=== PATIENT | male | born 1965 | race African-American/Black ===

== ENCOUNTER 2017-02-28 15:29 | Emergency (ER) | payer SELFPAY ==
[~2017-02-28] VITALS: Ht 180.3 cm; Wt 88.0 kg
[~2017-02-28 15:29] MED LIST: ASPI-110 PO; CARV3.125 PO; CLOP75 PO; FURO20 PO; FURO20TA PO; LIPI40TA PO; LISI-519 PO; LISI5 PO; PLAV75TA29 PO
[2017-02-28 15:33] VITALS: BP 111/77; PULSE 103; RESP 13; TEMP 98.7; O2SAT 100
[2017-02-28] MEDS ORDERED: FUROSEMIDE 40 MG/4 ML VIAL IVP ONE (16:30)
[2017-02-28] MEDS ORDERED: SODIUM CHLORIDE 0.9% FLUSH 10 ML FLUSH IVF PRN (16:30)
--- NOTE | 2017-02-28 16:54 | RADRPT ---
EXAM DATE/TIME: 02/28/2017 16:36 [facility] COMPARISON: CHEST SINGLE AP, March 20, 2016, 16:08. INDICATIONS : Shortness of breath. MEDICAL HISTORY : None. SURGICAL HISTORY : None. ENCOUNTER: Initial ACUITY: 1 day PAIN SCORE: 0/10 LOCATION: Bilateral chest FINDINGS: Portable AP view of the chest demonstrates mild enlargement of the cardiac silhouette. Subtle perihil ar and lower lung zone interstitial opacity is present. No airspace consolidation, effusion, or pneum othorax is visualized. The bones and soft tissues demonstrate no acute finding. CONCLUSION: 1. Subtle perihilar and lower lung zone interstitial opacity could represent mild interstitial edema in the appropriate clinical setting. 2. Mildly enlarged cardiac silhouette. Wing Aguilar MD on February 28, 2017 at 16:51 Board Certified Radiologist. This report was verified electronically.
[2017-02-28 17:01] LABS: BASOPHIL # 0.1 TH/MM3 (0-0.2); BASOPHIL % 1.3 % (0.0-2.0); EOSINOPHIL # 0.2 TH/MM3 (0-0.4); EOSINOPHIL % 5.5 % (0.0-4.0); HEMATOCRIT 34.9 % (39.0-51.0); HEMO FLAGS DIFF FINAL; LYMPH % 28.9 % (9.0-44.0); LYMPHOCYTE # 1.2 TH/MM3 (1.0-4.8); MEAN CELL VOLUME 73.5 FL (80.0-100.0); MEAN CORPUSCULAR HEMOGLOBIN 23.4 PG (27.0-34.0); MEAN CORPUSCULAR HGB CONC 31.8 % (32.0-36.0); MONO % 14.3 % (0.0-8.0); PLATELET COUNT 198 TH/MM3 (150-450); RED BLOOD COUNT 4.75 MIL/MM3 (4.50-5.90); RED CELL DISTRIBUTION WIDTH 18.9 % (11.6-17.2); WHITE BLOOD COUNT 4.1 TH/MM3 (4.0-11.0)
[2017-02-28 17:16] LABS: ALT (GPT) 53 U/L (12-78); ANION GAP 7 MEQ/L (5-15); AST (GOT) 30 U/L (15-37); BICARBONATE 24.8 MEQ/L (21.0-32.0); BLOOD UREA NITROGEN 16 MG/DL (7-18); CHLORIDE 109 MEQ/L (98-107); GLOMERULAR FILTRATION RATE 88 ML/MIN (>89); MAGNESIUM 1.9 MG/DL (1.5-2.5); POTASSIUM 4.2 MEQ/L (3.5-5.1); SODIUM (NA) 141 MEQ/L (136-145)
[2017-02-28 17:20] LABS: ALKALINE PHOSPHATASE 83 U/L (45-117); TOTAL BILIRUBIN ADULT 1.5 MG/DL (0.2-1.0)
[2017-02-28 17:30] VITALS: RESP 18
--- NOTE | 2017-02-28 17:53 | RADRPT ---
EXAM DATE/TIME: 02/28/2017 17:25 [facility] COMPARISON: No previous studies available for comparison. INDICATIONS : Bilateral leg edema. MEDICAL HISTORY : Myocardial infarction. Coronary artery disease. Hyperlipidemia. Chest pain. HTN. GERD. Anticoagulan t therapy, Plavix. SURGICAL HISTORY : Coronary artery stent. Cardiac stents x4. ENCOUNTER: Initial ACUITY: 1 week PAIN SCORE: 5/10 LOCATION: Bilateral leg. TECHNIQUE: Venous ultrasound of the left and right leg was performed from the inguinal ligament to the proximal calf. Real-time, color Doppler and spectral tracing, compression and augmentation techniques were us ed. FINDINGS: RIGHT LEG: There is normal compressibility of the deep venous system from the inguinal region to the proximal ca lf. No echogenic clot is seen in the lumen of the common femoral, femoral, popliteal, and posterior tibial veins. There is a normal response of the venous system to proximal and distal augmentation an d respiration. LEFT LEG: There is normal compressibility of the deep venous system from the inguinal region to the proximal ca lf. No echogenic clot is seen in the lumen of the common femoral, femoral, popliteal, and posterior tibial veins. There is a normal response of the venous system to proximal and distal augmentation an d respiration. CONCLUSION: No DVT is identified within either lower extremity. Wing Aguilar MD on February 28, 2017 at 17:51 Board Certified Radiologist. This report was verified electronically.
[2017-02-28] MEDS ORDERED: FURO1TAB62 PO (18:11)
[2017-02-28] MEDS ORDERED: POTA-163 PO (18:11)
--- NOTE | 2017-02-28 18:12 | PD ---
HPI Chief Complaint: Edema Time Seen by Provider: 16:04 Travel History International Travel<30 days: No Contact w/Intl Traveler<30days: No Traveled to known affect area: No History of Present Illness HPI Is a 51-year-old man who presents to the emergency department complaining of increased bilateral lower extremity edema, orthopnea, shortness of breath, dyspnea on exertion, its been ongoing for the past month or so. He had some occasional chest tightness and pain in the left arm. He does have a history of CAD. He has a history of CHF and is on Lasix. He was seen by his primary physician and reportedly referred in to evaluate for blood clot given his lower extremity edema. He otherwise has been feeling well. History Past Medical History Narrative Medical CAD Tetanus Vaccination: Unknown Social History Alcohol Use: Yes (2 BEERS EVERY OTHER DAY) Tobacco Use: No Allergies-Medications (Allergen,Severity, Reaction): Coded Allergies: No Known Allergies (Unverified , 02/28/17) Reported Meds & Prescriptions Reported Meds & Active Scripts Active Lisinopril 5 Mg Tab 5 Mg PO DAILY Furosemide 20 Mg Tab 20 Mg PO DAILY Plavix (Clopidogrel Bisulfate) 75 Mg Tab 75 Mg PO DAILY Coreg (Carvedilol) 3.125 Mg Tab 6.25 Mg PO BID Lipitor (Atorvastatin Calcium) 40 Mg Tab 40 Mg PO HS Review of Systems Except as stated in HPI: all other systems reviewed are Neg Physical Exam Narrative GENERAL: Well-appearing 51-year-old man, no acute distress. SKIN: Focused skin assessment warm/dry. HEAD: Atraumatic. Normocephalic. EYES: Pupils equal and round. No scleral icterus. No injection or drainage. ENT: No nasal bleeding or discharge. Mucous membranes pink and moist. NECK: Trachea midline. No JVD. CARDIOVASCULAR: Regular rate and rhythm. No murmur appreciated. RESPIRATORY: No respiratory distress. Some Rales in the posterior lung woods. GASTROINTESTINAL: Abdomen soft, non-tender, nondistended. Hepatic and splenic margins not palpable. MUSCULOSKELETAL: No obvious deformities. Mild bilateral lower extremity edema. NEUROLOGICAL: Awake and alert. No obvious cranial nerve deficits. Motor grossly within normal limits. Normal speech. PSYCHIATRIC: Appropriate mood and affect; insight and judgment normal. Data Data Last Documented VS Vital Signs Date Time Temp Pulse Resp B/P Pulse Ox O2 Delivery O2 Flow Rate FiO2 02/28/17 17:30 99 02/28/17 17:30 18 02/28/17 16:16 Room Air 02/28/17 15:33 98.7 103 111/77 Orders Complete Blood Count With Diff (02/28/17 16:25) Comprehensive Metabolic Panel (02/28/17 16:25) B-Type Natriuretic Peptide (02/28/17 16:25) Magnesium (Mg) (02/28/17 16:25) Troponin I (02/28/17 16:25) Iv Access Insert/Monitor (02/28/17 16:25) Ecg Monitoring (02/28/17 16:25) Oximetry (02/28/17 16:25) Oxygen Administration (02/28/17 16:25) Chest, Single Ap (02/28/17 16:25) Sodium Chloride 0.9% Flush (Ns Flush) (02/28/17 16:30) Furosemide Inj (Lasix Inj) (02/28/17 16:30) Us Leg Venous Doppler Bilat (02/28/17 ) Labs Laboratory Tests Test 02/28/17 16:40 White Blood Count 4.1 TH/MM3 Red Blood Count 4.75 MIL/MM3 Hemoglobin 11.1 GM/DL Hematocrit 34.9 % Mean Corpuscular Volume 73.5 FL Mean Corpuscular Hemoglobin 23.4 PG Mean Corpuscular Hemoglobin 31.8 % Concent Red Cell Distribution Width 18.9 % Platelet Count 198 TH/MM3 Mean Platelet Volume 9.5 FL Neutrophils (%) (Auto) 50.0 % Lymphocytes (%) (Auto) 28.9 % Monocytes (%) (Auto) 14.3 % Eosinophils (%) (Auto) 5.5 % Basophils (%) (Auto) 1.3 % Neutrophils # (Auto) 2.0 TH/MM3 Lymphocytes # (Auto) 1.2 TH/MM3 Monocytes # (Auto) 0.6 TH/MM3 Eosinophils # (Auto) 0.2 TH/MM3 Basophils # (Auto) 0.1 TH/MM3 CBC Comment DIFF FINAL Differential Comment Sodium Level 141 MEQ/L Potassium Level 4.2 MEQ/L Chloride Level 109 MEQ/L Carbon Dioxide Level 24.8 MEQ/L Anion Gap 7 MEQ/L Blood Urea Nitrogen 16 MG/DL Creatinine 1.08 MG/DL Estimat Glomerular Filtration 88 ML/MIN Rate Random Glucose 108 MG/DL Calcium Level 8.4 MG/DL Magnesium Level 1.9 MG/DL Total Bilirubin 1.5 MG/DL Aspartate Amino Transf 30 U/L (AST/SGOT) Alanine Aminotransferase 53 U/L (ALT/SGPT) Alkaline Phosphatase 83 U/L Troponin I LESS THAN 0.02 NG/ML B-Type Natriuretic Peptide 801 PG/ML Total Protein 6.7 GM/DL Albumin 3.0 GM/DL MDM Medical Decision Making Medical Screen Exam Complete: Yes Emergency Medical Condition: Yes Interpretation(s) My review of EKG: Normal sinus rhythm at a rate of 97, leftward axis, small inferior Q waves, normal intervals, lateral T wave inversions, no definite evidence of acute ischemia. LABS: CBC is remarkable for mild anemia. CMP is unremarkable. Troponins undetectable. BNP 801 Bilateral lower extremity ultrasound negative Chest x-ray: Subtle perihilar lower zone interstitial opacity could represent mild interstitial edema. Differential Diagnosis CHF exacerbation, PE, ACS, DVT, other Narrative Course Medical decision-making this a 51-year-old male with a history of CAD, Lasix, presents with evidence of worsening volume overload. Some lower extremity edema, orthopnea, dyspnea on exertion. He looks overall well. Likely is worsening volume overload. This is been on warfarin for a month. She needs stronger diuretic. Responded well to Lasix here. He was offered admission for observation versus outpatient increasing of his diuretic. He is comfortable with outpatient treatment. I think this is reasonable and safe, and therefore preferred. We'll increase his Lasix to twice a day. We'll also add potassium. Him follow up with his primary doctor in the next one to 2 days. Diagnosis Primary Impression: CHF (congestive heart failure) Additional Instructions: Follow-up with your primary doctor in the next one to 2 days. Increase Lasix to 20 mg twice daily. Take the first dose in the morning, the second 6 hours later. Take potassium as prescribed. Return to the emergency department for any worsening chest pain, any trouble breathing, or any other new or worsening symptoms. Wait yourself daily and maintain a log. Med/Other Pt SpecificInfo: Prescription(s) given Scripts Potassium Chloride ER 20 Meq Tab20 Meq PO DAILY #7 TAB Ref 0 Prov:Nestor Menchaca MD 02/28/17 Furosemide (Lasix)20 Mg Tab20 Mg PO BID 7 Days Ref 0 Prov:Nestor Menchaca MD 02/28/17 Disposition: 01 DISCHARGE HOME Condition: Stable Nestor Menchaca MD February 28, 2017 18:12
[2017-02-28 18:16] VITALS: BP 115/71; PULSE 90; RESP 18; O2SAT 99
--- NOTE | 2017-02-28 19:48 | EKG ---
Date Performed: 02/28/2017 Time Performed: 15:57:08 PTAGE: 51 years EKG: Sinus rhythm POSSIBLE LEFT ATRIAL ENLARGEMENT LOW QRS VOLTAGE IN EXTREMITY LEADS INFERIOR MYOCARDIAL INFARCTION A BNORMAL ECG Compared to the PREVIOUS TRACING inferior Q waves now present DOCTOR: Ambika Mayorga Interpretating Date/Time 02/28/2017 19:46:52
[2017-03-09] MEDS ORDERED: FURO20TA PO (11:28)
[2017-03-09] MEDS ORDERED: POTA-163 PO (11:28)
== END 2017-02-28 18:24 | disposition home or self-care (01) ==
LOC: NEPE 15:29
DX: Z79.02 Long term (current) use of antithrombotics/antiplatelets (principal)
CPT/HCPCS: 71010; 80053; 83735; 83880; 84484; 85025; 93005; 93970; 96374; 99285; J1940

== ENCOUNTER 2017-03-13 09:19 | Observation (INO) | payer SELFPAY ==
[~2017-03-13] VITALS: Ht 180.3 cm; Wt 87.0 kg
[~2017-03-13 09:19] MED LIST changes: -CLOP75 PO; -FURO20 PO; -LISI5 PO; +POTA-163 PO
[2017-03-13 09:20] VITALS: BP 113/89; PULSE 95; RESP 16; TEMP 97.8; O2SAT 100
[2017-03-13] MEDS ORDERED: SODIUM CHLORIDE 0.9% FLUSH 10 ML FLUSH IVF PRN (10:30)
[2017-03-13] MEDS ORDERED: FUROSEMIDE 40 MG/4 ML VIAL IV PUSH ONE (10:30)
[2017-03-13 10:43] VITALS: BP_SYST 11; BP_SYST 134; BP_DIAS 78; BP_DIAS 80; PULSE 85; RESP 18; O2SAT 96
[2017-03-13 10:57] LABS: AUTOMATED NEUTROPHIL # 2.5 TH/MM3 (1.8-7.7); BASOPHIL # 0.1 TH/MM3 (0-0.2); BASOPHIL % 1.8 % (0.0-2.0); EOSINOPHIL # 0.2 TH/MM3 (0-0.4); EOSINOPHIL % 3.1 % (0.0-4.0); HEMATOCRIT 36.7 % (39.0-51.0); HEMO FLAGS DIFF FINAL; LYMPHOCYTE # 1.6 TH/MM3 (1.0-4.8); MEAN CELL VOLUME 73.6 FL (80.0-100.0); MEAN CORPUSCULAR HEMOGLOBIN 23.2 PG (27.0-34.0); MEAN CORPUSCULAR HGB CONC 31.5 % (32.0-36.0); MONO % 12.3 % (0.0-8.0); NEUT % 50.8 % (16.0-70.0); PLATELET COUNT 218 TH/MM3 (150-450); RED BLOOD COUNT 4.99 MIL/MM3 (4.50-5.90); RED CELL DISTRIBUTION WIDTH 19.4 % (11.6-17.2); WHITE BLOOD COUNT 4.9 TH/MM3 (4.0-11.0)
--- NOTE | 2017-03-13 10:57 | PD ---
HPI Chief Complaint: Edema Time Seen by Provider: 10:19 Travel History International Travel<30 days: No Contact w/Intl Traveler<30days: No Traveled to known affect area: No History of Present Illness HPI 51-year-old male came to the emergency room with history of progressively worsening shortness of breath. His is here with him as well. As per them this has been going on for past 6 weeks. Patient was seen for the exact same thing 2 weeks ago in this emergency room. At that time he had ultrasound of his lower extremities done for swelling to rule out DVT which was negative. Patient says the shortness of breath intermittently worsens.It is worse on exertion but at rest intermittently gets worse as well. He feels more comfortable sitting up than laying back. No history of fever or chills. He is coughing up bloody sputum. says that he was started on Lasix but now that' s not working either. Patient takes 20 mg once a day. He does have history of coronary artery disease and had stents put in twice. Patient is complaining of abdominal pain and points to his umbilical area. He has been nauseous. Denies any chest pain. Patient was tachypneic and tachycardic in ER. PFSH Past Medical History Narrative Medical List of his past medical, surgical, social and family history reviewed from the nursing note. Hx Anticoagulant Therapy: Yes (PLAVIX) Anxiety: No Cancer: No Cardiovascular Problems: Yes High Cholesterol: No Chest Pain: Yes Coronary Artery Disease: Yes Diabetes: No Diminished Hearing: No Endocrine: No Gastrointestinal Disorders: Yes GERD: Yes Genitourinary: No Hypertension: Yes Implanted Vascular Access Dvce: No Musculoskeletal: No Neurologic: No Psychiatric: No Reproductive: No Respiratory: No Myocardial Infarction: Yes (4 STENTS PLACED IN 2007 and 2015) Influenza Vaccination: No Past Surgical History Other Surgery: Yes (stents x2 2006) Social History Alcohol Use: No Tobacco Use: No Substance Use: Yes (THC daily) Allergies-Medications (Allergen,Severity, Reaction): Coded Allergies: No Known Allergies (Unverified , 02/28/17) Comments No known drug allergies. Reported Meds & Prescriptions Reported Meds & Active Scripts Active Narrative Medication List of his home medications reviewed from the nursing note. Review of Systems Except as stated in HPI: all other systems reviewed are Neg Physical Exam Narrative GENERAL: Awake, alert, moderate distress SKIN: Focused skin assessment warm/dry. HEAD: Atraumatic. Normocephalic. EYES: Pupils equal and round. No scleral icterus. No injection or drainage. ENT: No nasal bleeding or discharge. Mucous membranes pink and moist. NECK: Trachea midline. No JVD. CARDIOVASCULAR: Regular rate and rhythm. No murmur appreciated. RESPIRATORY: No accessory muscle use. Bilateral fine crackles up to mid chest GASTROINTESTINAL: Abdomen soft, non-tender, nondistended. Hepatic and splenic margins not palpable. MUSCULOSKELETAL: No obvious deformities. No clubbing. No cyanosis. 1+ bilateral pedal edema. NEUROLOGICAL: Awake and alert. No obvious cranial nerve deficits. Motor grossly within normal limits. Normal speech. PSYCHIATRIC: Appropriate mood and affect; insight and judgment normal. Data Data Last Documented VS Vital Signs Date Time Temp Pulse Resp B/P Pulse Ox O2 Delivery O2 Flow Rate FiO2 03/13/17 11:55 94 18 105/67 97 Room Air 03/13/17 09:20 97.8 Orders Electrocardiogram (03/13/17 10:28) Basic Metabolic Panel (Bmp) (03/13/17 10:28) B-Type Natriuretic Peptide (03/13/17 10:28) Ckmb (Isoenzyme) Profile (03/13/17 10:28) Complete Blood Count With Diff (03/13/17 10:28) D-Dimer (03/13/17 10:28) Magnesium (Mg) (03/13/17 10:28) Prothrombin Time / Inr (Pt) (03/13/17 10:28) Troponin I (03/13/17 10:28) Lipase (03/13/17 10:28) Chest, Single Ap (03/13/17 10:28) Ecg Monitoring (03/13/17 10:28) Bilateral Bp Monitoring (03/13/17 10:28) Iv Access Insert/Monitor (03/13/17 10:28) Oximetry (03/13/17 10:28) Oxygen Administration (03/13/17 10:28) Sodium Chloride 0.9% Flush (Ns Flush) (03/13/17 10:30) Furosemide Inj (Lasix Inj) (03/13/17 10:30) Ct Pulmonary Angiogram (03/13/17 ) CKMB (03/13/17 10:40) CKMB% (03/13/17 10:40) Iohexol 350 Inj (Omnipaque 350 Inj) (03/13/17 12:29) Admit Order (Ed Use Only) (03/13/17 15:08) Place In Observation (03/13/17 ) Vital Signs (Adult) Q4H (03/13/17 15:07) Activity Oob With Assistance (03/13/17 15:07) Environmental Resource Specialist / Telemetry .CONTINUOUS (03/13/17 15:07) Diet Heart Healthy (03/13/17 Dinner) Sodium Chloride 0.9% Flush (Ns Flush) (03/13/17 15:15) Sodium Chloride 0.9% Flush (Ns Flush) (03/13/17 21:00) Ondansetron Inj (Zofran Inj) (03/13/17 15:15) Comprehensive Metabolic Panel (03/14/17 06:00) Complete Blood Count With Diff (03/14/17 06:00) Enoxaparin Inj (Lovenox Inj) (03/13/17 16:00) Naloxone Inj (Narcan Inj) (03/13/17 15:15) Docusate Sodium-Senna (Porsche-Colace) (03/13/17 21:00) Magnesium Hydroxide Liq (Milk Of Magnesi (03/13/17 15:15) Sennosides (Senokot) (03/13/17 15:15) Bisacodyl Supp (Dulcolax Supp) (03/13/17 15:15) Lactulose Liq (Lactulose Liq) (03/13/17 15:15) Labs Laboratory Tests Test 03/13/17 10:40 White Blood Count 4.9 TH/MM3 Red Blood Count 4.99 MIL/MM3 Hemoglobin 11.6 GM/DL Hematocrit 36.7 % Mean Corpuscular Volume 73.6 FL Mean Corpuscular Hemoglobin 23.2 PG Mean Corpuscular Hemoglobin 31.5 % Concent Red Cell Distribution Width 19.4 % Platelet Count 218 TH/MM3 Mean Platelet Volume 9.4 FL Neutrophils (%) (Auto) 50.8 % Lymphocytes (%) (Auto) 32.0 % Monocytes (%) (Auto) 12.3 % Eosinophils (%) (Auto) 3.1 % Basophils (%) (Auto) 1.8 % Neutrophils # (Auto) 2.5 TH/MM3 Lymphocytes # (Auto) 1.6 TH/MM3 Monocytes # (Auto) 0.6 TH/MM3 Eosinophils # (Auto) 0.2 TH/MM3 Basophils # (Auto) 0.1 TH/MM3 CBC Comment DIFF FINAL Differential Comment Prothrombin Time 14.7 SEC Prothromb Time International 1.3 RATIO Ratio D-Dimer Quantitative (PE/DVT) 1.88 MG/L FEU Sodium Level 137 MEQ/L Potassium Level 4.4 MEQ/L Chloride Level 106 MEQ/L Carbon Dioxide Level 24.4 MEQ/L Anion Gap 7 MEQ/L Blood Urea Nitrogen 22 MG/DL Creatinine 0.95 MG/DL Estimat Glomerular Filtration 102 ML/MIN Rate Random Glucose 106 MG/DL Calcium Level 8.8 MG/DL Magnesium Level 1.9 MG/DL Total Creatine Kinase 145 U/L Creatine Kinase MB 2.8 NG/ML Troponin I 0.03 NG/ML B-Type Natriuretic Peptide 900 PG/ML Lipase 112 U/L [facility] Medical Decision Making Medical Screen Exam Complete: Yes Emergency Medical Condition: Yes Medical Record Reviewed: Yes Interpretation(s) Twelve-lead EKG was reviewed by me. Normal sinus rhythm, normal axis, nonspecific ST-T wave changes. Heart rate of 89 bpm. Differential Diagnosis Congestive heart failure, PE, pneumonia, pleural effusion Narrative Course 10:56 AM awaiting for the blood test results to come back. Patient falls on the low risk by Well's criteria for PE and hence I have ordered a d-dimer. Awaiting for the test results. I've ordered 40 mg of IV Lasix for him. Patient might need to be admitted since he is failing outpatient treatment at this point. 11:28 AM d-dimer is elevated. I have ordered a CT pulmonary angiogram at this point. Awaiting for the BNP. Rest of the blood test results are within acceptable limit. 3:[address] scan does not show any PE. However to show pulmonary hypertension and perihepatic ascites fluid suggestive of right-sided heart failure. I admitted the patient to the hospitalist for congestive heart failure and outpatient treatment failure. Patient says upon reassessment he is feeling better and he has put out quite a bit of urine after the IV Lasix. Procedures EKG Prior to Arrival: No Diagnosis Primary Impression: CHF (congestive heart failure) Qualified Code: I50.9 - Congestive heart failure, unspecified congestive heart failure chronicity, unspecified congestive heart failure type Additional Impression: Failure of outpatient treatment Admitting Information Admitting Physician Requests: Observation Scripts Furosemide 40 Mg Tab40 Mg PO BID@ #60 TAB Prov:TalonMarisol Fulton PA-C 03/14/17 Potassium Chloride ER 20 Meq Tab20 Meq PO BID #60 TAB Ref 0 Prov:Marisol Hanley PA-C 03/14/[address] (Aspirin 81)81 Mg Tabdr81 Mg PO DAILY #30 TAB Ref 0 Prov:TalonMarisolleo Fulton PA-C 03/14/17 Lisinopril 5 Mg Tab5 Mg PO DAILY #30 TAB Ref 1 Prov:Marisol Hanley PA-C 03/14/17 Clopidogrel (Plavix)75 Mg Tab75 Mg PO DAILY #30 TAB Ref 0 Stop taking on April 08. Prov:Marisol Hanley PA-C 03/14/17 Carvedilol (Coreg)3.125 Mg Tab3.125 Mg PO BID #60 TAB Ref 1 Prov:Marisol Hanley PA-C 03/14/17 Atorvastatin (Lipitor)40 Mg Tab40 Mg PO HS #30 TAB Ref 1 Prov:Marisol Hanley PA-C 03/14/17 Pooja Bello MD Mar 13, 2017 10:57
[2017-03-13 11:11] LABS: INTERNATIONAL NORMALIZED RATIO 1.3 RATIO; PROTHROMBIN TIME - PATIENT 14.7 SEC (9.8-11.6)
[2017-03-13 11:17] LABS: ANION GAP 7 MEQ/L (5-15); BICARBONATE 24.4 MEQ/L (21.0-32.0); BLOOD UREA NITROGEN 22 MG/DL (7-18); CHLORIDE 106 MEQ/L (98-107); GLOMERULAR FILTRATION RATE 102 ML/MIN (>89); MAGNESIUM 1.9 MG/DL (1.5-2.5); POTASSIUM 4.4 MEQ/L (3.5-5.1); SODIUM (NA) 137 MEQ/L (136-145)
[2017-03-13 11:20] LABS: CREATINE KINASE 145 U/L (39-308)
[2017-03-13 11:39] LABS: CKMB 2.8 NG/ML (0.5-3.6)
[2017-03-13 11:55] VITALS: BP 105/67; PULSE 94; RESP 18; O2SAT 97
--- NOTE | 2017-03-13 12:14 | RADRPT ---
EXAM DATE/TIME: 03/13/2017 10:35 [facility] COMPARISON: CHEST SINGLE AP, February 28, 2017, 16:36. INDICATIONS : Chest pain. MEDICAL HISTORY : Cardiovascular disease. SURGICAL HISTORY : Coronary artery stent. ENCOUNTER: Initial ACUITY: 1 week PAIN SCORE: 4/10 LOCATION: Bilateral chest FINDINGS: The heart is enlarged. The lungs are clear. There is no pleural effusion. The visualized bony structu res are intact. CONCLUSION: 1. Cardiomegaly. Stable compared to previous. Lico Wagner MD on March 13, 2017 at 10:44 Board Certified Radiologist. This report was verified electronically.
[2017-03-13] MEDS ORDERED: IOHEXOL 350 MG/ML 10 ML VIAL (for RAD DIAG) IV ONE (12:29)
--- NOTE | 2017-03-13 13:01 | RADRPT ---
EXAM DATE/TIME: 03/13/2017 12:19 [facility] COMPARISON: No previous studies available for comparison. INDICATIONS : General edema, shortness of breath, weakness. IV CONTRAST: 77 cc Omnipaque 350 (iohexol) IV RADIATION DOSE: 23.49 CTDIvol (mGy) MEDICAL HISTORY : Cardiovascular disease. Hypertension. SURGICAL HISTORY : None. ENCOUNTER: Initial ACUITY: 1 day PAIN SCALE: 0/10 LOCATION: Left chest TECHNIQUE: Volumetric scanning of the chest was performed using a pulmonary embolism protocol MIP images were re constructed. Using automated exposure control and adjustment of the mA and/or kV according to patien t size, radiation dose was kept as low as reasonably achievable to obtain optimal diagnostic quality images. FINDINGS: PULMONARY ARTERIES: The pulmonary arteries are visualized to the proximal subsegmental level only. There is moderate refl ux of contrast into the hepatic IVC are with significant retention in the right ventricle. There is a lso enlargement of the main pulmonary artery which measures up to 4 cm. Overall findings are most con sistent with pulmonary artery hypertension and right heart dysfunction. No focal filling defect is no mert in the visualized portions of the pulmonary arteries. Although suboptimally visualized, several s ubsegmental branches in the lower lobes appear abruptly terminated. LUNGS: Upper lobe predominant paraseptal and centrilobular emphysema. Minimal groundglass opacities at the l benjamin bases likely reflect atelectasis. PLEURAE: Small bilateral pleural effusions. MEDIASTINUM: Four-chamber cardiac enlargement. Dense coronary artery calcifications. No pericardial effusion. Subc entimeter bilateral hilar and mediastinal nodes which do not meet CT size criteria. MUSCULOSKELETAL: Within normal limits for patient age. No focal lesion. MISCELLANEOUS: Trace perihepatic ascites. Otherwise grossly unremarkable visualized upper abdomen. CONCLUSION: 1. Findings consistent with pulmonary artery hypertension and right heart dysfunction, as above. 2. Suboptimal visualization of the subsegmental pulmonary artery branches. No central pulmonary embol i. More distal subsegmental branches are suboptimally visualized for definitive diagnosis although se veral lower lobe branches appear to abruptly terminate which may be seen with chronic pulmonary embol ism in the appropriate clinical setting. 3. Mild paraseptal and upper lobe predominant centrilobular emphysema. 4. Bilateral small pleural effusions and trace perihepatic ascites. 5. Dense coronary artery calcifications Angel Whalen MD on March 13, 2017 at 12:47 Board Certified Radiologist. This report was verified electronically.
[2017-03-13] MEDS ORDERED: SODIUM CHLORIDE 0.9% FLUSH 10 ML FLUSH IV FLUSH PRN (15:15)
[2017-03-13] MEDS ORDERED: ONDANSETRON HCL 4 MG/2 ML VIAL IVP PRN (15:15)
[2017-03-13] MEDS ORDERED: NALOXONE HCL 0.4 MG/ML AMP IV PRN (15:15)
[2017-03-13] MEDS ORDERED: SENNOSIDES 8.6 MG TAB PO PRN (15:15)
[2017-03-13] MEDS ORDERED: BISACODYL 10 MG SUPP RECTAL PRN (15:15)
[2017-03-13] MEDS ORDERED: LACTULOSE SYRUP 20 GM/30 ML CUP PO PRN (15:15)
[2017-03-13] MEDS ORDERED: MAGNESIUM HYDROXIDE SUSP 30 ML CUP PO PRN (15:15)
--- NOTE | 2017-03-13 15:15 | HHI.HP ---
cc: Piper Kowalski MD [facility] Service [facility] Hospitalists Primary Care Physician Cheryl Galindo MD Admission Diagnosis congestive heart failure, outpatient treatment failure Diagnoses: Chief Complaint: shortness of breath Travel History International Travel<30 Days: No Contact w/Intl Traveler <30 Da: No Traveled to Known Affected Are: No History of Present Illness Written by Marisol Hanley, acting as scribe for Dr. Mosqueda on 03/13/17 at 15:33. 51-year-old male with history of CAD s/p stents x4, CHF, HTN, and GERD, presents with a 2 day history of worsening shortness of breath. The patient reports history of [place] x2 with total of 4 cardiac stents placed, last heart cath in March 2016. He was diagnosed with congestive heart failure at that time with EF 35% and placed on [id number] daily at discharge. He reports over the past multiple months he has been battling shortness of breath and leg swelling. He presented to [facility] on 02/28, diagnosed with CHF exacerbation, sent home on increased dose of Lasix to 20mg twice a day for 1 week. The patient took the 1 week of increased Lasix dose then went back to his regular once daily dosing a few days ago and noticed his symptoms have become significantly worse. He reports severe dyspnea on exertion; he can only walk a few steps before becoming dyspneic, improves with rest. He also has persistent leg swelling around the ankles. Denies ever having any chest pains. Denies any orthopnea. He reports a dry nonproductive cough. Denies fevers/chills. He does admit to poor diet, only eating one meal a day; he doesn't add salt to his meals but does eat canned foods frequently. He does not monitor his fluid intake. He does monitor his weight and believes he has been gaining weight recently, unable to quantify. Currently the patient is seen in the ER s/p IV Lasix 40mg. He feels much better however still dyspneic therefore will be admitted to observation for further diuresis and cardiology consultation. His financial project manager is Dr. Kowalski. Review of Systems Except as stated in HPI: all other systems reviewed are Neg Past Family Social History Past Medical History CAD with stents x4 CHF with EF 35% Hypertension GERD Past Surgical History Cardiac catheterization with 2 stents placed in 2007 and 2 placed in 2016 Reported Medications Potassium Chloride ER (Potassium Chloride) 20 Meq Tab 20 Meq PO DAILY Furosemide 20 Mg Tab 20 Mg PO DAILY Aspirin 81 (Aspirin) 81 Mg Tabdr 81 Mg PO DAILY Lisinopril 5 Mg Tab 5 Mg PO DAILY Plavix (Clopidogrel Bisulfate) 75 Mg Tab 75 Mg PO DAILY Coreg (Carvedilol) 3.125 Mg Tab 6.25 Mg PO BID Lipitor (Atorvastatin Calcium) 40 Mg Tab 40 Mg PO HS Allergies: Coded Allergies: No Known Allergies (Unverified , 02/28/17) Active Ordered Medications Current Medications Medications (Trade) Dose Ordered Sig/Gela Route Start Time Stop Time Status Last Admin (NS Flush) 2 ml UNSCH PRN IV FLUSH 03/13/17 15:15 UNV (NS Flush) 2 ml BID IV FLUSH 03/13/17 21:00 UNV (Zofran Inj) 4 mg Q6H PRN IVP 03/13/17 15:15 UNV (Lovenox Inj) 40 mg Q24H SQ 03/13/17 15:15 UNV (Narcan Inj) 0.4 mg UNSCH PRN IV 03/13/17 15:15 UNV (Porsche-Colace) 1 tab BID PO 03/13/17 21:00 UNV (Milk Of Magnesia Liq) 30 ml Q12H PRN PO 03/13/17 15:15 UNV (Senokot) 17.2 mg Q12H PRN PO 03/13/17 15:15 UNV (Dulcolax Supp) 10 mg DAILY PRN RECTAL 03/13/17 15:15 UNV (Lactulose Liq) 30 ml DAILY PRN PO 03/13/17 15:15 UNV Family History Denies any family history of heart disease or diabetes. Social History Denies any recent tobacco, alcohol, or illicit drug use. Remote history of tobacco use 1-2 cigarettes/day, quit many years ago Physical Exam Vital Signs Vital Signs Date Time Temp Pulse Resp B/P Pulse Ox O2 Delivery O2 Flow Rate FiO2 03/13/17 11:55 94 18 105/67 97 Room Air 03/13/17 10:43 85 111/78 134/80 03/13/17 10:43 18 96 Room Air 03/13/17 10:43 96 Room Air 03/13/17 09:48 92 24 95 03/13/17 09:20 97.8 95 16 113/89 100 Physical Exam GENERAL: Well-nourished, well-developed pleasant middle aged AA male patient in [facility]. SKIN: Warm and dry. No rash. HEAD: Normocephalic. Atraumatic. EYES: Pupils equal and round. No scleral icterus. No injection or drainage. ENT: No nasal bleeding or discharge. Mucous membranes pink and moist. NECK: Supple. Trachea midline. CARDIOVASCULAR: Regular rate and rhythm. S1, S2 noted. No murmur appreciated. RESPIRATORY: No accessory muscle use. Crackles auscultated up to mid lung bilaterally. Breath sounds equal bilaterally. GASTROINTESTINAL: Abdomen soft, non-tender, nondistended. Normoactive bowel sounds x4. MUSCULOSKELETAL: No obvious deformities. 1+ bilateral lower extremity edema around the ankles. NEUROLOGICAL: Awake and alert. No obvious cranial nerve deficits. Motor grossly within normal limits. Normal speech. PSYCHIATRIC: Appropriate mood and affect; insight and judgment normal. Laboratory Laboratory Tests Test 03/13/17 10:40 White Blood Count 4.9 Red Blood Count 4.99 Hemoglobin 11.6 Hematocrit 36.7 Mean Corpuscular Volume 73.6 Mean Corpuscular Hemoglobin 23.2 Mean Corpuscular Hemoglobin 31.5 Concent Red Cell Distribution Width 19.4 Platelet Count 218 Mean Platelet Volume 9.4 Neutrophils (%) (Auto) 50.8 Lymphocytes (%) (Auto) 32.0 Monocytes (%) (Auto) 12.3 Eosinophils (%) (Auto) 3.1 Basophils (%) (Auto) 1.8 Neutrophils # (Auto) 2.5 Lymphocytes # (Auto) 1.6 Monocytes # (Auto) 0.6 Eosinophils # (Auto) 0.2 Basophils # (Auto) 0.1 CBC Comment DIFF FINAL Differential Comment Prothrombin Time 14.7 Prothromb Time International 1.3 Ratio D-Dimer Quantitative (PE/DVT) 1.88 Sodium Level 137 Potassium Level 4.4 Chloride Level 106 Carbon Dioxide Level 24.4 Anion Gap 7 Blood Urea Nitrogen 22 Creatinine 0.95 Estimat Glomerular Filtration 102 Rate Random Glucose 106 Calcium Level 8.8 Magnesium Level 1.9 Total Creatine Kinase 145 Creatine Kinase MB 2.8 Troponin I 0.03 B-Type Natriuretic Peptide 900 Lipase 112 Result Diagram: 03/13/17 1040 03/13/17 1040 Imaging Last Impressions Chest X-Ray 03/13/17 1028 Signed Impressions: Service Date/Time: Monday, March 13, 2017 10:35 - CONCLUSION: 1. Cardiomegaly. Stable compared to previous. Lico Wagner MD CT Angiography 03/13/17 0000 Signed Impressions: Service Date/Time: Monday, March 13, 2017 12:19 - CONCLUSION: 1. Findings consistent with pulmonary artery hypertension and right heart dysfunction, as above. 2. Suboptimal visualization of the subsegmental pulmonary artery branches. No central pulmonary emboli. More distal subsegmental branches are suboptimally visualized for definitive diagnosis although several lower lobe branches appear to abruptly terminate which may be seen with chronic pulmonary embolism in the appropriate clinical setting. 3. Mild paraseptal and upper lobe predominant centrilobular emphysema. 4. Bilateral small pleural effusions and trace perihepatic ascites. 5. Dense coronary artery calcifications Angel Whalen MD Assessment and Plan Problem List: (1) Acute on chronic systolic CHF (congestive heart failure) ICD Code: I50.23 Status: Acute (2) Failure of outpatient treatment ICD Code: Z78.9 Status: Acute (3) HTN (hypertension) ICD Code: I10 Status: Acute (4) CAD (coronary artery disease) ICD Code: I25.10 Status: Chronic Assessment and Plan 51-year-old male with history of CAD s/p stents x4, CHF, HTN, and GERD, presents with a 2 day history of worsening shortness of breath. Acute Exacerbation of Chronic Systolic CHF, Failed Outpatient Treatment: secondary to ischemic cardiomyopathy. Last EF 35% on cardiac cath March2016. BNP 900. D-dimer elevated. CT-PA images reviewed, shows findings consistent with pulmonary arterial hypertension and right heart dysfunction; no Pulmonary Embolism; bilateral small pleural effusions, and trace perihepatic ascites; dense coronary artery calcifications. S/p IV Lasix 40mg x1 in the ED with mild improvement. -Continue IV Lasix 40mg bid with KCl replacement -Monitor strict Is&Os -Monitor on telemetry -Continue patient's aspirin, plavix, lisinopril, coreg, statin -Consult financial project manager Dr. Kowalski CAD s/p Stents: chronic, no complaints of chest pain -troponin wnl -EKG without acute ischemic changes -continue patient's aspirin, plavix, statin Hypertension: chronic, BP wnl -continue patient's lisinopril, coreg -monitor BP, adjust antihypertensives as needed DVT Prophylaxis: Lovenox This note was transcribed by scribe [Marisol Hanley PA-C]. I, Dr. Lico Mosqueda personally performed the history, physical exam, and medical decision making; and confirmed the accuracy of the information in the transcribed note. Authenticated by Dr. Lico Mosqueda on 03/13/17 at 17:28. Discussed Condition With ER MD, Patient Marisol Hanley PA-C Mar 13, 2017 15:14 Lico Mosqueda MD Mar 13, 2017 17:28
[2017-03-13 16:06] VITALS: BP 111/67; PULSE 89; RESP 18; O2SAT 97
[2017-03-13] MEDS: POTASSIUM CHLORIDE 20 MEQ CONTROLLED RELEASE TAB PO SCH (17:11)
[2017-03-13] MEDS: FUROSEMIDE 40 MG/4 ML VIAL IV PUSH SCH (17:11)
[2017-03-13] MEDS: ENOXAPARIN SODIUM 40 MG/0.4 ML SYRINGE SQ SCH (17:11)
[2017-03-13 17:14] VITALS: PULSE 79
[2017-03-13 19:15] VITALS: BP 107/78; PULSE 78; RESP 18; TEMP 97.8; O2SAT 97
[2017-03-13] MEDS: CARVEDILOL 6.25 MG TAB PO SCH (20:00)
[2017-03-13] MEDS: DOCUSATE SODIUM 50 MG/SENNA 8.6 MG TAB PO SCH (20:00)
[2017-03-13] MEDS: SODIUM CHLORIDE 0.9% FLUSH 10 ML FLUSH IV FLUSH SCH (20:00)
[2017-03-13] MEDS ORDERED: CARVEDILOL 3.125 MG TAB PO SCH (21:00)
[2017-03-13] MEDS ORDERED: ATORVASTATIN 40 MG TAB PO SCH (21:00)
[2017-03-14] VITALS (7 sets, daily range): BP systolic 85–111; BP diastolic 53–73; PULSE 77–96; RESP 17–22; TEMP 97.9–98.5; O2SAT 91–100
[2017-03-14 05:09] LABS: AUTOMATED NEUTROPHIL # 2.7 TH/MM3 (1.8-7.7); BASOPHIL # 0.1 TH/MM3 (0-0.2); BASOPHIL % 1.9 % (0.0-2.0); EOSINOPHIL # 0.1 TH/MM3 (0-0.4); EOSINOPHIL % 2.6 % (0.0-4.0); HEMATOCRIT 37.3 % (39.0-51.0); HEMO FLAGS DIFF FINAL; LYMPH % 32.1 % (9.0-44.0); LYMPHOCYTE # 1.7 TH/MM3 (1.0-4.8); MEAN CELL VOLUME 72.6 FL (80.0-100.0); MEAN CORPUSCULAR HEMOGLOBIN 22.6 PG (27.0-34.0); MEAN CORPUSCULAR HGB CONC 31.1 % (32.0-36.0); MONO % 11.4 % (0.0-8.0); PLATELET COUNT 221 TH/MM3 (150-450); RED BLOOD COUNT 5.13 MIL/MM3 (4.50-5.90); RED CELL DISTRIBUTION WIDTH 19.3 % (11.6-17.2); WHITE BLOOD COUNT 5.2 TH/MM3 (4.0-11.0)
[2017-03-14 05:39] LABS: ANION GAP 8 MEQ/L (5-15); AST (GOT) 32 U/L (15-37); BICARBONATE 29.2 MEQ/L (21.0-32.0); BLOOD UREA NITROGEN 19 MG/DL (7-18); CHLORIDE 103 MEQ/L (98-107); GLOMERULAR FILTRATION RATE 92 ML/MIN (>89); POTASSIUM 3.8 MEQ/L (3.5-5.1); SODIUM (NA) 140 MEQ/L (136-145)
[2017-03-14 05:42] LABS: ALKALINE PHOSPHATASE 80 U/L (45-117); ALT (GPT) 52 U/L (12-78); LDL CHOLESTEROL 82 MG/DL (0-99); TOTAL BILIRUBIN ADULT 2.3 MG/DL (0.2-1.0)
--- NOTE | 2017-03-14 07:19 | MB ---
cc: JODY VERNON MD DATE OF CONSULTATION 03/13/2017 REASON FOR CONSULTATION CHF HISTORY OF PRESENT ILLNESS Mr. Medina is a 51-year-old man who had an ST elevation RI approximately one year ago at which time he underwent thrombectomy and stenting of the obtuse marginal. His EF was 35%. The patient did follow with me initially, but then was lost to follow up. He reports that he had been doing well and has been able to stay on his medications including Lasix. He notes he has been working a lot of hours and essentially drinking more fluid recently. He subsequently has had some progressive shortness of breath over the last two months. PAST MEDICAL HISTORY Significant for: 1. ST elevation RI with an OM stent 2. CHF with an EF of 35% 3. Hypertension 4. Hyperlipidemia 5. GERD 6. CAD with stenting of the obtuse marginal with a 2.75 x 14 mm Resolute stent postdilated to 4.0. He had a subsequent stent of his RCA which was 3.0 x 18 mm Integrity stent postdilated to 3.3 mm. OUTPATIENT MEDICATIONS Include: 1. Lasix 20 mg a day 2. Potassium 20 mg a day 3. Aspirin 4. Lisinopril 5 mg a day 5. Plavix 75 mg a day 6. Coreg 6.25 mg b.i.d. 7. Atorvastatin 40 mg q. day. SOCIAL HISTORY The patient does not drink or smoke, although he is a former smoker. 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 PHYSICAL EXAM VITAL SIGNS: 94, 18, 111/78. GENERAL: He is a well-appearing man who is in no apparent distress. NECK: His neck is free from JVD. LUNGS: The lungs have some bibasilar rales. CARDIOVASCULAR: On examination, he has a normal S1 and S2. I did not appreciate any murmurs, rubs or gallops. ABDOMEN: The abdomen is soft. EXTREMITIES: The extremities are free from edema. LABORATORY VALUES Significant for a BNP of 900 and a troponin of 0.03. IMPRESSIONS Systolic heart failure - The patient does have a history of previous STEMI. He has had some dietary indiscretion with his fluid. At this point, he is responding well to diuresis. We will obviously continue this. An echocardiogram will be requested. The patient will continue on the beta keagan and BRANDON inhibitor. CAD - The patient can discontinue his Plavix essentially at the end of the month. Dyslipidemia - The patient continued on his statin. I will check fasting lipids in a.m.. Marika Lee/DJL /7:06 PM /7:09 AM
[2017-03-14] MEDS ORDERED: ASPIRIN EC 81 MG TABEC PO SCH (09:00)
[2017-03-14] MEDS ORDERED: CLOPIDOGREL 75 MG TAB PO SCH (09:00)
[2017-03-14] MEDS ORDERED: LISINOPRIL 5 MG TAB PO SCH (09:00)
[2017-03-14] MEDS: FUROSEMIDE 40 MG/4 ML VIAL IV PUSH SCH (09:35)
[2017-03-14] MEDS: CARVEDILOL 6.25 MG TAB PO SCH (09:35)
[2017-03-14] MEDS: SODIUM CHLORIDE 0.9% FLUSH 10 ML FLUSH IV FLUSH SCH (09:35)
[2017-03-14] MEDS: POTASSIUM CHLORIDE 20 MEQ CONTROLLED RELEASE TAB PO SCH ×2 (09:36→18:01)
[2017-03-14] MEDS: DOCUSATE SODIUM 50 MG/SENNA 8.6 MG TAB PO SCH (09:36)
--- NOTE | 2017-03-14 11:17 | HHI.PR ---
Subjective Remarks Follow up for CHF exacerbation. The patient reports feeling much better today. He denies any shortness of breath at rest, felt slightly dyspneic upon ambulation but was able to walk to the restroom and back without difficulty. Denies any chest pain or cough. He believes his leg swelling has improved. He states he was finally able to get some restful sleep last night which was the first time in over a week. He feels comfortable for discharge later today. Objective Vitals Vital Signs Date Time Temp Pulse Resp B/P Pulse Ox O2 Delivery O2 Flow Rate FiO2 03/14/17 09:30 98.0 83 18 99/59 100 03/14/17 04:11 98.5 80 22 111/63 99 03/14/17 03:02 85 03/14/17 00:53 98.5 77 18 105/69 99 03/13/17 19:15 97.8 78 18 107/78 97 03/13/17 17:14 79 03/13/17 16:06 89 18 111/67 97 Room Air 03/13/17 11:55 94 18 105/67 97 Room Air I/O 03/13/17 03/13/17 03/13/17 03/14/17 03/14/17 03/14/17 07:00 15:00 23:00 07:00 15:00 23:00 Intake Total 250 ml Output Total 200 ml 900 ml Balance 50 ml -900 ml Intake Oral 250 ml Output Urine Total 200 ml 900 ml Result Diagram: 03/14/17 0414 03/14/17 0414 Imaging Last Impressions Chest X-Ray 03/13/17 1028 Signed Impressions: Service Date/Time: Monday, March 13, 2017 10:35 - CONCLUSION: 1. Cardiomegaly. Stable compared to previous. Lico Wagner MD CT Angiography 03/13/17 0000 Signed Impressions: Service Date/Time: Monday, March 13, 2017 12:19 - CONCLUSION: 1. Findings consistent with pulmonary artery hypertension and right heart dysfunction, as above. 2. Suboptimal visualization of the subsegmental pulmonary artery branches. No central pulmonary emboli. More distal subsegmental branches are suboptimally visualized for definitive diagnosis although several lower lobe branches appear to abruptly terminate which may be seen with chronic pulmonary embolism in the appropriate clinical setting. 3. Mild paraseptal and upper lobe predominant centrilobular emphysema. 4. Bilateral small pleural effusions and trace perihepatic ascites. 5. Dense coronary artery calcifications Angel Whalen MD Objective Remarks GENERAL: Well-nourished, well-developed pleasant middle aged AA male patient in [facility]. SKIN: Warm and dry. No rash. HEAD: Normocephalic. Atraumatic. EYES: Pupils equal and round. No scleral icterus. No injection or drainage. ENT: No nasal bleeding or discharge. Mucous membranes pink and moist. NECK: Supple. Trachea midline. CARDIOVASCULAR: Regular rate and rhythm. S1, S2 noted. No murmur appreciated. RESPIRATORY: No accessory muscle use. Minimal crackles at right base, much improved, otherwise clear to auscultation. Breath sounds equal bilaterally. GASTROINTESTINAL: Abdomen soft, non-tender, nondistended. Normoactive bowel sounds x4. MUSCULOSKELETAL: No obvious deformities. Trace bilateral lower extremity edema around the ankles, much improved. NEUROLOGICAL: Awake and alert. No obvious cranial nerve deficits. Motor grossly within normal limits. Normal speech. PSYCHIATRIC: Appropriate mood and affect; insight and judgment normal. Medications and IVs Current Medications Medications (Trade) Dose Ordered Sig/Gela Route Start Time Stop Time Status Last Admin (NS Flush) 2 ml UNSCH PRN IV FLUSH 03/13/17 15:15 (NS Flush) 2 ml BID IV FLUSH 03/13/17 21:00 03/14/17 09:35 (Zofran Inj) 4 mg Q6H PRN IVP 03/13/17 15:15 (Lovenox Inj) 40 mg Q24H SQ 03/13/17 16:00 03/13/17 17:11 (Narcan Inj) 0.4 mg UNSCH PRN IV 03/13/17 15:15 (Porsche-Colace) 1 tab BID PO 03/13/17 21:00 03/14/17 09:36 (Milk Of Magnesia Liq) 30 ml Q12H PRN PO 03/13/17 15:15 (Senokot) 17.2 mg Q12H PRN PO 03/13/17 15:15 (Dulcolax Supp) 10 mg DAILY PRN RECTAL 03/13/17 15:15 (Lactulose Liq) 30 ml DAILY PRN PO 03/13/17 15:15 (Lasix Inj) 40 mg BID@,18 IV PUSH 03/13/17 18:00 03/14/17 09:35 (Ecotrin Ec) 81 mg DAILY PO 03/14/17 09:00 03/14/17 09:36 (Lipitor) 40 mg HS PO 03/13/17 21:00 03/13/17 20:00 (Prinivil) 5 mg DAILY PO 03/14/17 09:00 (KCl) 20 meq BID@,18 PO 03/13/17 18:00 03/14/17 09:36 (Plavix) 75 mg DAILY PO 03/14/17 09:00 03/14/17 09:36 (Coreg) 6.25 mg BID PO 03/13/17 21:00 03/14/17 09:35 A/P Problem List: (1) Acute on chronic systolic CHF (congestive heart failure) ICD Code: I50.23 Status: Acute (2) Failure of outpatient treatment ICD Code: Z78.9 Status: Acute (3) HTN (hypertension) ICD Code: I10 Status: Acute (4) CAD (coronary artery disease) ICD Code: I25.10 Status: Chronic Assessment and Plan 51-year-old male with history of CAD s/p stents x4, CHF, HTN, and GERD, presents with a 2 day history of worsening shortness of breath. Acute Exacerbation of Chronic Systolic CHF, Failed Outpatient Treatment: secondary to ischemic cardiomyopathy. Last EF 35% on cardiac cath March2016. BNP 900. D-dimer elevated. CT-PA images reviewed, shows findings consistent with pulmonary arterial hypertension and right heart dysfunction; no Pulmonary Embolism; bilateral small pleural effusions, and trace perihepatic ascites; dense coronary artery calcifications. S/p IV Lasix 40mg x1 in the ED with mild improvement. -Continue IV Lasix 40mg bid with KCl replacement -Monitor strict Is&Os, patient diuresing well -Monitor on telemetry -Continue patient's aspirin, plavix, lisinopril, coreg, statin -Consult surgical orderly Dr. Kowalski -checking echocardiogram CAD s/p Stents: chronic, no complaints of chest pain -troponin wnl -EKG without acute ischemic changes -continue patient's aspirin, plavix, statin -per cardiology, patient may discontinue Plavix at the end of this month Hypertension: chronic, BP wnl -continue patient's lisinopril, coreg -monitor BP, adjust antihypertensives as needed DVT Prophylaxis: Lovenox Discharge Planning Await echocardiogram results. Possible discharge later today. Marisol Hanley PA-C Mar 14, 2017 11:17 am
--- NOTE | 2017-03-14 16:20 | EKG ---
Date Performed: 03/13/2017 Time Performed: 09:48:29 PTAGE: 51 years EKG: Sinus rhythm POSSIBLE LEFT ATRIAL ENLARGEMENT LOW QRS VOLTAGE IN EXTREMITY LEADS NONSPECIFIC T-WAVE ABNORMALITY B ORDERLINE ECG Since PREVIOUS TRACING , no significant change noted PREVIOUS TRACIN02/28/2017 15.57 DOCTOR: Piper Kowalski Interpretating Date/Time 03/14/2017 16:18:29
--- NOTE | 2017-03-14 16:54 | PD.CARD.PN ---
Subjective Subjective Remarks Pt without complaints Objective Medications Current Medications Medications (Trade) Dose Ordered Sig/Gela Route Start Time Stop Time Status Last Admin (NS Flush) 2 ml UNSCH PRN IV FLUSH 03/13/17 15:15 (NS Flush) 2 ml BID IV FLUSH 03/13/17 21:00 03/14/17 09:35 (Zofran Inj) 4 mg Q6H PRN IVP 03/13/17 15:15 (Lovenox Inj) 40 mg Q24H SQ 03/13/17 16:00 03/13/17 17:11 (Narcan Inj) 0.4 mg UNSCH PRN IV 03/13/17 15:15 (Porsche-Colace) 1 tab BID PO 03/13/17 21:00 03/14/17 09:36 (Milk Of Magnesia Liq) 30 ml Q12H PRN PO 03/13/17 15:15 (Senokot) 17.2 mg Q12H PRN PO 03/13/17 15:15 (Dulcolax Supp) 10 mg DAILY PRN RECTAL 03/13/17 15:15 (Lactulose Liq) 30 ml DAILY PRN PO 03/13/17 15:15 (Lasix Inj) 40 mg BID@18 IV PUSH 03/13/17 18:00 03/14/17 09:35 (Ecotrin Ec) 81 mg DAILY PO 03/14/17 09:00 03/14/17 09:36 (Lipitor) 40 mg HS PO 03/13/17 21:00 03/13/17 20:00 (Prinivil) 5 mg DAILY PO 03/14/17 09:00 (KCl) 20 meq BID@,18 PO 03/13/17 18:00 03/14/17 09:36 (Plavix) 75 mg DAILY PO 03/14/17 09:00 03/14/17 09:36 (Coreg) 3.125 mg BID PO 03/14/17 21:00 Vital Signs / I&O Vital Signs Date Time Temp Pulse Resp B/P Pulse Ox O2 Delivery O2 Flow Rate FiO2 03/14/17 15:54 97.9 85 17 100/70 91 03/14/17 11:54 98.0 86 20 85/53 95 03/14/17 09:30 98.0 83 18 99/59 100 03/14/17 04:11 98.5 80 22 111/63 99 03/14/17 03:02 85 03/14/17 00:53 98.5 77 18 105/69 99 03/13/17 19:15 97.8 78 18 107/78 97 03/13/17 17:14 79 I/O 03/13/17 03/13/17 03/13/17 03/14/17 03/14/17 03/14/17 07:00 15:00 23:00 07:00 15:00 23:00 Intake Total 250 ml Output Total 200 ml 900 ml Balance 50 ml -900 ml Intake Oral 250 ml Output Urine Total 200 ml 900 ml Physical Exam GENERAL: Well developed, well nourished. No acute distress. HEENT: Jugular venous pressure is normal. CHEST: Lungs clear to auscultation bilaterally. Unlabored respiratory effort. CARDIAC: Regular rate and rhythm without S3, S4, or murmur. ABDOMEN: Soft, nontender, no hepatosplenomegaly. Bowel sounds present. EXTREMITIES: No clubbing, cyanosis, or edema. Laboratory Laboratory Tests Test 03/14/17 04:14 White Blood Count 5.2 TH/MM3 Red Blood Count 5.13 MIL/MM3 Hemoglobin 11.6 GM/DL Hematocrit 37.3 % Mean Corpuscular Volume 72.6 FL Mean Corpuscular Hemoglobin 22.6 PG Mean Corpuscular Hemoglobin 31.1 % Concent Red Cell Distribution Width 19.3 % Platelet Count 221 TH/MM3 Mean Platelet Volume 9.6 FL Neutrophils (%) (Auto) 52.0 % Lymphocytes (%) (Auto) 32.1 % Monocytes (%) (Auto) 11.4 % Eosinophils (%) (Auto) 2.6 % Basophils (%) (Auto) 1.9 % Neutrophils # (Auto) 2.7 TH/MM3 Lymphocytes # (Auto) 1.7 TH/MM3 Monocytes # (Auto) 0.6 TH/MM3 Eosinophils # (Auto) 0.1 TH/MM3 Basophils # (Auto) 0.1 TH/MM3 CBC Comment DIFF FINAL Differential Comment Sodium Level 140 MEQ/L Potassium Level 3.8 MEQ/L Chloride Level 103 MEQ/L Carbon Dioxide Level 29.2 MEQ/L Anion Gap 8 MEQ/L Blood Urea Nitrogen 19 MG/DL Creatinine 1.04 MG/DL Estimat Glomerular Filtration 92 ML/MIN Rate Random Glucose 107 MG/DL Calcium Level 8.5 MG/DL Total Bilirubin 2.3 MG/DL Aspartate Amino Transf 32 U/L (AST/SGOT) Alanine Aminotransferase 52 U/L (ALT/SGPT) Alkaline Phosphatase 80 U/L Total Protein 6.6 GM/DL Albumin 2.9 GM/DL Triglycerides Level 83 MG/DL Cholesterol Level 121 MG/DL LDL Cholesterol 82 MG/DL HDL Cholesterol 22.0 MG/DL Cholesterol/HDL Ratio 5.50 RATIO Assessment and Plan Assessment and Plan Acute on chronic systolic CHF- improved -ECHO pending -change to PO lasix 40 BID CAD- seemingly stable Lipids - good, continue present meds Dispo- ok for d/c Piper Kowalski MD Mar 14, 2017 16:54
[2017-03-14] MEDS ORDERED: PLAV75TA29 PO (17:30)
[2017-03-14] MEDS ORDERED: FURO40TA PO (17:30)
[2017-03-14] MEDS ORDERED: LISI-519 PO (17:30)
[2017-03-14] MEDS ORDERED: LIPI40TA PO (17:30)
[2017-03-14] MEDS ORDERED: POTA-163 PO (17:30)
[2017-03-14] MEDS ORDERED: ASPI-110 PO (17:30)
[2017-03-14] MEDS ORDERED: CARV3.125 PO (17:30)
--- NOTE | 2017-03-14 17:31 | HHI.DCPOC ---
Discharge Care Plan Diagnosis: (1) Acute on chronic systolic CHF (congestive heart failure) (2) HTN (hypertension) (3) CAD (coronary artery disease) Goals to Promote Your Health * To prevent worsening of your condition and complications * To maintain your health at the optimal level Directions to Meet Your Goals Take your medications as prescribed Follow your dietary instruction Follow activity as directed Keep your appointments as scheduled Take your immunizations and boosters as scheduled If your symptoms worsen call your PCP, if no PCP go to Urgent Care Center or Emergency Room Smoking is Dangerous to Your Health. Avoid second hand smoke Call the 24-hour hour crisis hotline for domestic abuse at Marisol Hanley PA-C Mar 14, 2017 17:31
--- NOTE | 2017-03-14 17:57 | ECHRPT ---
Indication: Heart failure, unspecified CONCLUSIONS Mildly dilated left ventricle. Wall thickness is normal. The left ventricular systolic function is s everely reduced with an estimated ejection fraction in the range of 20-25%. Doppler parameters are consistent with a restrictive left ventricular filling pattern indicative of decreased left ventricular diastolic compliance and increase left atrial pressure (gra de 3 diastolic dysfunction).The left atrial size is moderately dilated. There is evidence of increased left atrial pressure.The righ t atrial size is mildly dilated.Severe mitral valve regurgitation.Trace aortic valve regurgitation.There is moderate tricuspid regurgitatio n.Moderate pulmonary valve regurgitation. BP: 105 / 67 HR: 97 Rhythm: Sinus MEASUREMENTS (Male / Female) Normal Values Technical Quality:Good 2D ECHO LV Diastolic Diameter PLAX 6.3 cm 4.2 - 5.9 / 3.9 - 5.3 cm LV Systolic Diameter PLAX 6.1 cm IVS Diastolic Thickness 0.8 cm 0.6 - 1.0 / 0.6 - 0.9 cm LVPW Diastolic Thickness 0.7 cm 0.6 - 1.0 / 0.6 - 0.9 cm LV Relative Wall Thickness 0.2 RV Internal Dim ED PLAX 2.4 cm LA Systolic Diameter LX 4.8 cm 3.0 - 4.0 / 2.7 - 3.8 cm LV Ejection Fraction MOD BP 23.9 % >= 55 % [place] [address].5 cm/minm LV Ejection Fraction MOD 4C 23.6 % LV Cardiac Index MOD 4C 28190.5 cm/minm LV Ejection Fraction 4C [place] 24.2 % [place] [address].4 cm/minm LV Ejection Fraction MOD 2C 26.8 % LV Cardiac Index MOD 2C 83079.5 cm/minm LV Ejection Fraction 2C AL 24.2 % [place] 2[place] [address].0 cm/minm M-MODE Aortic Root Diameter MM 3.3 cm AV Cusp Separation MM 2.2 cm DOPPLER MV Peak Velocity 109.0 cm/s MV Peak Gradient 4.8 mmHg MV Mean Velocity 64.3 cm/s MV Mean Gradient 2.0 mmHg MR Peak Velocity 458.5 cm/s MR Peak Gradient 84.1 mmHg Mitral E Point Velocity 94.3 cm/s Mitral A Point Velocity 30.6 cm/s Mitral E to A Ratio 3.1 TR Peak Velocity 336.0 cm/s TR Peak Gradient 45.2 mmHg FINDINGS Left Ventricle Mildly dilated left ventricle. Wall thickness is normal. The left ventricular systolic function is s everely reduced with an estimated ejection fraction in the range of 20-25%. Doppler parameters are consisten t with a restrictive left ventricular filling pattern indicative of decreased left ventricular diastolic co mpliance and increase left atrial pressure (grade 3 diastolic dysfunction). Right Ventricle Normal right ventricular size and systolic function. Left Atrium The left atrial size is moderately dilated. There is evidence of increased left atrial pressure. Right Atrium The right atrial size is mildly dilated. Atrial Septum Normal atrial septal thickness without atrial level shunting by limited color doppler interrogation. Aorta The aortic root and proximal ascending aorta are normal in size on limited imaging. Mitral Valve Severe mitral valve regurgitation. Aortic Valve Trace aortic valve regurgitation. Tricuspid Valve There is moderate tricuspid regurgitation. Pulmonary Valve Moderate pulmonary valve regurgitation. Vessels The inferior vena cava is normal in size. Pericardium No pericardial effusion. Eleuterio Lopez MD, FACC, FSCAI Edited by: [employer] Equipment Operator (Electronically Signed) Final Date:14 March 2017 15:17 Amended: 14 March 2017 17:48
[2017-03-14] MEDS ORDERED: FUROSEMIDE 40 MG TAB PO SCH (18:00)
[2017-03-14] MEDS: ENOXAPARIN SODIUM 40 MG/0.4 ML SYRINGE SQ SCH (18:02)
[2017-03-14] MEDS ORDERED: CARVEDILOL 3.125 MG TAB PO SCH (21:00)
== END 2017-03-14 19:30 | disposition home or self-care (01) ==
LOC: NEPC 09:19 → NEDA 15:10 → NEPGCP 16:13
PROVIDERS: ADMIT Hospitalist; ATTEND Hospitalist
DX: I11.0 Hypertensive heart disease with heart failure (principal); I50.23 Acute on chronic systolic (congestive) heart failure; I25.5 Ischemic cardiomyopathy; K21.9 Gastro-esophageal reflux disease without esophagitis; I25.10 Atherosclerotic heart disease of native coronary artery without angina pectoris; E78.5 Hyperlipidemia, unspecified; Z95.5 Presence of coronary angioplasty implant and graft; I25.2 Old myocardial infarction; Z79.82 Long term (current) use of aspirin; Z79.02 Long term (current) use of antithrombotics/antiplatelets; Z87.891 Personal history of nicotine dependence
CPT/HCPCS: 71010; 71275; 80048; 80053; 80061; 82550; 82552; 83690; 83735; 83880; 84484; 85025; 85379; 85610; 93005; 93306; 96374; 96375; 99285; G0378; J1650; J1940; Q9967

== ENCOUNTER 2017-06-14 12:25 | Emergency (ER) | payer SELFPAY ==
[~2017-06-14] VITALS: Ht 180.3 cm; Wt 87.0 kg
[~2017-06-14 12:25] MED LIST changes: -FURO20TA PO; +FURO40TA PO
[2017-06-14 12:28] VITALS: BP 125/80; PULSE 112; RESP 28; O2SAT 94
[2017-06-14] MEDS ORDERED: SODIUM CHLORIDE 0.9% FLUSH 10 ML FLUSH IVF PRN (13:15)
[2017-06-14 13:42] LABS: AUTOMATED NEUTROPHIL # 3.4 TH/MM3 (1.8-7.7); BASOPHIL # 0.1 TH/MM3 (0-0.2); BASOPHIL % 1.2 % (0.0-2.0); EOSINOPHIL # 0.4 TH/MM3 (0-0.4); EOSINOPHIL % 7.2 % (0.0-4.0); HEMATOCRIT 34.1 % (39.0-51.0); HEMO FLAGS DIFF FINAL; LYMPH % 23.2 % (9.0-44.0); LYMPHOCYTE # 1.3 TH/MM3 (1.0-4.8); MEAN CELL VOLUME 72.2 FL (80.0-100.0); MEAN CORPUSCULAR HEMOGLOBIN 22.5 PG (27.0-34.0); MEAN CORPUSCULAR HGB CONC 31.1 % (32.0-36.0); NEUT % 61.4 % (16.0-70.0); PLATELET COUNT 229 TH/MM3 (150-450); RED BLOOD COUNT 4.72 MIL/MM3 (4.50-5.90); RED CELL DISTRIBUTION WIDTH 21.1 % (11.6-17.2); WHITE BLOOD COUNT 5.5 TH/MM3 (4.0-11.0)
[2017-06-14 13:42] LABS: BLOOD GAS BASE EXCESS 0.6 mmol/L (-2-2); BLOOD GAS CARBOXYHEMOGLOBIN 4.2 % (0-4); BLOOD GAS HCO3 24 mmol/L (22-26); BLOOD GAS METHEMOGLOBIN 0.3 % (0-2); BLOOD GAS O2 HGB SATURATION 90 % (90-100); BLOOD GAS OXYGEN CONTENT 13.8 Vol % (12.0-20.0); BLOOD GAS PCO2 36 mmHg (38-42); BLOOD GAS PO2 72 mmHG (61-120); BLOOD GAS TOTAL HGB 10.8 G/DL (12.0-16.0); CRITICAL VALUE NO; FIO2 21 %; OXYGEN DEVICE ROOM AIR; TEMP CORR TO 98.6
[2017-06-14 13:43] LABS: DRAW SITE RT RADIAL; NUMBER OF ARTERIAL PUNCTURES 1; STAT YES; ULNAR PULSE PRESENT
--- NOTE | 2017-06-14 13:49 | PD ---
HPI Chief Complaint: Cardiac Complaint Time Seen by Provider: 13:00 Travel History International Travel<30 days: No Contact w/Intl Traveler<30days: No Traveled to known affect area: No History of Present Illness HPI 51yo M with PMH of CHF EF 35%, CAD s/p cardiac stent, HTN, HLD presents to the ED with c/o sob for 2 days. Associated with some right sided chest pain that is intermittent and lasts seconds at a time. Associated with cough. Denies any fever, n/v, abdominal pain, focal weakness or numbness. He is suppose to be on lasix 40mg BID. Pt did not take his medication today. PFSH Past Medical History Hx Anticoagulant Therapy: Yes (PLAVIX) Asthma: No Blood Disorders: No Anxiety: No Depression: No Heart Rhythm Problems: No Cancer: No Cardiovascular Problems: Yes ([place], CHF) High Cholesterol: No Chemotherapy: No Chest Pain: Yes Congestive Heart Failure: Yes COPD: No Coronary Artery Disease: Yes Diabetes: No Diminished Hearing: No Endocrine: No Gastrointestinal Disorders: Yes GERD: Yes Genitourinary: No Hypertension: Yes Implanted Vascular Access Dvce: No Musculoskeletal: No Neurologic: No Psychiatric: No Reproductive: No Respiratory: No Myocardial Infarction: Yes (4 STENTS PLACED IN 2007 and 2015) Radiation Therapy: No Sleep Apnea: No Thyroid Disease: No Tetanus Vaccination: < 5 Years Past Surgical History Other Surgery: Yes (stents x2 2006) Social History Alcohol Use: No Tobacco Use: No Substance Use: Yes (THC daily) Allergies-Medications (Allergen,Severity, Reaction): Coded Allergies: No Known Allergies (Unverified , 06/14/17) Reported Meds & Prescriptions Reported Meds & Active Scripts Active Potassium Chloride ER (Potassium Chloride) 20 Meq Tab 20 Meq PO BID Carvedilol 3.125 Mg Tab 3.125 Mg PO BID Furosemide 40 Mg Tab 40 Mg PO BID@18 Potassium Chloride ER (Potassium Chloride) 20 Meq Tab 20 Meq PO BID Aspirin 81 (Aspirin) 81 Mg Tabdr 81 Mg PO DAILY Lisinopril 5 Mg Tab 5 Mg PO DAILY Coreg (Carvedilol) 3.125 Mg Tab 3.125 Mg PO BID Lipitor (Atorvastatin Calcium) 40 Mg Tab 40 Mg PO HS Review of Systems Except as stated in HPI: all other systems reviewed are Neg Physical Exam Narrative GENERAL: 51yo M in mild distress. SKIN: Focused skin assessment warm/dry. HEAD: Atraumatic. Normocephalic. EYES: Pupils equal and round. No scleral icterus. No injection or drainage. ENT: No nasal bleeding or discharge. Mucous membranes pink and moist. NECK: Trachea midline. + JVD. CARDIOVASCULAR: Regular rate and rhythm. No murmur appreciated. RESPIRATORY: +accessory muscle use. Very mild end expiratory wheezing. GASTROINTESTINAL: Abdomen soft, non-tender, nondistended. Hepatic and splenic margins not palpable. MUSCULOSKELETAL: No obvious deformities. No clubbing. No cyanosis. +Bilateral lower extremity edema. NEUROLOGICAL: Awake and alert. No obvious cranial nerve deficits. Motor grossly within normal limits. Normal speech. PSYCHIATRIC: Appropriate mood and affect; insight and judgment normal. Data Data Last Documented VS Vital Signs Date Time Temp Pulse Resp B/P (MAP) Pulse Ox O2 Delivery O2 Flow Rate FiO2 06/14/17 16:06 76 20 123/74 (90) 96 06/14/17 14:35 98.0 06/14/17 13:54 Nasal Cannula 2.00 Orders Orders Complete Blood Count With Diff (06/14/17 13:12) Basic Metabolic Panel (Bmp) (06/14/17 13:12) B-Type Natriuretic Peptide (06/14/17 13:12) Act Partial Throm Time (Ptt) (06/14/17 13:12) Prothrombin Time / Inr (Pt) (06/14/17 13:12) Troponin I (06/14/17 13:12) Arterial Blood Gas (Abg) (06/14/17 13:12) Blood Culture (06/14/17 13:12) Iv Access Insert/Monitor (06/14/17 13:12) Ecg Monitoring (06/14/17 13:12) Oximetry (06/14/17 13:12) Oxygen Administration (06/14/17 13:12) Chest, Single Ap (06/14/17 13:12) Sodium Chloride 0.9% Flush (Ns Flush) (06/14/17 13:15) Lactic Acid Sepsis Protocol (06/14/17 13:12) Furosemide Inj (Lasix Inj) (06/14/17 14:30) Furosemide Inj (Lasix Inj) (06/14/17 14:45) Potassium Chloride (Kcl) (06/14/17 14:45) Electrocardiogram (06/14/17 12:53) Labs Laboratory Tests Test 06/14/17 13:15 06/14/17 13:35 White Blood Count 5.5 TH/MM3 Red Blood Count 4.72 MIL/MM3 Hemoglobin 10.6 GM/DL Hematocrit 34.1 % Mean Corpuscular Volume 72.2 FL Mean Corpuscular Hemoglobin 22.5 PG Mean Corpuscular Hemoglobin Concent 31.1 % Red Cell Distribution Width 21.1 % Platelet Count 229 TH/MM3 Mean Platelet Volume 9.0 FL Neutrophils (%) (Auto) 61.4 % Lymphocytes (%) (Auto) 23.2 % Monocytes (%) (Auto) 7.0 % Eosinophils (%) (Auto) 7.2 % Basophils (%) (Auto) 1.2 % Neutrophils # (Auto) 3.4 TH/MM3 Lymphocytes # (Auto) 1.3 TH/MM3 Monocytes # (Auto) 0.4 TH/MM3 Eosinophils # (Auto) 0.4 TH/MM3 Basophils # (Auto) 0.1 TH/MM3 CBC Comment DIFF FINAL Differential Comment Prothrombin Time 13.5 SEC Prothromb Time International Ratio 1.2 RATIO Activated Partial Thromboplast Time 29.2 SEC Blood Urea Nitrogen 14 MG/DL Creatinine 0.91 MG/DL Random Glucose 146 MG/DL Calcium Level 8.5 MG/DL Sodium Level 138 MEQ/L Potassium Level 3.9 MEQ/L Chloride Level 106 MEQ/L Carbon Dioxide Level 24.4 MEQ/L Anion Gap 8 MEQ/L Estimat Glomerular Filtration Rate 107 ML/MIN Lactic Acid Level 2.1 mmol/L Troponin I LESS THAN 0.02 NG/ML B-Type Natriuretic Peptide 921 PG/ML Blood Gas Puncture Site RT RADIAL Blood Gas Patient Temperature 98.6 Blood Gas HCO3 24 mmol/L Blood Gas Base Excess 0.6 mmol/L Blood Gas Oxygen Saturation 90 % Arterial Blood pH 7.45 Arterial Blood Partial Pressure CO2 36 mmHg Arterial Blood Partial Pressure O2 72 mmHG Arterial Blood Oxygen Content 13.8 Vol % Arterial Blood Carboxyhemoglobin 4.2 % Arterial Blood Methemoglobin 0.3 % Blood Gas Hemoglobin 10.8 G/DL Oxygen Delivery Device ROOM AIR Blood Gas Inspired Oxygen 21 % MDM Medical Decision Making Medical Screen Exam Complete: Yes Emergency Medical Condition: Yes Interpretation(s) EKG: NSR 91bpm. Low voltage. TWI V6. Mild ST depression in II, III, aVF. Differential Diagnosis CHF exacerbation vs. ACS vs. Pneumonia Narrative Course 51yo M with CHF here with sob for 2 days and worsening bilateral lower extremity edema for 2 weeks. Also with chest pain that is atypical but pt has multiple cardiac risk factors. States he did not take his lasix today. Pt is tachypneic with very mild end expiratory wheezing that could be from CHF. Labs reviewed, no leukocytosis. H/H low at 10.6/34.1. This is around baseline. Lactic acid mildly elevated at 2.1. BNP is elevated at 921. Pt given lasix 60mg IV and 20mEq KCl. K: 3.9. Troponin negative. Pt reevaluated at bedside and states he feels better. Pt has been diuresing. Saturating at 94% on RA. However, pt is still tachypneic and tachycardic. Even though his chest pain is atypical, I would still do serial EKG and cardiac enzyme and admit him. Pt is refusing admission. He states he still have his lasix but ran out of potassium and carvedilol. Will write him these prescriptions and have him follow up with Dr. Back. Return precautions given. AMA: The risks of leaving against medical advice without further evaluation treatment were discussed with the patient. These risks include cardiac dysfunction, cardiac dysrhythmia, possible heart attack, possible stroke or . The patient indicated understanding of these risks and appeared to have the capacity to make this decision. Diagnosis Primary Impression: Acute on chronic systolic CHF (congestive heart failure) Patient Instructions: General Instructions Departure Forms: Tests/Procedures Additional Instructions: Please follow up with your pci security consultant as soon as you can. Return to the ED if symptoms worsen. Med/Other Pt SpecificInfo: Prescription(s) given Scripts Potassium Chloride ER (Potassium Chloride ER) 20 Meq Tab 20 MEQ PO BID for Electrolyte Replacement, #60 TAB 0 Refills Prov: Teresita Monae DO 06/14/17 Carvedilol (Carvedilol) 3.125 Mg Tab 3.125 MG PO BID, #60 TAB 0 Refills Prov: Teresita Monae DO 06/14/17 Disposition: 07 AGAINST MEDICAL ADVICE Condition: Stable Teresita Monae DO Jun 14, 2017 13:49
[2017-06-14 13:50] LABS: APTT (PATIENT) 29.2 SEC (24.3-30.1); INTERNATIONAL NORMALIZED RATIO 1.2 RATIO; PROTHROMBIN TIME - PATIENT 13.5 SEC (9.8-11.6)
[2017-06-14 13:56] LABS: ANION GAP 8 MEQ/L (5-15); BICARBONATE 24.4 MEQ/L (21.0-32.0); BLOOD UREA NITROGEN 14 MG/DL (7-18); CHLORIDE 106 MEQ/L (98-107); GLOMERULAR FILTRATION RATE 107 ML/MIN (>89); POTASSIUM 3.9 MEQ/L (3.5-5.1); SODIUM (NA) 138 MEQ/L (136-145)
[2017-06-14] MEDS ORDERED: FUROSEMIDE 40 MG/4 ML VIAL IV PUSH ONE ×2 (14:30→14:45)
[2017-06-14 14:35] VITALS: TEMP 98
[2017-06-14] MEDS ORDERED: POTASSIUM CHLORIDE 20 MEQ CONTROLLED RELEASE TAB PO ONE (14:45)
[2017-06-14 15:33] LABS: LACTIC ACID GHOST NOT REPORTABLE
[2017-06-14 15:46] VITALS: BP 103/68; PULSE 99; RESP 20; O2SAT 97
[2017-06-14] MEDS ORDERED: CARV3.12 PO (15:54)
[2017-06-14] MEDS ORDERED: POTA-163 PO (15:54)
[2017-06-14 16:06] VITALS: BP 123/74
--- NOTE | 2017-06-14 16:11 | RADRPT ---
EXAM DATE/TIME: 06/14/2017 13:52 [facility] COMPARISON: CHEST SINGLE AP, March 13, 2017, 10:35. INDICATIONS : Short of breath. MEDICAL HISTORY : Cardiovascular disease. Hypertension. SURGICAL HISTORY : Heart stents. ENCOUNTER: Initial ACUITY: 1 day PAIN SCORE: 0/10 LOCATION: Bilateral chest FINDINGS: The heart is enlarged. Mild pulmonary vascular congestion is noted. No focal alveolar consolidation is noted. CONCLUSION: 1. Mild pulmonary vascular congestion bilaterally. 2. Cardiomegaly. Rhys Burgos MD on June 14, 2017 at 16:03 Board Certified Radiologist. This report was verified electronically.
--- NOTE | 2017-06-15 12:59 | EKG ---
Date Performed: 06/14/2017 Time Performed: 12:53:05 PTAGE: 51 years EKG: Sinus rhythm LEFT ATRIAL ENLARGEMENT MARKED RIGHT AXIS DEVIATION LOW QRS VOLTAGE IN EXTREMITY LEADS PATTERN CONSI STENT WITH PULMONARY DISEASE ABNORMAL QRS-T ANGLE ABNORMAL ECG NO PREVIOUS TRACING DOCTOR: Juan Carlos Almeida Interpretating Date/Time 06/15/2017 12:51:20
== END 2017-06-14 16:24 | disposition left against medical advice (07) ==
LOC: NEPE 12:25
DX: I50.23 Acute on chronic systolic (congestive) heart failure (principal); I11.0 Hypertensive heart disease with heart failure; R05 Cough; I51.7 Cardiomegaly; R94.31 Abnormal electrocardiogram [ECG] [EKG]; I25.2 Old myocardial infarction; I25.10 Atherosclerotic heart disease of native coronary artery without angina pectoris; K21.9 Gastro-esophageal reflux disease without esophagitis; Z79.02 Long term (current) use of antithrombotics/antiplatelets
CPT/HCPCS: 36600; 71010; 80048; 82805; 83605; 83880; 84484; 85025; 85610; 85730; 87040; 93005; 96374; 99285; J1940

== ENCOUNTER 2017-06-27 19:30 | Inpatient (IN) | payer SELFPAY ==
[~2017-06-27] VITALS: Ht 180.3 cm; Wt 80.5 kg
[~2017-06-27 19:30] MED LIST changes: +CARV3.12 PO; -PLAV75TA29 PO
[2017-06-27 19:31] VITALS: BP 117/66; PULSE 98; RESP 16; TEMP 98.8; O2SAT 99
[2017-06-27] MEDS ORDERED: ASPIRIN 81 MG CHEW TAB PO ONE (20:15)
[2017-06-27] MEDS ORDERED: NITROGLYCERIN 2% OINT 1 GM PACKET TOP ONE (20:15)
[2017-06-27] MEDS ORDERED: SODIUM CHLORIDE 0.9% FLUSH 10 ML FLUSH IVF PRN (20:15)
--- NOTE | 2017-06-27 20:16 | PD ---
HPI Chief Complaint: Respiratory Symptoms Time Seen by Provider: 20:06 Travel History International Travel<30 days: No Contact w/Intl Traveler<30days: No Traveled to known affect area: No History of Present Illness HPI The patient is a 51 year old male who presents to the [facility] emergency department with a history of shortness of breath became worse yesterday. He reports that over the last 2 weeks he has had a cough as been productive of white sputum, intermittently tinged with blood. The patient denies having any fevers. He reports that the shortness of breath is worse with lying down at night. He denies having any increased lower extremity edema currently, however he reports that whenever he stands for any period time he does develop lower extremity edema. The patient reports that 1-2 weeks ago he was seen in the emergency department related to shortness of breath and was diagnosed with a congestive heart failure exacerbation. He reports that he was offered admission , however he preferred to continue with treatment as an outpatient on his Lasix 40 mg twice a day. The patient reports that in the last 24 hours he has had nausea and vomiting 1. He denies having any diarrhea. His last bowel movement was earlier this morning. He reports that he is on low-dose aspirin daily, however he did not take it today. The patient reports that he's had intermittent chest pain, however he denies having any chest pain currently. The patient is unsure when his last stress test was done. The patient had his last cardiac catheterization done with 2 stents reported placed last year. On review of systems, the patient denies any recent fevers, neck pain, abdominal pain, urinary symptoms, or neurologic symptoms. The patient reports that he has also been experiencing some nasal congestion, head pressure, and postnasal drip. [facility] Past Medical History Narrative Medical The patient's past medical history is significant for coronary artery disease status post 4 prior stents, history of myocardial infarction, history of congestive heart failure, hyperlipidemia Hx Anticoagulant Therapy: Yes (PLAVIX) Asthma: No Blood Disorders: No Anxiety: No Depression: No Heart Rhythm Problems: No Cancer: No Cardiovascular Problems: Yes ([place], CHF) High Cholesterol: No Chemotherapy: No Chest Pain: Yes Congestive Heart Failure: Yes COPD: No Coronary Artery Disease: Yes Diabetes: No Diminished Hearing: No Endocrine: No Gastrointestinal Disorders: Yes GERD: Yes Genitourinary: No Hypertension: Yes Implanted Vascular Access Dvce: No Musculoskeletal: No Neurologic: No Psychiatric: No Reproductive: No Respiratory: No Myocardial Infarction: Yes (4 STENTS PLACED IN 2007 and 2015) Radiation Therapy: No Sleep Apnea: No Thyroid Disease: No Past Surgical History Narrative Surgical The patient's past surgical history is significant for cardiac catheterization with 4 prior stents being placed. Other Surgery: Yes (stents x 4 ) Social History Alcohol Use: No Tobacco Use: No Substance Use: Yes (reportedly marijuana occasionally) Allergies-Medications (Allergen,Severity, Reaction): Coded Allergies: No Known Allergies (Unverified , 06/27/17) Reported Meds & Prescriptions Reported Meds & Active Scripts Active Potassium Chloride ER (Potassium Chloride) 20 Meq Tab 20 Meq PO BID Carvedilol 3.125 Mg Tab 3.125 Mg PO BID Furosemide 40 Mg Tab 40 Mg PO BID@,18 Potassium Chloride ER (Potassium Chloride) 20 Meq Tab 20 Meq PO BID Aspirin 81 (Aspirin) 81 Mg Tabdr 81 Mg PO DAILY Lisinopril 5 Mg Tab 5 Mg PO DAILY Coreg (Carvedilol) 3.125 Mg Tab 3.125 Mg PO BID Lipitor (Atorvastatin Calcium) 40 Mg Tab 40 Mg PO HS Review of Systems Except as stated in HPI: all other systems reviewed are Neg General / Constitutional: No: Fever Eyes: No: Visual changes HENT: Positive: Congestion, No: Headaches Cardiovascular: Positive: Chest Pain or Discomfort, Dyspnea on exertion, Edema Respiratory: Positive: Cough, Shortness of Breath, Orthopnea Gastrointestinal: Positive: Nausea, Vomiting, No: Diarrhea, Abdominal Pain, Hematemesis, Hematochezia, Changes in Bowel Habits, Indigestion, Loss of Appetite Genitourinary: No: Dysuria Musculoskeletal: No: Pain Skin: No Rash Neurologic: No: Weakness, Focal Abnormalities, Change in Mentation, Slurred Speech, Sensory Disturbance Psychiatric: No: Depression Endocrine: No: Polydipsia Hematologic/Lymphatic: No: Easy Bruising Physical Exam Narrative General: The patient is a well-developed well-nourished male in no acute distress. Head and Neck exam: Head is normocephalic atraumatic. Eyes: EOMI, pupils are equal round and reactive to light. Nose: Midline septum with pink mucous membranes Mouth: Dentition unremarkable. Moist mucus membranes. Posterior oropharynx is not erythematous. No tonsillar hypertrophy. Uvula midline. Airway patent. Neck: No palpable lymphadenopathy. No nuchal rigidity. No thyromegaly. Cardiovascular: Regular rate and rhythm without murmurs, gallops, or rubs. No pulse deficit to the extremities on simultaneous auscultation and palpation of his radial artery. Lungs: Soft expiratory wheezes are audible anteriorly and posteriorly. No rhonchi, no crackles. No accessory muscle use. No paroxysmal abdominal breathing. No tripoding. Abdomen: Soft, without tenderness to palpation in all 4 quadrants of the abdomen. No guarding, rebound, or rigidity. Normal bowel sounds are audible. No tenderness on palpation of McBurney's point. Negative Mccord's sign. Extremities: No clubbing, cyanosis, or edema. 2+ pulses in all 4 extremities. No calf tenderness on palpation. Back: No costovertebral angle tenderness to palpation. Neurologic Exam: Grossly nonfocal Skin Exam: No rash noted. Intact skin that is warm and dry. Data Data Last Documented VS Vital Signs Date Time Temp Pulse Resp B/P (MAP) Pulse Ox O2 Delivery O2 Flow Rate FiO2 06/27/17 21:00 80 16 103/71 (82) 100 Nasal Cannula 2.00 06/27/17 19:31 98.8 Orders Orders Electrocardiogram (06/27/17 20:06) B-Type Natriuretic Peptide (06/27/17 20:06) Ckmb (Isoenzyme) Profile (06/27/17 20:06) Complete Blood Count With Diff (06/27/17 20:06) Comprehensive Metabolic Panel (06/27/17 20:06) Magnesium (Mg) (06/27/17 20:06) Prothrombin Time / Inr (Pt) (06/27/17 20:06) Act Partial Throm Time (Ptt) (06/27/17 20:06) Troponin I (06/27/17 20:06) Lipase (06/27/17 20:06) Chest, Single Ap (06/27/17 20:06) Ecg Monitoring (06/27/17 20:06) Bilateral Bp Monitoring (06/27/17 20:06) Iv Access Insert/Monitor (06/27/17 20:06) Oximetry (06/27/17 20:06) Oxygen Administration (06/27/17 20:06) Aspirin Chew (Aspirin Chew) (06/27/17 20:15) Nitroglycerin 2% Oint (Nitroglycerin 2% (06/27/17 20:15) Sodium Chloride 0.9% Flush (Ns Flush) (06/27/17 20:15) CKMB (06/27/17 20:15) CKMB% (06/27/17 20:15) Furosemide Inj (Lasix Inj) (06/27/17 22:00) Admit Order (Ed Use Only) (06/27/17 21:59) Place In Observation (06/27/17 ) Vital Signs (Adult) Q4H (06/27/17 21:59) Activity Oob With Assistance (06/27/17 21:59) Small Engine Mechanic / Telemetry .CONTINUOUS (06/27/17 21:59) Intake + Output DEEP.QSHIFT (06/27/17 21:59) Diet Heart Healthy (06/28/17 Breakfast) Sodium Chloride 0.9% Flush (Ns Flush) (06/27/17 22:00) Sodium Chloride 0.9% Flush (Ns Flush) (06/28/17 09:00) Basic Metabolic Panel (Bmp) (06/28/17 06:00) Complete Blood Count With Diff (06/28/17 06:00) Creatine Kinase (Cpk) (06/28/17 08:15) Troponin I (06/28/17 08:15) Electrocardiogram (06/28/17 02:15) Electrocardiogram (06/28/17 08:15) Case Management Consult (06/27/17 21:59) Naloxone Inj (Narcan Inj) (06/27/17 22:00) Furosemide Inj (Lasix Inj) (06/28/17 09:00) Labs Laboratory Tests Test 06/27/17 20:15 White Blood Count 5.0 TH/MM3 Red Blood Count 5.02 MIL/MM3 Hemoglobin 11.0 GM/DL Hematocrit 35.8 % Mean Corpuscular Volume 71.4 FL Mean Corpuscular Hemoglobin 21.9 PG Mean Corpuscular Hemoglobin Concent 30.7 % Red Cell Distribution Width 20.6 % Platelet Count 243 TH/MM3 Mean Platelet Volume 8.8 FL Neutrophils (%) (Auto) 50.6 % Lymphocytes (%) (Auto) 30.1 % Monocytes (%) (Auto) 12.0 % Eosinophils (%) (Auto) 5.2 % Basophils (%) (Auto) 2.1 % Neutrophils # (Auto) 2.5 TH/MM3 Lymphocytes # (Auto) 1.5 TH/MM3 Monocytes # (Auto) 0.6 TH/MM3 Eosinophils # (Auto) 0.3 TH/MM3 Basophils # (Auto) 0.1 TH/MM3 CBC Comment DIFF FINAL Differential Comment Prothrombin Time 14.3 SEC Prothromb Time International Ratio 1.3 RATIO Activated Partial Thromboplast Time 29.1 SEC Blood Urea Nitrogen 23 MG/DL Creatinine 1.24 MG/DL Random Glucose 109 MG/DL Total Protein 7.3 GM/DL Albumin 3.1 GM/DL Calcium Level 8.5 MG/DL Magnesium Level 1.6 MG/DL Alkaline Phosphatase 88 U/L Aspartate Amino Transf (AST/SGOT) 27 U/L Alanine Aminotransferase (ALT/SGPT) 31 U/L Total Bilirubin 2.9 MG/DL Sodium Level 135 MEQ/L Potassium Level 4.0 MEQ/L Chloride Level 103 MEQ/L Carbon Dioxide Level 24.6 MEQ/L Anion Gap 7 MEQ/L Estimat Glomerular Filtration Rate 75 ML/MIN Total Creatine Kinase 121 U/L Creatine Kinase MB 2.2 NG/ML Troponin I LESS THAN 0.02 NG/ML B-Type Natriuretic Peptide 1090 PG/ML Lipase 108 U/L MDM Medical Decision Making Medical Screen Exam Complete: Yes Emergency Medical Condition: Yes Medical Record Reviewed: Yes Interpretation(s) Last Impressions Chest X-Ray 06/27/172005 Signed Impressions: Service Date/Time: Tuesday, June 27, 2017 20:13 - CONCLUSION: 1. Slight interval worsening pulmonary vascular congestion compared to previous examination dated 06/14/2017. 2. Cardiomegaly. Rhys Burgos MD Differential Diagnosis Congestive heart failure exacerbation, versus upper respiratory infection with reactive airway, versus acute coronary syndrome, versus pneumonia Narrative Course During the course of the patients emergency department visit, the patients history, examination, and differential diagnosis were reviewed with the patient. The patient had IV access obtained and blood work sent for analysis. The patient was placed on a surveillance system monitor with oximetry and blood pressure monitoring. An ECG was done on arrival. The patient's ECG reveals a sinus rhythm heart rate of 93, QRS duration is 102 ms, QTC 437 ms, marked right axis deviation, no acute ST segment elevation. The patient was initially provided aspirin 324 mg by mouth 1. Nitroglycerin 1 inch the chest wall. The patients laboratory studies were reviewed and remarkable for a white count of 5, hemoglobin 11, platelets 243 with 12 monocytes, CMP is remarkable for BUN of 23, glucose 109, total bilirubin 2.9, CPK 121, troponin I less than 0.02, lipase 108, BNP is 1009, PT 14.3, INR 1.3, PTT 29.1. Radiology studies were reviewed and remarkable for a chest x-ray that shows a slight interval worsening of pulmonary vascular congestion compared to previous examination. The patient was given Lasix 40 mg IV. The patients results were discussed with the patient, including the plan of care. I explained that further testing and/ or monitoring is indicated based on the patients history, examination, and/ or laboratory findings. Therefore, I recommended admission for additional evaluation. The patient expressed understanding and was agreeable with this plan. The patient was admitted to the hospital in stable dition and sent to a bed under the care of the [facility]. Physician Communication Physician Communication The Patient's case was discussed with Dr. Zendejas who did agree to admit the patient for further evaluation and treatment at this time. Diagnosis Primary Impression: Acute on chronic systolic CHF (congestive heart failure) Additional Impression: Chest pain, rule out acute myocardial infarction Admitting Information Admitting Physician Requests: Observation Mar Suarez MD Jun 27, 2017 20:16
--- NOTE | 2017-06-27 20:37 | RADRPT ---
EXAM DATE/TIME: 06/27/2017 20:13 [place] COMPARISON: CHEST SINGLE AP, June 14, 2017, 13:52. INDICATIONS : Short of breath. MEDICAL HISTORY : None. SURGICAL HISTORY : None. ENCOUNTER: Initial ACUITY: 1 day PAIN SCORE: 0/10 LOCATION: Bilateral chest FINDINGS: The heart remains enlarged. There is slight interval worsening pulmonary vascular congestion compare d to 06/14/2017. No focal alveolar consolidation to suggest pneumonia is noted CONCLUSION: 1. Slight interval worsening pulmonary vascular congestion compared to previous examination dated 03/2017. 2. Cardiomegaly. Rhys Burgos MD on June 27, 2017 at 20:30 Board Certified Radiologist. This report was verified electronically.
[2017-06-27 20:50] LABS: AUTOMATED NEUTROPHIL # 2.5 TH/MM3 (1.8-7.7); BASOPHIL # 0.1 TH/MM3 (0-0.2); BASOPHIL % 2.1 % (0.0-2.0); EOSINOPHIL # 0.3 TH/MM3 (0-0.4); EOSINOPHIL % 5.2 % (0.0-4.0); HEMATOCRIT 35.8 % (39.0-51.0); HEMO FLAGS DIFF FINAL; LYMPH % 30.1 % (9.0-44.0); LYMPHOCYTE # 1.5 TH/MM3 (1.0-4.8); MEAN CELL VOLUME 71.4 FL (80.0-100.0); MEAN CORPUSCULAR HEMOGLOBIN 21.9 PG (27.0-34.0); MEAN CORPUSCULAR HGB CONC 30.7 % (32.0-36.0); NEUT % 50.6 % (16.0-70.0); PLATELET COUNT 243 TH/MM3 (150-450); RED BLOOD COUNT 5.02 MIL/MM3 (4.50-5.90); RED CELL DISTRIBUTION WIDTH 20.6 % (11.6-17.2)
[2017-06-27 21:00] VITALS: BP_SYST 103; BP_DIAS 103; BP_DIAS 71; PULSE 80; RESP 16; O2SAT 100
[2017-06-27 21:00] LABS: APTT (PATIENT) 29.1 SEC (24.3-30.1); INTERNATIONAL NORMALIZED RATIO 1.3 RATIO; PROTHROMBIN TIME - PATIENT 14.3 SEC (9.8-11.6)
[2017-06-27 21:06] LABS: ALT (GPT) 31 U/L (12-78); ANION GAP 7 MEQ/L (5-15); AST (GOT) 27 U/L (15-37); BICARBONATE 24.6 MEQ/L (21.0-32.0); CHLORIDE 103 MEQ/L (98-107); GLOMERULAR FILTRATION RATE 75 ML/MIN (>89); MAGNESIUM 1.6 MG/DL (1.5-2.5); SODIUM (NA) 135 MEQ/L (136-145)
[2017-06-27 21:12] LABS: ALKALINE PHOSPHATASE 88 U/L (45-117); BLOOD UREA NITROGEN 23 MG/DL (7-18); CREATINE KINASE 121 U/L (39-308); TOTAL BILIRUBIN ADULT 2.9 MG/DL (0.2-1.0)
[2017-06-27 21:25] LABS: CKMB 2.2 NG/ML (0.5-3.6)
[2017-06-27] MEDS ORDERED: NALOXONE HCL 0.4 MG/ML AMP IV PUSH PRN (22:00)
[2017-06-27] MEDS ORDERED: SODIUM CHLORIDE 0.9% FLUSH 10 ML FLUSH IV FLUSH PRN (22:00)
[2017-06-27] MEDS ORDERED: FUROSEMIDE 40 MG/4 ML VIAL IV PUSH ONE (22:00)
--- NOTE | 2017-06-27 23:42 | HHI.HP ---
[facility] Dr. Frazier Admission Diagnosis cp r/o mi, chf exacerbation Diagnoses: (1) Acute on chronic systolic CHF (congestive heart failure) Chief Complaint: shortness of breath Travel History International Travel<30 Days: No Contact w/Intl Traveler <30 Da: No Traveled to Known Affected Are: No History of Present Illness Written by Alexandra Dumont, acting as scribe for Dr. Zendejas on 06/27/17 at 23:42. Shortness of breath started last night, lower extremity swelling; cough mostly whitish with occasional greenish sputum and blood tinged at time. He states he had "a little" fever - he felt warm while coughing; denies chills. Reports orthopnea and paroxysmal nocturnal dyspnea. States symptoms present for about a week. Nausea with vomiting; vomits yellow sputum. Denies hematemesis Denies diarrhea, black or red stool. Takes Lasix 40 mg BID Consignee is Dr. Kowalski Uses Sea Salt Reports compliance with medications Review of Systems Except as stated in HPI: all other systems reviewed are Neg Past Family Social History Past Medical History CHF CAD - has a total of 4 cardiac stents - most recent stent placed in March 2016 Hypertension Denies irregular heart rhythm, diabetes, liver problems, kidney problems, DVT, PE, CVA, seizures, thyroid problems, or cancers Past Surgical History Cardiac cath with stent placement . Reported Medications Reported Meds & Active Scripts Active Potassium Chloride ER (Potassium Chloride) 20 Meq Tab 20 Meq PO BID Carvedilol 3.125 Mg Tab 3.125 Mg PO BID Furosemide 40 Mg Tab 40 Mg PO BID@,18 Potassium Chloride ER (Potassium Chloride) 20 Meq Tab 20 Meq PO BID Aspirin 81 (Aspirin) 81 Mg Tabdr 81 Mg PO DAILY Lisinopril 5 Mg Tab 5 Mg PO DAILY Coreg (Carvedilol) 3.125 Mg Tab 3.125 Mg PO BID Lipitor (Atorvastatin Calcium) 40 Mg Tab 40 Mg PO HS Allergies: Coded Allergies: No Known Allergies (Unverified , 06/27/17) Active Ordered Medications Reported Meds & Active Scripts Active Potassium Chloride ER (Potassium Chloride) 20 Meq Tab 20 Meq PO BID Carvedilol 3.125 Mg Tab 3.125 Mg PO BID Furosemide 40 Mg Tab 40 Mg PO BID@09,18 Potassium Chloride ER (Potassium Chloride) 20 Meq Tab 20 Meq PO BID Aspirin 81 (Aspirin) 81 Mg Tabdr 81 Mg PO DAILY Lisinopril 5 Mg Tab 5 Mg PO DAILY Coreg (Carvedilol) 3.125 Mg Tab 3.125 Mg PO BID Lipitor (Atorvastatin Calcium) 40 Mg Tab 40 Mg PO HS . Family History Denies family history of heart disease . Social History Tobacco: quit 10 years ago Alcohol: rare wine Illicit Drugs: denies Physical Exam Vital Signs Vital Signs Date Time Temp Pulse Resp B/P (MAP) Pulse Ox O2 Delivery O2 Flow Rate FiO2 06/27/17 21:00 80 16 103/71 (82) 100 Nasal Cannula 2.00 06/27/17 20:00 Nasal Cannula 2.00 06/27/17 19:59 96 24 100 06/27/17 19:31 98.8 98 16 117/66 (83) 99 Room Air Physical Exam GENERAL: This is a well-nourished, well-developed patient, in no apparent distress. SKIN: No rashes, ecchymoses or lesions. Cool and dry. HEAD: Atraumatic. Normocephalic. No temporal or scalp tenderness. EYES: No scleral icterus. No injection or drainage. ENT: Nose without bleeding, purulent drainage. Airway patent. NECK: Trachea midline. No JVD. CARDIOVASCULAR: Regular rate and rhythm without murmurs, gallops, or rubs. RESPIRATORY: Inspiratory and expiratory wheezing. Breath sounds equal bilaterally. No rales or rhonchi. GASTROINTESTINAL: Abdomen soft, non-tender, nondistended. No guarding. MUSCULOSKELETAL: Extremities without clubbing, cyanosis. NEUROLOGICAL: Awake and alert. Motor and sensory grossly within normal limits. Normal speech. . Laboratory Laboratory Tests Test 06/27/17 20:15 White Blood Count 5.0 Red Blood Count 5.02 Hemoglobin 11.0 Hematocrit 35.8 Mean Corpuscular Volume 71.4 Mean Corpuscular Hemoglobin 21.9 Mean Corpuscular Hemoglobin Concent 30.7 Red Cell Distribution Width 20.6 Platelet Count 243 Mean Platelet Volume 8.8 Neutrophils (%) (Auto) 50.6 Lymphocytes (%) (Auto) 30.1 Monocytes (%) (Auto) 12.0 Eosinophils (%) (Auto) 5.2 Basophils (%) (Auto) 2.1 Neutrophils # (Auto) 2.5 Lymphocytes # (Auto) 1.5 Monocytes # (Auto) 0.6 Eosinophils # (Auto) 0.3 Basophils # (Auto) 0.1 CBC Comment DIFF FINAL Differential Comment Prothrombin Time 14.3 Prothromb Time International Ratio 1.3 Activated Partial Thromboplast Time 29.1 Blood Urea Nitrogen 23 Creatinine 1.24 Random Glucose 109 Total Protein 7.3 Albumin 3.1 Calcium Level 8.5 Magnesium Level 1.6 Alkaline Phosphatase 88 Aspartate Amino Transf (AST/SGOT) 27 Alanine Aminotransferase (ALT/SGPT) 31 Total Bilirubin 2.9 Sodium Level 135 Potassium Level 4.0 Chloride Level 103 Carbon Dioxide Level 24.6 Anion Gap 7 Estimat Glomerular Filtration Rate 75 Total Creatine Kinase 121 Creatine Kinase MB 2.2 Troponin I LESS THAN 0.02 B-Type Natriuretic Peptide 1090 Lipase 108 Result Diagram: 06/27/17201406/27/17 2015 Imaging Current Medications Aspirin (Aspirin Chew) 324 mg ONCE ONCE PO Last administered on 06/27/17 20: 31; Start 06/27/17 at 20:15; Stop 06/27/17 at 20:16; Status DC Nitroglycerin (Nitroglycerin 2% Oint) 0.5 inch ONCE ONCE TOP Last administered on 06/27/17 20:31; Start 06/27/17 at 20:15; Stop 06/27/17 at 20:16 ; Status DC Sodium Chloride (NS Flush) 2 ml UNSCH PRN IVF FLUSH AFTER USING IV ACCESS; Start 06/27/17 at 20:15; Stop 06/27/17 at 22:02; Status DC Furosemide (Lasix Inj) 40 mg ONCE ONCE IV PUSH Last administered on 06/27/17 23:29; Start 06/27/17 at 22:00; Stop 06/27/17 at 22:01; Status DC Sodium Chloride (NS Flush) 2 ml UNSCH PRN IV FLUSH FLUSH AFTER USING IV ACCESS ; Start 06/27/17 at 22:00 Sodium Chloride (NS Flush) 2 ml BID IV FLUSH ; Start 06/28/17 at 09:00 Naloxone HCl (Narcan Inj) 0.4 mg UNSCH PRN IV PUSH SEE LABEL COMMENTS; Start at 22:00 Furosemide (Lasix Inj) 40 mg BID@09,18 IV PUSH ; Start 06/28/17 at 09:00 . Caprini VTE Risk Assessment Caprini VTE Risk Assessment: Mod/High Risk (score >= 2) Caprini Risk Assessment Model Point Value = 1 Point Value = 2 Point Value = 3 Point Value = 5 Age 41-60 Minor surgery BMI > 25 kg/m2 Swollen legs Varicose veins or History of unexplained or recurrent spontaneous Oral contraceptives or hormone replacement Sepsis (< 1 month) Serious lung disease, including pneumonia (< 1 month) Abnormal pulmonary function Acute myocardial infarction Congestive heart failure (< 1 month) History of inflammatory bowel disease Medical patient at bed rest Age 61-74 Arthroscopic surgery Major open surgery (> 45 min) Laparoscopic surgery (> 45 min) Malignancy Confined to bed (> 72 hours) Immobilizing plaster cast Central venous access Age >= 75 History of VTE Family history of VTE Factor V Leiden Prothrombin [id number] Lupus anticoagulant Anticardiolipin antibodies Elevated serum homocysteine Heparin-induced thrombocytopenia Other congenital or acquired thrombophilia Stroke (< 1 month) Elective arthroplasty Hip, pelvis, or leg fracture Acute spinal cord injury (< 1 month) Prophylaxis Regimen Total Risk Factor Score Risk Level Prophylaxis Regimen 0-1 Low Early ambulation 2 Moderate Order ONE of the following: *Sequential Compression Device (SCD) *Heparin 5000 units SQ BID 3-4 Higher Order ONE of the following medications: *Heparin 5000 units SQ TID *Enoxaparin/Lovenox 40 mg SQ daily (WT < 150 kg, CrCl > 30 mL/min) *Enoxaparin/Lovenox 30 mg SQ daily (WT < 150 kg, CrCl > 10-29 mL/min) *Enoxaparin/Lovenox 30 mg SQ BID (WT < 150 kg, CrCl > 30 mL/min) AND/OR *Sequential Compression Device (SCD) 5 or more Highest Order ONE of the following medications: *Heparin 5000 units SQ TID (Preferred with Epidurals) *Enoxaparin/Lovenox 40 mg SQ daily (WT < 150 kg, CrCl > 30 mL/min) *Enoxaparin/Lovenox 30 mg SQ daily (WT < 150 kg, CrCl > 10-29 mL/min) *Enoxaparin/Lovenox 30 mg SQ BID (WT < 150 kg, CrCl > 30 mL/min) AND *Sequential Compression Device (SCD) Assessment and Plan Problem List: (1) Acute on chronic systolic CHF (congestive heart failure) ICD Code: I50.23 - Acute on chronic systolic (congestive) heart failure Status: Acute Assessment and Plan 51 y/o male with CAD and a total of 4 stents who presented to ED with shortness of breath: Acute on Chronic CHF - CXR with interval worsening of pulmonary vascular congestion - BNP 1090 - Lasix 40 mg IV BID - serial cardiac enzymes and EKGs to r/o ACS - monitor I and O strictly - continuous cardiac telemetry to monitor for arrhythmias - EF 20 - 25%, severe mitral regurg, moderate pulmonary and tricuspid regurg on echocardiogram 03/14/17 - Heart healthy diet Severe mitral regurgitation, symptomatic - consult cardiothoracic surgery DVT prophylaxis - Lovenox 40 mg subq qday This note was transcribed by scribe [Alexandra Dumont]. I, Dr. Rody Zendejas personally performed the history, physical exam, and medical decision making; and confirmed the accuracy of the information in the transcribed note. Authenticated by Dr. Rody Zendejas on 06/27/17 at 23:42. Discussed Condition With ER physician and patient Alexandra Dumont Jun 27, 2017 23:42 Rody Zendejas MD Jun 28, 2017 06:08
[2017-06-27 23:58] VITALS: BP 106/80
[2017-06-28] VITALS (13 sets, daily range): BP systolic 82–110; BP diastolic 53–80; PULSE 76–115; RESP 16–22; TEMP 97.4–98.7; O2SAT 94–100
[2017-06-28] MEDS ORDERED: RESP: ALBUTEROL 2.5 MG/IPRATROPIUM 0.5 MG NEB (PRN) NEB
[2017-06-28 02:29] LABS: AUTOMATED NEUTROPHIL # 2.7 TH/MM3 (1.8-7.7); BASOPHIL # 0.1 TH/MM3 (0-0.2); BASOPHIL % 1.7 % (0.0-2.0); EOSINOPHIL # 0.3 TH/MM3 (0-0.4); EOSINOPHIL % 5.2 % (0.0-4.0); HEMATOCRIT 36.1 % (39.0-51.0); HEMO FLAGS DIFF FINAL; LYMPH % 35.1 % (9.0-44.0); LYMPHOCYTE # 1.9 TH/MM3 (1.0-4.8); MEAN CELL VOLUME 71.5 FL (80.0-100.0); MEAN CORPUSCULAR HEMOGLOBIN 22.2 PG (27.0-34.0); MONO % 9.6 % (0.0-8.0); NEUT % 48.4 % (16.0-70.0); PLATELET COUNT 231 TH/MM3 (150-450); RED BLOOD COUNT 5.05 MIL/MM3 (4.50-5.90); RED CELL DISTRIBUTION WIDTH 20.9 % (11.6-17.2); WHITE BLOOD COUNT 5.5 TH/MM3 (4.0-11.0)
[2017-06-28 02:41] LABS: ANION GAP 9 MEQ/L (5-15); BLOOD UREA NITROGEN 26 MG/DL (7-18); CHLORIDE 103 MEQ/L (98-107); GLOMERULAR FILTRATION RATE 75 ML/MIN (>89); POTASSIUM 3.9 MEQ/L (3.5-5.1); SODIUM (NA) 137 MEQ/L (136-145)
[2017-06-28 02:45] LABS: CREATINE KINASE 108 U/L (39-308)
[2017-06-28] MEDS: RESP: ALBUTEROL 2.5 MG/IPRATROPIUM 0.5 MG NEB (SCH) NEB ×4 (03:07→20:13)
[2017-06-28] MEDS: SODIUM CHLORIDE 0.9% FLUSH 10 ML FLUSH IV FLUSH SCH ×2 (08:17→20:40)
[2017-06-28] MEDS: ENOXAPARIN SODIUM 40 MG/0.4 ML SYRINGE SQ SCH (08:17)
[2017-06-28] MEDS: LISINOPRIL 5 MG TAB PO SCH (08:18)
[2017-06-28] MEDS: POTASSIUM CHLORIDE 20 MEQ CONTROLLED RELEASE TAB PO SCH ×2 (08:18→20:41)
[2017-06-28] MEDS: CARVEDILOL 3.125 MG TAB PO SCH ×2 (08:18→20:41)
[2017-06-28] MEDS: ASPIRIN EC 81 MG TABEC PO SCH (08:18)
--- NOTE | 2017-06-28 08:56 | HHI.PR ---
Subjective Remarks Follow up for CHF exacerbation, severe MR. The patient reports feeling slightly better today. He still has some shortness of breath, worse with any exertion. His orthopnea and lower extremity edema have improved. Denies cough, fevers/ chills, or chest pains. He has not seen Dr. Kowalski since his last hospitalization in March. He reports compliance with his Lasix 40mg twice a day. He admits to adding salt to his meals. Objective Vitals Vital Signs Date Time Temp Pulse Resp B/P (MAP) Pulse Ox O2 Delivery O2 Flow Rate FiO2 06/28/17 08:08 98.0 90 21 104/56 (72) 96 06/28/17 07:39 96 21 06/28/17 07:30 82 06/28/17 04:35 97.4 88 22 110/80 (90) 100 06/28/17 04:00 90 06/28/17 03:10 21 06/28/17 00:11 90 06/28/17 00:02 97.5 85 22 99/62 (74) 96 06/27/17 23:58 80 16 106/80 (89) 100 Nasal Cannula 2.00 06/27/17 21:00 80 16 103/71 (82) 100 Nasal Cannula 2.00 06/27/17 20:00 Nasal Cannula 2.00 06/27/17 19:59 96 24 100 06/27/17 19:31 98.8 98 16 117/66 (83) 99 Room Air I/O 06/27/17 06/27/17 06/27/17 06/28/17 06/28/17 06/28/17 07:00 15:00 23:00 07:00 15:00 23:00 Intake Total 240 ml Output Total 1200 ml Balance 240 ml -1200 ml Intake Oral 240 ml Output Urine Total 1200 ml Result Diagram: 06/28/1720706/28/17207 Imaging Last Impressions Chest X-Ray 06/27/172005 Signed Impressions: Service Date/Time: Tuesday, June 27, 2017 20:13 - CONCLUSION: 1. Slight interval worsening pulmonary vascular congestion compared to previous examination dated 06/14/2017. 2. Cardiomegaly. Rhys Burgos MD Objective Remarks GENERAL: Well-nourished, well-developed pleasant middle aged AA male patient in NAD. SKIN: Warm and dry. No rash. HEENT: Normocephalic. Atraumatic. Pupils equal and round. Mucous membranes pink and moist. CARDIOVASCULAR: Regular rate and rhythm. S1, S2 noted. No murmur appreciated. RESPIRATORY: No accessory muscle use. Breath sounds diminished at bilateral bases, otherwise clear to auscultation. Breath sounds equal bilaterally. GASTROINTESTINAL: Abdomen soft, non-tender, nondistended. Normoactive bowel sounds x4. MUSCULOSKELETAL: No obvious deformities. Trace bilateral lower extremity edema. NEUROLOGICAL: Awake and alert. No obvious cranial nerve deficits. Motor grossly within normal limits. Normal speech. PSYCHIATRIC: Appropriate mood and affect; insight and judgment normal. Medications and IVs Current Medications Medications (Trade) Dose Ordered Sig/Gela Route Start Time Stop Time Status Last Admin (NS Flush) 2 ml UNSCH PRN IV FLUSH 06/27/17 22:00 (NS Flush) 2 ml BID IV FLUSH 06/28/17 09:00 06/28/17 08:17 (Narcan Inj) 0.4 mg UNSCH PRN IV PUSH 06/27/17 22:00 (Lasix Inj) 40 mg BID@,18 IV PUSH 06/28/17 09:00 06/28/17 08:20 (Lovenox Inj) 40 mg Q24H SQ 06/28/17 09:00 06/28/17 08:17 (Duoneb Neb) 1 ampule Q6HR NEB NEB 06/28/17 04:00 06/28/17 07:38 (Duoneb Neb) 1 ampule Q2HR NEB PRN NEB 06/28/17 00:00 (Ecotrin Ec) 81 mg DAILY PO 06/28/17 09:00 06/28/17 08:18 (Lipitor) 40 mg HS PO 06/28/17 21:00 (Coreg) 3.125 mg BID PO 06/28/17 09:00 06/28/17 08:18 (Prinivil) 5 mg DAILY PO 06/28/17 09:00 06/28/17 08:18 (KCl) 20 meq BID PO 06/28/17 09:00 06/28/17 08:18 A/P Problem List: (1) Acute on chronic systolic CHF (congestive heart failure) ICD Code: I50.23 - Acute on chronic systolic (congestive) heart failure Status: Acute Assessment and Plan 51 y/o male with CAD and a total of 4 stents who presented to ED with shortness of breath: Acute Exacerbation of Chronic Systolic CHF and Valvular Cardiomyopathy: BNP elevated at 1090. CXR images reviewed, shows interval worsening of pulmonary vascular congestion. Echo done 03/14/17 showed EF 20-25%, severe MR, mod IA/TR. 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 Severe mitral regurgitation, symptomatic: seen on echo as above. - consult cardiothoracic surgery DVT prophylaxis- Lovenox Discharge Planning Discharge pending cardiology/cardiothoracic evaluations and further clinical improvement. Marisol Hanley PA-C Jun 28, 2017 8:56 am
[2017-06-28] MEDS ORDERED: FUROSEMIDE 40 MG/4 ML VIAL IV PUSH SCH (09:00)
[2017-06-28 11:45] LABS: CREATINE KINASE 78 U/L (39-308)
--- NOTE | 2017-06-28 16:07 | MB ---
cc: ANGELIKA ANDERSON MD DATE OF CONSULTATION: 06/28/2017 1966 HISTORY OF PRESENT ILLNESS A 51-year-old male who has had multiple admissions for acute on chronic systolic heart failure exacerbation and also history of coronary artery disease, was recently admitted into the emergency room the first part of June for shortness of breath, running out of his medications. Apparently he still had some Lasix at home but he needed a refill on his Coreg. He left against medical advice, said he had an appointment the following day. On this admission he came in on the complaining of shortness of breath, lower extremity edema, also cough with mostly whitish sputum, occasional greenish, low grade temperature. Apparently, has been compliant taking his medications, however, does use sea salt. The reason for our consultation is on his prior admission he had an echocardiogram which at that time showed an EF of 20-25%, however, did show severe mitral valve regurgitation. The patient has history of coronary artery disease and has undergone stenting in the past. He started having problems before moving from [facility] in 2006. He had his first AR in 2006, had a stent apparently to the LAD at that time and then had another, was called a STEMI alert in March of 2016 and had a stent to the OM and a stent to the RCA by Dr. Kowalski. Other complaints also include some paroxysmal nocturnal dyspnea, some orthopnea. Did have some small amount of nausea with vomiting. PAST MEDICAL HISTORY The patient's past medical history includes: 1. Grade 3 diastolic dysfunction with EF of 20-25%. 2. Severe mitral valve regurgitation per echo. 3. Coronary artery disease with status post stent x3. 4. Ischemic cardiomyopathy. 5. Hypertension. 6. Prior AR. SURGERIES None other than the cardiac cath with stent placements. ALLERGIES No known allergies. MEDICATIONS Home meds include: 1. Atorvastatin 40 mg. 2. Coreg 3.125 b.i.d. 3. Lisinopril 5 p.o. daily. 4. Aspirin 81 daily. 5. Lasix 40 b.i.d. 6. Potassium 20 b.i.d. FAMILY HISTORY Mother is . Father relatively healthy. SOCIAL HISTORY The patient is single, lives with his fiance, has 12 children. Originally from the [place]. 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 He smoked in the past but has quit 10 years ago. Rare wine. Positive for marijuana. No IV drug use. No cocaine. REVIEW OF SYSTEMS Review of systems as above in the HPI. Other 12 systems unremarkable. PHYSICAL EXAMINATION VITAL SIGNS: Blood pressure 104/60, heart rate 90, temperature max 98.0, O2 sat 99 on room air. GENERAL: Patient is awake, alert, in no acute distress. HEENT: Head is normocephalic, atraumatic. Pupils equal and reactive. Oral mucosa pink, moist. He does have some significant decay to his right lower molar area. There is no tenderness over the jaw area. He does have positive JVD. HEART: Heart sounds S1-S2, grade 2/6 systolic murmur. LUNGS: Diminished in the bases, otherwise clear to auscultation. ABDOMEN: Abdomen is soft, nontender. No masses or organomegaly. EXTREMITIES: Reveal trace edema with good distal pulses. LABORATORY DATA Lab work shows hemoglobin of 11, hematocrit 36, white cell count 5.5, platelet count 231, sodium 137, potassium 3.9, BUN 26 with a creatinine 1.24, glucose 120, troponin was negative. BNP on arrival was 1090, INR 1.3. IMAGING STUDIES Chest x-ray showed worsening pulmonary vascular congestion compared to his prior x-ray on 06/14, cardiomegaly, no focal alveolar consolidation to suggest pneumonia. IMPRESSION This is a 51-year-old male with ischemic cardiomyopathy, EF of 20-25%. Has had recent echocardiogram showing grade 3 diastolic dysfunction and moderately dilated left atrial size, severe mitral regurgitation, trace aortic insufficiency, moderate tricuspid regurgitation, mitral valve peak velocity of 109 cm2. The gradient of 4.8 mmHg, the mitral valve mean velocity of 64 cm2. At this time recommend that the patient undergo repeat cardiac cath and also transesophageal echocardiogram to evaluate the mitral valve more closely. In the meantime the patient also needs evaluation and clearance by dentistry for possible extraction of those lower molars of his teeth prior to any surgery at this time. Further planning as per Dr. Angelika Anderson. Dictated by: ALEJANDRO Jean Angelika MONAHAN/TLL /2:00 PM /3:59 PM
[2017-06-28] MEDS: FUROSEMIDE 20 MG/2 ML VIAL IV PUSH SCH (18:38)
[2017-06-28] MEDS: ATORVASTATIN 40 MG TAB PO SCH (20:40)
--- NOTE | 2017-06-28 20:52 | EKG ---
Date Performed: 06/27/2017 Time Performed: 20:09:25 PTAGE: 51 years EKG: Sinus rhythm POSSIBLE LEFT ATRIAL ENLARGEMENT MARKED RIGHT AXIS DEVIATION NONSPECIFIC T-WAVE ABNORMALITY ABNORMAL ECG PREVIOUS TRACING : 06/14/2017 12.53 Compared to prior tracing no significant change DOCTOR: Roge Lamb Interpretating Date/Time 06/28/2017 20:46:43
--- NOTE | 2017-06-28 21:27 | MB ---
cc: JUSTIN REES DO DATE OF CONSULTATION: 06/28/2017 REASON FOR CONSULTATION: Mitral regurgitation, acute on chronic systolic heart failure. HISTORY OF PRESENT ILLNESS Clayton Medina is a pleasant 51-year-old male who presented to [facility] emergency room on June 27, 2017 due to shortness of breath. He states that the shortness of breath started the night before and he has also noticed some lower extremity swelling. He has had a cough but mostly whitish sputum. He has been taking his Lasix 40 mg b.i.d. as directed. When discussing his fluid and salt intake, he states that he has continued to drink water to stay hydrated, possibly more than he should, and he also has been salt even though he has been directed not to. He has been compliant with all his medications. When seeing him in the emergency room, he is currently without chest pain and shortness of breath but somewhat fatigued. PAST MEDICAL HISTORY: 1. Coronary artery disease. 2. Systolic congestive heart failure. 3. Hypertension. PAST SURGICAL HISTORY Cardiac catheterization (March 20, 2016) acute STEMI. Left main 10% stenosis. LAD proximal 20-30%. Circumflex, occluded obtuse margina. RCA mid stent appears patent with 5 mm distal to this having an 80 to 90% stenosis. PCI of OM with a Resolute bare metal stent (2.75 x 14). Cardiac catheterization (March 21, 2016) staged PCI of RCA with an Integrity bare metal stent (3 x 18). ALLERGIES NO KNOWN DRUG ALLERGIES. MEDICATIONS 1. Lipitor 40 mg every night 2. Coreg 3.125 mg b.i.d. 3. Lisinopril 5 mg daily 4. Aspirin 81 mg daily 5. Potassium 20 mEq b.i.d. 6. Lasix 40 mg b.i.d. FAMILY HISTORY Denies premature coronary artery disease or sudden cardiac within the family. SOCIAL HISTORY The patient previously smoked but quit 10 years ago. Denies alcohol or drug abuse. REVIEW OF SYSTEMS 14-systems were reviewed including osteopathic, pertinent positives and negatives above, otherwise negative. PHYSICAL EXAMINATION Vital signs: Temperature 98.0, heart rate 90, blood pressure 104/50, respirations 20, pulse ox 96% on room air. GENERAL: In general the patient appears well. No acute distress, alert, awake and oriented x3. Extraocular muscles intact. Mucous membranes moist. Neck: Supple. No JVD at 45 degrees. No carotid bruits heard bilaterally. Carotid upstroke is brisk in nature. Heart: Regular rate and rhythm. Positive first and second heart sounds with a 2/6 holosystolic murmur noted at the apex. Lungs: Decreased breath sounds at bilateral bases but no overt wheezes, rales or rhonchi. Abdomen: Soft, nontender, nondistended, no organomegaly noted. Extremities: Show trace edema bilaterally but no clubbing or cyanosis. Femoral and distal pulses intact bilaterally. Neurologically: No focal deficits. Skin: Warm, dry and intact. Osteopathic: No kyphoscoliosis, lordosis or paraspinal tender points. LABORATORY WORK: Hemoglobin 11.2, hematocrit 36.1, platelets 231. Potassium 3.9, BUN 26, creatinine 1.24, troponin negative x3. BNP 1090. Electrocardiogram (June 27, 2017 at 20:09) sinus rhythm, left atrial enlargement, right axis deviation, nonspecific ST-T wave changes. Echocardiogram (March 14, 2017), mildly dilated left ventricle, ejection fraction 20-25%, grade 3 diastolic dysfunction. Severe mitral regurgitation, trace aortic valve regurgitation, moderate tricuspid regurgitation, moderate pulmonary valve regurgitation. IMPRESSION 1. Acute on chronic systolic heart failure. 2. Ejection fraction of 20 to 25% with severe mitral regurgitation, moderate pulmonary and tricuspid regurgitation by echocardiogram (March 14, 2017). 3. Coronary artery disease with above coronary anatomy. 4. History of hypertension. RECOMMENDATIONS 1. Mr. Medina appears to have presented with acute systolic heart failure on chronic congestive heart failure. This may be due to fluid intake as well as salt use. 2. He was instructed to decrease both of these. 3. We will attempt to diurese him as possible. 4. CT surgery has seen him for consideration of mitral valve repair versus replacement as he does have severe mitral regurgitation on echocardiogram. Because of this we will plan on cardiac catheterization with a left and right heart catheterization in the morning. 5. Most likely on Monday, we will plan to do a SEDRICK to look further at his mitral valve in determining possibilities for CT surgery. 6. He should continue on aspirin 81 mg for his coronary artery disease. Further recommendations will be made based on the hospital course. Thank you for allowing me to see Clayton Medina. If there are any questions please do not hesitate to call. Justin PINK /8:47 PM /9:12 PM
[2017-06-29] VITALS (12 sets, daily range): BP systolic 98–117; BP diastolic 56–80; PULSE 80–93; RESP 16–18; TEMP 97.8–98.1; O2SAT 95–100
[2017-06-29] MEDS: RESP: ALBUTEROL 2.5 MG/IPRATROPIUM 0.5 MG NEB (SCH) NEB ×3 (02:43→20:30)
[2017-06-29 08:00] LABS: BICARBONATE 24.9 MEQ/L (21.0-32.0); POTASSIUM 3.6 MEQ/L (3.5-5.1)
[2017-06-29] MEDS ORDERED: SODIUM CHLORID 0.9% 500 ML INJ 500 ML ONE (08:19)
[2017-06-29] MEDS ORDERED: HEPARIN-NS/PF INJ 1,000 ML ONE (08:19)
--- NOTE | 2017-06-29 08:22 | HHI.PR ---
Subjective Remarks Follow up for CHF exacerbation, severe MR. The patient reports feeling much better again today. RN reports 6beat run of NSVT on telemetry at 7am this morning. The patient denies any shortness of breath, chest pains, or palpitations. He was able to ambulate to the bathroom without difficulty. His lower extremity edema and orthopnea resolved. Again counseled on limiting sodium and fluid intake, patient verbalized understanding. Objective Vitals Vital Signs Date Time Temp Pulse Resp B/P (MAP) Pulse Ox O2 Delivery O2 Flow Rate FiO2 06/29/17 07:15 98.1 86 16 102/60 (74) 96 06/29/17 07:15 92 06/29/17 05:33 84 06/29/17 03:30 97.9 86 18 99/56 (70) 100 06/28/17 23:33 98.7 85 20 96/59 (71) 100 06/28/17 20:14 99 21 06/28/17 19:26 98.4 115 16 82/53 (63) 95 06/28/17 17:34 98.6 91 20 110/73 (85) 98 06/28/17 14:56 97.8 90 20 94/59 (71) 94 06/28/17 12:05 97.8 76 20 90/53 (65) 99 I/O 06/28/17 06/28/17 06/28/17 06/29/17 06/29/17 06/29/17 07:00 15:00 23:00 07:00 15:00 23:00 Output Total 1200 ml 1100 ml 225 ml Balance -1200 ml -1100 ml -225 ml Output Urine Total 1200 ml 1100 ml 225 ml # Voids 3 Result Diagram: 06/28/17 0208 06/29/17 0650 Imaging Last Impressions Chest X-Ray 06/27/172005 Signed Impressions: Service Date/Time: Tuesday, June 27, 2017 20:13 - CONCLUSION: 1. Slight interval worsening pulmonary vascular congestion compared to previous examination dated 06/14/2017. 2. Cardiomegaly. Rhys Burgos MD Objective Remarks GENERAL: Well-nourished, well-developed pleasant middle aged AA male patient in NAD. SKIN: Warm and dry. No rash. HEENT: Normocephalic. Atraumatic. Pupils equal and round. Mucous membranes pink and moist. CARDIOVASCULAR: Regular rate and rhythm. S1, S2 noted. No murmur appreciated. RESPIRATORY: No accessory muscle use. Clear to auscultation. Breath sounds equal bilaterally. GASTROINTESTINAL: Abdomen soft, non-tender, nondistended. Normoactive bowel sounds x4. MUSCULOSKELETAL: No obvious deformities. No lower extremity edema. NEUROLOGICAL: Awake and alert. No obvious cranial nerve deficits. Motor grossly within normal limits. Normal speech. PSYCHIATRIC: Appropriate mood and affect; insight and judgment normal. Medications and IVs Current Medications Medications (Trade) Dose Ordered Sig/Gela Route Start Time Stop Time Status Last Admin (NS Flush) 2 ml UNSCH PRN IV FLUSH 06/27/17 22:00 (NS Flush) 2 ml BID IV FLUSH 06/28/17 09:00 06/28/17 20:40 (Narcan Inj) 0.4 mg UNSCH PRN IV PUSH 06/27/17 22:00 (Lovenox Inj) 40 mg Q24H SQ 06/28/17 09:00 06/28/17 08:17 (Duoneb Neb) 1 ampule Q6HR NEB NEB 06/28/17 04:00 06/29/17 02:43 (Duoneb Neb) 1 ampule Q2HR NEB PRN NEB 06/28/17 00:00 (Ecotrin Ec) 81 mg DAILY PO 06/28/17 09:00 06/28/17 08:18 (Lipitor) 40 mg HS PO 06/28/17 21:00 06/28/17 20:40 (Coreg) 3.125 mg BID PO 06/28/17 09:00 06/28/17 20:41 (Prinivil) 5 mg DAILY PO 06/28/17 09:00 06/28/17 08:18 (KCl) 20 meq BID PO 06/28/17 09:00 06/28/17 20:41 (Lasix Inj) 20 mg BID@0900,1800 IV PUSH 06/28/17 18:19 06/28/17 18:38 A/P Problem List: (1) Acute on chronic systolic CHF (congestive heart failure) ICD Code: I50.23 - Acute on chronic systolic (congestive) heart failure Status: Acute Assessment and Plan 51 y/o male with CAD and a total of 4 stents who presented to ED with shortness of breath: Acute Exacerbation of Chronic Systolic CHF and Ischemic/Valvular Cardiomyopathy : BNP elevated at 1090. CXR images reviewed, shows interval worsening of pulmonary vascular congestion. Echo done 03/14/17 showed EF 20-25%, severe MR, mod TN/TR. - Continue diuresis, decreased to IV Lasix 20mg bid - ACS ruled out with negative serial cardiac enzymes x3 and EKG without acute ischemic changes - monitor strict Is and Os, patient diuresed -2285ml - monitor on telemetry, reviewed, showed 6beat run of NSVT this morning - Heart healthy diet with fluid restrictions - consulted patient's water sponger Dr. Kowalski, seen by Dr. Sinclair, planning for heart cath today Severe mitral regurgitation, symptomatic: seen on echo as above. - consult cardiothoracic surgery, seen by Dr. Davis, recommends repeat cath, SEDRICK, and needs eval and clearance by dentist prior to surgery - heart cath planned for today 06/29 - SEDRICK planned for tomorrow 06/30 DVT prophylaxis- Lovenox Discharge Planning Discharge pending further work up. Likely discharge in 2-3 days. Marisol Hanley PA-C Jun 29, 2017 8:22 am
[2017-06-29] MEDS ORDERED: MIDAZOLAM HCL 2 MG/2 ML VIAL ONE (08:37)
[2017-06-29] MEDS: ASPIRIN EC 81 MG TABEC PO SCH (09:00)
[2017-06-29] MEDS: CARVEDILOL 3.125 MG TAB PO SCH ×2 (09:00→20:54)
[2017-06-29] MEDS: LISINOPRIL 5 MG TAB PO SCH (09:00)
[2017-06-29] MEDS: POTASSIUM CHLORIDE 20 MEQ CONTROLLED RELEASE TAB PO SCH ×2 (09:00→20:55)
[2017-06-29] MEDS: FUROSEMIDE 20 MG/2 ML VIAL IV PUSH SCH ×2 (09:00→17:36)
[2017-06-29] MEDS: ENOXAPARIN SODIUM 40 MG/0.4 ML SYRINGE SQ SCH (09:00)
[2017-06-29] MEDS ORDERED: HEPARIN-NS/PF INJ 500 ML ONE (09:12)
--- NOTE | 2017-06-29 09:44 | CATHPROC ---
[facility] ([facility]) HIS Report Study Information Study Number Admission Scheduled Start Study Start [id number] Jun 27 2017 10:01PM 06/28/2017 Jun 29 2017 8:14AM [place] Service Cardiac Catheterization Admit Source Facility Department Other [facility] - Cad Librarian Physician and Clinical Staff Initial Conor Munoz Wallpaper Inspector Angie Potter RN Wallpaper Inspector Kristi Mi RN Other cathlab, cathlab Recorder Greg Best RCIS(BS) Scrub Hayden Ramsey RCIS(BS) Procedures Performed Procedure Location (Site) Vessel Name Coronary Angiograms LCA Left Coronary Coronary Angiograms RCA Right Coronary Equipment Time Supervisor Slitting And Shipping Description Size Mfg Part Number Used/Scraped ARROW INTERNATIONAL CATHETER, FR.7 BALLOON [id number] 08:42 FR 7 Used INC. WEDGE PRESSURE *[id number] TRANSDUCER, TRUWAVE [id number] 08:20 ROMEO DU * Used W/STOCKCOCK *[id number] TRANSDUCER, TRUWAVE [id number] 08:20 ROMEO DU * Used W/STOCKCOCK *[id number]-502-10.0- INTRODUCER SET, 08:51 COOK INC. FR 5 SC-NT-U-SST Used MICROPUNCTURE, STIFFENED *[id number] 534-520T *[id number] 534-521T *[id number] 08:20 [employer] INDUSTRIES PACK, CCL CUSTOM * Used *[id number] 08:20 tamyca MEDICAL SHEATH, FR5.5 PRELUDE 11CM FR 5 [id number] Used [id number] 08:20 tamyca MEDICAL WIRE, 3MMJ .035 180CM 180CM Used *[id number] 08:20 NAMIC MANIFOLD, 4 PORT * Used *[id number] 08:20 NYCOMED OMNIPAQUE, 350 MG, 150ML 150ML [id number] Used [id number] 08:20 [employer] MEDICAL BLANKET,WARM AIR CCL * Used *[id number] 08:20 TERUMO MEDICAL SHEATH, FR5 TERUMO (10CM) FR 5 Used *[id number] 08:39 TERUMO MEDICAL SHEATH, FR7 TERUMO (10CM) FR 7 Used *[id number] History: Current Medications Medication Dosage/Unit Route Frequency Last Date/Time Taken LISINOPRIL Statins (any) Beta Janak LOVENOX ASA History: Allergies Allergy Reaction No Known Allergies History: Risk Factors Family History of Hypertension Dyslipidemia Previous PR Previous Heart Failure Premature CAD Yes No No Yes Yes Prior Valve Prior PCI Prior PCIDate Prior CABG Surgery No Yes 03/09/2016 No Cerebrovascular Peripheral Artery Chronic Lung On Dialysis Diabetes Disease Disease Disease No No No No No History: CV Disease Selection Items Known CAD History: Stress Tests Stress or Imaging Studies Performed No History: Other Disease Selection Items CAD HTN History: PR/CV Data Previous Cath Date 03/09/2016 History: Other Current Smoker No Labs Hgb (g/dl) Hct (%) WBC (l/cumm) Platelets (thousands) 11.60-17.00 35.00-51.00 4.00-11.00 150.00-450.00 11.2 36.1 5.5 231 Glucose (mg/dl) BUN (mg/dl) Creatinine (mg/dl) BUN:Creatinine (1:x) 74.00-106.00 7.00-18.00 0.50-1.30 10.00-20.00 120 26 1.2 21.7 Na (meq/l) K (meq/l) 136.00-145.00 3.50-5.10 137 3.9 INR (PTT:PT) 0.90-1.10 1.3 Troponin I (ng/ml) CPK (u/l) CPK-MB (ng/ML) 0.02-0.05 26.00-308.00 0.50-3.60 0.02 78 2.2 Medication Medication Total Dose (Bolus/Oral) Medication Total Dosage/Unit 1% XYLOCAINE 20 mL FENTANYL 50 mcg VERSED 0.5 mg Medications (Bolus/Oral) Medication Time Given Dosage/Unit Administered By Reason FENTANYL 06/29/2017 8:46:45 AM 50 mcg Angie Potter 50 mcg FENTANYL given in lab by Angie Potter, RN in Right Antecubital via Peripheral IV. Ordered b y Conor Sinclair. 1% XYLOCAINE 06/29/2017 8:48:51 AM 20 mL Conor Sinclair 20 mL 1% XYLOCAINE given in lab by Conor Sinclair in Right Groin via Subcutaneous. VERSED 06/29/2017 9:06:31 AM 0.5 mg Angie Potter 0.5 mg VERSED given in lab by Angie Potter, RN in Right Antecubital via Peripheral IV. Ordered by Conor Sinclair. Medication (Drip) Medication Time Given Dosage/Unit Concentration/Unit Diluent (ml) Solution IV Solutions 06/29/2017 8:15:24 AM 0 mL (IV) 500 NaCl .9 Patient arrived on IV Solutions given by seth ann in Right Antecubital via Peripheral IV. Pum p/Drip Flow = 20 ml/hr using NaCl .9. Ordered by Conor Sinclair. Initial Case Assessment Cardiovascular HR Rhythm NIBP Chest Pain 76 sinus 105/75 0 Edema Present Skin color Skin None Normal Warm Dry Circulatory - Right Pulses Dorsalis Pedis Femoral 2 2 Scale (0,1,2,3,4,d) Circulatory - Left Pulses Dorsalis Pedis Femoral 2 2 Scale (0,1,2,3,4,d) Neurological State Oriented to time-place- Alert Moves all extremities person Respiration - General Respiration Rate SpO2 (%) (B/min) 17 100 Final Case Assessment Cardiovascular HR Rhythm NIBP Chest Pain 90 sinus 109/73 0 Edema Present Skin color Skin None Normal Warm Dry Circulatory - Right Pulses Dorsalis Pedis Femoral 2 2 Scale (0,1,2,3,4,d) Circulatory - Left Pulses Dorsalis Pedis Femoral 2 2 Scale (0,1,2,3,4,d) Neurological State Oriented to time-place- Alert Moves all extremities person Respiration - General Respiration Rate SpO2 (%) (B/min) 17 100 Chronological Log Time Study Chronological Log 8:15:15 Patient arrived via Bed. 8:15:16 Patient Name, D.O.B, / Armband Verified By R.N. 8:15:16 Consent signed by the physician and the patient and verified by the Cad Librarian staff. 8:15:16 Pre-op and post- op instructions given; patient acknowledges understanding of instructions. 8:15:18 Verbal Stimulation=2 Physical Stimulation=2 Airway=2 Respiration=2 TOTAL=8. (0=absent, 1=li mited, 2=present) 8:15:19 Presedation assessment performed by Cad Librarian RN. 8:15:20 Immediate Presedation assesment performed by physician. 8:15:20 Patient has been NPO for More than 6Hrs. 8:15:21 Skin Breakdown- none per patient 8:15:21 Patient Warmer Placed on the Table. 8:15:22 Fouzia Prominences Protected 8:15:24 A # 18 IV was noted in the Antecubital (right). Grade = 0 Patient arrived on IV Solutions given by cathlab, cathlab in Right Antecubital via Peripheral I V. Pump/Drip Flow = 20 8:15:24 ml/hr using NaCl .9. Ordered by Conor Sinclair. 8:15:25 History and physical on the chart or being dictated. Vitals capture started with the following parameters, Patient=Adult, Interval=5 min, Initial Pr fhjpva=295 mmHg, 8:21:07 Deflation Rate=5 mmHg, Cuff placed on Left Ankle 8:21:45 HR=71 bpm, TTQG=804/75 mmhg, SpO2=97.0 %, Resp=18 B/min, Pain=0, Patricia=10, Lockett=2 Assessment: Initial Case, HR=76 BPM, Rhythm=sinus, KMYQ=776/75 mmhg, Chest Pain=0, Edema=None, Color=Normal, Skin = Warm, Dry Right Pulses: Hakan Ped=2, Femoral=2 8:24:36 Left Pulses: Hakan Ped=2, Femoral=2 Neurological: State=Alert, Ox3, CHEUNG Respiration: Resp=17 B/min, QaB6=892 % 8:26:38 HR=77 bpm, ALPZ=907/74 mmhg, SpO2=98.0 %, Resp=16 B/min, Pain=0, Patricia=10, Lockett=2 8:29:07 Reference ECG taken 8:31:39 HR=79 bpm, ELPN=975/74 mmhg, SpO2=99.0 %, Resp=11 B/min, Pain=0, Patricia=10, Lockett=2 8:33:45 Right groin prepped with 2% chlorhexidine, and with a 3 min. waiting time. 8:36:44 HR=77 bpm, ZDJN=156/52 mmhg, SpO2=95.0 %, Resp=22 B/min 8:36:50 Pressure channel 1 zeroed. 8:37:56 MD arrived. 8:38:00 Contrast Scanned 8:38:01 Immediate Presedation assesment performed by physician. 8:41:41 HR=72 bpm, KORU=535/72 mmhg, SpO2=96.0 %, Resp=20 B/min, Pain=0, Patricia=10, Lockett=2 Time Out. Correct patient, correct procedure,correct physician, ,power injector not loaded with contrast with surgical 8:45:54 team present. Time Out Concurred by , individual staff in procedure 8:46:03 Case Start 8:46:04 Verbal Stimulation=2 Physical Stimulation=2 Airway=2 Respiration=2 TOTAL=8. (0=absent, 1=villela ited, 2=present) 8:46:42 HR=65 bpm, DYFJ=267/66 mmhg, SpO2=96.0 %, Resp=21 B/min, Pain=0, Patricia=10, Lockett=2 50 mcg FENTANYL given in lab by Angie Potter RN in Right Antecubital via Peripheral IV. Orde red by Yahir 8:46:45 Conor. 8:48:51 20 mL 1% XYLOCAINE given in lab by Conor Sinclair in Right Groin via Subcutaneous. 8:51:16 Access site was Right Femoral Artery. 8:51:24 A SHEATH, FR5 TERUMO (10CM) FR 5 was advanced into the Fem Art (right) using the Percutaneou s technique. 8:51:41 HR=72 bpm, OZKU=827/71 mmhg, SpO2=95 %, Resp=16 B/min, Pain=0, Patricia=10, Lockett=2 8:53:19 Access site was Right Femoral Vein. 8:53:22 A SHEATH, FR7 TERUMO (10CM) FR 7 was advanced into the Fem Vein (right) using the Percutaneo us technique. Recorded Pressure: Ao, HR=73, Condition=Condition 1 8:55:35 (Aorta) Ao 101/59/74 8:55:48 An injection in the Fem Art (right) was made through the SHEATH, FR5 TERUMO (10CM) FR 5. 8:56:42 HR=71 bpm, XOLR=784/64 mmhg, SpO2=93.0 %, Resp=18 B/min, Pain=0, Patricia=10, Lockett=2 8:57:22 A CATHETER, FR.7 BALLOON WEDGE PRESSURE FR 7 was inserted via Fem Vein (right) 9:01:41 HR=61 bpm, FFCY=285/68 mmhg, SpO2=95.0 %, Resp=16 B/min, Pain=0, Patricia=10, Lockett=2 Recorded Pressure: PCW, HR=79, Condition=Condition 1 9:02:17 (Pulmonary Capillary Wedge) PCW 28/37/27 9:03:10 Saturation: Site=PA (Pulmonary Artery) , O2=60.7 %, Hgb=11.2 gm/dl, Condition=Condition 1. U sed in calculation. Recorded Pressure: MPA, HR=79, Condition=Condition 1 9:03:37 (Main Pulmonary Artery) MPA 60/31/43 9:04:02 Saturation: Site=Ao (Aorta) , O2=95.5 %, Hgb=11.2 gm/dl, Condition=Condition 1. Used in calc ulation. Recorded Pressure: RV, HR=74, Condition=Condition 1 9:05:26 (Right Ventricle) RV 59/8/17 Recorded Pressure: RA, HR=77, Condition=Condition 1 9:05:58 (Right Atrium) RA 16/15/13 9:06:14 Mears Esther Catheter Removed 0.5 mg VERSED given in lab by Angie Potter, RN in Right Antecubital via Peripheral IV. Ordere d by Yahir, 9:06:31 Conor. 9:06:40 HR=71 bpm, FGWR=165/70 mmhg, SpO2=97.0 %, Resp=10 B/min, Pain=0, Patricia=10, Lockett=2 A JR 4.0 INFINITI CATHETER FR 5 was advanced over a wire. OMNIPAQUE, 350 MG, 150ML 150ML was use d for 9:06:50 injections. Recorded Pressure: LV, HR=80, Condition=Condition 1 9:08:44 (Left Ventricle) LV 92/11/25 Recorded Pressure: Ao, HR=77, Condition=Condition 1 9:09:00 (Aorta) Ao 93/65/78 9:10:03 The RCA was injected and visualized at various angles. OMNIPAQUE, 350 MG, 150ML 150ML used. After removing the current catheter a JL 4.0 INFINITI CATHETER FR 5 was advanced over a WIRE, 3M MJ .035 180CM 9:11:04 180CM. 9:11:43 HR=74 bpm, LQQA=544/68 mmhg, SpO2=95 %, Resp=19 B/min, Pain=0, Patricia=10, Lockett=2 9:14:22 The LCA was injected and visualized at various angles. OMNIPAQUE, 350 MG, 150ML 150ML used. 9:16:25 Catheter was removed 9:16:44 HR=87 bpm, SMGY=661/73 mmhg, SpO2=95.0 %, Resp=16 B/min, Pain=0, Patricia=10, Lockett=2 9:16:52 Case End Assessment: Final Case, HR=90 BPM, Rhythm=sinus, YZJI=066/73 mmhg, Chest Pain=0, Edema=None, Color=Normal, Skin = Warm, Dry Right Pulses: Hakan Ped=2, Femoral=2 9:16:58 Left Pulses: Hakan Ped=2, Femoral=2 Neurological: State=Alert, Ox3, CHEUNG Respiration: Resp=17 B/min, HzJ2=254 % 9:17:38 Catheter(s) removed without difficulty 9:18:06 No case complications noted. 9:18:07 Cine recording checked. 9:18:10 Bedside Report will be given. 9:18:12 Contrast Scanned 9:20:10 Verbal Stimulation=2 Physical Stimulation=2 Airway=2 Respiration=2 TOTAL=8. (0=absent, 1=villela ited, 2=present) 9:20:18 A Left and Right Heart Cath was performed. 9:21:45 HR=81 bpm, QKRS=729/70 mmhg, Resp=20 B/min, Pain=0, Patricia=10, Lockett=2 9:24:04 Arterial Sheath removed; pressure applied to access site. 9:26:48 HR=83 bpm, INLE=788/70 mmhg, SpO2=96.0 %, Resp=17 B/min, Pain=0, Patricia=10, Lockett=2 9:31:47 HR=84 bpm, JBIB=153/77 mmhg, SpO2=90.0 %, Resp=12 B/min, Pain=0, Patricia=10, Lockett=2 9:36:41 Venous Sheath removed; pressure applied to access site. 9:37:40 HR=84 bpm, HQVK=691/81 mmhg, SpO2=94.0 %, Resp=8 B/min, Pain=0, Patricia=10, Lockett=2 9:41:50 HR=79 bpm, WCIH=926/75 mmhg, SpO2=94.0 %, Resp=20 B/min, Pain=0, Patricia=10, Lockett=2 9:43:49 Sterile dressing applied to site 9:43:53 Patient moved to stretcher 9:43:55 Vitals capture stopped. End Study - Contrast Media Used In Study Contrast Total Opened (mL) Total Used (mL) Total Wasted (mL) Omnipaque 40 40 0 End Study - Maximum Contrast Load Max Contrast Load (mL) 354.2 End Study - Radiation Exposure Fluoro Time (minutes) 6.6 End Study - Patient Disposition Complications Transferred To Interventional Outcome No Cad Librarian Holding No attempt made
--- NOTE | 2017-06-29 10:15 | MA ---
cc: CONOR REES DO DATE: June 29, 2017 PROCEDURE Left heart catheterization, right heart catheterization, coronary angiogram, moderate sedation 10 minutes. PREPROCEDURE DIAGNOSIS Acute systolic heart failure, severe mitral regurgitation by echocardiogram, history of coronary artery disease, for possible open heart surgery for mitral regurgitation. POSTPROCEDURE DIAGNOSIS Mild coronary artery disease by cardiac catheterization, acute systolic heart failure, severe mitral regurgitation, moderate to severe pulmonary hypertension (type 2 secondary to left heart disease), elevated left-sided filling pressures. MEDICATIONS Fentanyl 50 mcg, Versed 0.5 mg. CONTRAST USED 40 ccs. FLUOROSCOPY 6.6 minutes. SEDATION Moderate sedation 10 minutes. ESTIMATED BLOOD LOSS 10 ccs. PROCEDURAL SUMMARY Clayton Medina is a pleasant 51-year-old male who presented to [facility] Emergency Room due to acute shortness of breath. He was found to be in acute systolic heart failure and has known severe mitral regurgitation. He was seen by Dr. Davis for consideration of mitral valve repair and because of this I was asked to evaluate his coronary arteries. Risks, benefits and alternatives were explained to him and he consented as such. He was brought to the lab and prepped in the usual sterile fashion. Right femoral artery was accessed using a micropuncture and modified Seldinger technique and placement of a 5-Spanish sheath. Right femoral vein was accessed using a micropuncture in a modified Seldinger technique and placement of a 7-Spanish sheath. Both of these were easily aspirated and flushed. [place]-Esther catheter was taken to a wedge position and pressures as well as oxygen saturations were measured on pullback throughout the heart. [place]-Esther catheter was removed. A JR-4 was advanced over a J-wire to the ascending aorta and across the aortic valve for measurement of left ventricular pressures. This was then pulled back across the aortic valve showing no significant gradient of aortic stenosis. JR-4 was used for selective angiography of the right coronary artery. This was exchanged out for a JL-4 which was used for selective angiography of the left coronary artery. JL-4 was removed over a J-wire. Both sheaths were removed and pressure was held for hemostasis. 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 FINDINGS Left main is normal size vessel with adequate reflux. It bifurcates into an LAD and circumflex. Mild luminal irregularities at the distal portion. LAD is normal-size vessel with mild luminal irregularities throughout the proximal portion and no significant disease distally. Overall, there are four diagonals which are extremely small. Left circumflex is a normal size vessel with a stent noted in the first obtuse marginal which then bifurcates into a upper and lower branch. There is 20% in-stent restenosis. Overall, no other disease noted throughout the left circumflex system. Right coronary artery is normal-size vessel. Two stents noted in the mid to distal portion which are patent. It appears that there is 10% in-stent restenosis throughout. Overall, it is a dominant vessel with no disease distally. HEMODYNAMICS RA 15. RV 59/8, RVEDP 17. PA 60/31, mean PA 43. Wedge 30. LV 92/12, LVEDP 25. AO 93/65. Cardiac output 4.8. Cardiac index 2.4. IMPRESSION 1. Mild coronary artery disease by cardiac catheterization. 2. Acute systolic heart failure. 3. Elevated left-sided filling pressures. 4. Severe MR by echocardiogram with significant V-waves on wedge. 5. Moderate to severe pulmonary hypertension (type 2 secondary to left-sided heart disease). RECOMMENDATIONS 1. Overall, Mr. Medina does not appear to have coronary artery disease that needs to be considered for bypass if he does undergo open heart surgery. 2. We will plan on a SEDRICK tomorrow morning to further evaluate his mitral regurgitation. 3. Continue workup per cardiothoracic surgery. Thank you for allowing me to see Clayton Medina. If there are any questions, please do not hesitate to call. Conor Rees DO VGP/TLL /9:38 AM /9:55 AM
[2017-06-29] MEDS: SODIUM CHLORIDE 0.9% FLUSH 10 ML FLUSH IV FLUSH SCH ×2 (10:30→20:55)
[2017-06-29 14:06] LABS: TRANSFERRIN IRON PROFILE 316 MG/DL (200-360)
[2017-06-29 14:09] LABS: FERRITIN 72 NG/ML (26-388)
--- NOTE | 2017-06-29 17:58 | PD.CARD.PN ---
Subjective Subjective Remarks Seen post-cath Doing well No complaints Objective Medications Current Medications Medications (Trade) Dose Ordered Sig/Gela Route Start Time Stop Time Status Last Admin (NS Flush) 2 ml UNSCH PRN IV FLUSH 06/27/17 22:00 (NS Flush) 2 ml BID IV FLUSH 06/28/17 09:00 06/29/17 10:30 (Narcan Inj) 0.4 mg UNSCH PRN IV PUSH 06/27/17 22:00 (Lovenox Inj) 40 mg Q24H SQ 06/28/17 09:00 06/28/17 08:17 (Duoneb Neb) 1 ampule Q6HR NEB NEB 06/28/17 04:00 06/29/17 02:43 (Duoneb Neb) 1 ampule Q2HR NEB PRN NEB 06/28/17 00:00 (Ecotrin Ec) 81 mg DAILY PO 06/28/17 09:00 06/28/17 08:18 (Lipitor) 40 mg HS PO 06/28/17 21:00 06/28/17 20:40 (Coreg) 3.125 mg BID PO 06/28/17 09:00 06/28/17 20:41 (Prinivil) 5 mg DAILY PO 06/28/17 09:00 06/28/17 08:18 (KCl) 20 meq BID PO 06/28/17 09:00 06/28/17 20:41 (Lasix Inj) 20 mg BID@0900,1800 IV PUSH 06/28/17 18:19 06/29/17 17:36 Vital Signs / I&O Vital Signs Date Time Temp Pulse Resp B/P (MAP) Pulse Ox O2 Delivery O2 Flow Rate FiO2 06/29/17 16:00 83 06/29/17 15:00 90 06/29/17 14:00 97.9 87 16 104/65 (78) 97 06/29/17 10:00 99 Room Air 06/29/17 07:15 98.1 86 16 102/60 (74) 96 06/29/17 07:15 92 06/29/17 05:33 84 06/29/17 03:30 97.9 86 18 99/56 (70) 100 06/28/17 23:33 98.7 85 20 96/59 (71) 100 06/28/17 20:14 99 21 06/28/17 19:26 98.4 115 16 82/53 (32) 95 I/O 06/28/17 06/28/17 06/28/17 06/29/17 06/29/17 06/29/17 07:00 15:00 23:00 07:00 15:00 23:00 Output Total 1200 ml 1100 ml 225 ml Balance -1200 ml -1100 ml -225 ml Output Urine Total 1200 ml 1100 ml 225 ml # Voids 3 Physical Exam GENERAL: NAD, AAOx3 SKIN: Warm and dry. HEAD: Atraumatic. Normocephalic. EYES: Pupils equal and round. No scleral icterus. No injection or drainage. ENT: No nasal bleeding or discharge. Mucous membranes pink and moist. NECK: Trachea midline. No JVD. CARDIOVASCULAR: Regular rate and rhythm. RESPIRATORY: No accessory muscle use. Decreased breath sounds bilaterally GASTROINTESTINAL: Abdomen soft, non-tender, nondistended. Hepatic and splenic margins not palpable. MUSCULOSKELETAL: Extremities without clubbing, cyanosis, or edema. No obvious deformities. NEUROLOGICAL: Awake and alert. No obvious cranial nerve deficits. Motor grossly within normal limits. Five out of 5 muscle strength in the arms and legs. Normal speech. PSYCHIATRIC: Appropriate mood and affect; insight and judgment normal. Laboratory Laboratory Tests Test 06/29/17 06:50 Blood Urea Nitrogen 22 MG/DL Creatinine 1.12 MG/DL Random Glucose 86 MG/DL Calcium Level 8.7 MG/DL Sodium Level 138 MEQ/L Potassium Level 3.6 MEQ/L Chloride Level 104 MEQ/L Carbon Dioxide Level 24.9 MEQ/L Anion Gap 9 MEQ/L Estimat Glomerular Filtration Rate 84 ML/MIN Iron Level 31 MCG/DL Total Iron Binding Capacity 442 MCG/DL Percent Iron Saturation 7.0 % Ferritin 72 NG/ML B-Type Natriuretic Peptide 1023 PG/ML Assessment and Plan Problem List: (1) Mitral regurgitation ICD Codes: I34.0 - Nonrheumatic mitral (valve) insufficiency (2) Acute on chronic systolic CHF (congestive heart failure) ICD Codes: I50.23 - Acute on chronic systolic (congestive) heart failure Status: Acute (3) HTN (hypertension) ICD Codes: I10 - Essential (primary) hypertension Status: Acute (4) CAD (coronary artery disease) ICD Codes: I25.10 - Atherosclerotic heart disease of [place] coronary artery without angina pectoris Status: Chronic Assessment and Plan 1) Catheterization showing no significant CAD 2) Plan for SEDRICK in the morning to evaluate mitral regurgitation NPO after midnight 3) Further work up per CT surgery 4) Con't diuresis at lower dose 5) Outpatient may need to be switched to [facility] Needs to watch his overall fluid and salt intake Conor Sinclair DO Jun 29, 2017 17:58
[2017-06-29] MEDS: ATORVASTATIN 40 MG TAB PO SCH (20:54)
[2017-06-30] VITALS (12 sets, daily range): BP systolic 89–106; BP diastolic 65–79; PULSE 76–100; RESP 16–18; TEMP 98–98.2; O2SAT 97–100
[2017-06-30] MEDS: RESP: ALBUTEROL 2.5 MG/IPRATROPIUM 0.5 MG NEB (SCH) NEB ×2 (03:31→09:06)
[2017-06-30 06:26] LABS: AUTOMATED NEUTROPHIL # 2.5 TH/MM3 (1.8-7.7); BASOPHIL # 0.1 TH/MM3 (0-0.2); BASOPHIL % 1.8 % (0.0-2.0); EOSINOPHIL # 0.2 TH/MM3 (0-0.4); EOSINOPHIL % 5.1 % (0.0-4.0); HEMO FLAGS DIFF FINAL; LYMPH % 28.1 % (9.0-44.0); LYMPHOCYTE # 1.3 TH/MM3 (1.0-4.8); MEAN CELL VOLUME 71.3 FL (80.0-100.0); MEAN CORPUSCULAR HEMOGLOBIN 22.2 PG (27.0-34.0); MEAN CORPUSCULAR HGB CONC 31.1 % (32.0-36.0); MONO % 11.2 % (0.0-8.0); NEUT % 53.8 % (16.0-70.0); PLATELET COUNT 209 TH/MM3 (150-450); RED BLOOD COUNT 5.06 MIL/MM3 (4.50-5.90); RED CELL DISTRIBUTION WIDTH 20.8 % (11.6-17.2); WHITE BLOOD COUNT 4.7 TH/MM3 (4.0-11.0)
[2017-06-30 06:49] LABS: BICARBONATE 25.2 MEQ/L (21.0-32.0); POTASSIUM 3.8 MEQ/L (3.5-5.1)
[2017-06-30] MEDS: ENOXAPARIN SODIUM 40 MG/0.4 ML SYRINGE SQ SCH (09:00)
[2017-06-30] MEDS ORDERED: KETAMINE HCL 500 MG/5 ML VIAL ONE (09:53)
[2017-06-30] MEDS ORDERED: METOPROLOL TARTRATE 25 MG TAB PO PRN (10:00)
[2017-06-30] MEDS ORDERED: LACTATED RINGER'S 1000 ML IV PRN (10:00)
[2017-06-30] MEDS ORDERED: INSULIN HUMAN REGULAR 1,000 UNITS/10 ML VIAL SQ PRN (10:00)
[2017-06-30] MEDS ORDERED: CHLORHEXIDINE GLUCONATE 2 % 1 PACK (2 CLOTHS) TOPICAL PRN (10:00)
[2017-06-30] MEDS ORDERED: POVIDONE IODINE 5% (ANTISEPSIS KIT) 4 APPLICATIONS EACH NARE PRN (10:00)
[2017-06-30] MEDS ORDERED: SODIUM CHLORID 0.9% 500 ML IV PRN (10:00)
[2017-06-30] MEDS ORDERED: RESP: ALBUTEROL 2.5 MG/3 ML NEB (SCH) ONE (12:09)
[2017-06-30] MEDS: CARVEDILOL 3.125 MG TAB PO SCH (13:54)
[2017-06-30] MEDS: ASPIRIN EC 81 MG TABEC PO SCH (13:54)
[2017-06-30] MEDS: SODIUM CHLORIDE 0.9% FLUSH 10 ML FLUSH IV FLUSH SCH (13:55)
[2017-06-30] MEDS: LISINOPRIL 5 MG TAB PO SCH (13:55)
[2017-06-30] MEDS: FUROSEMIDE 20 MG/2 ML VIAL IV PUSH SCH (13:55)
[2017-06-30] MEDS: POTASSIUM CHLORIDE 20 MEQ CONTROLLED RELEASE TAB PO SCH (13:55)
--- NOTE | 2017-06-30 14:28 | PD.CARD.PN ---
Subjective Subjective Remarks No events overnight Post-SEDRICK, doing well SOB decreased Objective Medications Current Medications Medications (Trade) Dose Ordered Sig/Gela Route Start Time Stop Time Status Last Admin (NS Flush) 2 ml UNSCH PRN IV FLUSH 06/27/17 22:00 (NS Flush) 2 ml BID IV FLUSH 06/28/17 09:00 06/30/17 13:55 (Narcan Inj) 0.4 mg UNSCH PRN IV PUSH 06/27/17 22:00 (Lovenox Inj) 40 mg Q24H SQ 06/28/17 09:00 06/28/17 08:17 (Duoneb Neb) 1 ampule Q6HR NEB NEB 06/28/17 04:00 06/30/17 09:06 (Duoneb Neb) 1 ampule Q2HR NEB PRN NEB 06/28/17 00:00 (Ecotrin Ec) 81 mg DAILY PO 06/28/17 09:00 06/30/17 13:54 (Lipitor) 40 mg HS PO 06/28/17 21:00 06/29/17 20:54 (Coreg) 3.125 mg BID PO 06/28/17 09:00 06/30/17 13:54 (Prinivil) 5 mg DAILY PO 06/28/17 09:00 06/30/17 13:55 (KCl) 20 meq BID PO 06/28/17 09:00 06/30/17 13:55 (Lasix Inj) 20 mg BID@0900,1800 IV PUSH 06/28/17 18:19 06/30/17 13:55 Lactated Ringer's 1,000 ml @ 30 mls/hr Q24H PRN IV 06/30/17 10:00 07/03/17 09:59 Sodium Chloride 500 ml @ 30 mls/hr [id number] PRN IV 06/30/17 10:00 07/03/17 09:59 (Lopressor) 25 mg QUANTITATIVE ASSOCIATE PRN PO 06/30/17 10:00 07/03/17 09:59 (Betadine 5% Antisepsis Kit) 1 applic QUANTITATIVE ASSOCIATE PRN EACH NARE 06/30/17 10:00 07/03/17 09:59 (Chlorhexidine 2% Cloth) 3 pack QUANTITATIVE ASSOCIATE PRN TOPICAL 06/30/17 10:00 07/03/17 09:59 (NovoLIN R INJ) See Protocol Table ... QUANTITATIVE ASSOCIATE PRN SQ 06/30/17 10:00 07/03/17 09:59 Vital Signs / I&O Vital Signs Date Time Temp Pulse Resp B/P (MAP) Pulse Ox O2 Delivery O2 Flow Rate FiO2 06/30/17 08:07 82 06/30/17 07:30 97 Room Air 06/30/17 07:25 98.1 85 16 106/79 (88) 97 06/30/17 07:06 76 06/30/17 06:02 90 06/30/17 05:03 88 06/30/17 04:11 100 06/30/17 03:10 98.0 83 18 89/65 (73) 100 06/30/17 03:10 100 Room Air 06/30/17 03:10 91 06/30/17 02:00 76 06/30/17 01:00 78 06/30/17 00:00 80 06/29/17 23:11 97.8 86 17 98/60 (73) 100 06/29/17 23:11 93 06/29/17 23:11 100 Room Air 06/29/17 22:00 90 06/29/17 21:00 88 06/29/17 20:30 95 21 06/29/17 20:00 80 06/29/17 19:10 90 06/29/17 19:10 98.0 91 18 117/80 (92) 99 06/29/17 19:10 98 Room Air 06/29/17 16:00 83 06/29/17 15:00 90 I/O 06/29/17 06/29/17 06/29/17 06/30/17 06/30/17 06/30/17 07:00 15:00 23:00 07:00 15:00 23:00 Intake Total 240 ml 480 ml Output Total 300 ml 1000 ml Balance -60 ml -520 ml Intake Oral 240 ml 480 ml Output Urine Total 300 ml 1000 ml # Bowel Movements 0 Physical Exam GENERAL: NAD, AAOx3 SKIN: Warm and dry. HEAD: Atraumatic. Normocephalic. EYES: Pupils equal and round. No scleral icterus. No injection or drainage. ENT: No nasal bleeding or discharge. Mucous membranes pink and moist. NECK: Trachea midline. No JVD. CARDIOVASCULAR: Regular rate and rhythm. RESPIRATORY: No accessory muscle use. Decreased breath sounds bilaterally GASTROINTESTINAL: Abdomen soft, non-tender, nondistended. Hepatic and splenic margins not palpable. MUSCULOSKELETAL: Extremities without clubbing, cyanosis, or edema. No obvious deformities. NEUROLOGICAL: Awake and alert. No obvious cranial nerve deficits. Motor grossly within normal limits. Five out of 5 muscle strength in the arms and legs. Normal speech. PSYCHIATRIC: Appropriate mood and affect; insight and judgment normal. Laboratory Laboratory Tests Test 06/30/17 06:15 White Blood Count 4.7 TH/MM3 Red Blood Count 5.06 MIL/MM3 Hemoglobin 11.2 GM/DL Hematocrit 36.0 % Mean Corpuscular Volume 71.3 FL Mean Corpuscular Hemoglobin 22.2 PG Mean Corpuscular Hemoglobin Concent 31.1 % Red Cell Distribution Width 20.8 % Platelet Count 209 TH/MM3 Mean Platelet Volume 8.5 FL Neutrophils (%) (Auto) 53.8 % Lymphocytes (%) (Auto) 28.1 % Monocytes (%) (Auto) 11.2 % Eosinophils (%) (Auto) 5.1 % Basophils (%) (Auto) 1.8 % Neutrophils # (Auto) 2.5 TH/MM3 Lymphocytes # (Auto) 1.3 TH/MM3 Monocytes # (Auto) 0.5 TH/MM3 Eosinophils # (Auto) 0.2 TH/MM3 Basophils # (Auto) 0.1 TH/MM3 CBC Comment DIFF FINAL Differential Comment Blood Urea Nitrogen 21 MG/DL Creatinine 0.97 MG/DL Random Glucose 111 MG/DL Calcium Level 8.5 MG/DL Sodium Level 138 MEQ/L Potassium Level 3.8 MEQ/L Chloride Level 106 MEQ/L Carbon Dioxide Level 25.2 MEQ/L Anion Gap 7 MEQ/L Estimat Glomerular Filtration Rate 99 ML/MIN Assessment and Plan Problem List: (1) Mitral regurgitation ICD Codes: I34.0 - Nonrheumatic mitral (valve) insufficiency (2) Acute on chronic systolic CHF (congestive heart failure) ICD Codes: I50.23 - Acute on chronic systolic (congestive) heart failure Status: Acute (3) HTN (hypertension) ICD Codes: I10 - Essential (primary) hypertension Status: Acute (4) CAD (coronary artery disease) ICD Codes: I25.10 - Atherosclerotic heart disease of [place] coronary artery without angina pectoris Status: Chronic Assessment and Plan 1) Catheterization showing no significant CAD 2) SEDRICK showing EF 25%, severe MR which appears central most likely due to mal- coaptation Moderate to severe TR 3) Further work up per CT surgery Discussed with Dr. Davis, needs dental work before able to consider valve surgery 4) Con't diuresis at lower dose 5) Needs to watch his overall fluid and salt intake outpatient 6) Seems compensated Possible discharge today Follow up outpatient with dentistry for tooth work Follow up outpatient with Dr. Davis for consideration of mitral valve repair Conor Sinclair DO Jun 30, 2017 14:28
--- NOTE | 2017-06-30 14:35 | PD.CAR.PN ---
CVT Progress Note Subjective/Hospital Course: s/p Heart cath nonobstructing CAD, RCA 10% restenosis 20% restenosis Left Circ S/P SEDRICK severe MR , moderate pulm HTN CO 4.8 PA 60/30 pt stable for dc home with heart failure medication will need outpt f/u for dentistry for right lower back molar extraction has f/u appointment with Dr Davis in 2 weeks to eval for pending surgery Objective: Vital Signs Date Time Temp Pulse Resp B/P (MAP) Pulse Ox O2 Delivery O2 Flow Rate FiO2 06/30/17 08:07 82 06/30/17 07:30 97 Room Air 06/30/17 07:25 98.1 85 16 106/79 (88) 97 06/30/17 07:06 76 06/30/17 06:02 90 06/30/17 05:03 88 06/30/17 04:11 100 06/30/17 03:10 98.0 83 18 89/65 (73) 100 06/30/17 03:10 100 Room Air 06/30/17 03:10 91 06/30/17 02:00 76 06/30/17 01:00 78 06/30/17 00:00 80 06/29/17 23:11 97.8 86 17 98/60 (73) 100 06/29/17 23:11 93 06/29/17 23:11 100 Room Air 06/29/17 22:00 90 06/29/17 21:00 88 06/29/17 20:30 95 21 06/29/17 20:00 80 06/29/17 19:10 90 06/29/17 19:10 98.0 91 18 117/80 (92) 99 06/29/17 19:10 98 Room Air 06/29/17 16:00 83 06/29/17 15:00 90 Labs: Laboratory Tests Test 06/30/17 06:15 White Blood Count 4.7 TH/MM3 (4.0-11.0) Red Blood Count 5.06 MIL/MM3 (4.50-5.90) Hemoglobin 11.2 GM/DL (13.0-17.0) Hematocrit 36.0 % (39.0-51.0) Mean Corpuscular Volume 71.3 FL (80.0-100.0) Mean Corpuscular Hemoglobin 22.2 PG (27.0-34.0) Mean Corpuscular Hemoglobin Concent 31.1 % (32.0-36.0) Red Cell Distribution Width 20.8 % (11.6-17.2) Platelet Count 209 TH/MM3 (150-450) Mean Platelet Volume 8.5 FL (7.0-11.0) Neutrophils (%) (Auto) 53.8 % (16.0-70.0) Lymphocytes (%) (Auto) 28.1 % (9.0-44.0) Monocytes (%) (Auto) 11.2 % (0.0-8.0) Eosinophils (%) (Auto) 5.1 % (0.0-4.0) Basophils (%) (Auto) 1.8 % (0.0-2.0) Neutrophils # (Auto) 2.5 TH/MM3 (1.8-7.7) Lymphocytes # (Auto) 1.3 TH/MM3 (1.0-4.8) Monocytes # (Auto) 0.5 TH/MM3 (0-0.9) Eosinophils # (Auto) 0.2 TH/MM3 (0-0.4) Basophils # (Auto) 0.1 TH/MM3 (0-0.2) CBC Comment DIFF FINAL Differential Comment Blood Urea Nitrogen 21 MG/DL (7-18) Creatinine 0.97 MG/DL (0.60-1.30) Random Glucose 111 MG/DL (74-106) Calcium Level 8.5 MG/DL (8.5-10.1) Sodium Level 138 MEQ/L (136-145) Potassium Level 3.8 MEQ/L (3.5-5.1) Chloride Level 106 MEQ/L (98-107) Carbon Dioxide Level 25.2 MEQ/L (21.0-32.0) Anion Gap 7 MEQ/L (5-15) Estimat Glomerular Filtration Rate 99 ML/MIN (>89) Result Diagram: 06/30/1761406/30/17614 (1) Mitral regurgitation (2) Acute on chronic systolic CHF (congestive heart failure) (3) HTN (hypertension) (4) CAD (coronary artery disease) Problem Qualifiers (1) Mitral regurgitation: Qualified Codes: I34.0 - Nonrheumatic mitral (valve) insufficiency Nelly Toledo Jun 30, 2017 14:35
[2017-06-30] MEDS ORDERED: LIPI40TA PO (15:36)
[2017-06-30] MEDS ORDERED: LISI-519 PO (15:36)
[2017-06-30] MEDS ORDERED: FURO1TAB62 PO (15:36)
[2017-06-30] MEDS ORDERED: CARV3.125 PO (15:36)
--- NOTE | 2017-06-30 15:37 | HHI.DCPOC ---
Discharge Care Plan Diagnosis: (1) Mitral regurgitation (2) Acute on chronic systolic CHF (congestive heart failure) (3) CAD (coronary artery disease) (4) HTN (hypertension) Goals to Promote Your Health * To prevent worsening of your condition and complications * To maintain your health at the optimal level Directions to Meet Your Goals Take your medications as prescribed Follow your dietary instruction Follow activity as directed Keep your appointments as scheduled Take your immunizations and boosters as scheduled If your symptoms worsen call your PCP, if no PCP go to Urgent Care Center or Emergency Room Smoking is Dangerous to Your Health. Avoid second hand smoke Call the 24-hour hour crisis hotline for domestic abuse at Marisol Hanley PA-C Jun 30, 2017 3:37 pm
--- NOTE | 2017-06-30 15:48 | HHI.DS ---
cc: Piper Kowalski MD; Mikayla Davis MD Discharge Summary Admission Date Jun 29, 2017 at 8:12 am Discharge Date: Jun 30, 2017 Admitting Diagnosis cp r/o mi, chf exacerbation (1) Acute on chronic systolic CHF (congestive heart failure) ICD Code: I50.23 - Acute on chronic systolic (congestive) heart failure Diagnosis: Principal Status: Acute (2) Mitral regurgitation ICD Code: I34.0 - Nonrheumatic mitral (valve) insufficiency Diagnosis: Principal Procedures 06/29 - Cardiac catheterization by Dr. Sinclair, no significant CAD 06/30 - SEDRICK showing EF 25%, severe MR, mod-severe TR Brief History - From Admission Shortness of breath started last night, lower extremity swelling; cough mostly whitish with occasional greenish sputum and blood tinged at time. He states he had "a little" fever - he felt warm while coughing; denies chills. Reports orthopnea and paroxysmal nocturnal dyspnea. States symptoms present for about a week. Nausea with vomiting; vomits yellow sputum. Denies hematemesis Denies diarrhea, black or red stool. Takes Lasix 40 mg BID Labor Relations Specialist is Dr. Kowalski Uses Sea Salt Reports compliance with medications CBC/BMP: 06/30/17 0615 06/30/17 0615 Significant Findings Laboratory Tests Test 06/27/17 20:15 06/28/17 02:08 06/28/17 11:03 06/29/17 06:50 Hemoglobin 11.0 GM/DL (13.0-17.0) 11.2 GM/DL (13.0-17.0) Hematocrit 35.8 % (39.0-51.0) 36.1 % (39.0-51.0) Mean Corpuscular Volume 71.4 FL (80.0-100.0) 71.5 FL (80.0-100.0) Mean Corpuscular Hemoglobin 21.9 PG (27.0-34.0) 22.2 PG (27.0-34.0) Mean Corpuscular Hemoglobin Concent 30.7 % (32.0-36.0) 31.0 % (32.0-36.0) Red Cell Distribution Width 20.6 % (11.6-17.2) 20.9 % (11.6-17.2) Monocytes (%) (Auto) 12.0 % (0.0-8.0) 9.6 % (0.0-8.0) Eosinophils (%) (Auto) 5.2 % (0.0-4.0) 5.2 % (0.0-4.0) Basophils (%) (Auto) 2.1 % (0.0-2.0) Prothrombin Time 14.3 SEC (9.8-11.6) Blood Urea Nitrogen 23 MG/DL (7-18) 26 MG/DL (7-18) 22 MG/DL (7-18) Random Glucose 109 MG/DL (74-106) 120 MG/DL (74-106) Albumin 3.1 GM/DL (3.4-5.0) Total Bilirubin 2.9 MG/DL (0.2-1.0) Sodium Level 135 MEQ/L (136-145) Estimat Glomerular Filtration Rate 75 ML/MIN (>89) 75 ML/MIN (>89) 84 ML/MIN (>89) Troponin I LESS THAN 0.02 NG/ML LESS THAN 0.02 NG/ML LESS THAN 0.02 NG/ML B-Type Natriuretic Peptide 1090 PG/ML (0-100) 1023 PG/ML (0-100) Iron Level 31 MCG/DL (65-175) Percent Iron Saturation 7.0 % (20-50) Test 06/30/17 06:15 Hemoglobin 11.2 GM/DL (13.0-17.0) Hematocrit 36.0 % (39.0-51.0) Mean Corpuscular Volume 71.3 FL (80.0-100.0) Mean Corpuscular Hemoglobin 22.2 PG (27.0-34.0) Mean Corpuscular Hemoglobin Concent 31.1 % (32.0-36.0) Red Cell Distribution Width 20.8 % (11.6-17.2) Monocytes (%) (Auto) 11.2 % (0.0-8.0) Eosinophils (%) (Auto) 5.1 % (0.0-4.0) Blood Urea Nitrogen 21 MG/DL (7-18) Random Glucose 111 MG/DL (74-106) Imaging Last Impressions Chest X-Ray 06/27/172005 Signed Impressions: Service Date/Time: Tuesday, June 27, 2017 20:13 - CONCLUSION: 1. Slight interval worsening pulmonary vascular congestion compared to previous examination dated 06/14/2017. 2. Cardiomegaly. Rhys Burgos MD PE at Discharge GENERAL: Well-nourished, well-developed pleasant middle aged AA male patient in NAD. SKIN: Warm and dry. No rash. HEENT: Normocephalic. Atraumatic. Pupils equal and round. Mucous membranes pink and moist. CARDIOVASCULAR: Regular rate and rhythm. S1, S2 noted. No murmur appreciated. RESPIRATORY: No accessory muscle use. Clear to auscultation. Breath sounds equal bilaterally. GASTROINTESTINAL: Abdomen soft, non-tender, nondistended. Normoactive bowel sounds x4. MUSCULOSKELETAL: No obvious deformities. No lower extremity edema. NEUROLOGICAL: Awake and alert. No obvious cranial nerve deficits. Motor grossly within normal limits. Normal speech. PSYCHIATRIC: Appropriate mood and affect; insight and judgment normal. Hospital Course 51 y/o male with CAD and a total of 4 stents who presented to ED with shortness of breath: The patient was admitted for Acute Exacerbation of Chronic Systolic CHF and Ischemic/Valvular Cardiomyopathy with Severe Mitral Regurgitation. Likely secondary to his diet, patient admits to adding sea salt to foods. BNP was elevated at 1090. CXR images reviewed, shows interval worsening of pulmonary vascular congestion. Echo done 03/14/17 showed EF 20-25%, severe MR, mod DC/TR. ACS ruled out with negative serial cardiac enzymes x3 and EKG without acute ischemic changes Given diuresis with IV lasix 40mg bid, then decreased to 20mg bid. Patient diuresed well. Symptoms resolved. Consulted cardiology and cardiothoracic surgery. Cardiothoracic surgery recommended repeat cath and SEDRICK prior to any valve replacement surgery. Patient underwent cardiac catheterization which overall did not show any significant CAD that would require bypass if he underwent open heart surgery. He also underwent SEDRICK, showing EF 25%, severe MR, and moderate to severe TR. The patient was instructed to follow up with a dentist prior to surgery, he has an upcoming appt on Tuesday 07/03. He has been scheduled for an appointment with Dr. Davis in 2 weeks. The patient was cleared for discharge by both Dr. Sinclair and Dr. Davis. The patient's symptoms were much improved throughout admission. Extensively counseled on CHF diet with fluid restrictions and low sodium. He requested prescription refills. He verbalized understanding of the plan and agrees to discharge. All questions were answered. Pt Condition on Discharge: Stable Discharge Disposition: Discharge Home Discharge Time: > 30 minutes Discharge Instructions DIET: Follow Instructions for: Heart Healthy Diet, Low Sodium Diet Additional Diet Instructions: Fluid restrictions to less than 1200ml per day. Activities you can perform: Regular-No Restrictions Follow up Referrals: Cardiology - 1 Week with Pipre Kowalski MD Dental - 07/03/17 PCP Follow-up - 1 Week Surgical - 2 Weeks with Mikayla Davis MD New Medications: Furosemide (Lasix) 20 Mg Tab 20 MG PO BID@0900,1800 for CHF, #60 TAB 0 Refills Continued Medications: Aspirin DR (Aspirin 81) 81 Mg Tabdr 81 MG PO DAILY for Prevent Blood Clot, #30 TAB 0 Refills Atorvastatin (Lipitor) 40 Mg Tab 40 MG PO HS for Cholesterol Management, #30 TAB 1 Refill (This prescription has been renewed) Carvedilol (Coreg) 3.125 Mg Tab 3.125 MG PO BID for CHF, #60 TAB 1 Refill (This prescription has been renewed) Lisinopril (Lisinopril) 5 Mg Tab 5 MG PO DAILY for Blood Pressure Management, #30 TAB 1 Refill (This prescription has been renewed) Potassium Chloride ER (Potassium Chloride ER) 20 Meq Tab 20 MEQ PO BID for Electrolyte Replacement, #60 TAB 0 Refills Discontinued Medications: Carvedilol (Carvedilol) 3.125 Mg Tab 3.125 MG PO BID, #60 TAB 0 Refills Furosemide (Furosemide) 40 Mg Tab 40 MG PO BID@09,18 for CHF, #60 TAB Potassium Chloride ER (Potassium Chloride ER) 20 Meq Tab 20 MEQ PO BID for Electrolyte Replacement, #60 TAB 0 Refills Marisol Hanley PA-C Jun 30, 2017 3:48 pm
--- NOTE | 2017-06-30 15:54 | RADRPT ---
EXAM DATE/TIME: 06/30/2017 15:16 [facility] COMPARISON: US LEG BILATERAL VENOUS DOPPLER, February 28, 2017, 17:25. INDICATIONS : Preop mitral valve replacement. MEDICAL HISTORY : Myocardial infarction. Congestive heart failure. Hypertension. Coronary artery disease. Anticoagulant therapy. Hyperlipidemia. Chest pain. Gastroesophageal reflux disease. SURGICAL HISTORY : Stents. ENCOUNTER: Initial ACUITY: 1 week PAIN SCORE: 0/10 LOCATION: Bilateral neck PEAK SYSTOLIC VELOCITIES (cm/sec): ICA/CCA RATIO: Right: 1.0 Left: 1.1 ICA: Right: 75.1 Left: 95.3 CCA: Right: 75.5 Left: 86.6 ECA: Right: 87.3 Left: 74.0 VERTEBRAL: Right: 48.6 antegrade Left: 23.2 antegrade Elevated flow velocities and ICA/CCA ratios have been found to correlate with increased degrees of vessel stenosis, calculated as percentage of diameter relative to a normal segment of distal ICA/CCA FINDINGS: RIGHT CAROTID: No significant stenosis is visualized. There is minimal plaque at the bifurcation. The waveforms are within normal limits. LEFT CAROTID: No significant stenosis is visualized. There is minimal plaque at the bifurcation. The waveforms are within normal limits. VERTEBRAL ARTERIES: Antegrade flow is seen in both vertebral arteries. MISCELLANEOUS: None. CONCLUSION: 1. No hemodynamically significant carotid artery stenosis is identified. Lico Wagner MD on June 30, 2017 at 15:52 Board Certified Radiologist. This report was verified electronically.
--- NOTE | 2017-06-30 18:23 | ECHRPT ---
Indication: CONCLUSIONS The left ventricular systolic function is severely reduced with an estimated ejection fraction in th e range of 20-25%. There is diffuse global hypokinesis with distinct regional wall motion abnormalities. Structurally normal mitral valve. Severe mitral valve regurgitation. The mitral valve regurgitation jet is directed centrally due to poor leaflet coaptation. There is moderate to severe tricuspid valve regurgitation. BP: / HR: Rhythm: Sinus MEASUREMENTS (Male / Female) Normal Values Technical Quality:Good DOPPLER TR Peak Velocity 349.0 cm/s TR Peak Gradient 48.7 mmHg Medications Complications None Proc. Components Anesthesia at bedside for sedation FINDINGS LEFT VENTRICLE Wall thickness is normal. The left ventricular systolic function is severely reduced with an estimated ejection fraction in th e range of 20-25%. There is diffuse global hypokinesis with distinct regional wall motion abnormalities. RIGHT VENTRICLE Grossly normal LEFT ATRIUM The left atrial size is moderately dilated. RIGHT ATRIUM The right atrial size is mildly dilated. ATRIAL APPENDAGES Normal left atrial appendage size with no evidence of thrombus formation. There is no spontaneous echo contrast seen in the left atrial appendage. ATRIAL SEPTUM Normal atrial septal thickness without atrial level shunting by limited color doppler interrogation. AORTA Descending aorta grossly normal, no dissection noted. MITRAL VALVE Structurally normal mitral valve. Severe mitral valve regurgitation. The mitral valve regurgitation jet is directed centrally due to poor leaflet coaptation. AORTIC VALVE Trileaflet aortic valve. No aortic valve regurgitation. No aortic valve stenosis. TRICUSPID VALVE Structurally normal tricuspid valve. There is moderate to severe tricuspid valve regurgitation. No t ricuspid valve stenosis. VESSELS Grossly normal Trivial pulmonary valve regurgitation. Conor Sinclair DO (Electronically Signed) Final Date:30 June 2017 18:22
--- NOTE | 2017-07-03 12:03 | RSPPFT ---
DATE OF PROCEDURE: 06/30/17 COMMENTS: Spirometry demonstrates an FEV1 of 1.3 at 33% of predicted, FVC of 2.0 at 41%, FEF 25-75 is 20%. Post-bronchodilator study was not conducted. Flow volume loops are atypical and may suggest an obstructive pattern. IMPRESSION: 1. Moderate obstructive airways disease. 2. Additional restrictive disease cannot be ruled out by this study alone. Please repeat with full pulmonary function with full lung volumes.
== END 2017-06-30 17:00 | disposition home or self-care (01) | DRG 287 ==
LOC: NEPE 19:30 → NEDA 22:01 → NEPFCDU 23:54 → HCIS 06-29 08:09 → OBSVTOIN 06-29 08:12 → HCIN 06-29 13:44
PROVIDERS: ADMIT Hospitalist; ATTEND Hospitalist
PROC: B2111ZZ Fluoroscopy of Multiple Coronary Arteries using Low Osmolar Contrast (ICD-10-PCS; 2017-06-29)
PROC: 4A023N8 Measurement of Cardiac Sampling and Pressure, Bilateral, Percutaneous Approach (ICD-10-PCS; principal; 2017-06-29 08:30)
PROC: B24BZZ4 Ultrasonography of Heart with Aorta, Transesophageal (ICD-10-PCS; 2017-06-30)
DX: I50.23 Acute on chronic systolic (congestive) heart failure (principal); I08.1 Rheumatic disorders of both mitral and tricuspid valves; I10 Essential (primary) hypertension; I25.10 Atherosclerotic heart disease of native coronary artery without angina pectoris; Z95.5 Presence of coronary angioplasty implant and graft; I25.5 Ischemic cardiomyopathy; E78.5 Hyperlipidemia, unspecified; I25.2 Old myocardial infarction; K02.9 Dental caries, unspecified; Z87.891 Personal history of nicotine dependence
CPT/HCPCS: 71010; 80048; 80053; 82550; 82552; 82728; 82810; 83540; 83550; 83690; 83735; 83880; 84484; 85025; 85610; 85730; 93005; 93312; 93320; 93325; 93456; 93880; 94010; 94640; 94664; 96372; 96374; 96376; C1769; C1893; G0378; J1644; J1650; J1940; J2250; J3010; J7040; J7613

== ENCOUNTER → 2017-07-28 | Outpatient (CLI) | payer SELFPAY ==
[~2017-07-28] MED LIST changes: -CARV3.12 PO; +FURO1TAB62 PO; -FURO40TA PO; +FUROSEMIDE 40 MG/4 ML VIAL ONE
[2017-07-28 14:11] LABS: AUTOMATED NEUTROPHIL # 2.4 TH/MM3 (1.8-7.7); BASOPHIL # 0.1 TH/MM3 (0-0.2); EOSINOPHIL # 0.2 TH/MM3 (0-0.4); EOSINOPHIL % 4.8 % (0.0-4.0); HEMATOCRIT 34.8 % (39.0-51.0); HEMO FLAGS DIFF FINAL; LYMPH % 28.9 % (9.0-44.0); LYMPHOCYTE # 1.3 TH/MM3 (1.0-4.8); MEAN CELL VOLUME 69.9 FL (80.0-100.0); MEAN CORPUSCULAR HEMOGLOBIN 21.6 PG (27.0-34.0); MONO % 12.2 % (0.0-8.0); NEUT % 52.1 % (16.0-70.0); PLATELET COUNT 194 TH/MM3 (150-450); RED BLOOD COUNT 4.98 MIL/MM3 (4.50-5.90); RED CELL DISTRIBUTION WIDTH 20.7 % (11.6-17.2); WHITE BLOOD COUNT 4.6 TH/MM3 (4.0-11.0)
[2017-07-28 14:15] LABS: BLOOD, URINE NEG (NEG); GLUCOSE,URINE NEG (NEG); KETONE, URINE NEG (NEG); NITRITE,URINE NEG (NEG); PH, URINE 5.5 (5.0-8.5); URINE COLOR YELLOW (YELLW/STRAW)
[2017-07-28 14:19] LABS: APTT (PATIENT) 29.4 SEC (24.3-30.1); INTERNATIONAL NORMALIZED RATIO 1.3 RATIO; PROTHROMBIN TIME - PATIENT 14.7 SEC (9.8-11.6)
[2017-07-28 14:20] LABS: COMMENT (UR) CULT NOT INDICATED; CULTURE IF INDICATED CULT NOT INDICATED
--- NOTE | 2017-07-28 14:41 | RADRPT ---
EXAM DATE/TIME: 07/28/2017 14:14 [facility] COMPARISON: CHEST SINGLE AP, June 27, 2017, 20:13. CHEST PA & LAT, July 28, 2017, 14:14. INDICATIONS : Evaluate for communicable disease,pneumonia or pneumothorax. MEDICAL HISTORY : Myocardial infarction. Congestive heart failure. Hypertension. Coronary artery SURGICAL HISTORY : stents ENCOUNTER: Initial ACUITY: 1 day PAIN SCORE: 0/10 LOCATION: Bilateral upper chest FINDINGS: PA and lateral views of the chest show mild cardiomegaly. Pulmonary vascular engorgement is noted. In terstitial prominence seen within the perihilar distribution. No intra-alveolar infiltrates or effusi ons. Bony structures are unremarkable. CONCLUSION: Cardiomegaly with pulmonary vascular engorgement. Interstitial prominence likely related to early int erstitial edema. Judson Santoro Jr., MD on July 28, 2017 at 14:29 Board Certified Radiologist. This report was verified electronically.
[2017-07-28 14:42] LABS: BICARBONATE 23.8 MEQ/L (21.0-32.0); POTASSIUM 3.6 MEQ/L (3.5-5.1)
[2017-07-28 15:53] LABS: MRSA PCR NEGATIVE (NEGATIVE); STAPH AUREUS PCR NEGATIVE (NEGATIVE)
--- NOTE | 2017-07-31 18:10 | EKG ---
Date Performed: 07/28/2017 Time Performed: 13:03:43 PTAGE: 51 years EKG: Sinus rhythm LEFT ATRIAL ENLARGEMENT MARKED RIGHT AXIS DEVIATION ABNORMAL ECG Compared to prior tracing no signif icant change NO PREVIOUS TRACING DOCTOR: Rob Pierre Interpretating Date/Time 07/31/2017 18:09:25
== END ==
LOC: CPRE 12:36
PROVIDERS: ATTEND Thoracic Surgery (Cardiothoracic Vascular Surgery)
DX: Z01.810 Encounter for preprocedural cardiovascular examination (principal); Z01.811 Encounter for preprocedural respiratory examination; Z01.812 Encounter for preprocedural laboratory examination; R94.31 Abnormal electrocardiogram [ECG] [EKG]
CPT/HCPCS: 36415; 71020; 80048; 81001; 85025; 85610; 85730; 86850; 86900; 86901; 87640; 87641; 93005; 94010

== ENCOUNTER 2017-07-31 05:36 | Inpatient (IN) | payer OTHER ==
[2017-07-31] VITALS (23 sets, daily range): BP systolic 80–143; BP diastolic 51–89; PULSE 84–92; RESP 16–32; TEMP 95.8–98.6; O2SAT 88–99
[~2017-07-31] VITALS: Ht 180.3 cm; Wt 77.5 kg
[~2017-07-31 05:36] MED LIST changes: -FUROSEMIDE 40 MG/4 ML VIAL ONE
[2017-07-31] MEDS: LACTATED RINGER'S 1000 ML IV PRN ×4 (06:00→15:16)
[2017-07-31] MEDS ORDERED: methylPREDNISolone SOD SUCC 125 MG/2 ML VIAL ONE ×2 (06:07)
[2017-07-31] MEDS ORDERED: HEPARIN SODIUM - SQ 10,000 UNITS/ML VIAL ONE ×2 (06:07)
[2017-07-31] MEDS ORDERED: VANCOMYCIN HCL 1000 MG VIAL ONE ×2 (06:08)
[2017-07-31] MEDS ORDERED: ceFAZolin 2 GM PREMIX 50 ML ONE ×2 (06:08)
[2017-07-31] MEDS ORDERED: CHLORHEXIDINE GLUCONATE 2 % 1 PACK (2 CLOTHS) TOPICAL PRN ×2 (06:15)
[2017-07-31] MEDS ORDERED: INSULIN REGULAR 100 UNITS in NS 100 ML IV PRN ×4 (06:15)
[2017-07-31] MEDS ORDERED: CEFAZOLIN 500 MG in NS IRR BTL 500 ML IRRIGATION SCH ×4 (06:15)
[2017-07-31] MEDS ORDERED: ceFAZolin 2 GM PREMIX 50 ML IV SCH ×2 (06:15)
[2017-07-31] MEDS ORDERED: CHLORHEXIDINE GLUCONATE 4% SOLN 120 ML BTL TOPICAL SCH ×2 (06:15)
[2017-07-31] MEDS ORDERED: POVIDONE IODINE 5% (ANTISEPSIS KIT) 4 APPLICATIONS EACH NARE PRN ×2 (06:15)
[2017-07-31] MEDS ORDERED: METOPROLOL TARTRATE 25 MG TAB PO PRN ×2 (06:15)
[2017-07-31] MEDS ORDERED: INSULIN HUMAN REGULAR 1,000 UNITS/10 ML VIAL SQ PRN ×2 (06:15)
[2017-07-31] MEDS ORDERED: SODIUM CHLORID 0.9% 500 ML IV PRN ×2 (06:15)
[2017-07-31] MEDS ORDERED: METOPROLOL TARTRATE 25 MG TAB PO SCH ×2 (06:15)
[2017-07-31 06:29] LABS: AUTOMATED NEUTROPHIL # 2.9 TH/MM3 (1.8-7.7); BASOPHIL # 0.1 TH/MM3 (0-0.2); BASOPHIL % 1.9 % (0.0-2.0); EOSINOPHIL # 0.2 TH/MM3 (0-0.4); EOSINOPHIL % 4.6 % (0.0-4.0); HEMATOCRIT 36.7 % (39.0-51.0); HEMOGLOBIN 11.2 GM/DL (13.0-17.0); LYMPH % 25.8 % (9.0-44.0); LYMPHOCYTE # 1.3 TH/MM3 (1.0-4.8); MEAN CORPUSCULAR HEMOGLOBIN 21.4 PG (27.0-34.0); MEAN CORPUSCULAR HGB CONC 30.5 % (32.0-36.0); MEAN PLATELET VOLUME 9.3 FL (7.0-11.0); MONOCYTE # 0.6 TH/MM3 (0-0.9); NEUT % 55.7 % (16.0-70.0); PLATELET COUNT 219 TH/MM3 (150-450); RED BLOOD COUNT 5.24 MIL/MM3 (4.50-5.90); RED CELL DISTRIBUTION WIDTH 21.2 % (11.6-17.2); WHITE BLOOD COUNT 5.1 TH/MM3 (4.0-11.0)
[2017-07-31 06:45] LABS: BILIRUBIN, URINE NEG (NEG); BLOOD, URINE NEG (NEG); GLUCOSE,URINE NEG (NEG); HYALINE CAST, URINE 1 /lpf (RARE); KETONE, URINE NEG (NEG); MUCUS URINE FEW /lpf (OCC); NITRITE,URINE NEG (NEG); PH, URINE 5.5 (5.0-8.5); SQUAMOUS EPITHELIAL CELL URINE <1 /hpf (0-5); URINE COLOR YELLOW (YELLW/STRAW); URINE LEUKOCYTE ESTERASE NEG (NEG)
[2017-07-31 06:48] LABS: INTERNATIONAL NORMALIZED RATIO 1.4 RATIO; PROTHROMBIN TIME - PATIENT 15.2 SEC (9.8-11.6)
[2017-07-31 06:52] LABS: BICARBONATE 21.1 MEQ/L (21.0-32.0); CREATININE 1.02 MG/DL (0.60-1.30)
[2017-07-31] MEDS ORDERED: DEXMEDETOMIDINE HCL 200 MCG/2 ML VIAL ONE ×2 (06:55)
[2017-07-31] MEDS ORDERED: CUSTODIOL HTK IRR SOLN 2,000 ML ONE ×2 (07:17)
[2017-07-31] MEDS ORDERED: MANNITOL INJ 100 ML ONE ×2 (07:18)
[2017-07-31] MEDS ORDERED: SODIUM BICARBONATE 8.4% INJ 150 ML ONE ×2 (07:18)
[2017-07-31] MEDS ORDERED: ALBUMIN 25% INJ 50 ML IV ONE ×2 (07:18)
[2017-07-31] MEDS ORDERED: POTASSIUM CHLORIDE 40 MEQ/20 ML VIAL ONE ×2 (07:19)
[2017-07-31] MEDS ORDERED: CUSTODIOL HTK IRR SOLN 1,000 ML ONE ×2 (08:31)
[2017-07-31] MEDS ORDERED: ceFAZolin INJ 1,000 MG VIAL ONE ×2 (11:30)
[2017-07-31] MEDS ORDERED: PROTAMINE SULFATE 250 MG/25 ML VIAL IV ONE ×2 (12:00)
[2017-07-31] MEDS ORDERED: SODIUM BICARBONATE 8.4% INJ 50 MEQ/50 ML SYR IV ONE ×2 (12:00)
[2017-07-31] MEDS ORDERED: fentaNYL CITRATE 2500 MCG/50 ML VIAL IV ONE ×2 (12:00)
[2017-07-31] MEDS ORDERED: VECURONIUM BROMIDE 10 MG VIAL IV ONE ×2 (12:00)
[2017-07-31] MEDS ORDERED: EPINEPHrine HCL (1:1000) 1 MG/ML VIAL IV ONE ×2 (12:00)
[2017-07-31] MEDS ORDERED: ESMOLOL HCL 100 MG/10 ML VIAL IV ONE ×2 (12:00)
[2017-07-31] MEDS ORDERED: HEPARIN SODIUM - SQ 10,000 UNITS/ML VIAL SQ ONE ×2 (12:00)
[2017-07-31] MEDS ORDERED: DOPamine INJ PREMIX 500 ML IV ONE ×2 (12:00)
[2017-07-31] MEDS ORDERED: PROPOFOL 500 MG/50 ML BTL IV ONE ×2 (12:00)
[2017-07-31] MEDS ORDERED: NORMOSOL R INJ 1,000 ML IV ONE ×2 (12:00)
[2017-07-31] MEDS ORDERED: PHENYLEPH/NS 1000 MCG/10 ML SYR IV ONE ×2 (12:00)
[2017-07-31] MEDS ORDERED: ePHEDrine/NS 25 MG/5 ML SYR IV ONE ×2 (12:00)
[2017-07-31] MEDS ORDERED: LIDOCAINE HCL 2% 100 MG/5 ML SYRINGE IV PUSH ONE ×2 (12:00)
[2017-07-31] MEDS ORDERED: PHENYLEPHRINE HCL 10 MG/ML VIAL IV ONE ×2 (12:00)
[2017-07-31] MEDS ORDERED: AMINOCAPROIC ACID INJ 250 MG/ML 20 ML VIAL IV ONE ×2 (12:00)
[2017-07-31] MEDS ORDERED: NOREPINEPHRINE 4 MG/4 ML AMP IV ONE ×2 (12:00)
[2017-07-31] MEDS ORDERED: MIDAZOLAM HCL 2 MG/2 ML VIAL IV ONE ×2 (12:00)
[2017-07-31] MEDS ORDERED: CALCIUM CHLORIDE 10% SOLN 1 GRAM/10 ML SYR IV ONE ×2 (12:00)
[2017-07-31] MEDS ORDERED: LACTATED RINGER'S 1000 ML INJ 1,000 ML IV ONE ×2 (12:00)
[2017-07-31] MEDS ORDERED: ARTIFICIAL TEARS OPTH OINT 3.5 APPLIC/3.5 GM TUBO EACH EYE ONE ×2 (12:00)
[2017-07-31] MEDS ORDERED: SODIUM CHLORID 0.9% 500 ML INJ 1,000 ML IV ONE ×2 (12:00)
[2017-07-31] MEDS ORDERED: FUROSEMIDE 100 MG/10 ML VIAL IV PUSH ONE ×2 (12:00)
[2017-07-31] MEDS ORDERED: NITROGLYCERIN 50 MG/DEXTROSE 5% SOLN 250 ML BTL IV ONE ×2 (12:00)
[2017-07-31] MEDS ORDERED: CARDIOPLEGIC IRR 2,000 ML IRRIGATION ONE ×2 (12:00)
[2017-07-31] MEDS ORDERED: MAGNESIUM SULFATE 1 GM/2 ML VIAL IV ONE ×2 (12:00)
[2017-07-31] MEDS ORDERED: SODIUM CHLOR 0.9% 250 ML INJ 750 ML IV ONE ×2 (12:00)
[2017-07-31] MEDS ORDERED: LACTATED RINGER'S 1000 ML INJ 500 ML IV PRN ×2 (12:02)
[2017-07-31] MEDS ORDERED: ONDANSETRON HCL 4 MG/2 ML VIAL IV PUSH PRN ×2 (12:15)
[2017-07-31] MEDS ORDERED: Post-op Orders (for Pharmacy) MISC OTHER ONE ×2 (12:15)
[2017-07-31] MEDS ORDERED: DOPamine INJ PREMIX 500 ML IV SCH ×2 (12:15)
[2017-07-31] MEDS ORDERED: ACETAMINOPHEN 325 MG TAB PO PRN ×2 (12:15)
[2017-07-31] MEDS ORDERED: RESP: RACEPINEPHRINE 2.25% 0.5 ML NEB NEB PRN ×2 (12:15)
[2017-07-31] MEDS ORDERED: ACETAMINOPHEN 650 MG SUPP RECTAL PRN ×2 (12:15)
[2017-07-31] MEDS ORDERED: SODIUM BICARBONATE 8.4% SOLN 50 MEQ/50 ML VIAL IV PUSH PRN ×4 (12:15)
[2017-07-31] MEDS ORDERED: MAGNESIUM SULFATE INJ 2 GM in SODIUM CHLORIDE 0.9% INJ 100 ML IV PRN ×8 (12:15)
[2017-07-31] MEDS ORDERED: METOPROLOL TARTRATE 5 MG/5 ML VIAL IV PUSH PRN ×2 (12:15)
[2017-07-31] MEDS ORDERED: POTASSIUM CHLOR 20 MEQ PREMIX 100 ML IV PRN ×6 (12:15)
[2017-07-31] MEDS ORDERED: POTASSIUM CHLORIDE 20 MEQ CONTROLLED RELEASE TAB PO PRN ×4 (12:15)
[2017-07-31] MEDS ORDERED: RESP: ALBUTEROL 2.5 MG/IPRATROPIUM 0.5 MG NEB (PRN) NEB ×2 (12:15)
[2017-07-31] MEDS ORDERED: SODIUM CHLORIDE 0.9% FLUSH 10 ML FLUSH IV FLUSH PRN ×2 (12:15)
[2017-07-31] MEDS ORDERED: hydrALAZINE HCL 20 MG/ML VIAL IV PUSH PRN ×2 (12:15)
[2017-07-31] MEDS ORDERED: CALCIUM CHLORIDE 10% 1 GRAM/10 ML VIAL IV PUSH PRN ×2 (12:15)
[2017-07-31] MEDS ORDERED: CALCIUM CHLORIDE INJ 1 GM in SODIUM CHLORIDE 0.9% INJ 100 ML IV PRN ×4 (12:15)
[2017-07-31] MEDS ORDERED: DEXTROSE 50% IN WATER 50 ML VIAL(D50) IV PUSH PRN (12:15)
[2017-07-31] MEDS ORDERED: ALBUMIN 5% INJ 250 ML IV PRN ×2 (12:15)
--- NOTE | 2017-07-31 12:23 | PD.OP ---
cc: Mora Negro MD; Conor Sinclair DO Operative Report Date of Surgery: Jul 31, 2017 Preoperative Diagnosis: (1) Tricuspid regurgitation (2) Combined systolic and diastolic congestive heart failure, NYHA class 4 (3) Mitral regurgitation Postoperative Diagnosis: same, EF=15-20% Procedure: Mitral valve repair with a 30 [place] annuloplasty ring Tricuspid valve repair with a 32 [place] classic ring Right femoral arterial line placement SEDRICK Resection left atrial appendage Anesthesia: Dr. Diaz Surgeon: Mora Negro Outside Dealer Sales Representative(s): OSMAR Leahy Operation and Findings: The risks, benefits, complications, treatment options, and expected outcomes were discussed with the patient. The possibilities of reaction to medication, pulmonary aspiration, perforation of viscus, bleeding, recurrent infection, the need for additional procedures, failure to diagnose a condition, and creating a complication requiring transfusion or operation were discussed with the patient. The patient concurred with the proposed plan, giving informed consent. The site of surgery properly noted/marked. The patient was taken to Operating Room, identified as Clayton Medina and the procedure verified as Mitral Valve Repair or Replacement, Tricuspid Valve Repair, SEDRICK. A Time Out was held and the above information confirmed. Standard monitoring lines and Brewster catheter were placed. General anesthesia was induced. The patient was prepped and draped in a sterile fashion. A right femoral arterial line was placed using Seldinger technique for potential arterial monitoring or IABP placement. A median sternotomy was performed and electrocautery was used to obtain hemostasis. The pericardium was opened and a pericardial sling was created using interrupted 0 silk sutures. The patient was heparinized for cardiopulmonary bypass. The heart was instrumented for cardiopulmonary bypass in the usual manner with bicaval venous drainage. Both the IVC and SVC were encircled with umbilical tapes to isolate the heart during the procedure. Antegrade Custodiol cardioplegia was employed. The patient was placed on cardiopulmonary bypass. The left atrial appendage was resected using a surgical stapler and submitted to pathology. Waterston's groove was developed using electrocautery. An aortic cross-clamp was applied and the heart was arrested using cold Custodiol cardioplegia. The left atrium was opened widely and the mitral valve was exposed using an automatic retractor. The valve was analyzed and sized to a 30 [place] annuloplasty ring which was seated using several interrupted 2-0 Tycron horizontal mattress sutures. After securing the sutures, the valve repair was tested and felt to be excellent. The left atrium was repaired uaing a running 4 -0 Prolene suture. The umbilical tapes were ensnared and the right atrium was opened widely. The tricuspid valve was sized to a 32mm Kerry [place] annuloplasty ring which was seated using several 2-0 Tycron horizontal mattress sutures. The valve repair was tested and found to be excellent. The right atrium was closed using a running 4-0 Prolene suture. The patient was systemically rewarmed. The heart was vigorously deaired with a clamp on. The patient was placed in Trendelenburg's position. The clamp was removed, deairing continued. Intraoperative SEDRICK was used to assess intracardiac air and the valve repairs. The heart was loaded and allowed to eject and the mitral and tricuspid valve was analyzed by SEDRICK. The repairs were excellent with trace regurgitation. Temporary atrial and ventricular wires were placed and brought out through the skin in the usual manner. The patient was weaned from cardiopulmonary bypass. Protamine was given. There was no adverse reaction. Decannulation was carried out without incident. Wound was checked for hemostasis which was obtained using electrocautery. A 36 Tristanian mediastinal chest tube was placed and secured to the skin with 0 silk suture. The sternum was closed with stainless steel wire. The fascia was closed with 1. PDS. The subcutaneous tissue was closed using a running 2-0 Vicryl suture. The skin was closed with 4-0 Monocryl. Sterile dressings were placed. At the end of the operation, all sponge, instruments, and needle counts were correct. The patient was transferred to the CVICU in stable condition. Findings: Dilated cardiomyopathy with EF~15% at the start of the procedure with a CVP=40. EF ~20-25% after valve repairs with CVP ~22mmHg. XC: 94 min CPB: 129 min Drains: mediastinal x 1 Specimens: left atrial appendage Implants: 30 [place] mitral annuloplasty ring, 32 Kerry-Montgomery Tricuspid annuloplasty ring. Complications: none Disposition: to CVICU in stable condition Pacing Wires: 2 atrial and 2 ventricular Mora Negro MD Jul 31, 2017 12:23
--- NOTE | 2017-07-31 14:06 | RADRPT ---
EXAM DATE/TIME: 07/31/2017 13:43 [facility] COMPARISON: CHEST SINGLE AP, June 27, 2017, 20:13. INDICATIONS : Post CABG. MEDICAL HISTORY : Myocardial infarction. Congestive heart failure. Hypertension. SURGICAL HISTORY : Caridac stents. ENCOUNTER: Initial ACUITY: 1 day PAIN SCORE: Non-responsive. LOCATION: Bilateral chest FINDINGS: A single portable frontal view the chest is blurred by motion artifact. Median sternotomy wires are n ew. Tip of endotracheal tube is 3 cm from the dariel. Tip of the nasogastric tube is just past the GE junction. The right-sided central line. No pneumothorax. Cardiomegaly. Bibasilar parenchymal consoli dations. No discrete effusions. CONCLUSION: Cardiomegaly with bibasilar infiltrates. This may relate to pulmonary edema. Judson Santoro Jr., MD on July 31, 2017 at 14:03 Board Certified Radiologist. This report was verified electronically.
[2017-07-31 14:15] LABS: INTERNATIONAL NORMALIZED RATIO 1.6 RATIO
[2017-07-31] MEDS ORDERED: INSULIN REGULAR (IV INFUSION) 100 UNITS in SODIUM CHLORIDE 0.9% INJ 99 ML IV PRN ×4 (15:00)
[2017-07-31] MEDS ORDERED: FUROSEMIDE 20 MG/2 ML VIAL IV PUSH ONE ×2 (15:00)
[2017-07-31] MEDS ORDERED: DEXMEDETOMIDINE INJ 200 MCG in SODIUM CHLORIDE 0.9% INJ 50 ML IV PRN ×4 (15:00)
[2017-07-31] MEDS: RESP: ALBUTEROL 2.5 MG/IPRATROPIUM 0.5 MG NEB (SCH) NEB ×4 (16:24→21:12)
[2017-07-31] MEDS: ACETAMINOPHEN 1000 MG/100 ML 100 ML IV SCH ×4 (16:33→20:23)
[2017-07-31] MEDS: DOPamine 800 MG/D5W PREMIX 500 ML IV PRN ×2 (19:00)
[2017-07-31] MEDS: SODIUM CHLORIDE 0.9% FLUSH 10 ML FLUSH IV FLUSH SCH ×2 (20:23)
[2017-07-31] MEDS: MUPIROCIN 2% OINT 22 GM TUBE EACH NARE SCH ×2 (21:00)
[2017-07-31] MEDS ORDERED: FACTOR VIIA (RECOMB) 5 MG VIAL IV PUSH ONE ×2 (21:45)
[2017-07-31] MEDS: ATORVASTATIN 40 MG TAB PO SCH ×2 (22:39)
[2017-07-31] MEDS: oxyCODONE/ACETAMINOPHEN 5 MG/325 MG TAB PO PRN ×2 (22:40)
[2017-08-01] VITALS (12 sets, daily range): BP systolic 87–120; BP diastolic 47–62; PULSE 69–81; RESP 16–22; TEMP 96.2–98.3; O2SAT 91–99
[2017-08-01] MEDS: ACETAMINOPHEN 1000 MG/100 ML 100 ML IV SCH ×4 (03:16→08:49)
[2017-08-01 04:28] LABS: HEMATOCRIT 28.2 % (39.0-51.0); MEAN CELL VOLUME 70.8 FL (80.0-100.0); MEAN CORPUSCULAR HEMOGLOBIN 22.5 PG (27.0-34.0); MEAN CORPUSCULAR HGB CONC 31.7 % (32.0-36.0); MEAN PLATELET VOLUME 8.5 FL (7.0-11.0); PLATELET COUNT 86 TH/MM3 (150-450); RED BLOOD COUNT 3.99 MIL/MM3 (4.50-5.90); RED CELL DISTRIBUTION WIDTH 21.3 % (11.6-17.2); WHITE BLOOD COUNT 14.7 TH/MM3 (4.0-11.0)
[2017-08-01 04:44] LABS: BICARBONATE 26.2 MEQ/L (21.0-32.0); CALCIUM 8.3 MG/DL (8.5-10.1); CREATININE 1.03 MG/DL (0.60-1.30); MAGNESIUM 1.9 MG/DL (1.5-2.5)
[2017-08-01] MEDS: oxyCODONE/ACETAMINOPHEN 5 MG/325 MG TAB PO PRN ×8 (04:50→22:09)
[2017-08-01] MEDS: RESP: ALBUTEROL 2.5 MG/IPRATROPIUM 0.5 MG NEB (SCH) NEB ×10 (05:09→21:08)
[2017-08-01] MEDS: PANTOPRAZOLE SOD 40 MG DELAYED RELEASE TAB PO SCH ×2 (06:27)
--- NOTE | 2017-08-01 06:29 | RADRPT ---
EXAM DATE/TIME: 08/01/2017 04:34 [facility] COMPARISON: CHEST SINGLE AP, July 31, 2017, 13:43. INDICATIONS : Short of breath. MEDICAL HISTORY : Myocardial infarction. Congestive heart failure. Hypertension. SURGICAL HISTORY : Caridac stents. ENCOUNTER: Subsequent ACUITY: 4 - 6 days PAIN SCORE: 0/10 LOCATION: Bilateral chest FINDINGS: A single view of the chest demonstrates cardiomegaly with increase in pulmonary vascularity and bilat eral perihilar opacities. Previous median sternotomy and heart valve replacement. Mediastinal chest t ube and right jugular central line in stable position. No pneumothorax.. The cardiomediastinal conto urs are unremarkable. Osseous structures are intact. CONCLUSION: 1. Cardiomegaly with increased pulmonary vascularity and bilateral perihilar opacities. 2. Previous median sternotomy and heart valve replacement. Bill Richey MD on August 01, 2017 at 6:27 Board Certified Radiologist. This report was verified electronically.
[2017-08-01] MEDS: ASPIRIN 81 MG CHEW TAB PO SCH ×2 (08:49)
[2017-08-01] MEDS: SODIUM CHLORIDE 0.9% FLUSH 10 ML FLUSH IV FLUSH SCH ×4 (09:00→20:14)
[2017-08-01] MEDS ORDERED: MULTIVITAMIN INJ 10 ML, THIAMINE INJ 500 MG, FOLIC ACID INJ 1 MG in SODIUM CHLORID 0.9%... IV SCH ×8 (09:00)
--- NOTE | 2017-08-01 09:56 | PD.CAR.PN ---
CVT Progress Note Subjective/Hospital Course: 51/ male recent admission for SOB, lower ext swelling 06/27/17, admitted with acute on chronic systolic CHF, treated with IV diuresis, Echo showed EF 20-25%, severe MR , moderate TR/ stabilized then sent home and eval for elective PMH: CAD , / stent, NSVT, FEV1 1.32 surgery: 07/31 Mitral valve repair with a 30 [place] annuloplasty ring Tricuspid valve repair with a 32 [place] classic ring Right femoral arterial line placement SEDRICK Resection left atrial appendage crystalloid 2000cc, 1250cc cell saver, 2500cc EBL one unit PRBC, one unit PLT, one unit cryo 08/01 HGB 9.0 this am, remains on dopamine 5mcq BP labile, hold on diuresing keep in CVICU for now, wean off insulin gtt Objective: GENERAL: SKIN: Warm and dry, prevena dressing to chest , +A&V wires HEAD: Normocephalic. EYES: No scleral icterus. No injection or drainage. NECK: Supple, trachea midline. No JVD or lymphadenopathy. CARDIOVASCULAR: Regular rate and rhythm without murmurs, gallops, or rubs. RESPIRATORY: Breath sounds equal bilaterally. No accessory muscle use. + pleural rub, chest tubes to wall suction, no air leak, drained 2080c c/ 24hrs , 700cc/ 12 hrs GASTROINTESTINAL: Abdomen soft, non-tender, nondistended. MUSCULOSKELETAL: No cyanosis, or edema. BACK: Nontender without obvious deformity. No CVA tenderness. Vital Signs Date Time Temp Pulse Resp B/P (MAP) Pulse Ox O2 Delivery O2 Flow Rate FiO2 08/01/17 09:42 91 Simple Mask 10.00 08/01/17 07:31 94 Simple Mask 8.00 08/01/17 07:31 71 08/01/17 07:00 71 08/01/17 07:00 97.8 71 18 87/49 (62) 92 89/47 (61) 08/01/17 04:23 76 08/01/17 03:09 96.8 78 18 102/62 (75) 94 103/55 (71) 08/01/17 03:09 94 Nasal Cannula 3.00 08/01/17 01:18 96.2 81 20 120/62 95 07/31/17 23:23 84 07/31/17 23:17 97.8 85 20 105/70 (82) 99 118/64 (82) 07/31/17 23:17 99 Nasal Cannula 3.00 07/31/17 22:58 97.8 84 20 119/64 97 07/31/17 22:30 96.0 86 20 107/58 97 07/31/17 22:06 96.8 86 18 122/62 97 07/31/17 22:00 96.8 87 20 109/58 94 07/31/17 21:53 96.8 86 20 122/62 97 07/31/17 21:13 98 Nasal Cannula 4.00 07/31/17 19:43 97.9 85 20 122/65 99 07/31/17 19:15 97.9 86 20 80/51 (61) 97 108/59 (75) 07/31/17 19:15 97 Nasal Cannula 4.00 07/31/17 19:04 97.9 85 16 113/60 97 07/31/17 19:00 84 07/31/17 19:00 86 108/59 07/31/17 18:54 98.4 84 16 106/62 97 07/31/17 18:45 98.4 85 16 100/61 97 07/31/17 18:31 98.4 86 16 93/55 96 07/31/17 16:45 95 Nasal Cannula 4 07/31/17 16:45 95 Nasal Cannula 4.00 07/31/17 16:05 50 07/31/17 16:00 87 07/31/17 15:20 97 80 07/31/17 15:00 98.4 89 17 103/61 (75) 98 07/31/17 14:00 60 07/31/17 13:20 98.4 92 32 143/89 (107) 95 07/31/17 13:05 98.6 90 18 119/74 (89) 91 07/31/17 12:50 98.4 86 21 107/69 (82) 88 117/68 (84) 07/31/17 12:50 93 100 07/31/17 12:05 100 07/31/17 12:00 85 Labs: Laboratory Tests Test 08/01/17 03:58 White Blood Count 14.7 TH/MM3 (4.0-11.0) Red Blood Count 3.99 MIL/MM3 (4.50-5.90) Hemoglobin 9.0 GM/DL (13.0-17.0) Hematocrit 28.2 % (39.0-51.0) Mean Corpuscular Volume 70.8 FL (80.0-100.0) Mean Corpuscular Hemoglobin 22.5 PG (27.0-34.0) Mean Corpuscular Hemoglobin Concent 31.7 % (32.0-36.0) Red Cell Distribution Width 21.3 % (11.6-17.2) Platelet Count 86 TH/MM3 (150-450) Mean Platelet Volume 8.5 FL (7.0-11.0) Blood Urea Nitrogen 34 MG/DL (7-18) Creatinine 1.03 MG/DL (0.60-1.30) Random Glucose 104 MG/DL (74-106) Calcium Level 8.3 MG/DL (8.5-10.1) Magnesium Level 1.9 MG/DL (1.5-2.5) Sodium Level 137 MEQ/L (136-145) Potassium Level 4.0 MEQ/L (3.5-5.1) Chloride Level 103 MEQ/L (98-107) Carbon Dioxide Level 26.2 MEQ/L (21.0-32.0) Anion Gap 8 MEQ/L (5-15) Estimat Glomerular Filtration Rate 93 ML/MIN (>89) Result Diagram: 08/01/1735708/01/17357 (1) Mitral regurgitation (2) Tricuspid regurgitation (3) Combined systolic and diastolic congestive heart failure, NYHA class 4 (4) s/p mitral valve , tricuspid valve repair Plan: pulm toileting , nebs, ezpap wean dopamine as tolerated recheck H&H at 12 noon Nelly Toledo Aug 01, 2017 09:56
--- NOTE | 2017-08-01 10:05 | HHI.FF ---
Face to Face Verification Diagnosis: (1) Mitral regurgitation (2) Tricuspid regurgitation (3) HTN (hypertension) (4) Combined systolic and diastolic congestive heart failure, NYHA class 4 (5) s/p mitral valve , tricuspid valve repair Home Health Nursing Order: Signs/symptoms of disease process Medication education-adverse effect Wound care and dressing changes Nursing assessment with vital signs Instructions: Heart and Vascular Surgery patients *Special attention to sternal dressing Mandatory frequency Assess and evaluation, 4 days in a row The next week 3X week 2 times a week for 4 weeks 1 time a week for 5 weeks Schedule Heart and Vascular patients for full 60 day certification period Initial visit Review Open Heart Surgery Discharge Instructions (Sternal precautions, Activity, Elastic hose, Incision care, Driving, Incentive spirometry, Smoking, [place], Work and other) Need Betadine to paint incision Medication reconciliation Importance of follow up care/ check on appointments Make calendar record temperature daily When to call [facility] nurse, review instructions, phone list Incentive Spirometry, demonstration Visit 1- Begin discharge instruction for patient family and/ or caregiver using teach back method- Signs and symptoms of infection Disease characteristics Medicines and side effects Foods and nutrition/ appetite Infection control/ hand washing/ hygiene Visit 2- Continue teaching Discharge instructions- include additional information on smoking cessation , sternal dressing (sternal vac) Visit 3- Continue teaching- Cough and deep breathing, incision monitoring. Choose my plate Visit 4- Continue teaching- Discuss limitations Discuss how they are feeling Discuss progress toward goals Remaining visits- continue teaching and monitoring PREVENA Single Use Negative Wound Therapy System Caregiver Instruction Sheet 1. A Prevena dressing system was applied to the chest incision during surgery , to promote wound healing. It works via a suction device (negative pressure wound therapy) to remove low to moderate levels of exudate (drainage) and infectious materials. We recommend that the device stay in place for up to seven days, from day of surgery. 2. Day of Surgery__07/31/17 Day of Removal __08/07/17 3. The dressing should only be removed by a health geriatric personal care aide. Please arrange removal of device to coincide with Home Health visit and or with Nursing staff at Rehab 4. If skin reddening or irritation of skin occurs, or excessive drainage, please notify the Cardiovascular Surgeons office at [phone]. 5. Light showering is permissible; however the pump should be disconnected and placed in safe location, where it will not get wet. The dressing should not be exposed to direct spray or submerged in water. No bath tub / shower only. Ensure the end of the tubing attached to the dressing is facing down so that water does not enter the top of the tube. 6. To remove Prevena dressing: press purple button to turn off device / remove the suction. Then disconnect the tubing from the pump. The fixation strips should be stretched away from the skin and the dressing lifted at one corner and peeled back until it has been fully removed. 7. After removal, it is ok to shower daily using liquid dial soap and clean wash cloth, rinse and pat dry, and leave incision open to air dry. For any concerns regarding Prevena dressing, and or wounds, please contact Laisha Jones, patient navigator at [phone] or notify the Cardiovascular Surgeons office at [phone]. Incentive spirometry Q1 hr x 10, while awake, also use acapella device hourly whole awake Sternal Breast Bone Precautions: NO pushing or pulling, ( pt must use sternal pillow to support chest with all activities and with coughing ( takes up to 3 months breast bone to heal ) Daily incision care: ok to shower daily, no tub bath. Wash all incisions with liquid dial soap, clean wash cloth to each site, rinse and pat dry. Observe for any signs of infection, such as drainage which is dark yellow, campos, green or foul smelling. Immediately report to the surgeon any drainage from the chest incision, or legs, and for any abnormal drainage from the chest tube sites. Notify surgeon if any temp >101.5 degrees F. When specialty dressing removed/ or if you do not have one, continue to shower daily as above, then rinse and pat incision dry and paint with betadine daily x 5 days. Allow steri strips to fall off if you have any. Avoid lotions, creams, salves, oils, etc. for the first month Please see attached forms for additional instructions regarding post Open Heart specialty wound vacuum dressings. KENN or Prevena , Dressing to be removed by Nursing staff on For Dr. Negro patients , please obtain CBC, BMP, PA & Lat CXR in 2 weeks, results to Dr. Negro ( prescription will be given) ( ) (Tele: [phone]) , Valve replacement pts will need 2decho in 2 weeks with results to Dr. Negro . 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 Davis & Dr. Negro), After Hours / Nights (5pm -8am) Weekends and Holidays Please call [facility] Cardiac Intermediate Care Unit (CIC) Charge Nurse I have seen patient Clayton Medina on 08/01/17. My clinical findings support the need for the requested home health care services because: Deconditioned w/ increased weakness I certify that my clinical findings support that this patient is homebound because: Post-op weakness Nelly Toledo Aug 01, 2017 10:05
--- NOTE | 2017-08-01 10:05 | HHI.FF ---
Face to Face Verification Diagnosis: (1) Mitral regurgitation (2) Tricuspid regurgitation (3) HTN (hypertension) (4) Combined systolic and diastolic congestive heart failure, NYHA class 4 (5) s/p mitral valve , tricuspid valve repair Home Health Nursing Order: Signs/symptoms of disease process Medication education-adverse effect Wound care and dressing changes Nursing assessment with vital signs Instructions: Heart and Vascular Surgery patients *Special attention to sternal dressing Mandatory frequency Assess and evaluation, 4 days in a row The next week 3X week 2 times a week for 4 weeks 1 time a week for 5 weeks Schedule Heart and Vascular patients for full 60 day certification period Initial visit Review Open Heart Surgery Discharge Instructions (Sternal precautions, Activity, Elastic hose, Incision care, Driving, Incentive spirometry, Smoking, [place], Work and other) Need Betadine to paint incision Medication reconciliation Importance of follow up care/ check on appointments Make calendar record temperature daily When to call [facility] nurse, review instructions, phone list Incentive Spirometry, demonstration Visit 1- Begin discharge instruction for patient family and/ or caregiver using teach back method- Signs and symptoms of infection Disease characteristics Medicines and side effects Foods and nutrition/ appetite Infection control/ hand washing/ hygiene Visit 2- Continue teaching Discharge instructions- include additional information on smoking cessation , sternal dressing (sternal vac) Visit 3- Continue teaching- Cough and deep breathing, incision monitoring. Choose my plate Visit 4- Continue teaching- Discuss limitations Discuss how they are feeling Discuss progress toward goals Remaining visits- continue teaching and monitoring PREVENA Single Use Negative Wound Therapy System Caregiver Instruction Sheet 1. A Prevena dressing system was applied to the chest incision during surgery , to promote wound healing. It works via a suction device (negative pressure wound therapy) to remove low to moderate levels of exudate (drainage) and infectious materials. We recommend that the device stay in place for up to seven days, from day of surgery. 2. Day of Surgery__07/31/17 Day of Removal __08/07/17 3. The dressing should only be removed by a health childcare worker. Please arrange removal of device to coincide with Home Health visit and or with Nursing staff at Rehab 4. If skin reddening or irritation of skin occurs, or excessive drainage, please notify the Cardiovascular Surgeons office at [phone]. 5. Light showering is permissible; however the pump should be disconnected and placed in safe location, where it will not get wet. The dressing should not be exposed to direct spray or submerged in water. No bath tub / shower only. Ensure the end of the tubing attached to the dressing is facing down so that water does not enter the top of the tube. 6. To remove Prevena dressing: press purple button to turn off device / remove the suction. Then disconnect the tubing from the pump. The fixation strips should be stretched away from the skin and the dressing lifted at one corner and peeled back until it has been fully removed. 7. After removal, it is ok to shower daily using liquid dial soap and clean wash cloth, rinse and pat dry, and leave incision open to air dry. For any concerns regarding Prevena dressing, and or wounds, please contact Laisha Jones, patient navigator at [phone] or notify the Cardiovascular Surgeons office at [phone]. Incentive spirometry Q1 hr x 10, while awake, also use acapella device hourly whole awake Sternal Breast Bone Precautions: NO pushing or pulling, ( pt must use sternal pillow to support chest with all activities and with coughing ( takes up to 3 months breast bone to heal ) Daily incision care: ok to shower daily, no tub bath. Wash all incisions with liquid dial soap, clean wash cloth to each site, rinse and pat dry. Observe for any signs of infection, such as drainage which is dark yellow, campos, green or foul smelling. Immediately report to the surgeon any drainage from the chest incision, or legs, and for any abnormal drainage from the chest tube sites. Notify surgeon if any temp >101.5 degrees F. When specialty dressing removed/ or if you do not have one, continue to shower daily as above, then rinse and pat incision dry and paint with betadine daily x 5 days. Allow steri strips to fall off if you have any. Avoid lotions, creams, salves, oils, etc. for the first month Please see attached forms for additional instructions regarding post Open Heart specialty wound vacuum dressings. KENN or Prevena , Dressing to be removed by Nursing staff on For Dr. Negro patients , please obtain CBC, BMP, PA & Lat CXR in 2 weeks, results to Dr. Negro ( prescription will be given) ( ) (Tele: [phone]) , Valve replacement pts will need 2decho in 2 weeks with results to Dr. Negro . 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 Davis & Dr. Negro), After Hours / Nights (5pm -8am) Weekends and Holidays Please call [facility] Cardiac Intermediate Care Unit (CIC) Charge Nurse I have seen patient Clayton Medina on 08/01/17. My clinical findings support the need for the requested home health care services because: Deconditioned w/ increased weakness I certify that my clinical findings support that this patient is homebound because: Post-op weakness Nelly Toledo Aug 01, 2017 10:05
--- NOTE | 2017-08-01 10:05 | HHI.FF ---
Face to Face Verification Diagnosis: (1) Mitral regurgitation (2) Tricuspid regurgitation (3) HTN (hypertension) (4) Combined systolic and diastolic congestive heart failure, NYHA class 4 (5) s/p mitral valve , tricuspid valve repair Home Health Nursing Order: Signs/symptoms of disease process Medication education-adverse effect Wound care and dressing changes Nursing assessment with vital signs Instructions: Heart and Vascular Surgery patients *Special attention to sternal dressing Mandatory frequency Assess and evaluation, 4 days in a row The next week 3X week 2 times a week for 4 weeks 1 time a week for 5 weeks Schedule Heart and Vascular patients for full 60 day certification period Initial visit Review Open Heart Surgery Discharge Instructions (Sternal precautions, Activity, Elastic hose, Incision care, Driving, Incentive spirometry, Smoking, [place], Work and other) Need Betadine to paint incision Medication reconciliation Importance of follow up care/ check on appointments Make calendar record temperature daily When to call [facility] nurse, review instructions, phone list Incentive Spirometry, demonstration Visit 1- Begin discharge instruction for patient family and/ or caregiver using teach back method- Signs and symptoms of infection Disease characteristics Medicines and side effects Foods and nutrition/ appetite Infection control/ hand washing/ hygiene Visit 2- Continue teaching Discharge instructions- include additional information on smoking cessation , sternal dressing (sternal vac) Visit 3- Continue teaching- Cough and deep breathing, incision monitoring. Choose my plate Visit 4- Continue teaching- Discuss limitations Discuss how they are feeling Discuss progress toward goals Remaining visits- continue teaching and monitoring PREVENA Single Use Negative Wound Therapy System Caregiver Instruction Sheet 1. A Prevena dressing system was applied to the chest incision during surgery , to promote wound healing. It works via a suction device (negative pressure wound therapy) to remove low to moderate levels of exudate (drainage) and infectious materials. We recommend that the device stay in place for up to seven days, from day of surgery. 2. Day of Surgery__07/31/17 Day of Removal __08/07/17 3. The dressing should only be removed by a health senior care manager. Please arrange removal of device to coincide with Home Health visit and or with Nursing staff at Rehab 4. If skin reddening or irritation of skin occurs, or excessive drainage, please notify the Cardiovascular Surgeons office at [phone]. 5. Light showering is permissible; however the pump should be disconnected and placed in safe location, where it will not get wet. The dressing should not be exposed to direct spray or submerged in water. No bath tub / shower only. Ensure the end of the tubing attached to the dressing is facing down so that water does not enter the top of the tube. 6. To remove Prevena dressing: press purple button to turn off device / remove the suction. Then disconnect the tubing from the pump. The fixation strips should be stretched away from the skin and the dressing lifted at one corner and peeled back until it has been fully removed. 7. After removal, it is ok to shower daily using liquid dial soap and clean wash cloth, rinse and pat dry, and leave incision open to air dry. For any concerns regarding Prevena dressing, and or wounds, please contact Laisha Jones, patient navigator at [phone] or notify the Cardiovascular Surgeons office at [phone]. Incentive spirometry Q1 hr x 10, while awake, also use acapella device hourly whole awake Sternal Breast Bone Precautions: NO pushing or pulling, ( pt must use sternal pillow to support chest with all activities and with coughing ( takes up to 3 months breast bone to heal ) Daily incision care: ok to shower daily, no tub bath. Wash all incisions with liquid dial soap, clean wash cloth to each site, rinse and pat dry. Observe for any signs of infection, such as drainage which is dark yellow, campos, green or foul smelling. Immediately report to the surgeon any drainage from the chest incision, or legs, and for any abnormal drainage from the chest tube sites. Notify surgeon if any temp >101.5 degrees F. When specialty dressing removed/ or if you do not have one, continue to shower daily as above, then rinse and pat incision dry and paint with betadine daily x 5 days. Allow steri strips to fall off if you have any. Avoid lotions, creams, salves, oils, etc. for the first month Please see attached forms for additional instructions regarding post Open Heart specialty wound vacuum dressings. KENN or Prevena , Dressing to be removed by Nursing staff on For Dr. Negro patients , please obtain CBC, BMP, PA & Lat CXR in 2 weeks, results to Dr. Negro ( prescription will be given) ( ) (Tele: [phone]) , Valve replacement pts will need 2decho in 2 weeks with results to Dr. Negro . Please obtain 2 d echo at your automatic operator office if possible F/U appointment: as per DC instructions: PCP in 2 weeks, CV surgeon 2 weeks, Lead Python Developer 3-4 weeks For any questions regarding incisions/ dressing / meds / post op care or above Symptoms, Monday 8am-5pm Heart & Vascular Surgery Office ( Dr. Davis & Dr. Negro), After Hours / Nights (5pm -8am) Weekends and Holidays Please call [facility] ([facility]) Charge Nurse I have seen patient Clayton Medina on 08/01/17. My clinical findings support the need for the requested home health care services because: Deconditioned w/ increased weakness I certify that my clinical findings support that this patient is homebound because: Post-op weakness Nelly Toledo Aug 01, 2017 10:05
[2017-08-01] MEDS ORDERED: BISACODYL 10 MG SUPP RECTAL PRN ×2 (10:15)
[2017-08-01] MEDS ORDERED: GLUCAGON 1 MG/ML VIAL OTHER PRN ×2 (10:15)
[2017-08-01] MEDS ORDERED: DEXTROSE 50% IN WATER 50 ML VIAL(D50) IV PUSH PRN (10:15)
[2017-08-01] MEDS ORDERED: SOD PHOSPHATE/SOD BIPHOSPHATE (ADULT) ENEMA 133ML RECTAL PRN ×2 (10:15)
[2017-08-01] MEDS: DOCUSATE SODIUM 100 MG CAP PO SCH ×4 (11:51→20:14)
[2017-08-01] MEDS ORDERED: INSULIN ASPART SUPPLEMENTAL SCALE SQ SCH ×2 (14:00)
[2017-08-01] MEDS: INSULIN ASPART SUPPLEMENTAL SCALE SQ SCH ×6 (14:00→22:17)
[2017-08-01 14:17] LABS: HEMATOCRIT 25.1 % (39.0-51.0)
--- NOTE | 2017-08-01 15:47 | EKG ---
Date Performed: 08/01/2017 Time Performed: 04:21:30 PTAGE: 51 years EKG: Possible ectopic atrial rhythm Prolonged QT interval Rightward axis Possible WPW pattern Ab normal ECG Compared to prior tracing no significant change PREVIOUS TRACING : 07/28/2017 13.03.43 DOCTOR: Eleuterio Lopez Interpretating Date/Time 08/01/2017 15:46:24
[2017-08-01] MEDS: DOPamine 800 MG/D5W PREMIX 500 ML IV PRN ×2 (16:24)
[2017-08-01] MEDS ORDERED: FUROSEMIDE 20 MG/2 ML VIAL IV PUSH ONE ×2 (17:00)
[2017-08-01] MEDS: SENNOSIDES 8.6 MG TAB PO SCH ×2 (20:14)
[2017-08-01] MEDS: ATORVASTATIN 40 MG TAB PO SCH ×2 (20:14)
[2017-08-01] MEDS: MUPIROCIN 2% OINT 22 GM TUBE EACH NARE SCH ×2 (21:00)
[2017-08-02] VITALS (20 sets, daily range): BP systolic 92–118; BP diastolic 56–75; PULSE 79–99; RESP 16–18; TEMP 97.8–98.6; O2SAT 93–99
[2017-08-02] MEDS: oxyCODONE/ACETAMINOPHEN 5 MG/325 MG TAB PO PRN ×8 (02:14→23:44)
[2017-08-02] MEDS: INSULIN ASPART SUPPLEMENTAL SCALE SQ SCH ×10 (02:27→21:00)
[2017-08-02 04:39] LABS: AUTOMATED NEUTROPHIL # 13.5 TH/MM3 (1.8-7.7); BASOPHIL % 0.1 % (0.0-2.0); EOSINOPHIL # 0.1 TH/MM3 (0-0.4); EOSINOPHIL % 0.5 % (0.0-4.0); HEMATOCRIT 23.8 % (39.0-51.0); HEMOGLOBIN 7.7 GM/DL (13.0-17.0); LYMPH % 7.5 % (9.0-44.0); LYMPHOCYTE # 1.2 TH/MM3 (1.0-4.8); MEAN CELL VOLUME 70.4 FL (80.0-100.0); MEAN CORPUSCULAR HEMOGLOBIN 22.6 PG (27.0-34.0); MEAN CORPUSCULAR HGB CONC 32.2 % (32.0-36.0); MEAN PLATELET VOLUME 8.9 FL (7.0-11.0); MONO % 9.4 % (0.0-8.0); MONOCYTE # 1.5 TH/MM3 (0-0.9); NEUT % 82.5 % (16.0-70.0); PLATELET COUNT 97 TH/MM3 (150-450); RED BLOOD COUNT 3.39 MIL/MM3 (4.50-5.90); RED CELL DISTRIBUTION WIDTH 21.9 % (11.6-17.2); WHITE BLOOD COUNT 16.4 TH/MM3 (4.0-11.0)
[2017-08-02 05:16] LABS: CALCIUM 7.9 MG/DL (8.5-10.1); CREATININE 0.88 MG/DL (0.60-1.30); MAGNESIUM 2.1 MG/DL (1.5-2.5)
[2017-08-02] MEDS: PANTOPRAZOLE SOD 40 MG DELAYED RELEASE TAB PO SCH ×2 (05:34)
[2017-08-02] MEDS ORDERED: FUROSEMIDE 20 MG/2 ML VIAL IV PUSH ONE ×4 (07:15→09:30)
[2017-08-02] MEDS ORDERED: SODIUM CHLOR 0.9% 250 ML INJ 250 ML IV ONE ×2 (07:15)
[2017-08-02] MEDS: RESP: ALBUTEROL 2.5 MG/IPRATROPIUM 0.5 MG NEB (SCH) NEB ×4 (07:39→21:42)
[2017-08-02 07:41] LABS: ACANTHOCYTES OCC (NORMAL)
[2017-08-02] MEDS: MUPIROCIN 2% OINT 22 GM TUBE EACH NARE SCH ×4 (09:00→21:00)
[2017-08-02] MEDS: ASPIRIN 81 MG CHEW TAB PO SCH ×2 (09:00)
[2017-08-02] MEDS ORDERED: POTASSIUM CHLORIDE 10 MEQ CONTROLLED RELEASE TAB PO ONE ×2 (09:30)
[2017-08-02] MEDS: SODIUM CHLORIDE 0.9% FLUSH 10 ML FLUSH IV FLUSH SCH ×4 (09:46→21:00)
[2017-08-02] MEDS: MULTIVITAMINS/MINERALS THERAPEUTIC TAB PO SCH ×2 (09:47)
[2017-08-02] MEDS: DOCUSATE SODIUM 100 MG CAP PO SCH ×4 (09:48→21:00)
[2017-08-02] MEDS: MAGNESIUM HYDROXIDE SUSP 30 ML CUP PO SCH ×2 (09:48)
[2017-08-02] MEDS: POLYETHYLENE GLYCOL 17 GM PKG PO SCH ×2 (09:48)
--- NOTE | 2017-08-02 13:16 | PD.CAR.PN ---
CVT Progress Note Subjective/Hospital Course: 51/ male recent admission for SOB, lower ext swelling 06/27/17, admitted with acute on chronic systolic CHF, treated with IV diuresis, Echo showed EF 20-25%, severe MR , moderate TR/ stabilized then sent home and eval for elective PMH: CAD , / stent, NSVT, FEV1 1.32 surgery: 07/31 Mitral valve repair with a 30 [place] annuloplasty ring Tricuspid valve repair with a 32 [place] classic ring Right femoral arterial line placement SEDRICK Resection left atrial appendage crystalloid 2000cc, 1250cc cell saver, 2500cc EBL one unit PRBC, one unit PLT, one unit cryo 08/01 HGB 9.0 this am, remains on dopamine 5mcq BP labile, hold on diuresing keep in CVICU for now, wean off insulin gtt 08/02 HGB down to 7.7/ for 2 units PRBC today with lasix weaned off dopamine gtt BP still labile, unable to start BRANDON at this time, will discuss with Dr Kowalski/ if pt will require Life vest leave chest tubes in today / drained 160cc/ 12 hrs transfer to stepdown later today Objective: GENERAL: SKIN: Warm and dry. prevena dressing to chest, A/V wires in place HEAD: Normocephalic. EYES: No scleral icterus. No injection or drainage. NECK: Supple, trachea midline. No JVD or lymphadenopathy. CARDIOVASCULAR: Regular rate and rhythm without murmurs, gallops, or rubs. RESPIRATORY: Breath sounds equal bilaterally. No accessory muscle use. diminsihed in bases, chest tube in place to wall suction/ no air leak GASTROINTESTINAL: Abdomen soft, non-tender, nondistended. MUSCULOSKELETAL: No cyanosis, or edema. BACK: Nontender without obvious deformity. No CVA tenderness. Vital Signs Date Time Temp Pulse Resp B/P (MAP) Pulse Ox O2 Delivery O2 Flow Rate FiO2 08/02/17 11:19 98.4 87 17 118/72 97 08/02/17 11:09 18 08/02/17 11:05 98.3 86 17 111/74 97 08/02/17 11:00 98.3 92 18 110/75 (87) 94 08/02/17 11:00 94 6.00 08/02/17 11:00 92 08/02/17 10:53 98.3 89 18 106/69 97 08/02/17 10:50 98.3 89 18 106/69 97 08/02/17 10:33 98.2 88 18 110/75 96 08/02/17 08:45 98.1 86 18 99/67 99 08/02/17 08:30 98.4 87 18 110/74 93 08/02/17 08:15 97.8 99 18 116/58 96 08/02/17 08:00 98.6 81 16 114/65 99 08/02/17 07:39 99 Simple Mask 7.00 08/02/17 07:00 98.6 86 16 92/56 (68) 93 08/02/17 07:00 89 08/02/17 07:00 89 08/02/17 07:00 95 Nasal Cannula 5.00 08/02/17 04:00 82 08/02/17 03:00 99 Simple Mask 7.00 08/02/17 03:00 98.1 81 18 97/62 (74) 99 08/02/17 00:03 79 08/02/17 00:00 97.9 79 18 96/57 (70) 98 08/01/17 23:57 97 Simple Mask 7.00 08/01/17 21:08 99 Simple Mask 7.00 08/01/17 20:00 98 Simple Mask 7.00 08/01/17 20:00 78 08/01/17 19:00 97.7 76 22 93/54 (67) 98 08/01/17 16:24 72 91/65 08/01/17 15:38 75 08/01/17 15:03 Nasal Cannula Simple Mask 08/01/17 15:02 99 Partial Non-Rebreather 10.00 08/01/17 15:00 98.3 75 16 99/57 (71) 97 Arterial Line Labs: Laboratory Tests Test 08/02/17 04:11 White Blood Count 16.4 TH/MM3 (4.0-11.0) Red Blood Count 3.39 MIL/MM3 (4.50-5.90) Hemoglobin 7.7 GM/DL (13.0-17.0) Hematocrit 23.8 % (39.0-51.0) Mean Corpuscular Volume 70.4 FL (80.0-100.0) Mean Corpuscular Hemoglobin 22.6 PG (27.0-34.0) Mean Corpuscular Hemoglobin Concent 32.2 % (32.0-36.0) Red Cell Distribution Width 21.9 % (11.6-17.2) Platelet Count 97 TH/MM3 (150-450) Mean Platelet Volume 8.9 FL (7.0-11.0) Neutrophils (%) (Auto) 82.5 % (16.0-70.0) Lymphocytes (%) (Auto) 7.5 % (9.0-44.0) Monocytes (%) (Auto) 9.4 % (0.0-8.0) Eosinophils (%) (Auto) 0.5 % (0.0-4.0) Basophils (%) (Auto) 0.1 % (0.0-2.0) Neutrophils # (Auto) 13.5 TH/MM3 (1.8-7.7) Lymphocytes # (Auto) 1.2 TH/MM3 (1.0-4.8) Monocytes # (Auto) 1.5 TH/MM3 (0-0.9) Eosinophils # (Auto) 0.1 TH/MM3 (0-0.4) Basophils # (Auto) 0.0 TH/MM3 (0-0.2) CBC Comment AUTO DIFF Differential Comment AUTO DIFF CONFIRMED Platelet Estimate LOW (NORMAL) Platelet Morphology Comment ENLARGED (NORMAL) Acanthocytes OCC (NORMAL) Blood Urea Nitrogen 36 MG/DL (7-18) Creatinine 0.88 MG/DL (0.60-1.30) Random Glucose 97 MG/DL (74-106) Calcium Level 7.9 MG/DL (8.5-10.1) Magnesium Level 2.1 MG/DL (1.5-2.5) Sodium Level 137 MEQ/L (136-145) Potassium Level 3.8 MEQ/L (3.5-5.1) Chloride Level 101 MEQ/L (98-107) Carbon Dioxide Level 30.0 MEQ/L (21.0-32.0) Anion Gap 6 MEQ/L (5-15) Estimat Glomerular Filtration Rate 111 ML/MIN (>89) Result Diagram: 08/02/1741008/02/17410 (1) Mitral regurgitation (2) Tricuspid regurgitation (3) Combined systolic and diastolic congestive heart failure, NYHA class 4 Plan: BRANDON on hold 2/2 labile BP, recheck limited echo in am for EF eval with corsets salesperson regarding need for life vest (4) S/P mitral valve repair Plan: pulm toileting , nebs, ezpap OOB/ ambulate (5) Blood loss anemia Plan: s/p blood transfusion/ plt , factor V11, cryo f/u labs in am Nelly Toledo Aug 02, 2017 13:16
[2017-08-02] MEDS: SENNOSIDES 8.6 MG TAB PO SCH ×2 (21:00)
[2017-08-02] MEDS: ATORVASTATIN 40 MG TAB PO SCH ×2 (21:00)
[2017-08-03] VITALS (9 sets, daily range): BP systolic 89–110; BP diastolic 52–75; PULSE 80–100; RESP 16–25; TEMP 97.8–99.2; O2SAT 92–99
[2017-08-03] MEDS: PANTOPRAZOLE SOD 40 MG DELAYED RELEASE TAB PO SCH ×2 (06:00)
[2017-08-03] MEDS: RESP: ALBUTEROL 2.5 MG/IPRATROPIUM 0.5 MG NEB (SCH) NEB ×4 (07:53→13:58)
[2017-08-03] MEDS: INSULIN ASPART SUPPLEMENTAL SCALE SQ SCH ×8 (08:00→21:00)
[2017-08-03] MEDS: MUPIROCIN 2% OINT 22 GM TUBE EACH NARE SCH ×4 (09:00→21:00)
[2017-08-03] MEDS: BUDESONIDE-FORMOTEROL 160/4.5 MCG INHALER INH SCH ×4 (09:00→21:00)
[2017-08-03] MEDS: SODIUM CHLORIDE 0.9% FLUSH 10 ML FLUSH IV FLUSH SCH ×4 (09:00→21:00)
[2017-08-03] MEDS: ASPIRIN 81 MG CHEW TAB PO SCH ×2 (09:41)
[2017-08-03] MEDS: MAGNESIUM HYDROXIDE SUSP 30 ML CUP PO SCH ×2 (09:41)
[2017-08-03] MEDS: DOCUSATE SODIUM 100 MG CAP PO SCH ×4 (09:41→21:00)
[2017-08-03] MEDS: MULTIVITAMINS/MINERALS THERAPEUTIC TAB PO SCH ×2 (09:41)
[2017-08-03] MEDS: POLYETHYLENE GLYCOL 17 GM PKG PO SCH ×2 (09:41)
[2017-08-03 10:19] LABS: AUTOMATED NEUTROPHIL # 9.9 TH/MM3 (1.8-7.7); BASOPHIL # 0.1 TH/MM3 (0-0.2); BASOPHIL % 0.5 % (0.0-2.0); EOSINOPHIL # 0.1 TH/MM3 (0-0.4); EOSINOPHIL % 1.1 % (0.0-4.0); HEMATOCRIT 26.9 % (39.0-51.0); HEMOGLOBIN 8.6 GM/DL (13.0-17.0); LYMPH % 8.5 % (9.0-44.0); MEAN CELL VOLUME 72.8 FL (80.0-100.0); MEAN CORPUSCULAR HEMOGLOBIN 23.2 PG (27.0-34.0); MEAN CORPUSCULAR HGB CONC 31.9 % (32.0-36.0); MEAN PLATELET VOLUME 8.5 FL (7.0-11.0); MONO % 9.4 % (0.0-8.0); MONOCYTE # 1.2 TH/MM3 (0-0.9); NEUT % 80.5 % (16.0-70.0); PLATELET COUNT 102 TH/MM3 (150-450); RED BLOOD COUNT 3.69 MIL/MM3 (4.50-5.90); RED CELL DISTRIBUTION WIDTH 22.7 % (11.6-17.2); WHITE BLOOD COUNT 12.3 TH/MM3 (4.0-11.0)
[2017-08-03 10:34] LABS: BICARBONATE 27.7 MEQ/L (21.0-32.0); CALCIUM 8.4 MG/DL (8.5-10.1); CREATININE 0.71 MG/DL (0.60-1.30); PHOSPHORUS 1.8 MG/DL (2.5-4.9)
[2017-08-03 11:03] LABS: CORRECTED NUCLEATED RBC 1 /100 WBC (0-0); LYMPHOCYTES 10 % (9-44); MONOCYTES 9 % (0-8); NUCLEATED RED BLOOD CELL 1 (0-0); POLYS (SEG NEUTROPHILS) 81 % (16-70)
[2017-08-03 11:04] LABS: KERATOCYTES OCC (NORMAL)
[2017-08-03 11:05] LABS: POLYCHROMASIA 2.9 % (0.0-1.9)
--- NOTE | 2017-08-03 12:06 | ECHRPT ---
Indication: assess chf CONCLUSIONS The left ventricular systolic function is severely reduced with an estimated ejection fraction of 2 0%. Global hypokinesis. Moderately dilated left ventricle. Possible diastolic doming of the anterior mitral leaflet with no evidence for mitral stenosis. Trace mitral valve regurgitation. Structurally normal tricuspid valve. There is mild tricuspid valve regurgitation. The estimated pulmonary arterial pressure is 47 mmHg. BP: / HR: Rhythm: MEASUREMENTS (Male / Female) Normal Values Technical Quality:Technically difficult study 2D ECHO LVOT Diameter 2.0 cm LV Ejection Fraction MOD 4C 20.2 % LV Ejection Fraction 4C AL 23.2 % DOPPLER AV Peak Velocity 128.0 cm/s AV Peak Gradient 6.6 mmHg AV Mean Gradient 3.0 mmHg AV Velocity Time Integral 20.3 cm LVOT Peak Velocity 79.0 cm/s LVOT Peak Gradient 2.5 mmHg LVOT Velocity Time Integral 11.0 cm AV Area Cont Eq vti 1.7 cm AV Area Cont Eq pk 1.9 cm MV Area PHT 2.9 cm Mitral E Point Velocity 135.0 cm/s Mitral A Point Velocity 51.8 cm/s Mitral E to A Ratio 2.6 LV E' Lateral Velocity 7.2 cm/s Mitral E to LV E' Lateral Ratio 18.7 LV E' Septal Velocity 4.3 cm/s Mitral E to LV E' Septal Ratio 31.5 TR Peak Velocity 305.0 cm/s TR Peak Gradient 37.2 mmHg Right Atrial Pressure 10.0 mmHg Pulmonary Artery Systolic Pressu 47.2 mmHg Right Ventricular Systolic Press 47.2 mmHg FINDINGS LEFT VENTRICLE The left ventricular systolic function is severely reduced with an estimated ejection fraction of 2 0%. Global hypokinesis. Moderately dilated left ventricle. RIGHT VENTRICLE Normal right ventricular size and systolic function. LEFT ATRIUM The left atrial size is normal. RIGHT ATRIUM The right atrial size is normal. ATRIAL SEPTUM Normal atrial septal thickness without atrial level shunting by limited color doppler interrogation. AORTA The aortic root and proximal ascending aorta are normal in size on limited imaging. MITRAL VALVE Possible diastolic doming of the anterior mitral leaflet with no evidence for mitral stenosis. Trace mitral valve regurgitation. AORTIC VALVE No aortic valve regurgitation. TRICUSPID VALVE Structurally normal tricuspid valve. There is mild tricuspid valve regurgitation. The estimated pulmonary arterial pressure is 47 mmHg. PULMONARY VALVE No pulmonary valve regurgitation or stenosis. VESSELS The inferior vena cava is normal in size. PERICARDIUM No pericardial effusion. Ish Bragg MD (Electronically Signed) Final Date:03 August 2017 12:05
[2017-08-03] MEDS: oxyCODONE/ACETAMINOPHEN 5 MG/325 MG TAB PO PRN ×6 (14:01→23:43)
--- NOTE | 2017-08-03 17:54 | PD.CAR.PN ---
CVT Progress Note Subjective/Hospital Course: 51/ male recent admission for SOB, lower ext swelling 06/27/17, admitted with acute on chronic systolic CHF, treated with IV diuresis, Echo showed EF 20-25%, severe MR , moderate TR/ stabilized then sent home and eval for elective PMH: CAD , / stent, NSVT, FEV1 1.32 surgery: 07/31 Mitral valve repair with a 30 [place] annuloplasty ring Tricuspid valve repair with a 32 [place] classic ring Right femoral arterial line placement SEDRICK Resection left atrial appendage crystalloid 2000cc, 1250cc cell saver, 2500cc EBL one unit PRBC, one unit PLT, one unit cryo 08/01 HGB 9.0 this am, remains on dopamine 5mcq BP labile, hold on diuresing keep in CVICU for now, wean off insulin gtt 08/02 HGB down to 7.7/ for 2 units PRBC today with lasix weaned off dopamine gtt BP still labile, unable to start BRANDON at this time, will discuss with Dr Kowalski/ if pt will require Life vest leave chest tubes in today / drained 160cc/ 12 hrs transfer to stepdown later today 08/03 chest tube dc without difficulty BP slight improvement , eval for BRANDON in am , may need life vest prior to dc will rediscuss with Dr humphries HGB improved 8.6 transfer to stepdown Objective: GENERAL: SKIN: Warm and dry. prevena dressing to chest HEAD: Normocephalic. EYES: No scleral icterus. No injection or drainage. NECK: Supple, trachea midline. No JVD or lymphadenopathy. CARDIOVASCULAR: Regular rate and rhythm without murmurs, gallops, or rubs. RESPIRATORY: Breath sounds equal bilaterally. No accessory muscle use. few coarse breath sounds, coughing up thick pack secretions , faint wheeze GASTROINTESTINAL: Abdomen soft, non-tender, nondistended. MUSCULOSKELETAL: No cyanosis, or edema. BACK: Nontender without obvious deformity. No CVA tenderness. Vital Signs Date Time Temp Pulse Resp B/P (MAP) Pulse Ox O2 Delivery O2 Flow Rate FiO2 08/03/17 15:01 18 08/03/17 15:00 99.1 96 16 108/75 (86) 95 08/03/17 15:00 95 Nasal Cannula 2.00 08/03/17 15:00 95 08/03/17 11:00 89 08/03/17 11:00 92 Nasal Cannula 4.00 08/03/17 11:00 99.2 89 16 103/71 (82) 92 08/03/17 07:53 93 Nasal Cannula 4.00 08/03/17 07:00 98.8 87 16 96/58 (71) 97 08/03/17 07:00 81 08/03/17 07:00 97 Nasal Cannula 4.00 08/03/17 04:00 80 08/03/17 04:00 99 Nasal Cannula 4.00 08/03/17 04:00 80 18 100/59 (73) 99 08/03/17 00:00 84 08/03/17 00:00 98.8 84 20 89/52 (64) 98 08/03/17 00:00 98 Nasal Cannula 4.00 08/02/17 21:30 97 Nasal Cannula 4.00 08/02/17 20:00 99 Nasal Cannula 4.00 08/02/17 20:00 98.4 83 18 100/70 (80) 99 08/02/17 20:00 83 08/02/17 19:00 95 Nasal Cannula 5.00 Labs: Laboratory Tests Test 08/03/17 09:55 White Blood Count 12.3 TH/MM3 (4.0-11.0) Red Blood Count 3.69 MIL/MM3 (4.50-5.90) Hemoglobin 8.6 GM/DL (13.0-17.0) Hematocrit 26.9 % (39.0-51.0) Mean Corpuscular Volume 72.8 FL (80.0-100.0) Mean Corpuscular Hemoglobin 23.2 PG (27.0-34.0) Mean Corpuscular Hemoglobin Concent 31.9 % (32.0-36.0) Red Cell Distribution Width 22.7 % (11.6-17.2) Platelet Count 102 TH/MM3 (150-450) Mean Platelet Volume 8.5 FL (7.0-11.0) Neutrophils (%) (Auto) 80.5 % (16.0-70.0) Lymphocytes (%) (Auto) 8.5 % (9.0-44.0) Monocytes (%) (Auto) 9.4 % (0.0-8.0) Eosinophils (%) (Auto) 1.1 % (0.0-4.0) Basophils (%) (Auto) 0.5 % (0.0-2.0) Neutrophils # (Auto) 9.9 TH/MM3 (1.8-7.7) Lymphocytes # (Auto) 1.0 TH/MM3 (1.0-4.8) Monocytes # (Auto) 1.2 TH/MM3 (0-0.9) Eosinophils # (Auto) 0.1 TH/MM3 (0-0.4) Basophils # (Auto) 0.1 TH/MM3 (0-0.2) CBC Comment AUTO DIFF Differential Total Cells Counted 100 Neutrophils % (Manual) 81 % (16-70) Lymphocytes % 10 % (9-44) Monocytes % 9 % (0-8) Neutrophils # (Manual) 10.0 TH/MM3 (1.8-7.7) Nucleated Red Blood Cells 1 /100 WBC (0-0) Differential Comment FINAL DIFF MANUAL Platelet Estimate LOW (NORMAL) Platelet Morphology Comment NORMAL (NORMAL) Polychromasia 2.9 % (0.0-1.9) Keratocytes OCC (NORMAL) Blood Urea Nitrogen 20 MG/DL (7-18) Creatinine 0.71 MG/DL (0.60-1.30) Random Glucose 136 MG/DL (74-106) Calcium Level 8.4 MG/DL (8.5-10.1) Phosphorus Level 1.8 MG/DL (2.5-4.9) Magnesium Level 2.0 MG/DL (1.5-2.5) Sodium Level 134 MEQ/L (136-145) Potassium Level 3.7 MEQ/L (3.5-5.1) Chloride Level 99 MEQ/L (98-107) Carbon Dioxide Level 27.7 MEQ/L (21.0-32.0) Anion Gap 7 MEQ/L (5-15) Estimat Glomerular Filtration Rate 142 ML/MIN (>89) Result Diagram: 08/03/1795408/03/17954 (1) Mitral regurgitation (2) Tricuspid regurgitation (3) Combined systolic and diastolic congestive heart failure, NYHA class 4 Plan: BRANDON on hold 2/2 labile BP, limited echo EF 20% eval with bus or truck garage mechanic regarding need for life vest (4) S/P mitral valve repair Plan: pulm toileting , nebs, ezpap OOB/ ambulate (5) Blood loss anemia Plan: s/p blood transfusion/ plt , factor V11, cryo f/u labs in am / HGB 8.6 Nelly Toledo Aug 03, 2017 17:54
[2017-08-03] MEDS ORDERED: MAGNESIUM SULFATE 1 GM PREMIX 100 ML IV ONE ×2 (18:13)
[2017-08-03] MEDS ORDERED: POTASSIUM PHOSPHATE INJ 15 MMOL in SODIUM CHLORIDE 0.9% INJ 150 ML IV ONE ×4 (20:00)
[2017-08-03] MEDS: ATORVASTATIN 40 MG TAB PO SCH ×2 (21:00)
[2017-08-03] MEDS: SENNOSIDES 8.6 MG TAB PO SCH ×2 (21:00)
[2017-08-04] VITALS (20 sets, daily range): BP systolic 94–102; BP diastolic 50–66; PULSE 81–97; RESP 16–20; TEMP 98.2–99.1; O2SAT 92–100
--- NOTE | 2017-08-04 05:21 | RADRPT ---
EXAM DATE/TIME: 08/04/2017 04:47 [place] COMPARISON: No previous studies available for comparison. INDICATIONS : Evaluate for pnuemothorax post chest tube removal. MEDICAL HISTORY : Myocardial infarction. Congestive heart failure. Hypertension. SURGICAL HISTORY : Cardiac Stents ENCOUNTER: Subsequent ACUITY: 1 week PAIN SCORE: Non-responsive. LOCATION: Bilateral chest FINDINGS: Moderate cardiomegaly again noted. Patient has had previous median sternotomy. Mild, patchy mostly ba silar consolidation again noted of both lungs, not significantly changed. No large effusion demonstrated. No pneumothorax. Previously seen right IJ line has been removed. CONCLUSION: No significant change. Mild bibasilar consolidation and moderate cardiomegaly again noted. Wing Lambert MD on August 04, 2017 at 5:18 Board Certified Radiologist. This report was verified electronically.
[2017-08-04 05:22] LABS: HEMATOCRIT 26.6 % (39.0-51.0); HEMOGLOBIN 8.4 GM/DL (13.0-17.0); MEAN CELL VOLUME 73.3 FL (80.0-100.0); MEAN CORPUSCULAR HEMOGLOBIN 23.3 PG (27.0-34.0); MEAN CORPUSCULAR HGB CONC 31.7 % (32.0-36.0); MEAN PLATELET VOLUME 8.7 FL (7.0-11.0); PLATELET COUNT 117 TH/MM3 (150-450); RED BLOOD COUNT 3.63 MIL/MM3 (4.50-5.90); RED CELL DISTRIBUTION WIDTH 22.8 % (11.6-17.2); WHITE BLOOD COUNT 10.1 TH/MM3 (4.0-11.0)
[2017-08-04 05:55] LABS: BICARBONATE 25.4 MEQ/L (21.0-32.0); CALCIUM 8.4 MG/DL (8.5-10.1); CREATININE 0.58 MG/DL (0.60-1.30); MAGNESIUM 2.1 MG/DL (1.5-2.5)
[2017-08-04] MEDS: PANTOPRAZOLE SOD 40 MG DELAYED RELEASE TAB PO SCH ×2 (06:00)
[2017-08-04] MEDS: BUDESONIDE-FORMOTEROL 160/4.5 MCG INHALER INH SCH ×4 (08:28→20:35)
[2017-08-04] MEDS: INSULIN ASPART SUPPLEMENTAL SCALE SQ SCH ×8 (08:28→21:00)
[2017-08-04] MEDS: MULTIVITAMINS/MINERALS THERAPEUTIC TAB PO SCH ×2 (08:28)
[2017-08-04] MEDS: ASPIRIN 81 MG CHEW TAB PO SCH ×2 (08:28)
[2017-08-04] MEDS: DOCUSATE SODIUM 100 MG CAP PO SCH ×4 (08:28→20:36)
[2017-08-04] MEDS: SODIUM CHLORIDE 0.9% FLUSH 10 ML FLUSH IV FLUSH SCH ×4 (08:29→20:38)
[2017-08-04] MEDS: MAGNESIUM HYDROXIDE SUSP 30 ML CUP PO SCH ×2 (08:29)
[2017-08-04] MEDS: POLYETHYLENE GLYCOL 17 GM PKG PO SCH ×2 (08:29)
[2017-08-04] MEDS ORDERED: POTASSIUM CHLORIDE 10 MEQ CONTROLLED RELEASE TAB PO ONE ×2 (09:00)
[2017-08-04] MEDS ORDERED: DEFIB EXTERNAL ×2 (10:15)
[2017-08-04] MEDS: FUROSEMIDE 20 MG/2 ML VIAL IV PUSH SCH ×2 (11:46)
[2017-08-04] MEDS: POTASSIUM CHLORIDE 10 MEQ CONTROLLED RELEASE TAB PO SCH ×2 (11:46)
[2017-08-04] MEDS: CARVEDILOL 3.125 MG TAB PO SCH ×4 (12:18→20:36)
[2017-08-04] MEDS: RESP: ALBUTEROL 2.5 MG/IPRATROPIUM 0.5 MG NEB (SCH) NEB ×4 (13:11→20:54)
[2017-08-04] MEDS: oxyCODONE/ACETAMINOPHEN 5 MG/325 MG TAB PO PRN ×4 (15:48→23:41)
--- NOTE | 2017-08-04 16:04 | PD.CAR.PN ---
CVT Progress Note Subjective/Hospital Course: 51/ male recent admission for SOB, lower ext swelling 06/27/17, admitted with acute on chronic systolic CHF, treated with IV diuresis, Echo showed EF 20-25%, severe MR , moderate TR/ stabilized then sent home and eval for elective PMH: CAD , / stent, NSVT, FEV1 1.32 surgery: 07/31 Mitral valve repair with a 30 [place] annuloplasty ring Tricuspid valve repair with a 32 [place] classic ring Right femoral arterial line placement SEDRICK Resection left atrial appendage crystalloid 2000cc, 1250cc cell saver, 2500cc EBL one unit PRBC, one unit PLT, one unit cryo 08/01 HGB 9.0 this am, remains on dopamine 5mcq BP labile, hold on diuresing keep in CVICU for now, wean off insulin gtt 08/02 HGB down to 7.7/ for 2 units PRBC today with lasix weaned off dopamine gtt BP still labile, unable to start BRANDON at this time, will discuss with Dr Kowalski/ if pt will require Life vest leave chest tubes in today / drained 160cc/ 12 hrs transfer to stepdown later today 08/03 chest tube dc without difficulty BP slight improvement , eval for BRANDON in am , may need life vest prior to dc will rediscuss with Dr humphries HGB improved 8.6 transfer to stepdown 08/[address] Humphries , pt will need life vest EF remain 20% start BB as tolerated with holding parameters no brandon on discharge 2/2 labile BP gentle diuresis, fluid restriction eval for dc in am , after Life vest applied Objective: GENERAL: SKIN: Warm and dry. prevena dressing to chest HEAD: Normocephalic. EYES: No scleral icterus. No injection or drainage. NECK: Supple, trachea midline. No JVD or lymphadenopathy. CARDIOVASCULAR: Regular rate and rhythm without murmurs, gallops, or rubs. RESPIRATORY: Breath sounds equal bilaterally. No accessory muscle use. faint crackles in the bases, on room air GASTROINTESTINAL: Abdomen soft, non-tender, nondistended. MUSCULOSKELETAL: No cyanosis, or edema. BACK: Nontender without obvious deformity. No CVA tenderness. Vital Signs Date Time Temp Pulse Resp B/P (MAP) Pulse Ox O2 Delivery O2 Flow Rate FiO2 08/04/17 15:30 98.7 89 18 102/62 (75) 95 08/04/17 15:00 86 08/04/17 15:00 95 Room Air 08/04/17 14:04 94 08/04/17 13:00 96 08/04/17 12:00 91 08/04/17 11:30 99 Room Air 08/04/17 11:30 98.2 84 20 96/53 (67) 99 08/04/17 11:00 85 08/04/17 08:01 94 Nasal Cannula 3.00 08/04/17 07:00 92 Nasal Cannula 3.00 08/04/17 07:00 87 08/04/17 07:00 98.3 81 18 102/66 (78) 92 08/04/17 03:00 98.6 88 20 95/50 (65) 92 08/04/17 03:00 92 Nasal Cannula 3.00 08/04/17 03:00 90 08/04/17 01:40 18 08/03/17 23:00 97.8 92 25 107/68 (81) 92 08/03/17 23:00 90 08/03/17 23:00 92 Nasal Cannula 3.00 08/03/17 22:00 Nasal Cannula 3.00 08/03/17 20:00 95 Nasal Cannula 2.00 08/03/17 20:00 98.4 92 20 110/73 (85) 95 08/03/17 19:00 100 Labs: Laboratory Tests Test 08/04/17 04:15 White Blood Count 10.1 TH/MM3 (4.0-11.0) Red Blood Count 3.63 MIL/MM3 (4.50-5.90) Hemoglobin 8.4 GM/DL (13.0-17.0) Hematocrit 26.6 % (39.0-51.0) Mean Corpuscular Volume 73.3 FL (80.0-100.0) Mean Corpuscular Hemoglobin 23.3 PG (27.0-34.0) Mean Corpuscular Hemoglobin Concent 31.7 % (32.0-36.0) Red Cell Distribution Width 22.8 % (11.6-17.2) Platelet Count 117 TH/MM3 (150-450) Mean Platelet Volume 8.7 FL (7.0-11.0) Blood Urea Nitrogen 12 MG/DL (7-18) Creatinine 0.58 MG/DL (0.60-1.30) Random Glucose 93 MG/DL (74-106) Calcium Level 8.4 MG/DL (8.5-10.1) Magnesium Level 2.1 MG/DL (1.5-2.5) Sodium Level 136 MEQ/L (136-145) Potassium Level 3.6 MEQ/L (3.5-5.1) Chloride Level 102 MEQ/L (98-107) Carbon Dioxide Level 25.4 MEQ/L (21.0-32.0) Anion Gap 9 MEQ/L (5-15) Estimat Glomerular Filtration Rate 180 ML/MIN (>89) Phosphorus Level 2.3 MG/DL (2.5-4.9) Result Diagram: 08/04/17 0415 08/04/17 041 (1) Mitral regurgitation (2) Tricuspid regurgitation (3) Combined systolic and diastolic congestive heart failure, NYHA class 4 Plan: BRANDON on hold 2/2 labile BP, limited echo EF 20% for Life vest at discharge start low dose BB (4) S/P mitral valve repair Plan: pulm toileting , nebs, ezpap OOB/ ambulate (5) Blood loss anemia Plan: s/p blood transfusion/ plt , factor V11, cryo f/u labs in am / HGB 8.6/ 8.4 start ferrous sulfate Nelly Toledo Aug 04, 2017 16:03
[2017-08-04] MEDS ORDERED: POTA-243 PO ×2 (16:10)
[2017-08-04] MEDS ORDERED: OXYC1TAB63 PO ×2 (16:10)
[2017-08-04] MEDS ORDERED: THERM PO ×2 (16:10)
[2017-08-04] MEDS ORDERED: CARV3.125 PO ×2 (16:10)
[2017-08-04] MEDS ORDERED: FURO1TAB62 PO ×2 (16:10)
[2017-08-04] MEDS ORDERED: DOCU1CAP39 PO ×2 (16:10)
[2017-08-04] MEDS ORDERED: FERR325T8 PO ×2 (16:15)
--- NOTE | 2017-08-04 16:15 | HHI.DS ---
Discharge Summary Admission Date Jul 31, 2017 at 05:36 Discharge Date: Aug 05, 2017 Admitting Diagnosis dyspnea CHF (1) Combined systolic and diastolic congestive heart failure, NYHA class 4 Diagnosis: Principal ICD Codes: I50.40 - Unspecified combined systolic (congestive) and diastolic ( congestive) heart failure Status: Chronic (2) HTN (hypertension) Diagnosis: Principal ICD Codes: I10 - Essential (primary) hypertension Status: Chronic (3) Blood loss anemia Diagnosis: Secondary ICD Codes: D50.0 - Iron deficiency anemia secondary to blood loss (chronic) Status: Acute (4) S/P mitral valve repair Diagnosis: Secondary ICD Codes: Z98.890 - S/P mitral valve repair (5) CHF (congestive heart failure) Diagnosis: Principal ICD Codes: I50.9 - Heart failure, unspecified Status: Chronic (6) S/P TVR (tricuspid valve repair) Diagnosis: Secondary ICD Codes: Z98.890 - Other specified postprocedural states Procedures Mitral valve repair with a 30 [place] annuloplasty ring 07/31 Tricuspid valve repair with a 32 Montgomery classic ring Right femoral arterial line placement SEDRIKC Resection left atrial appendage Brief History Subjective/Hospital Course: 51/ male recent admission for SOB, lower ext swelling 06/27/17, admitted with acute on chronic systolic CHF, treated with IV diuresis, Echo showed EF 20-25%, severe MR , moderate TR/ stabilized then sent home and eval for elective PMH: CAD , / stent, NSVT, FEV1 1.32 surgery: 07/31 Mitral valve repair with a 30 Husam annuloplasty ring Tricuspid valve repair with a 32 Montgomery classic ring Right femoral arterial line placement SEDRICK Resection left atrial appendage CBC/BMP: 08/04/17 0415 08/04/17 0415 Significant Findings Laboratory Tests Test 08/02/17 04:11 08/03/17 09:55 08/04/17 04:15 White Blood Count 16.4 TH/MM3 (4.0-11.0) 12.3 TH/MM3 (4.0-11.0) Red Blood Count 3.39 MIL/MM3 (4.50-5.90) 3.69 MIL/MM3 (4.50-5.90) 3.63 MIL/MM3 (4.50-5.90) Hemoglobin 7.7 GM/DL (13.0-17.0) 8.6 GM/DL (13.0-17.0) 8.4 GM/DL (13.0-17.0) Hematocrit 23.8 % (39.0-51.0) 26.9 % (39.0-51.0) 26.6 % (39.0-51.0) Mean Corpuscular Volume 70.4 FL (80.0-100.0) 72.8 FL (80.0-100.0) 73.3 FL (80.0-100.0) Mean Corpuscular Hemoglobin 22.6 PG (27.0-34.0) 23.2 PG (27.0-34.0) 23.3 PG (27.0-34.0) Red Cell Distribution Width 21.9 % (11.6-17.2) 22.7 % (11.6-17.2) 22.8 % (11.6-17.2) Platelet Count 97 TH/MM3 (150-450) 102 TH/MM3 (150-450) 117 TH/MM3 (150-450) Neutrophils (%) (Auto) 82.5 % (16.0-70.0) 80.5 % (16.0-70.0) Lymphocytes (%) (Auto) 7.5 % (9.0-44.0) 8.5 % (9.0-44.0) Monocytes (%) (Auto) 9.4 % (0.0-8.0) 9.4 % (0.0-8.0) Neutrophils # (Auto) 13.5 TH/MM3 (1.8-7.7) 9.9 TH/MM3 (1.8-7.7) Monocytes # (Auto) 1.5 TH/MM3 (0-0.9) 1.2 TH/MM3 (0-0.9) Platelet Estimate LOW (NORMAL) LOW (NORMAL) Platelet Morphology Comment ENLARGED (NORMAL) Blood Urea Nitrogen 36 MG/DL (7-18) 20 MG/DL (7-18) Calcium Level 7.9 MG/DL (8.5-10.1) 8.4 MG/DL (8.5-10.1) 8.4 MG/DL (8.5-10.1) Mean Corpuscular Hemoglobin Concent 31.9 % (32.0-36.0) 31.7 % (32.0-36.0) Neutrophils % (Manual) 81 % (16-70) Monocytes % 9 % (0-8) Neutrophils # (Manual) 10.0 TH/MM3 (1.8-7.7) Nucleated Red Blood Cells 1 /100 WBC (0-0) Polychromasia 2.9 % (0.0-1.9) Random Glucose 136 MG/DL (74-106) Phosphorus Level 1.8 MG/DL (2.5-4.9) 2.3 MG/DL (2.5-4.9) Sodium Level 134 MEQ/L (136-145) Creatinine 0.58 MG/DL (0.60-1.30) Imaging Last Impressions Chest X-Ray 08/04/17 0600 Signed Impressions: Service Date/Time: Monday, August 04, 2017 04:47 - CONCLUSION: No significant change. Mild bibasilar consolidation and moderate cardiomegaly again noted. Wing Lambert MD PE at Discharge GENERAL: SKIN: Warm and dry.prevena dressing to chest HEAD: Normocephalic. EYES: No scleral icterus. No injection or drainage. NECK: Supple, trachea midline. No JVD or lymphadenopathy. CARDIOVASCULAR: Regular rate and rhythm without murmurs, gallops, or rubs. RESPIRATORY: Breath sounds equal bilaterally. No accessory muscle use. faint basilar crackles GASTROINTESTINAL: Abdomen soft, non-tender, nondistended. MUSCULOSKELETAL: No cyanosis, or edema. BACK: Nontender without obvious deformity. No CVA tenderness. Pt Condition on Discharge: Good Discharge Disposition: Disch w/ Home Health Serv Discharge Instructions DIET: Follow Instructions for: Heart Healthy Diet Fluid Restrictions: 2 liters/ 24 hr Activities you can perform: Full Weight Bearing, Shower Only-No Bath Activities to avoid: Strenuous Activity, Driving Additional Activity Instructio: no lifting > 8 lbs or gallon of milk Follow up Referrals: Cardiology with Piper Kowalski MD PCP Follow-up with Cheryl Galindo MD Surgical with Mora Negro MD New Orders: 2D ECHO - 2 Weeks BASIC METABOLIC PROF - 2 Weeks CBC NO DIFF - 2 Months X-RAY CHEST PA & LAT - 2 Weeks New Medications: Defibrillator Jacket (Defibrillator Jacket) 1 Ea Device EA EXTERNAL ONCE, #1 Energy = 150 Joules; VT Threshold = 150 BPM; VF Threshold = 200 BPM Use up to 90 days only Carvedilol (Coreg) 3.125 Mg Tab 3.125 MG PO Q12HR for Blood Pressure Management, #60 TAB 2 Refills Docusate Sodium (Dok) 100 Mg Cap 100 MG PO BID for Constipation, #60 CAP 0 Refills Multiple Vitamins W/ Minerals (Thera M Plus) 1 Tab 1 TAB PO DAILY for multi vitamin, #30 TAB 2 Refills Oxycodone-Acetaminophen (Oxycodone-Acetaminophen) 5-325 mg Tab 1 TAB PO Q4HR PRN for PAIN SCALE 1 TO 5, #40 TAB 0 Refills Potassium Chloride ER (Klor-Con 10) 10 Meq Tab 10 MEQ PO DAILY for Blood Pressure Management, #30 TAB 2 Refills Changed Medications: Furosemide (Lasix) 20 Mg Tab 20 MG PO DAILY for CHF, #30 TAB 2 Refills (Changed from: BID@0900,1800; 60; Refills: 0) Continued Medications: Aspirin DR (Aspirin 81) 81 Mg Tabdr 81 MG PO DAILY for Prevent Blood Clot, #30 TAB 0 Refills Atorvastatin (Lipitor) 40 Mg Tab 40 MG PO HS for Cholesterol Management, #30 TAB 1 Refill Discontinued Medications: Carvedilol (Coreg) 3.125 Mg Tab 3.125 MG PO BID for CHF, #60 TAB 1 Refill Lisinopril (Lisinopril) 5 Mg Tab 5 MG PO DAILY for Blood Pressure Management, #30 TAB 1 Refill Nelly Toledo Aug 04, 2017 16:15
[2017-08-04] MEDS: FERROUS SULFATE 325 MG (65 MG ELEMENTAL IRON) TAB PO SCH ×2 (17:12)
[2017-08-04] MEDS: ATORVASTATIN 40 MG TAB PO SCH ×2 (20:36)
[2017-08-04] MEDS: SENNOSIDES 8.6 MG TAB PO SCH ×2 (20:36)
[2017-08-05] VITALS (16 sets, daily range): BP systolic 94–109; BP diastolic 59–68; PULSE 80–97; RESP 16–19; TEMP 97.9–98.3; O2SAT 95–99
[2017-08-05] MEDS: PANTOPRAZOLE SOD 40 MG DELAYED RELEASE TAB PO SCH ×2 (05:42)
[2017-08-05] MEDS: INSULIN ASPART SUPPLEMENTAL SCALE SQ SCH ×4 (08:00→12:00)
[2017-08-05] MEDS: oxyCODONE/ACETAMINOPHEN 5 MG/325 MG TAB PO PRN ×2 (08:05)
[2017-08-05] MEDS: DOCUSATE SODIUM 100 MG CAP PO SCH ×2 (08:06)
[2017-08-05] MEDS: POTASSIUM CHLORIDE 10 MEQ CONTROLLED RELEASE TAB PO SCH ×2 (08:06)
[2017-08-05] MEDS: BUDESONIDE-FORMOTEROL 160/4.5 MCG INHALER INH SCH ×2 (08:07)
[2017-08-05] MEDS: MULTIVITAMINS/MINERALS THERAPEUTIC TAB PO SCH ×2 (08:08)
[2017-08-05] MEDS: CARVEDILOL 3.125 MG TAB PO SCH ×2 (08:08)
[2017-08-05] MEDS: POLYETHYLENE GLYCOL 17 GM PKG PO SCH ×2 (08:08)
[2017-08-05] MEDS: FUROSEMIDE 20 MG/2 ML VIAL IV PUSH SCH ×2 (08:08)
[2017-08-05] MEDS: MAGNESIUM HYDROXIDE SUSP 30 ML CUP PO SCH ×2 (08:08)
[2017-08-05] MEDS: ASPIRIN 81 MG CHEW TAB PO SCH ×2 (08:08)
[2017-08-05] MEDS: SODIUM CHLORIDE 0.9% FLUSH 10 ML FLUSH IV FLUSH SCH ×2 (08:12)
[2017-08-05] MEDS: RESP: ALBUTEROL 2.5 MG/IPRATROPIUM 0.5 MG NEB (SCH) NEB ×4 (08:15→13:30)
[2017-08-05] MEDS ORDERED: RAMI2.5C PO ×2 (08:39)
[2017-08-05] MEDS ORDERED: RAMIPRIL 2.5 MG CAP PO SCH ×2 (09:00)
[2017-08-05] MEDS: FERROUS SULFATE 325 MG (65 MG ELEMENTAL IRON) TAB PO SCH ×2 (12:50)
[2017-08-08] MEDS ORDERED: FURO20TA PO ×4 (10:42→10:51)
[2017-08-08] MEDS ORDERED: POTA10TA2 PO ×4 (10:42→10:51)
[2017-08-08] MEDS ORDERED: RAMI2.5C PO ×2 (10:51)
[2017-08-08] MEDS ORDERED: CARV3.125 PO ×2 (10:51)
[2017-08-08] MEDS ORDERED: LIPI40TA PO ×2 (10:51)
== END 2017-08-05 14:07 | disposition home health service (06) | DRG 220 ==
LOC: HSDI 05:36 → HCVI 12:45 → HCPC 08-04 09:42
PROVIDERS: ADMIT Thoracic Surgery (Cardiothoracic Vascular Surgery); ATTEND Thoracic Surgery (Cardiothoracic Vascular Surgery)
PROC: 30233M1 Transfusion of Nonautologous Plasma Cryoprecipitate into Peripheral Vein, Percutaneous Approach (ICD-10-PCS; 2017-07-31)
PROC: 02B70ZK Excision of Left Atrial Appendage, Open Approach (ICD-10-PCS; 2017-07-31)
PROC: 30233N1 Transfusion of Nonautologous Red Blood Cells into Peripheral Vein, Percutaneous Approach (ICD-10-PCS; 2017-07-31)
PROC: 30233R1 Transfusion of Nonautologous Platelets into Peripheral Vein, Percutaneous Approach (ICD-10-PCS; 2017-07-31)
PROC: 5A1221Z Performance of Cardiac Output, Continuous (ICD-10-PCS; 2017-07-31)
PROC: B246ZZ4 Ultrasonography of Right and Left Heart, Transesophageal (ICD-10-PCS; 2017-07-31)
PROC: 02H63JZ Insertion of Pacemaker Lead into Right Atrium, Percutaneous Approach (ICD-10-PCS; 2017-07-31)
PROC: 02HK3JZ Insertion of Pacemaker Lead into Right Ventricle, Percutaneous Approach (ICD-10-PCS; 2017-07-31)
PROC: 04HY32Z Insertion of Monitoring Device into Lower Artery, Percutaneous Approach (ICD-10-PCS; 2017-07-31)
PROC: 02UG0JZ Supplement Mitral Valve with Synthetic Substitute, Open Approach (ICD-10-PCS; principal; 2017-07-31 07:15)
PROC: 02UJ0JZ Supplement Tricuspid Valve with Synthetic Substitute, Open Approach (ICD-10-PCS; 2017-07-31 07:15)
DX: I08.1 Rheumatic disorders of both mitral and tricuspid valves (principal); I42.0 Dilated cardiomyopathy; I11.0 Hypertensive heart disease with heart failure; I50.42 Chronic combined systolic (congestive) and diastolic (congestive) heart failure; D50.0 Iron deficiency anemia secondary to blood loss (chronic); I25.10 Atherosclerotic heart disease of native coronary artery without angina pectoris; Z95.5 Presence of coronary angioplasty implant and graft; Z79.82 Long term (current) use of aspirin
CPT/HCPCS: 36415; 36430; 71010; 80048; 81001; 82948; 83735; 84100; 85007; 85014; 85018; 85025; 85027; 85384; 85610; 85730; 86850; 86900; 86901; 86920; 86965; 88305; 93005; 93308; 93318; 94002; 94150; 94640; 94664; 94667; 94668; J0131; J0171; J0690; J1250; J1265; J1644; J1815; J1817; J1940; J2150; J2250; J2370; J2720; J2930; J3010; J3370; J3475; J3480; J7040; J7050; J7120; P9016; P9035; P9045; P9047

== ENCOUNTER → 2017-08-22 | Outpatient (CLI) | payer SELFPAY ==
[~2017-08-22] MED LIST changes: -ASPI-110 PO; +ASPI1TAB57 PO; +DEFIB EXTERNAL; +DOCU1CAP39 PO; +FERR325T18 PO; -FURO1TAB62 PO; -LISI-519 PO; +OXYC1TAB63 PO; -POTA-163 PO; +RAMI2.5C PO; +THERM PO
--- NOTE | 2017-08-22 13:00 | ECHRPT ---
Indication: NONRHEUMATIC MV REPAIR/TCV REPAIR CONCLUSIONS Moderately dilated left ventricle. Wall thickness is normal. The left ventricular systolic function is severely reduced with an estimated ejection fraction less than 20%. There is global left ventricular dysfunction. Mild mitral valve regurgitation. There is mild to moderate tricuspid valve regurgitation. The estimated pulmonary arterial pressure is 49 mmHg. Mild pulmonary valve regurgitation. There is a small pericardial effusion present. BP: / HR: Rhythm: Sinus MEASUREMENTS (Male / Female) Normal Values Technical Quality:Fair 2D ECHO LV Diastolic Diameter PLAX 7.3 cm 4.2 - 5.9 / 3.9 - 5.3 cm LV Systolic Diameter PLAX 6.9 cm IVS Diastolic Thickness 0.8 cm 0.6 - 1.0 / 0.6 - 0.9 cm LVPW Diastolic Thickness 0.8 cm 0.6 - 1.0 / 0.6 - 0.9 cm LV Relative Wall Thickness 0.2 LVOT Diameter 2.2 cm Aortic Root Diameter 3.3 cm LA Systolic Diameter LX 4.6 cm 3.0 - 4.0 / 2.7 - 3.8 cm M-MODE AV Cusp Separation MM 2.0 cm DOPPLER AV Peak Velocity 81.3 cm/s AV Peak Gradient 2.6 mmHg AV Mean Gradient 2.0 mmHg AV Velocity Time Integral 13.1 cm LVOT Peak Velocity 61.6 cm/s LVOT Peak Gradient 1.5 mmHg LVOT Velocity Time Integral 9.4 cm AV Area Cont Eq vti 2.7 cm AV Area Cont Eq pk 2.9 cm MV Peak Velocity 121.0 cm/s MV Peak Gradient 5.9 mmHg MV Mean Velocity 59.8 cm/s MV Mean Gradient 2.0 mmHg Mitral E Point Velocity 126.0 cm/s LV E' Lateral Velocity 4.8 cm/s Mitral E to LV E' Lateral Ratio 26.4 LV E' Septal Velocity 4.7 cm/s Mitral E to LV E' Septal Ratio 26.9 TR Peak Velocity 312.0 cm/s TR Peak Gradient 38.9 mmHg Right Atrial Pressure 10.0 mmHg Pulmonary Artery Systolic Pressu 48.9 mmHg Right Ventricular Systolic Press 48.9 mmHg PV Peak Velocity 62.3 cm/s PV Peak Gradient 1.6 mmHg FINDINGS LEFT VENTRICLE Moderately dilated left ventricle. Wall thickness is normal. The left ventricular systolic function is severely reduced with an estimated ejection fraction less than 20%. There is global left ventricular dysfunction. RIGHT VENTRICLE Normal right ventricular size and systolic function. LEFT ATRIUM The left atrial size is normal. RIGHT ATRIUM The right atrial size is normal. ATRIAL SEPTUM Normal atrial septal thickness without atrial level shunting by limited color doppler interrogation. AORTA The aortic root and proximal ascending aorta are normal in size on limited imaging. MITRAL VALVE Mild mitral valve regurgitation. AORTIC VALVE Trileaflet aortic valve. No aortic valve stenosis or regurgitation. TRICUSPID VALVE There is mild to moderate tricuspid valve regurgitation. The estimated pulmonary arterial pressure is 49 mmHg. PULMONARY VALVE Mild pulmonary valve regurgitation. VESSELS The inferior vena cava is normal in size. PERICARDIUM There is a small pericardial effusion present. Ambika Mayorga MD, FACC (Electronically Signed) Final Date:22 August 2017 12:59
== END ==
LOC: HECH 08:40
PROVIDERS: ATTEND Nuclear Medicine Nuclear Cardiology
DX: I34.0 Nonrheumatic mitral (valve) insufficiency (principal)
CPT/HCPCS: 93306

== ENCOUNTER 2017-09-29 15:52 | Observation (INO) | payer OTHER ==
[~2017-09-29] VITALS: Ht 180.3 cm; Wt 79.0 kg
[2017-09-29 15:54] VITALS: BP 118/83; PULSE 125; RESP 16; TEMP 98.7; O2SAT 98
[2017-09-29] MEDS ORDERED: ONDANSETRON HCL 4 MG/2 ML VIAL IV PUSH ONE (17:00)
[2017-09-29] MEDS ORDERED: SODIUM CHLORIDE 0.9% FLUSH 10 ML FLUSH IVF PRN (17:00)
[2017-09-29] MEDS ORDERED: MORPHINE SULFATE 2 MG/ML INJ IV PUSH ONE (17:00)
[2017-09-29 17:30] LABS: AUTOMATED NEUTROPHIL # 3.5 TH/MM3 (1.8-7.7); BASOPHIL # 0.1 TH/MM3 (0-0.2); BASOPHIL % 1.3 % (0.0-2.0); EOSINOPHIL # 0.2 TH/MM3 (0-0.4); EOSINOPHIL % 2.8 % (0.0-4.0); HEMATOCRIT 39.3 % (39.0-51.0); HEMOGLOBIN 12.8 GM/DL (13.0-17.0); LYMPH % 23.2 % (9.0-44.0); LYMPHOCYTE # 1.3 TH/MM3 (1.0-4.8); MEAN CELL VOLUME 79.4 FL (80.0-100.0); MEAN CORPUSCULAR HEMOGLOBIN 25.9 PG (27.0-34.0); MEAN CORPUSCULAR HGB CONC 32.6 % (32.0-36.0); MEAN PLATELET VOLUME 9.3 FL (7.0-11.0); MONOCYTE # 0.6 TH/MM3 (0-0.9); NEUT % 62.7 % (16.0-70.0); PLATELET COUNT 202 TH/MM3 (150-450); RED BLOOD COUNT 4.95 MIL/MM3 (4.50-5.90); RED CELL DISTRIBUTION WIDTH 22.8 % (11.6-17.2); WHITE BLOOD COUNT 5.6 TH/MM3 (4.0-11.0)
--- NOTE | 2017-09-29 17:49 | RADRPT ---
EXAM DATE/TIME: 09/29/2017 17:26 [facility] COMPARISON: CHEST SINGLE AP, August 04, 2017, 4:47. INDICATIONS : Shortness of breath MEDICAL HISTORY : Myocardial infarction. Congestive heart failure. Hypertension SURGICAL HISTORY : Cardiac Stents ENCOUNTER: Initial ACUITY: 1 day PAIN SCORE: 5/10 LOCATION: Bilateral chest FINDINGS: Sternal wire from previous bypass moderate cardiomegaly with mild congestive failure. Negative for p neumothorax no consolidation The portion of the bony skeleton visualized is unremarkable. CONCLUSION: Cardiomegaly mild to moderate congestive failure. Navneet Wagner MD FACR on September 29, 2017 at 17:46 Board Certified Radiologist. This report was verified electronically.
[2017-09-29 17:50] LABS: INTERNATIONAL NORMALIZED RATIO 1.5 RATIO
[2017-09-29 17:52] LABS: ALBUMIN 3.7 GM/DL (3.4-5.0); AST (GOT) 18 U/L (15-37); BICARBONATE 19.5 MEQ/L (21.0-32.0); BLOOD UREA NITROGEN 19 MG/DL (7-18); CHLORIDE 106 MEQ/L (98-107); CREATININE 0.89 MG/DL (0.60-1.30); GLOMERULAR FILTRATION RATE 109 ML/MIN (>89); GLUCOSE,RANDOM 96 MG/DL (74-106); LIPASE 74 U/L (73-393); SODIUM (NA) 137 MEQ/L (136-145)
[2017-09-29 17:54] LABS: ALT (GPT) 26 U/L (12-78)
[2017-09-29 17:58] LABS: ALKALINE PHOSPHATASE 109 U/L (45-117); TOTAL BILIRUBIN ADULT 3.6 MG/DL (0.2-1.0); TROPONIN I 0.02 NG/ML (0.02-0.05)
[2017-09-29 18:53] VITALS: BP 117/75; PULSE 108; RESP 16; O2SAT 97; O2SAT 98
[2017-09-29] MEDS ORDERED: FUROSEMIDE 20 MG/2 ML VIAL IV PUSH ONE (19:15)
--- NOTE | 2017-09-29 19:25 | PD ---
HPI Chief Complaint: Abdominal Pain Time Seen by Provider: 16:42 Travel History International Travel<30 days: No Contact w/Intl Traveler<30days: No Traveled to known affect area: No History of Present Illness HPI Patient is a 52 year old male with history of valve replacement and CHF, who comes in complaining of chest pain with shortness of breath as well as nausea or vomiting. He says the symptoms have been going on for the past day. He says he feels like his "filling up with fluid." He has followed up with his CT surgeon, Dr. Villavicencio, who says his bowels are still leaking. He says he has pain across his lower chest. He has not been on Lasix since his surgery. He says he is vomiting yesterday, but today has been able to keep down food and water. He denies fever or chills, cough or cold. PFSH Past Medical History Hx Anticoagulant Therapy: Yes (PLAVIX) Asthma: No Blood Disorders: No Anxiety: No Depression: No Heart Rhythm Problems: No Cancer: No Cardiovascular Problems: Yes (MITRAL VALVE REGURGITATION) High Cholesterol: Yes Chemotherapy: No Chest Pain: Yes Congestive Heart Failure: Yes COPD: No Coronary Artery Disease: Yes Diabetes: No Diminished Hearing: No Endocrine: No Gastrointestinal Disorders: Yes (GERD) GERD: Yes Genitourinary: No Hiatal Hernia: No Hypertension: Yes Immune Disorder: No Implanted Vascular Access Dvce: No Musculoskeletal: No Neurologic: No Psychiatric: No Reproductive: No Respiratory: No Myocardial Infarction: Yes (4 STENTS PLACED IN 2007 and 2015) Radiation Therapy: No Sleep Apnea: No Thyroid Disease: No Tetanus Vaccination: < 5 Years Influenza Vaccination: No Past Surgical History Abdominal Surgery: No AICD: No Body Medical Devices: CARDIAC STENTS Cardiac Surgery: Yes (CARDIAC STENTS X4) Coronary Artery Bypass Graft: Yes (valve repair) Coronary Stent: Yes (4) Ear Surgery: No Endocrine Surgery: No Eye Surgery: No Genitourinary Surgery: No Gynecologic Surgery: No Joint Replacement: No Oral Surgery: No Pacemaker: No Thoracic Surgery: No Other Surgery: Yes (stents x 4 ) Social History Alcohol Use: No Tobacco Use: No Substance Use: Yes (reportedly marijuana occasionally) Allergies-Medications (Allergen,Severity, Reaction): Coded Allergies: No Known Allergies (Verified Allergy, Unknown, 09/29/17) Reported Meds & Prescriptions Reported Meds & Active Scripts Active Ramipril 2.5 Mg Cap 2.5 Mg PO DAILY Coreg (Carvedilol) 3.125 Mg Tab 3.125 Mg PO Q12HR Lipitor (Atorvastatin Calcium) 40 Mg Tab 40 Mg PO HS Ferrous Sulfate 325 Mg (65 Mg Iron) Tablet 325 Mg PO BIDPC Thera M Plus (Multivitamins/Minerals Therapeutic) 1 Tab 1 Tab PO DAILY Dok (Docusate Sodium) 100 Mg Cap 100 Mg PO BID Oxycodone-Acetaminophen 5-325 mg Tab 1 Tab PO Q4HR PRN Defibrillator Jacket (Device) 1 Ea Device Ea EXTERNAL ONCE Energy = 150 Joules; VT Threshold = 150 BPM; VF Threshold = 200 BPM Use up to 90 days only Aspirin 81 (Aspirin) 81 Mg Tabdr 81 Mg PO DAILY Review of Systems Except as stated in HPI: all other systems reviewed are Neg General / Constitutional: No: Fever, Chills HENT: No: Headaches, Lightheadedness Cardiovascular: Positive: Chest Pain or Discomfort Respiratory: Positive: Shortness of Breath Gastrointestinal: Positive: Nausea, Abdominal Pain Musculoskeletal: No: Myalgias, Edema Skin: No Rash, No Change in Pigmentation Neurologic: No: Weakness, Dizziness Physical Exam Narrative GENERAL: Awake and alert, in no acute distress. SKIN: Focused skin assessment warm/dry. HEAD: Atraumatic. Normocephalic. EYES: Pupils equal and round. No scleral icterus. Extraocular movements intact. ENT: Mucous membranes pink and moist. NECK: Trachea midline. No JVD. CARDIOVASCULAR: Tachycardia. No murmur appreciated. RESPIRATORY: No accessory muscle use. Clear to auscultation. Breath sounds equal bilaterally. GASTROINTESTINAL: Abdomen soft, non-tender, nondistended. MUSCULOSKELETAL: No obvious deformities. No clubbing. No cyanosis. No edema. NEUROLOGICAL: Awake and alert. No obvious cranial nerve deficits. Motor grossly within normal limits. Normal speech. PSYCHIATRIC: Appropriate mood and affect; insight and judgment normal. Data Data Last Documented VS Vital Signs Date Time Temp Pulse Resp B/P (MAP) Pulse Ox O2 Delivery O2 Flow Rate FiO2 09/29/17 18:53 108 16 117/75 (89) 98 Nasal Cannula 2.00 09/29/17 15:54 98.7 Orders Orders Complete Blood Count With Diff (09/29/17 16:59) Comprehensive Metabolic Panel (09/29/17 16:59) B-Type Natriuretic Peptide (09/29/17 16:59) Act Partial Throm Time (Ptt) (09/29/17 16:59) Prothrombin Time / Inr (Pt) (09/29/17 16:59) Troponin I (09/29/17 16:59) Urinalysis - C+S If Indicated (09/29/17 16:59) Iv Access Insert/Monitor (09/29/17 16:59) Ecg Monitoring (09/29/17 16:59) Oximetry (09/29/17 16:59) Oxygen Administration (09/29/17 16:59) Chest, Single Ap (09/29/17 16:59) Sodium Chloride 0.9% Flush (Ns Flush) (09/29/17 17:00) Lipase (09/29/17 16:59) Morphine Inj (Morphine Inj) (09/29/17 17:00) Ondansetron Inj (Zofran Inj) (09/29/17 17:00) Electrocardiogram (09/29/17 16:51) Furosemide Inj (Lasix Inj) (09/29/17 19:15) Labs Laboratory Tests Test 09/29/17 17:00 White Blood Count 5.6 TH/MM3 Red Blood Count 4.95 MIL/MM3 Hemoglobin 12.8 GM/DL Hematocrit 39.3 % Mean Corpuscular Volume 79.4 FL Mean Corpuscular Hemoglobin 25.9 PG Mean Corpuscular Hemoglobin Concent 32.6 % Red Cell Distribution Width 22.8 % Platelet Count 202 TH/MM3 Mean Platelet Volume 9.3 FL Neutrophils (%) (Auto) 62.7 % Lymphocytes (%) (Auto) 23.2 % Monocytes (%) (Auto) 10.0 % Eosinophils (%) (Auto) 2.8 % Basophils (%) (Auto) 1.3 % Neutrophils # (Auto) 3.5 TH/MM3 Lymphocytes # (Auto) 1.3 TH/MM3 Monocytes # (Auto) 0.6 TH/MM3 Eosinophils # (Auto) 0.2 TH/MM3 Basophils # (Auto) 0.1 TH/MM3 CBC Comment DIFF FINAL Differential Comment Prothrombin Time 15.0 SEC Prothromb Time International Ratio 1.5 RATIO Activated Partial Thromboplast Time 27.7 SEC Blood Urea Nitrogen 19 MG/DL Creatinine 0.89 MG/DL Random Glucose 96 MG/DL Total Protein 8.0 GM/DL Albumin 3.7 GM/DL Calcium Level 9.0 MG/DL Alkaline Phosphatase 109 U/L Aspartate Amino Transf (AST/SGOT) 18 U/L Alanine Aminotransferase (ALT/SGPT) 26 U/L Total Bilirubin 3.6 MG/DL Sodium Level 137 MEQ/L Potassium Level 3.9 MEQ/L Chloride Level 106 MEQ/L Carbon Dioxide Level 19.5 MEQ/L Anion Gap 12 MEQ/L Estimat Glomerular Filtration Rate 109 ML/MIN Troponin I 0.02 NG/ML B-Type Natriuretic Peptide 1515 PG/ML Lipase 74 U/L [facility] Medical Decision Making Medical Screen Exam Complete: Yes Emergency Medical Condition: Yes Medical Record Reviewed: Yes Interpretation(s) ECG shows sinus tachycardia at 121, no ST elevation or depression. Differential Diagnosis CHF exacerbation vs ACS vs gastritis vs gastroenteritis Narrative Course Patient is a 52-year-old male who comes in complaining of chest pain as well as nausea and shortness of breath. IV established, labs sent. Chest x-ray is concerning for pulmonary edema. BNP is 1515. Patient given a dose of Lasix. He'll be admitted for further management. Lacey Cortez MD Sep 29, 2017 19:25
--- NOTE | 2017-09-29 19:37 | HHI.HP ---
[facility] Cheryl Galindo MD Admission Diagnosis CHF, chest pain Diagnoses: (1) Chest pain Diagnosis: Principal (2) CHF (congestive heart failure) Diagnosis: Principal (3) HTN (hypertension) Diagnosis: Principal Travel History International Travel<30 Days: No Contact w/Intl Traveler <30 Da: No Traveled to Known Affected Are: No History of Present Illness This is a 52-year-old male with a PMH of HTN, h/o MVR/TVR 07/31/[address] Negro , CHF (Echo 08/22/17 w/ EF <20%) +LifeVest, CAD and GERD who presented to the ER w/ complaints of chest pain and SOB starting earlier today. Denies fever, chills, cough or sick contacts. Following w/ Dr. Negro and Dr. Sinclair as outpatient. States he has follow up appt and Cath scheduled for Nov prior to AICD placement. Off Lasix since MVR/TVR in July, but feels he's "filling up with fluid". On arrival, BP 118/83, HR 125, O2 sat 98% on RA, Afebrile. CBC essentially unremarkable. Chemistry unremarkable. Troponin 0.02. BNP 1515. INR 1.5. CXR with cardiomegaly, mild to moderate congestive failure. S/p Lasix 40mg IV in ER. Currently chest pain free. Review of Systems Except as stated in HPI: all other systems reviewed are Neg ROS: 14 point review of systems otherwise negative. Past Family Social History Past Medical History PMH: HTN, h/o MVR/TVR 07/31/[address] Negro, CHF (Echo 08/22/17 w/ EF <20%) + LifeVest, CAD and GERD Past Surgical History PAST SURGICAL HISTORY: Cardiac Stent, MVR, TVR Allergies: Coded Allergies: No Known Allergies (Verified Allergy, Unknown, 09/29/17) Family History PAST FAMILY HISTORY: Reviewed. No h/o DM or CAD Social History PAST SOCIAL HISTORY: Negative for alcohol. History of tobacco. +Marijuana. Physical Exam Vital Signs Vital Signs Date Time Temp Pulse Resp B/P (MAP) Pulse Ox O2 Delivery O2 Flow Rate FiO2 09/29/17 18:53 108 16 117/75 (89) 98 Nasal Cannula 2.00 09/29/17 18:53 97 Nasal Cannula 2.00 09/29/17 18:53 108 16 117/75 (89) 97 Nasal Cannula 2.00 09/29/17 15:54 98.7 125 16 118/83 (95) 98 Physical Exam PE: GENERAL: Pleasant middle-aged black male in no acute distress. LifeVest+ HEENT: PERRLA, EOMI. No scleral icterus or conjunctival pallor. No lid lag or facial droop. CARDIOVASCULAR: Regular rate and rhythm. No obvious murmurs to auscultation. No chest tenderness to palpation. RESPIRATORY: No obvious rhonchi or wheezing. Clear to auscultation. Breath sounds equal bilaterally. GASTROINTESTINAL: Abdomen soft, non-tender, nondistended. BS normal. MUSCULOSKELETAL: Extremities without clubbing, cyanosis, or edema. No obvious deformities. NEUROLOGICAL: Awake, alert and oriented x4. No focal neurologic deficits. Moving both upper and lower extremities spontaneously. Laboratory Laboratory Tests Test 09/29/17 17:00 White Blood Count 5.6 Red Blood Count 4.95 Hemoglobin 12.8 Hematocrit 39.3 Mean Corpuscular Volume 79.4 Mean Corpuscular Hemoglobin 25.9 Mean Corpuscular Hemoglobin Concent 32.6 Red Cell Distribution Width 22.8 Platelet Count 202 Mean Platelet Volume 9.3 Neutrophils (%) (Auto) 62.7 Lymphocytes (%) (Auto) 23.2 Monocytes (%) (Auto) 10.0 Eosinophils (%) (Auto) 2.8 Basophils (%) (Auto) 1.3 Neutrophils # (Auto) 3.5 Lymphocytes # (Auto) 1.3 Monocytes # (Auto) 0.6 Eosinophils # (Auto) 0.2 Basophils # (Auto) 0.1 CBC Comment DIFF FINAL Differential Comment Prothrombin Time 15.0 Prothromb Time International Ratio 1.5 Activated Partial Thromboplast Time 27.7 Blood Urea Nitrogen 19 Creatinine 0.89 Random Glucose 96 Total Protein 8.0 Albumin 3.7 Calcium Level 9.0 Alkaline Phosphatase 109 Aspartate Amino Transf (AST/SGOT) 18 Alanine Aminotransferase (ALT/SGPT) 26 Total Bilirubin 3.6 Sodium Level 137 Potassium Level 3.9 Chloride Level 106 Carbon Dioxide Level 19.5 Anion Gap 12 Estimat Glomerular Filtration Rate 109 Troponin I 0.02 B-Type Natriuretic Peptide 1515 Lipase 74 Result Diagram: 09/29/17169909/29/171699 Ismael VTE Risk Assessment Ismael VTE Risk Assessment: No/Low Risk (score <= 1) Caprini Risk Assessment Model Point Value = 1 Point Value = 2 Point Value = 3 Point Value = 5 Age 41-60 Minor surgery BMI > 25 kg/m2 Swollen legs Varicose veins or History of unexplained or recurrent spontaneous Oral contraceptives or hormone replacement Sepsis (< 1 month) Serious lung disease, including pneumonia (< 1 month) Abnormal pulmonary function Acute myocardial infarction Congestive heart failure (< 1 month) History of inflammatory bowel disease Medical patient at bed rest Age 61-74 Arthroscopic surgery Major open surgery (> 45 min) Laparoscopic surgery (> 45 min) Malignancy Confined to bed (> 72 hours) Immobilizing plaster cast Central venous access Age >= 75 History of VTE Family history of VTE Factor V Leiden Prothrombin [id number] Lupus anticoagulant Anticardiolipin antibodies Elevated serum homocysteine Heparin-induced thrombocytopenia Other congenital or acquired thrombophilia Stroke (< 1 month) Elective arthroplasty Hip, pelvis, or leg fracture Acute spinal cord injury (< 1 month) Prophylaxis Regimen Total Risk Factor Score Risk Level Prophylaxis Regimen 0-1 Low Early ambulation 2 Moderate Order ONE of the following: *Sequential Compression Device (SCD) *Heparin 5000 units SQ BID 3-4 Higher Order ONE of the following medications: *Heparin 5000 units SQ TID *Enoxaparin/Lovenox 40 mg SQ daily (WT < 150 kg, CrCl > 30 mL/min) *Enoxaparin/Lovenox 30 mg SQ daily (WT < 150 kg, CrCl > 10-29 mL/min) *Enoxaparin/Lovenox 30 mg SQ BID (WT < 150 kg, CrCl > 30 mL/min) AND/OR *Sequential Compression Device (SCD) 5 or more Highest Order ONE of the following medications: *Heparin 5000 units SQ TID (Preferred with Epidurals) *Enoxaparin/Lovenox 40 mg SQ daily (WT < 150 kg, CrCl > 30 mL/min) *Enoxaparin/Lovenox 30 mg SQ daily (WT < 150 kg, CrCl > 10-29 mL/min) *Enoxaparin/Lovenox 30 mg SQ BID (WT < 150 kg, CrCl > 30 mL/min) AND *Sequential Compression Device (SCD) Assessment and Plan Problem List: (1) CHF (congestive heart failure) ICD Code: I50.9 - Heart failure, unspecified Status: Chronic (2) Chest pain ICD Code: R07.9 - Chest pain, unspecified (3) HTN (hypertension) ICD Code: I10 - Essential (primary) hypertension Status: Chronic Assessment and Plan A/P: 1. CHF: Acute on Chronic. Systolic and Diastolic. Echo 08/22/17 w/ EF <20%. BNP 1515. CXR w/ mild to moderate congestive heart failure, images reviewed by me. States taken off Lasix since MVR/TVR in July. S/p Lasix in ER, will continue w/ diuresis, monitor I/O. +LifeVest w/ plans for Cath/AICD placement, follows w/ Dr. Sinclair as outpatient, will consult for further recommendations. 2. Chest Pain: acute onset of chest pain, associated w/ SOB. Initial trop 0.02, EKG w/ no acute ischemia. Admit for Observation, telemetry, check serial enzymes, resume home medications. NTG/Morphine prn. 3. HTN: BP well controlled. Resume home medications, monitor BP. 4. DVT Prophylaxis: SCD/Teds. 5. Social work for d/c planning as needed. 6. Case discussed w/ ER physician at length. Laurel Rubi MD Sep 29, 2017 19:37
[2017-09-29] MEDS ORDERED: BISACODYL 10 MG SUPP RECTAL PRN (19:45)
[2017-09-29] MEDS ORDERED: ACETAMINOPHEN 325 MG TAB PO PRN (19:45)
[2017-09-29] MEDS ORDERED: MAGNESIUM HYDROXIDE SUSP 30 ML CUP PO PRN (19:45)
[2017-09-29] MEDS ORDERED: SENNOSIDES 8.6 MG TAB PO PRN (19:45)
[2017-09-29] MEDS ORDERED: SODIUM CHLORIDE 0.9% FLUSH 10 ML FLUSH IV FLUSH PRN (19:45)
[2017-09-29] MEDS ORDERED: ACETAMINOPHEN/HYDROcodone 325 MG/5 MG TAB PO PRN (19:45)
[2017-09-29] MEDS ORDERED: MORPHINE SULFATE 4 MG/ML INJ IV PUSH PRN (19:45)
[2017-09-29] MEDS ORDERED: ONDANSETRON HCL 4 MG/2 ML VIAL IVP PRN (19:45)
[2017-09-29] MEDS ORDERED: LACTULOSE SYRUP 20 GM/30 ML CUP PO PRN (19:45)
[2017-09-29 19:52] VITALS: BP 114/80; PULSE 107; RESP 20; O2SAT 99
[2017-09-29] MEDS ORDERED: NITROGLYCERIN 2% OINT 1 GM PACKET TOPICAL PRN (20:00)
[2017-09-29] MEDS: SODIUM CHLORIDE 0.9% FLUSH 10 ML FLUSH IV FLUSH SCH (20:13)
[2017-09-29 21:01] VITALS: BP 106/60; PULSE 87; RESP 18; TEMP 98.5; O2SAT 100
[2017-09-29] MEDS: DOCUSATE SODIUM 50 MG/SENNA 8.6 MG TAB PO SCH (21:49)
[2017-09-29] MEDS: ATORVASTATIN 40 MG TAB PO SCH (21:49)
[2017-09-29] MEDS: CARVEDILOL 3.125 MG TAB PO SCH (21:49)
[2017-09-29 22:48] LABS: BILIRUBIN, URINE NEG (NEG); BLOOD, URINE NEG (NEG); GLUCOSE,URINE NEG (NEG); KETONE, URINE NEG (NEG); MUCUS URINE FEW /lpf (OCC); NITRITE,URINE NEG (NEG); URINE COLOR YELLOW (YELLW/STRAW); URINE LEUKOCYTE ESTERASE NEG (NEG)
[2017-09-29 23:37] VITALS: BP 104/61; PULSE 105; RESP 18; TEMP 98.7; O2SAT 98
[2017-09-30] VITALS (7 sets, daily range): BP systolic 89–110; BP diastolic 58–71; PULSE 78–112; RESP 18; TEMP 98.1–98.7; O2SAT 95–98
[2017-09-30 08:45] LABS: AUTOMATED NEUTROPHIL # 2.9 TH/MM3 (1.8-7.7); BASOPHIL # 0.1 TH/MM3 (0-0.2); BASOPHIL % 1.1 % (0.0-2.0); EOSINOPHIL # 0.2 TH/MM3 (0-0.4); EOSINOPHIL % 4.6 % (0.0-4.0); HEMATOCRIT 37.4 % (39.0-51.0); LYMPH % 23.7 % (9.0-44.0); LYMPHOCYTE # 1.1 TH/MM3 (1.0-4.8); MEAN CELL VOLUME 79.5 FL (80.0-100.0); MEAN CORPUSCULAR HEMOGLOBIN 25.5 PG (27.0-34.0); MEAN CORPUSCULAR HGB CONC 32.1 % (32.0-36.0); MEAN PLATELET VOLUME 9.7 FL (7.0-11.0); MONO % 8.4 % (0.0-8.0); MONOCYTE # 0.4 TH/MM3 (0-0.9); NEUT % 62.2 % (16.0-70.0); PLATELET COUNT 164 TH/MM3 (150-450); RED CELL DISTRIBUTION WIDTH 22.4 % (11.6-17.2); WHITE BLOOD COUNT 4.7 TH/MM3 (4.0-11.0)
[2017-09-30 08:53] LABS: INTERNATIONAL NORMALIZED RATIO 1.4 RATIO; PROTHROMBIN TIME - PATIENT 13.8 SEC (9.8-11.6)
[2017-09-30] MEDS ORDERED: PNEUMOCOCCAL POLYVALENT INJ 25 MCG/0.5 ML SYR IM ONE (09:00)
[2017-09-30 09:03] LABS: ALBUMIN 3.3 GM/DL (3.4-5.0); AST (GOT) 16 U/L (15-37); BICARBONATE 24.1 MEQ/L (21.0-32.0); BLOOD UREA NITROGEN 20 MG/DL (7-18); CALCIUM 8.8 MG/DL (8.5-10.1); CHLORIDE 105 MEQ/L (98-107); CREATININE 0.83 MG/DL (0.60-1.30); GLOMERULAR FILTRATION RATE 118 ML/MIN (>89); GLUCOSE,RANDOM 89 MG/DL (74-106); SODIUM (NA) 137 MEQ/L (136-145)
[2017-09-30 09:04] LABS: ALT (GPT) 23 U/L (12-78)
[2017-09-30 09:06] LABS: ALKALINE PHOSPHATASE 97 U/L (45-117); TOTAL BILIRUBIN ADULT 2.8 MG/DL (0.2-1.0); TOTAL PROTEIN 7.2 GM/DL (6.4-8.2)
[2017-09-30] MEDS: SODIUM CHLORIDE 0.9% FLUSH 10 ML FLUSH IV FLUSH SCH ×2 (10:00→21:00)
[2017-09-30] MEDS ORDERED: POTASSIUM CHLORIDE 10 MEQ CONTROLLED RELEASE TAB PO ONE (10:00)
[2017-09-30] MEDS: DOCUSATE SODIUM 50 MG/SENNA 8.6 MG TAB PO SCH ×2 (10:00→21:25)
[2017-09-30] MEDS: CARVEDILOL 3.125 MG TAB PO SCH (10:00)
[2017-09-30] MEDS: MULTIVITAMINS/MINERALS THERAPEUTIC TAB PO SCH (10:01)
[2017-09-30] MEDS: FERROUS SULFATE 325 MG (65 MG ELEMENTAL IRON) TAB PO SCH ×2 (10:01→19:12)
[2017-09-30] MEDS: ASPIRIN EC 81 MG TABEC PO SCH (10:01)
[2017-09-30] MEDS: FUROSEMIDE 40 MG/4 ML VIAL IV PUSH SCH ×2 (10:03→19:11)
[2017-09-30] MEDS: HEPARIN SODIUM - SQ 10,000 UNITS/ML VIAL SQ SCH ×2 (10:04→21:26)
[2017-09-30] MEDS: RAMIPRIL 2.5 MG CAP PO SCH (10:08)
--- NOTE | 2017-09-30 10:20 | HHI.PR ---
Subjective Remarks Follow up on patient with CHF exacerbation. Patient seen and examined. Patient reports he is breathing better today. He denies any complaints of chest pain. Denies any nausea, vomiting or abdominal pain. He reports decreased urinary output for the past 2 days leading up to admission. He denies any alcohol use. Objective Vitals Vital Signs Date Time Temp Pulse Resp B/P (MAP) Pulse Ox O2 Delivery O2 Flow Rate FiO2 09/30/17 08:35 98.2 102 18 106/68 (81) 97 09/30/17 04:34 106 09/30/17 04:26 98.7 105 18 110/71 (84) 95 09/30/17 01:17 104 09/29/17 23:37 98.7 105 18 104/61 (75) 98 09/29/17 21:01 98.5 87 18 106/60 (75) 100 09/29/17 19:55 Nasal Cannula 2.00 09/29/17 19:52 107 20 114/80 (91) 99 Nasal Cannula 2.00 09/29/17 18:53 108 16 117/75 (89) 98 Nasal Cannula 2.00 09/29/17 18:53 97 Nasal Cannula 2.00 09/29/17 18:53 108 16 117/75 (89) 97 Nasal Cannula 2.00 09/29/17 15:54 98.7 125 16 118/83 (95) 98 I/O 09/29/17 09/29/17 09/29/17 09/30/17 09/30/17 09/30/17 07:00 15:00 23:00 07:00 15:00 23:00 Intake Total 400 ml Balance 400 ml Intake Oral 400 ml # Voids 3 Result Diagram: 09/30/17 0650 09/30/17 0650 Imaging Last Impressions Chest X-Ray 09/29/17 2375 Signed Impressions: Service Date/Time: Friday, September 29, 2017 17:26 - CONCLUSION: Cardiomegaly mild to moderate congestive failure. Navneet Wagner MD FACR Objective Remarks GENERAL: Well-nourished, well-developed male patient in NAD. Awake and alert. Wearing LifeVest. SKIN: Warm and dry. No rash. Well healed midsternal surgical scar. HEAD: Normocephalic. Atraumatic. EYES: EOMI. No scleral icterus. No injection or drainage. ENT: No nasal bleeding or discharge. Mucous membranes pink and moist. NECK: Trachea midline. CARDIOVASCULAR: Tachycardic. S1, S2 noted. No murmur appreciated. RESPIRATORY: Nonlabored. Clear to auscultation. Breath sounds equal bilaterally. GASTROINTESTINAL: Abdomen soft, non-tender, nondistended. Normoactive bowel sounds x4. MUSCULOSKELETAL: No obvious deformities. Extremities without clubbing, cyanosis , or edema. NEUROLOGICAL: Awake and alert. Able to move all extremities spontaneously. Motor and sensory grossly intact. Nonfocal. Normal speech. PSYCHIATRIC: Appropriate mood and affect; insight and judgment normal. Medications and IVs Current Medications Medications (Trade) Dose Ordered Sig/Gela Route Start Time Stop Time Status Last Admin (Lasix Inj) 40 mg BID@18 IV PUSH 09/30/17 09:00 (NS Flush) 2 ml UNSCH PRN IV FLUSH 09/29/17 19:45 (NS Flush) 2 ml BID IV FLUSH 09/29/17 21:00 09/29/17 20:13 (Zofran Inj) 4 mg Q6H PRN IVP 09/29/17 19:45 (Heparin Inj) 5,000 units Q12H SQ 09/30/17 09:00 (Tylenol) 650 mg Q6H PRN PO 09/29/17 19:45 ([place] 5-325 Mg) 1 tab Q4H PRN PO 09/29/17 19:45 (Morphine Inj) 2 mg Q3H PRN IV PUSH 09/29/17 19:45 (Porsche-Colace) 1 tab BID PO 09/29/17 21:00 09/29/17 21:49 (Milk Of Magnesia Liq) 30 ml Q12H PRN PO 09/29/17 19:45 (Senokot) 17.2 mg Q12H PRN PO 09/29/17 19:45 (Dulcolax Supp) 10 mg DAILY PRN RECTAL 09/29/17 19:45 (Lactulose Liq) 30 ml DAILY PRN PO 09/29/17 19:45 (Ecotrin Ec) 81 mg DAILY PO 09/30/17 09:00 (Lipitor) 40 mg HS PO 09/29/17 21:00 09/29/17 21:49 (Coreg) 3.125 mg Q12HR PO 09/29/17 21:00 09/29/17 21:49 (Ferrous Sulfate) 325 mg BIDPC PO 09/30/17 09:00 (Theragran M Tab) 1 tab DAILY PO 09/30/17 09:00 (Altace) 2.5 mg DAILY PO 09/30/17 09:00 (Nitroglycerin 2% Oint) 0.5 inch Q6HR PRN TOPICAL 09/29/17 20:00 (KCl) 30 meq ONCE ONCE PO 09/30/17 10:00 09/30/17 10:01 UNV A/P Problem List: (1) CHF (congestive heart failure) ICD Code: I50.9 - Heart failure, unspecified Status: Chronic (2) Chest pain ICD Code: R07.9 - Chest pain, unspecified (3) HTN (hypertension) ICD Code: I10 - Essential (primary) hypertension Status: Chronic Assessment and Plan 1. CHF: Acute on Chronic. Systolic and Diastolic. Echo 08/22/17 w/ EF <20%. BNP 1515. CXR w/ mild to moderate congestive heart failure, images reviewed by me. States taken off Lasix since MVR/TVR in July. S/p Lasix in ER, will continue w/ diuresis, monitor electrolytes. +LifeVest w/ plans for Cath/AICD placement, follows w/ Dr. Sinclair as outpatient, will consult for further recommendations. Strict I&Os. Low salt/fluid restricted diet. CHF teaching. Continue on Coreg 3.125mg BID and Ramipril 2.5mg daily. 2. Conjugated hyperbilirubinemia: suspect secondary to above/hepatic congestion. Improving. Patient without any abdominal pain, N/V. 3. Chest Pain: acute onset of chest pain, associated w/ SOB. Hx of CAD/[place]/ stent placement. h/o MVR/TVR 07/31/[address] Negro. Suspect demand ischemia. Initial trop 0.02, EKG w/ no acute ischemia. Continuous cardiac telemetry. Trend cardiac enzymes. NTG/Morphine prn. ASA daily. 4. HTN: BP well controlled. Resume home medications, monitor BP. 5. Tachycardia: Patient not administered Coreg until 10am. Monitor HR. 6. JEFF: Obtain iron studies. Check B12/folate level. Continue on po iron supplementation. 7. Hypokalemia: Mild, secondary to diuresis. PO repletion ordered. AM labs to monitor response. 8. DVT Prophylaxis: Heparin sq Discussed with patient, nursing staff and Dr. Fine Discharge Planning Discharge pending cardiology clearance Eliane Herrera Sep 30, 2017 10:20
[2017-09-30 11:40] LABS: IRON (FE) 45 MCG/DL (65-175)
[2017-09-30 12:05] LABS: % SATURATION IRON PROFILE 12.6 % (20-50); FERRITIN 83 NG/ML (26-388); FOLATE 13.7 NG/ML (3.1-17.5); TOTAL IRON BINDING CAPACITY 358 MCG/DL (250-450); TROPONIN I 0.02 NG/ML (0.02-0.05)
--- NOTE | 2017-09-30 14:06 | MB ---
cc: LUZ AHUMADA M.D. DATE OF CONSULTATION: 09/30/2017. REASON FOR CONSULTATION: Evaluation of congestive heart failure. HISTORY OF PRESENT ILLNESS: Clayton Medina is a 52-year-old man with severe heart disease. He has had a previous infarcts and has had stenting of his circumflex and right coronary artery. His last cath by Dr. Sinclair was June 29, 2017 and the stent in the circumflex marginal branch had about 20% in-stent restenosis. The stents in the mid and distal right coronary artery only had about 10% in-stent restenosis. Other than that, he had irregularities. PA pressure was 60/31. He underwent mitral valve and tricuspid valve repair July 31, 2017 with a #30 Sequin ring in the mitral valve and #32 [place] ring on the tricuspid valve. Last echo was August 22 showing dilated left ventricle of 7.3 cm pulmonary artery pressure 60/31 and an ejection fraction of under 20%. He is wearing a LifeVest. He has been an BRANDON inhibitor and beta keagan, but not on diuretics and he came in with shortness of breath. He denies smoking. He denies salt indiscretion. His breathing has dramatically improved since he has come in according to the patient. PAST MEDICAL HISTORY: His past medical history includes: 1. His heart disease. 2. Gastroesophageal reflux disease (GERD). PAST SURGICAL HISTORY: 1. Stent. 2. Open heart surgery. ALLERGIES: NONE KNOWN. FAMILY HISTORY: Negative for heart disease that he knows of. SOCIAL HISTORY: Denies smoking at this time. PHYSICAL EXAMINATION: GENERAL: A well-developed, well-nourished -Serbian male in no acute distress. VITAL SIGNS: Charted. HEAD, EYES, EARS, NOSE, THROAT: Unremarkable. NECK: The neck shows mildly increased intravenous pressure. CHEST: A few basilar rales. CARDIAC: PMI is displaced. S1-S2. Regular rate and rhythm. Soft S3. 1/6 systolic ejection murmur. ABDOMEN: Abdomen soft. The patient thinks he has slight swelling in his stomach and around his eyes. EXTREMITIES: No peripheral edema in the legs. LABORATORY DATA: His laboratories are charted. Hematocrit is 37.4. He is iron deficient based on labs. Creatinine is 0.83. The last potassium was 3.4. INR 1.4. IMAGING STUDIES: Chest x-ray shows cardiomegaly with mild to moderate congestive heart failure. IMPRESSION: Severely impaired left ventricular function with acute on chronic systolic congestive heart failure. PLAN: 1. I am going to change his carvedilol to metoprolol since he is tachycardic and there is really not much room to go up on the carvedilol. 2. He is on IV Lasix and I am adding potassium 20 four times a day and repeating labs in the morning. 3. He was wanting to get out of the hospital soon obviously because it is Anh, but we need to get him stable as far as heart failure. 4. He is wearing a LifeVest and if his ejection fraction does not improve, at some point he will need to have a defibrillator. Further therapy to be determined. MD LIYAH Quijano/SHAYY /12:44 PM /1:43 PM
[2017-09-30] MEDS: POTASSIUM CHLORIDE 20 MEQ CONTROLLED RELEASE TAB PO SCH ×3 (15:14→21:25)
[2017-09-30] MEDS: METOPROLOL TARTRATE 25 MG TAB PO SCH (21:25)
[2017-09-30] MEDS: ATORVASTATIN 40 MG TAB PO SCH (21:25)
[2017-10-01] MEDS ORDERED: MORPHINE SULFATE 2 MG/ML INJ IV PUSH PRN (03:15)
[2017-10-01 04:41] LABS: AUTOMATED NEUTROPHIL # 5.1 TH/MM3 (1.8-7.7); BASOPHIL # 0.1 TH/MM3 (0-0.2); EOSINOPHIL # 0.2 TH/MM3 (0-0.4); EOSINOPHIL % 2.2 % (0.0-4.0); HEMATOCRIT 40.4 % (39.0-51.0); HEMOGLOBIN 12.9 GM/DL (13.0-17.0); LYMPH % 15.1 % (9.0-44.0); LYMPHOCYTE # 1.1 TH/MM3 (1.0-4.8); MEAN CELL VOLUME 80.7 FL (80.0-100.0); MEAN CORPUSCULAR HEMOGLOBIN 25.8 PG (27.0-34.0); MEAN PLATELET VOLUME 9.3 FL (7.0-11.0); MONO % 8.8 % (0.0-8.0); MONOCYTE # 0.6 TH/MM3 (0-0.9); NEUT % 72.9 % (16.0-70.0); PLATELET COUNT 185 TH/MM3 (150-450); RED CELL DISTRIBUTION WIDTH 22.1 % (11.6-17.2); WHITE BLOOD COUNT 6.9 TH/MM3 (4.0-11.0)
[2017-10-01 05:18] VITALS: BP 111/81; PULSE 114; RESP 18; TEMP 98.3; O2SAT 100
[2017-10-01 05:18] LABS: BICARBONATE 25.9 MEQ/L (21.0-32.0); CALCIUM 8.6 MG/DL (8.5-10.1); CREATININE 1.12 MG/DL (0.60-1.30); MAGNESIUM 1.5 MG/DL (1.5-2.5)
[2017-10-01 05:19] LABS: OVALOCYTES 1+ (NORMAL); TEARDROP RBCS 1+ (NORMAL)
[2017-10-01 07:00] VITALS: PULSE 104
[2017-10-01 08:49] VITALS: BP 100/60; PULSE 108; RESP 20; TEMP 99; O2SAT 97
[2017-10-01] MEDS: FERROUS SULFATE 325 MG (65 MG ELEMENTAL IRON) TAB PO SCH (09:10)
[2017-10-01] MEDS: FUROSEMIDE 40 MG/4 ML VIAL IV PUSH SCH (09:10)
[2017-10-01] MEDS: MULTIVITAMINS/MINERALS THERAPEUTIC TAB PO SCH (09:10)
[2017-10-01] MEDS: POTASSIUM CHLORIDE 20 MEQ CONTROLLED RELEASE TAB PO SCH ×2 (09:11→14:29)
[2017-10-01] MEDS: DOCUSATE SODIUM 50 MG/SENNA 8.6 MG TAB PO SCH (09:11)
[2017-10-01] MEDS: METOPROLOL TARTRATE 25 MG TAB PO SCH (09:11)
[2017-10-01] MEDS: RAMIPRIL 2.5 MG CAP PO SCH (09:11)
[2017-10-01] MEDS: ASPIRIN EC 81 MG TABEC PO SCH (09:12)
[2017-10-01] MEDS: HEPARIN SODIUM - SQ 10,000 UNITS/ML VIAL SQ SCH (09:12)
[2017-10-01] MEDS: SODIUM CHLORIDE 0.9% FLUSH 10 ML FLUSH IV FLUSH SCH (09:12)
[2017-10-01] MEDS: MAGNESIUM SULFATE 1 GM PREMIX 100 ML IV SCH ×2 (11:13→13:10)
[2017-10-01 12:18] VITALS: BP 99/66; PULSE 99; RESP 20; TEMP 98.8; O2SAT 97
[2017-10-01] MEDS ORDERED: METO50TA PO (13:42)
[2017-10-01] MEDS ORDERED: POTA20TA5 PO (13:47)
[2017-10-01] MEDS ORDERED: FURO1TAB60 PO (13:47)
--- NOTE | 2017-10-01 13:58 | HHI.DCPOC ---
Discharge Care Plan Diagnosis: (1) Acute on chronic systolic CHF (congestive heart failure) (2) S/P mitral valve repair (3) HTN (hypertension) Goals to Promote Your Health * To prevent worsening of your condition and complications * To maintain your health at the optimal level Directions to Meet Your Goals Take your medications as prescribed Follow your dietary instruction Follow activity as directed Keep your appointments as scheduled Take your immunizations and boosters as scheduled If your symptoms worsen call your PCP, if no PCP go to Urgent Care Center or Emergency Room Smoking is Dangerous to Your Health. Avoid second hand smoke Call the 24-hour hour crisis hotline for domestic abuse at Ronald Williamson MD Oct 01, 2017 13:58
--- NOTE | 2017-10-01 13:59 | HHI.PR ---
Subjective Remarks Patient states he is feeling much better. He wants to go home. Denies chest pain. Breathing comfortable. Ambulating without problems. Objective Vitals Vital Signs Date Time Temp Pulse Resp B/P (MAP) Pulse Ox O2 Delivery O2 Flow Rate FiO2 10/01/17 12:18 98.8 99 20 99/66 (77) 97 10/01/17 08:49 99.0 108 20 100/60 (73) 97 10/01/17 06:04 18 10/01/17 06:04 18 10/01/17 05:18 98.3 114 18 111/81 (91) 100 09/30/17 20:14 98.3 112 18 101/70 (80) 97 09/30/17 15:31 98.1 78 18 89/58 (68) 95 I/O 09/30/17 09/30/17 09/30/17 10/01/17 10/01/17 10/01/17 07:00 15:00 23:00 07:00 15:00 23:00 Intake Total 400 ml 202 ml Balance 400 ml 202 ml Intake Oral 400 ml 200 ml IV Total 2 ml # Voids 3 Result Diagram: 10/01/17 0405 10/01/17 0405 Objective Remarks GENERAL: This is a well-nourished, well-developed patient, in no apparent distress. CARDIOVASCULAR: Normal rate and regular rhythm without murmurs, gallops, or rubs. RESPIRATORY: Good respiratory efforts. Breath sounds equal and clear to auscultation bilaterally. GASTROINTESTINAL: Abdomen soft, non-tender, non-distended. Normal active bowel sounds MUSCULOSKELETAL: Extremities without cyanosis, or edema. NEURO: Alert & Oriented x4 to person, place, time, situation. Moves all ext x4 PSYCH: Appropriate mood and affect. A/P Problem List: (1) CHF (congestive heart failure) ICD Code: I50.9 - Heart failure, unspecified Status: Chronic (2) Chest pain ICD Code: R07.9 - Chest pain, unspecified (3) HTN (hypertension) ICD Code: I10 - Essential (primary) hypertension Status: Chronic Assessment and Plan 52-year-old male admitted with acute on chronic systolic heart failure. CHF: Acute on Chronic. Systolic and Diastolic. Echo 08/22/17 w/ EF <20%. BNP 1515. CXR w/ mild to moderate congestive heart failure on admission. + LifeVest w/ plans for Cath/AICD placement outpatient, patient received IV diuretics. He improved significantly. He is advised to continue on a low salt/ fluid restricted diet. CHF teaching provided. Continue on Coreg 3.125mg BID and Ramipril 2.5mg daily. Cardiology followed the patient -Patient significantly improved on diuretics. He is discharged on oral Lasix. Patient advised to follow-up outpatient with finisher accordion as scheduled. Discharge Planning Discharge home in good condition Activity: Regular as tolerated Diet: Heart healthy Meds: Per med rec. Nursing advised to ensure patient gets his medication prior to discharge. He is on patient assistance. Follow-up with: PCP and cardiology. Ronald Williamson MD Oct 01, 2017 13:59
[2017-10-01 14:15] VITALS: O2SAT 98
--- NOTE | 2017-10-01 15:31 | PD.CARD.PN ---
Subjective Subjective Remarks SOB resolved Objective Medications Current Medications Medications (Trade) Dose Ordered Sig/Gela Route Start Time Stop Time Status Last Admin (Lasix Inj) 40 mg BID@,18 IV PUSH 09/30/17 09:00 10/01/17 09:10 (NS Flush) 2 ml UNSCH PRN IV FLUSH 09/29/17 19:45 09/30/17 19:11 (NS Flush) 2 ml BID IV FLUSH 09/29/17 21:00 10/01/17 09:12 (Zofran Inj) 4 mg Q6H PRN IVP 09/29/17 19:45 (Heparin Inj) 5,000 units Q12H SQ 09/30/17 09:00 10/01/17 09:12 (Tylenol) 650 mg Q6H PRN PO 09/29/17 19:45 10/01/17 03:01 ([place] 5-325 Mg) 1 tab Q4H PRN PO 09/29/17 19:45 10/01/17 09:09 (Porsche-Colace) 1 tab BID PO 09/29/17 21:00 10/01/17 09:11 (Milk Of Magnesia Liq) 30 ml Q12H PRN PO 09/29/17 19:45 (Senokot) 17.2 mg Q12H PRN PO 09/29/17 19:45 (Dulcolax Supp) 10 mg DAILY PRN RECTAL 09/29/17 19:45 (Lactulose Liq) 30 ml DAILY PRN PO 09/29/17 19:45 (Ecotrin Ec) 81 mg DAILY PO 09/30/17 09:00 10/01/17 09:12 (Lipitor) 40 mg HS PO 09/29/17 21:00 09/30/17 21:25 (Ferrous Sulfate) 325 mg BIDPC PO 09/30/17 09:00 10/01/17 09:10 (Theragran M Tab) 1 tab DAILY PO 09/30/17 09:00 10/01/17 09:10 (Altace) 2.5 mg DAILY PO 09/30/17 09:00 10/01/17 09:11 (Nitroglycerin 2% Oint) 0.5 inch Q6HR PRN TOPICAL 09/29/17 20:00 (Lopressor) 25 mg Q12HR PO 09/30/17 21:00 10/01/17 09:11 (KCl) 20 meq QID PO 09/30/17 13:00 10/01/17 14:29 (Morphine Inj) 2 mg Q3H PRN IV PUSH 10/01/17 03:15 10/01/17 03:38 Vital Signs / I&O Vital Signs Date Time Temp Pulse Resp B/P (MAP) Pulse Ox O2 Delivery O2 Flow Rate FiO2 10/01/17 14:15 98 10/01/17 12:18 98.8 99 20 99/66 (77) 97 10/01/17 08:49 99.0 108 20 100/60 (73) 97 10/01/17 06:04 18 10/01/17 06:04 18 10/01/17 05:18 98.3 114 18 111/81 (91) 100 09/30/17 20:14 98.3 112 18 101/70 (80) 97 09/30/17 15:31 98.1 78 18 89/58 (68) 95 I/O 09/30/17 09/30/17 09/30/17 10/01/17 10/01/17 10/01/17 07:00 15:00 23:00 07:00 15:00 23:00 Intake Total 400 ml 202 ml Balance 400 ml 202 ml Intake Oral 400 ml 200 ml IV Total 2 ml # Voids 3 Physical Exam Alert Chest clear CV S1S2 RRR, +S3 abd soft ext: noedema Laboratory Laboratory Tests Test 09/30/17 17:10 10/01/17 04:05 Troponin I 0.02 NG/ML White Blood Count 6.9 TH/MM3 Red Blood Count 5.00 MIL/MM3 Hemoglobin 12.9 GM/DL Hematocrit 40.4 % Mean Corpuscular Volume 80.7 FL Mean Corpuscular Hemoglobin 25.8 PG Mean Corpuscular Hemoglobin Concent 32.0 % Red Cell Distribution Width 22.1 % Platelet Count 185 TH/MM3 Mean Platelet Volume 9.3 FL Neutrophils (%) (Auto) 72.9 % Lymphocytes (%) (Auto) 15.1 % Monocytes (%) (Auto) 8.8 % Eosinophils (%) (Auto) 2.2 % Basophils (%) (Auto) 1.0 % Neutrophils # (Auto) 5.1 TH/MM3 Lymphocytes # (Auto) 1.1 TH/MM3 Monocytes # (Auto) 0.6 TH/MM3 Eosinophils # (Auto) 0.2 TH/MM3 Basophils # (Auto) 0.1 TH/MM3 CBC Comment AUTO DIFF Differential Comment AUTO DIFF CONFIRMED Tear Drop Cells 1+ Ovalocytes 1+ Blood Urea Nitrogen 20 MG/DL Creatinine 1.12 MG/DL Random Glucose 149 MG/DL Calcium Level 8.6 MG/DL Magnesium Level 1.5 MG/DL Sodium Level 136 MEQ/L Potassium Level 4.2 MEQ/L Chloride Level 101 MEQ/L Carbon Dioxide Level 25.9 MEQ/L Anion Gap 9 MEQ/L Estimat Glomerular Filtration Rate 84 ML/MIN Assessment and Plan Problem List: (1) Combined systolic and diastolic congestive heart failure, NYHA class 4 ICD Codes: I50.40 - Unspecified combined systolic (congestive) and diastolic ( congestive) heart failure Status: Chronic Plan: s/p diuresis. Stable now. OK to DC. Pj Suarez MD Oct 01, 2017 15:31
--- NOTE | 2017-10-02 09:56 | EKG ---
Date Performed: 09/29/2017 Time Performed: 16:51:45 PTAGE: 52 years EKG: SINUS TACHYCARDIA MARKED RIGHT AXIS DEVIATION MODERATE T-WAVE ABNORMALITY ABNORMAL ECG Comp ared to the PREVIOUS TRACING rate faster DOCTOR: Ambika Mayorga Interpretating Date/Time 10/02/2017 09:55:29
== END 2017-10-01 17:11 | disposition home or self-care (01) ==
LOC: NEPC 15:52 → NEDA 19:30 → NEPGCP 20:25
PROVIDERS: ADMIT Family Medicine; ATTEND Family Medicine
DX: I50.43 Acute on chronic combined systolic (congestive) and diastolic (congestive) heart failure (principal); I11.0 Hypertensive heart disease with heart failure; I25.10 Atherosclerotic heart disease of native coronary artery without angina pectoris; I34.0 Nonrheumatic mitral (valve) insufficiency; E87.6 Hypokalemia; T50.2X5A Adverse effect of carbonic-anhydrase inhibitors, benzothiadiazides and other diuretics, initial encounter; E78.00 Pure hypercholesterolemia, unspecified; R17 Unspecified jaundice; K21.9 Gastro-esophageal reflux disease without esophagitis; I25.2 Old myocardial infarction; Z87.891 Personal history of nicotine dependence; Z95.2 Presence of prosthetic heart valve
CPT/HCPCS: 71010; 80048; 80053; 80307; 81001; 82248; 82607; 82728; 82746; 83540; 83550; 83690; 83735; 83880; 84484; 85025; 85610; 85730; 90732; 93005; 96365; 96366; 96372; 96375; 96376; 99285; G0378; J1644; J1940; J2270; J2405; J3475

== ENCOUNTER 2017-10-04 19:25 | Observation (INO) | payer OTHER ==
[~2017-10-04 19:25] MED LIST changes: -CARV3.125 PO; +FURO1TAB60 PO; +METO50TA PO; +POTA20TA5 PO
[2017-10-04 19:26] VITALS: BP 106/75; PULSE 102; RESP 20; TEMP 97.7; O2SAT 97
[2017-10-04 20:16] VITALS: BP 98/60; PULSE 106; RESP 18; O2SAT 100
[2017-10-04 20:18] LABS: AUTOMATED NEUTROPHIL # 3.1 TH/MM3 (1.8-7.7); BASOPHIL # 0.1 TH/MM3 (0-0.2); EOSINOPHIL # 0.2 TH/MM3 (0-0.4); HEMOGLOBIN 12.9 GM/DL (13.0-17.0); LYMPH % 27.5 % (9.0-44.0); LYMPHOCYTE # 1.5 TH/MM3 (1.0-4.8); MEAN CELL VOLUME 79.7 FL (80.0-100.0); MEAN CORPUSCULAR HEMOGLOBIN 25.7 PG (27.0-34.0); MEAN CORPUSCULAR HGB CONC 32.3 % (32.0-36.0); MEAN PLATELET VOLUME 9.7 FL (7.0-11.0); MONO % 9.1 % (0.0-8.0); MONOCYTE # 0.5 TH/MM3 (0-0.9); NEUT % 58.4 % (16.0-70.0); PLATELET COUNT 195 TH/MM3 (150-450); RED BLOOD COUNT 5.02 MIL/MM3 (4.50-5.90); RED CELL DISTRIBUTION WIDTH 22.3 % (11.6-17.2)
--- NOTE | 2017-10-04 20:21 | PD ---
HPI Chief Complaint: Chest Pain Time Seen by Provider: 19:58 Travel History International Travel<30 days: No Contact w/Intl Traveler<30days: No Traveled to known affect area: No History of Present Illness HPI 52-year-old male with PMH of CAD, CHF, history of mitral valve and tricuspid valve ring replacement, EF less than 20%, on LifeVest presents to the ED for evaluation of episodic worsening shortness of breath with accompanying palpitations. He states that he also feels nauseated and dizzy during these periods. Patient also complains of dyspnea on exertion. States that his shortness of breath keeps him awake at night. He denies lower extremity edema. He states that he feels puffy under his eyes and in his elbows. He endorses compliance with depression stockings. He states that his symptoms have been ongoing since his discharge. He has not followed up on an outpatient basis. PFSH Past Medical History Hx Anticoagulant Therapy: Yes Asthma: No Blood Disorders: No Anxiety: No Depression: No Heart Rhythm Problems: No Cancer: No Cardiovascular Problems: Yes High Cholesterol: Yes Chemotherapy: No Chest Pain: Yes Congestive Heart Failure: Yes COPD: No Coronary Artery Disease: Yes Diabetes: No Diminished Hearing: No Endocrine: No Gastrointestinal Disorders: Yes (GERD) GERD: Yes Genitourinary: No Hiatal Hernia: No Hypertension: Yes Immune Disorder: No Implanted Vascular Access Dvce: Yes Musculoskeletal: No Neurologic: No Psychiatric: No Reproductive: No Respiratory: No Myocardial Infarction: Yes (4 STENTS PLACED IN 2007 and 2015) Radiation Therapy: No Sleep Apnea: No Thyroid Disease: No Tetanus Vaccination: Unknown Influenza Vaccination: No Past Surgical History Abdominal Surgery: No AICD: No Body Medical Devices: CARDIAC STENTS Cardiac Surgery: Yes (CARDIAC STENTS X4) Coronary Artery Bypass Graft: Yes (valve repair) Coronary Stent: Yes (4) Ear Surgery: No Endocrine Surgery: No Eye Surgery: No Genitourinary Surgery: No Gynecologic Surgery: No Joint Replacement: No Oral Surgery: No Pacemaker: No Thoracic Surgery: No Other Surgery: Yes (CABG-jul 2017, 2 stents 2007, 2 stents 2015) Social History Alcohol Use: No Tobacco Use: No Substance Use: Yes (marijuana in the past ) Allergies-Medications (Allergen,Severity, Reaction): Coded Allergies: No Known Allergies (Verified Allergy, Unknown, 09/29/17) Reported Meds & Prescriptions Reported Meds & Active Scripts Active Lasix (Furosemide) 40 Mg Tab 40 Mg PO BID Potassium Chloride Microencaps 20 Meq Tab 20 Meq PO BID Metoprolol Tartrate 50 Mg Tab 50 Mg PO BID Ramipril 2.5 Mg Cap 2.5 Mg PO DAILY Lipitor (Atorvastatin Calcium) 40 Mg Tab 40 Mg PO HS Ferrous Sulfate 325 Mg (65 Mg Iron) Tablet 325 Mg PO BIDPC Thera M Plus (Multivitamins/Minerals Therapeutic) 1 Tab 1 Tab PO DAILY Dok (Docusate Sodium) 100 Mg Cap 100 Mg PO BID Oxycodone-Acetaminophen 5-325 mg Tab 1 Tab PO Q4HR PRN Defibrillator Jacket (Device) 1 Ea Device Ea EXTERNAL ONCE Energy = 150 Joules; VT Threshold = 150 BPM; VF Threshold = 200 BPM Use up to 90 days only Aspirin 81 (Aspirin) 81 Mg Tabdr 81 Mg PO DAILY Review of Systems Except as stated in HPI: all other systems reviewed are Neg Physical Exam Narrative GENERAL: Well-nourished, well-developed thin male in no acute distress. He is wearing a life vest. SKIN: Focused skin assessment warm/dry. HEAD: Normocephalic. EYES: No scleral icterus. No injection or drainage. NECK: Supple, trachea midline. No JVD or lymphadenopathy. CARDIOVASCULAR: Regular rate and rhythm without appreciable murmurs, gallops, or rubs. RESPIRATORY: Breath sounds clear and equal bilaterally. No accessory muscle use. GASTROINTESTINAL: Abdomen soft, non-tender, nondistended. Active bowel sounds. MUSCULOSKELETAL: No cyanosis, or edema. No lower extremity edema. NEUROLOGICAL: Awake and alert. Cranial nerves II through XII intact. Motor and sensory grossly within normal limits. Five out of 5 muscle strength in all muscle groups. Normal speech. BACK: Nontender without obvious deformity. No CVA tenderness. Data Data Last Documented VS Vital Signs Date Time Temp Pulse Resp B/P (MAP) Pulse Ox O2 Delivery O2 Flow Rate FiO2 10/04/17 20:16 106 18 98/60 (73) 100 Room Air 10/04/17 19:26 97.7 Orders Orders Electrocardiogram (10/04/17 19:31) Basic Metabolic Panel (Bmp) (10/04/17 19:31) Ckmb (Isoenzyme) Profile (10/04/17 19:31) Complete Blood Count With Diff (10/04/17 19:31) Magnesium (Mg) (10/04/17 19:31) Prothrombin Time / Inr (Pt) (10/04/17 19:31) Act Partial Throm Time (Ptt) (10/04/17 19:31) Troponin I (10/04/17 19:31) Chest, Pa & Lat (10/04/17 19:31) B-Type Natriuretic Peptide (10/04/17 19:43) Furosemide Inj (Lasix Inj) (10/04/17 21:15) Labs Laboratory Tests Test 10/04/17 19:50 White Blood Count 3.0 TH/MM3 Red Blood Count 5.02 MIL/MM3 Hemoglobin 12.9 GM/DL Hematocrit 40.0 % Mean Corpuscular Volume 79.7 FL Mean Corpuscular Hemoglobin 25.7 PG Mean Corpuscular Hemoglobin Concent 32.3 % Red Cell Distribution Width 22.3 % Platelet Count 195 TH/MM3 Mean Platelet Volume 9.7 FL Neutrophils (%) (Auto) 58.4 % Lymphocytes (%) (Auto) 27.5 % Monocytes (%) (Auto) 9.1 % Eosinophils (%) (Auto) 3.0 % Basophils (%) (Auto) 2.0 % Neutrophils # (Auto) 3.1 TH/MM3 Lymphocytes # (Auto) 1.5 TH/MM3 Monocytes # (Auto) 0.5 TH/MM3 Eosinophils # (Auto) 0.2 TH/MM3 Basophils # (Auto) 0.1 TH/MM3 CBC Comment AUTO DIFF Differential Comment AUTO DIFF CONFIRMED Ovalocytes 1+ Prothrombin Time 13.9 SEC Prothromb Time International Ratio 1.4 RATIO Activated Partial Thromboplast Time 27.3 SEC Blood Urea Nitrogen 32 MG/DL Creatinine 1.13 MG/DL Random Glucose 108 MG/DL Calcium Level 8.8 MG/DL Magnesium Level 2.0 MG/DL Sodium Level 133 MEQ/L Potassium Level 4.4 MEQ/L Chloride Level 101 MEQ/L Carbon Dioxide Level 21.1 MEQ/L Anion Gap 11 MEQ/L Estimat Glomerular Filtration Rate 83 ML/MIN Total Creatine Kinase 72 U/L Troponin I 0.02 NG/ML B-Type Natriuretic Peptide 1874 PG/ML MDM Medical Decision Making Medical Screen Exam Complete: Yes Emergency Medical Condition: Yes Differential Diagnosis CHF exacerbation versus pneumonia versus chest pain versus ACS versus other Narrative Course 52-year-old male with PMH of CAD, CHF, history of mitral valve and tricuspid valve ring replacement, EF less than 20%, on LifeVest presents to the ED for evaluation of episodic worsening shortness of breath with accompanying palpitations. Also complains of nausea, dizziness, dyspnea on exertion. States that his shortness of breath keeps him awake at night. He denies lower extremity edema. States the symptoms have been ongoing since discharge. The patient is tachycardic on presentation. Physical exam reveals a thin male in no acute distress. No appreciable M/R/G. Chest CTAB. No lower extremity edema noted. The patient is wearing a life vest. EKG rate 112, sinus tachycardia. NH interval 144, QRS 100, QTc 412 ms. Right axis deviation. Similar to previous EKG of 09/29/17. CXR: Mild positive fluid balance per radiology read. Enzymes negative 1. No concerning abnormalities in CBC or CMP. BNP 1872. Patient was administered 40 mg Lasix IV. I discussed the results of the workup with the patient. He is amenable to admission. I discussed the patient with Dr. Nieves who agrees to accept the patient to the medicine service. Please see medicine notes for disposition. Aminah Kennedy Oct 04, 2017 20:21
[2017-10-04 20:38] LABS: INTERNATIONAL NORMALIZED RATIO 1.4 RATIO; PROTHROMBIN TIME - PATIENT 13.9 SEC (9.8-11.6)
[2017-10-04 20:45] LABS: BICARBONATE 21.1 MEQ/L (21.0-32.0); CALCIUM 8.8 MG/DL (8.5-10.1); CREATININE 1.13 MG/DL (0.60-1.30); TROPONIN I 0.02 NG/ML (0.02-0.05)
--- NOTE | 2017-10-04 20:45 | RADRPT ---
EXAM DATE/TIME: 10/04/2017 20:05 [facility] COMPARISON: CHEST SINGLE AP, September 29, 2017, 17:26. CHEST PA & LAT, July 28, 2017, 14:14. INDICATIONS : Shrot of breath. MEDICAL HISTORY : Myocardial infarction. D-fib vest. SURGICAL HISTORY : Coronary artery stent. CABG. ENCOUNTER: Initial ACUITY: 3 days PAIN SCORE: 1/10 LOCATION: middle chest. FINDINGS: Postsurgical features of median sternotomy and cardiac valve replacement. Mild stable diffuse interst itial prominence. No new focal pleural or parenchymal opacities. Cardiac fluid is enlarged. Remainder of the exam is unchanged. CONCLUSION: 1. Cardiomegaly with mild positive fluid bowel is. Angel Whalen MD on October 04, 2017 at 20:36 Board Certified Radiologist. This report was verified electronically.
[2017-10-04 20:49] LABS: OVALOCYTES 1+ (NORMAL)
--- NOTE | 2017-10-04 21:14 | PD ---
Data Data Last Documented VS Vital Signs Date Time Temp Pulse Resp B/P (MAP) Pulse Ox O2 Delivery O2 Flow Rate FiO2 10/04/17 20:16 106 18 98/60 (73) 100 Room Air 10/04/17 19:26 97.7 Orders Orders Electrocardiogram (10/04/17 19:31) Basic Metabolic Panel (Bmp) (10/04/17 19:31) Ckmb (Isoenzyme) Profile (10/04/17 19:31) Complete Blood Count With Diff (10/04/17 19:31) Magnesium (Mg) (10/04/17 19:31) Prothrombin Time / Inr (Pt) (10/04/17 19:31) Act Partial Throm Time (Ptt) (10/04/17 19:31) Troponin I (10/04/17 19:31) Chest, Pa & Lat (10/04/17 19:31) B-Type Natriuretic Peptide (10/04/17 19:43) Furosemide Inj (Lasix Inj) (10/04/17 21:15) Labs Laboratory Tests Test 10/04/17 19:50 White Blood Count 3.0 TH/MM3 Red Blood Count 5.02 MIL/MM3 Hemoglobin 12.9 GM/DL Hematocrit 40.0 % Mean Corpuscular Volume 79.7 FL Mean Corpuscular Hemoglobin 25.7 PG Mean Corpuscular Hemoglobin Concent 32.3 % Red Cell Distribution Width 22.3 % Platelet Count 195 TH/MM3 Mean Platelet Volume 9.7 FL Neutrophils (%) (Auto) 58.4 % Lymphocytes (%) (Auto) 27.5 % Monocytes (%) (Auto) 9.1 % Eosinophils (%) (Auto) 3.0 % Basophils (%) (Auto) 2.0 % Neutrophils # (Auto) 3.1 TH/MM3 Lymphocytes # (Auto) 1.5 TH/MM3 Monocytes # (Auto) 0.5 TH/MM3 Eosinophils # (Auto) 0.2 TH/MM3 Basophils # (Auto) 0.1 TH/MM3 CBC Comment AUTO DIFF Differential Comment AUTO DIFF CONFIRMED Ovalocytes 1+ Prothrombin Time 13.9 SEC Prothromb Time International Ratio 1.4 RATIO Activated Partial Thromboplast Time 27.3 SEC Blood Urea Nitrogen 32 MG/DL Creatinine 1.13 MG/DL Random Glucose 108 MG/DL Calcium Level 8.8 MG/DL Magnesium Level 2.0 MG/DL Sodium Level 133 MEQ/L Potassium Level 4.4 MEQ/L Chloride Level 101 MEQ/L Carbon Dioxide Level 21.1 MEQ/L Anion Gap 11 MEQ/L Estimat Glomerular Filtration Rate 83 ML/MIN Total Creatine Kinase 72 U/L Troponin I 0.02 NG/ML B-Type Natriuretic Peptide 1874 PG/ML [facility] Supervised Visit with HIREN: Yes Narrative Course The history, exam, and medical decision-making in the associated mid-level provider note were completed with my assistance. I reviewed and agree with the findings presented. I attest that I had a [id number] encounter with the patient on the same day, and personally performed and documented my assessment and findings in the medical record. *My assessment and Findings: 52-year-old man with history of severe heart failure, markedly reduced EF, Audeliamichael Scottpanchito, related to valvular disease, status post surgical repair. Here with evidence of worsening volume overload shortness of breath. No chest pain. Labs show elevated BNP. Chest x-ray with some extra fluid. We'll plan on admission for volume overload, and the setting of severe CHF. Nestor Menchaca MD Oct 04, 2017 21:14
[2017-10-04] MEDS ORDERED: FUROSEMIDE 40 MG/4 ML VIAL IV PUSH ONE (21:15)
[2017-10-04] MEDS ORDERED: SODIUM CHLORIDE 0.9% FLUSH 10 ML FLUSH IV FLUSH PRN (21:30)
[2017-10-04] MEDS: ENOXAPARIN SODIUM 40 MG/0.4 ML SYRINGE SQ SCH (21:46)
[2017-10-04 21:47] VITALS: BP 107/69; PULSE 108; RESP 18; O2SAT 98
--- NOTE | 2017-10-04 22:01 | HHI.HP ---
[facility] Service [facility] Primary Care Physician Cheryl Galindo MD Admission Diagnosis Diagnoses: Travel History International Travel<30 Days: No Contact w/Intl Traveler <30 Da: No Traveled to Known Affected Are: No History of Present Illness 52-year-old male with a past medical history significant for hypertension, history of MVR/TVR on 07/31/[address] Villavicencio, CHF (EF echo 08/22/17 with EF of less than 20%), life vest, CAD status post stenting and GERD presents to the emergency department for increased shortness of breath. The patient was discharged on 10/01/17 where he was treated for an acute CHF exacerbation. He reports that since he has been home he has had 2 days of cough productive of brown sputum. He endorses dyspnea on exertion and paroxysmal nocturnal dyspnea. He reports compliance with his medications. Temperature 99.0, pulse 108, respiratory rate 20 BP 100/60, pulse ox 98% on room air. Patient does not appear to be in any respiratory distress and does not have any lower extremity edema. Chest x-ray significant for cardiomegaly with improvement in pulmonary edema since previous. BNP elevated at 1874, was 1205 on 09/30. Review of Systems Denies fever or chills Denies blurry vision, otorrhea, rhinorrhea Denies sore throat, positive productive cough No chest pain, palpitations, positive shortness of breath No abdominal pain Denies constipation/diarrhea/nausea/vomiting Denies muscle pain/weakness No rashes Past Family Social History Past Medical History Hypertension History of MVR/TVR on 07/31/[address] Villavicencio CHF (echo 08/22/17 with EF less than 20%) LifeVest CAD GERD Past Surgical History Cardiac stenting 4, 2 stents placed in 2007, 2 stents placed in 2015 MVR/TVR Reported Medications Reported Meds & Active Scripts Active Lasix (Furosemide) 40 Mg Tab 40 Mg PO BID Potassium Chloride Microencaps 20 Meq Tab 20 Meq PO BID Metoprolol Tartrate 50 Mg Tab 50 Mg PO BID Ramipril 2.5 Mg Cap 2.5 Mg PO DAILY Lipitor (Atorvastatin Calcium) 40 Mg Tab 40 Mg PO HS Ferrous Sulfate 325 Mg (65 Mg Iron) Tablet 325 Mg PO BIDPC Thera M Plus (Multivitamins/Minerals Therapeutic) 1 Tab 1 Tab PO DAILY Dok (Docusate Sodium) 100 Mg Cap 100 Mg PO BID Oxycodone-Acetaminophen 5-325 mg Tab 1 Tab PO Q4HR PRN Defibrillator Jacket (Device) 1 Ea Device Ea EXTERNAL ONCE Energy = 150 Joules; VT Threshold = 150 BPM; VF Threshold = 200 BPM Use up to 90 days only Aspirin 81 (Aspirin) 81 Mg Tabdr 81 Mg PO DAILY Allergies: Coded Allergies: No Known Allergies (Verified Allergy, Unknown, 09/29/17) Family History Father with CAD Social History Remote history of smoking. Occasional alcohol. Positive marijuana use. Denies other illicit drugs. Physical Exam Vital Signs Vital Signs Date Time Temp Pulse Resp B/P (MAP) Pulse Ox O2 Delivery O2 Flow Rate FiO2 10/04/17 21:47 108 18 107/69 (82) 98 Room Air 10/04/17 20:16 106 18 98/60 (73) 100 Room Air 10/04/17 19:26 97.7 102 20 106/75 (85) 97 Room Air Physical Exam GENERAL: male, sitting up in bed talking SKIN: No rashes, ecchymoses or lesions. Cool and dry. HEAD: Atraumatic. Normocephalic. No temporal or scalp tenderness. EYES: Pupils equal round and reactive. Extraocular motions intact. No scleral icterus. No injection or drainage. ENT: Nose without bleeding, purulent drainage or septal hematoma. Throat without erythema, tonsillar hypertrophy or exudate. Uvula midline. Airway patent. NECK: Trachea midline. No JVD or lymphadenopathy. Supple, nontender, no meningeal signs. CARDIOVASCULAR: Regular rate and rhythm without murmurs, gallops, or rubs. RESPIRATORY: Clear to auscultation. Breath sounds equal bilaterally. No wheezes , rales, or rhonchi. GASTROINTESTINAL: Abdomen soft, non-tender, nondistended. No hepato-splenomegaly , or palpable masses. No guarding. MUSCULOSKELETAL: Extremities without clubbing, cyanosis, or edema. No joint tenderness, effusion, or edema noted. No calf tenderness. NEUROLOGICAL: Awake and alert. Cranial nerves II through XII intact. Motor and sensory grossly within normal limits. Normal speech. Laboratory Laboratory Tests Test 10/04/17 19:50 White Blood Count 3.0 Red Blood Count 5.02 Hemoglobin 12.9 Hematocrit 40.0 Mean Corpuscular Volume 79.7 Mean Corpuscular Hemoglobin 25.7 Mean Corpuscular Hemoglobin Concent 32.3 Red Cell Distribution Width 22.3 Platelet Count 195 Mean Platelet Volume 9.7 Neutrophils (%) (Auto) 58.4 Lymphocytes (%) (Auto) 27.5 Monocytes (%) (Auto) 9.1 Eosinophils (%) (Auto) 3.0 Basophils (%) (Auto) 2.0 Neutrophils # (Auto) 3.1 Lymphocytes # (Auto) 1.5 Monocytes # (Auto) 0.5 Eosinophils # (Auto) 0.2 Basophils # (Auto) 0.1 CBC Comment AUTO DIFF Differential Comment AUTO DIFF CONFIRMED Ovalocytes 1+ Prothrombin Time 13.9 Prothromb Time International Ratio 1.4 Activated Partial Thromboplast Time 27.3 Blood Urea Nitrogen 32 Creatinine 1.13 Random Glucose 108 Calcium Level 8.8 Magnesium Level 2.0 Sodium Level 133 Potassium Level 4.4 Chloride Level 101 Carbon Dioxide Level 21.1 Anion Gap 11 Estimat Glomerular Filtration Rate 83 Total Creatine Kinase 72 Troponin I 0.02 B-Type Natriuretic Peptide 1874 Result Diagram: 10/04/17194910/04/171949 Caprini VTE Risk Assessment Caprini VTE Risk Assessment: No/Low Risk (score <= 1) Caprini Risk Assessment Model Point Value = 1 Point Value = 2 Point Value = 3 Point Value = 5 Age 41-60 Minor surgery BMI > 25 kg/m2 Swollen legs Varicose veins or History of unexplained or recurrent spontaneous Oral contraceptives or hormone replacement Sepsis (< 1 month) Serious lung disease, including pneumonia (< 1 month) Abnormal pulmonary function Acute myocardial infarction Congestive heart failure (< 1 month) History of inflammatory bowel disease Medical patient at bed rest Age 61-74 Arthroscopic surgery Major open surgery (> 45 min) Laparoscopic surgery (> 45 min) Malignancy Confined to bed (> 72 hours) Immobilizing plaster cast Central venous access Age >= 75 History of VTE Family history of VTE Factor V Leiden Prothrombin [id number] Lupus anticoagulant Anticardiolipin antibodies Elevated serum homocysteine Heparin-induced thrombocytopenia Other congenital or acquired thrombophilia Stroke (< 1 month) Elective arthroplasty Hip, pelvis, or leg fracture Acute spinal cord injury (< 1 month) Prophylaxis Regimen Total Risk Factor Score Risk Level Prophylaxis Regimen 0-1 Low Early ambulation 2 Moderate Order ONE of the following: *Sequential Compression Device (SCD) *Heparin 5000 units SQ BID 3-4 Higher Order ONE of the following medications: *Heparin 5000 units SQ TID *Enoxaparin/Lovenox 40 mg SQ daily (WT < 150 kg, CrCl > 30 mL/min) *Enoxaparin/Lovenox 30 mg SQ daily (WT < 150 kg, CrCl > 10-29 mL/min) *Enoxaparin/Lovenox 30 mg SQ BID (WT < 150 kg, CrCl > 30 mL/min) AND/OR *Sequential Compression Device (SCD) 5 or more Highest Order ONE of the following medications: *Heparin 5000 units SQ TID (Preferred with Epidurals) *Enoxaparin/Lovenox 40 mg SQ daily (WT < 150 kg, CrCl > 30 mL/min) *Enoxaparin/Lovenox 30 mg SQ daily (WT < 150 kg, CrCl > 10-29 mL/min) *Enoxaparin/Lovenox 30 mg SQ BID (WT < 150 kg, CrCl > 30 mL/min) AND *Sequential Compression Device (SCD) Assessment and Plan Assessment and Plan Assessment/plan: 1. CHF exacerbation Patient reports increasing shortness of breath, BNP 1874 Reports compliance with his home medications Chest x-ray is actually improved from previous, images reviewed by me. Significant for cardiomegaly with positive fluid balance. IV Lasix 2. CAD/hypertension/hyperlipidemia Continue home medications + Lifevest FEN Heart healthy diet Electrolytes: monitor and replete prn Lovenox Patient previously seen in community clinic, case management consulted to assist with outpatient follow-up. 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 Ashley Nieves MD Oct 04, 2017 22:01
[2017-10-04] MEDS: METOPROLOL TARTRATE 50 MG TAB PO SCH (22:02)
[2017-10-04] MEDS ORDERED: ONDANSETRON HCL 4 MG/2 ML VIAL IV PUSH PRN (22:15)
[2017-10-04 23:13] VITALS: BP 103/67; PULSE 110; RESP 18; O2SAT 99
[2017-10-04] MEDS ORDERED: IOHEXOL 350 MG/ML 10 ML VIAL (for RAD DIAG) IVCONTRAST ONE (23:37)
[2017-10-05] VITALS (8 sets, daily range): BP systolic 91–113; BP diastolic 63–78; PULSE 92–114; RESP 18–26; TEMP 97.5–98.7; O2SAT 93–100
[2017-10-05 07:21] LABS: BICARBONATE 24.4 MEQ/L (21.0-32.0); CALCIUM 8.9 MG/DL (8.5-10.1); CREATININE 1.04 MG/DL (0.60-1.30)
[2017-10-05 07:23] LABS: BASOPHIL # 0.1 TH/MM3 (0-0.2); BASOPHIL % 2.5 % (0.0-2.0); EOSINOPHIL # 0.2 TH/MM3 (0-0.4); EOSINOPHIL % 3.8 % (0.0-4.0); HEMATOCRIT 39.8 % (39.0-51.0); LYMPH % 25.8 % (9.0-44.0); LYMPHOCYTE # 1.3 TH/MM3 (1.0-4.8); MEAN CELL VOLUME 80.1 FL (80.0-100.0); MEAN CORPUSCULAR HEMOGLOBIN 26.1 PG (27.0-34.0); MEAN CORPUSCULAR HGB CONC 32.6 % (32.0-36.0); MEAN PLATELET VOLUME 9.7 FL (7.0-11.0); MONO % 10.3 % (0.0-8.0); MONOCYTE # 0.5 TH/MM3 (0-0.9); NEUT % 57.6 % (16.0-70.0); PLATELET COUNT 205 TH/MM3 (150-450); RED BLOOD COUNT 4.97 MIL/MM3 (4.50-5.90); WHITE BLOOD COUNT 5.2 TH/MM3 (4.0-11.0)
[2017-10-05] MEDS: ASPIRIN EC 81 MG TABEC PO SCH (08:46)
[2017-10-05] MEDS: FERROUS SULFATE 325 MG (65 MG ELEMENTAL IRON) TAB PO SCH ×2 (08:46→18:24)
[2017-10-05] MEDS: FUROSEMIDE 40 MG/4 ML VIAL IVP SCH ×3 (08:47→18:24)
[2017-10-05] MEDS: POTASSIUM CHLORIDE 20 MEQ CONTROLLED RELEASE TAB PO SCH ×2 (08:47→23:38)
[2017-10-05] MEDS: METOPROLOL TARTRATE 50 MG TAB PO SCH ×2 (08:47→23:38)
[2017-10-05] MEDS: RAMIPRIL 2.5 MG CAP PO SCH (08:47)
[2017-10-05] MEDS: DOCUSATE SODIUM 100 MG CAP PO SCH ×2 (08:47→23:39)
[2017-10-05] MEDS: SODIUM CHLORIDE 0.9% FLUSH 10 ML FLUSH IV FLUSH SCH ×2 (08:48→21:00)
--- NOTE | 2017-10-05 14:29 | HHI.PR ---
Subjective Remarks No significant improvement compared to yesterday. Is recent echocardiogram shows an ejection fraction less than 20%. Entresto is not an option for him due to cost. Primary complaints today are shortness of breath and weakness. He qualifies for NYHA class IV congestive heart failure. Objective Vital Signs Date Time Temp Pulse Resp B/P (MAP) Pulse Ox O2 Delivery O2 Flow Rate FiO2 10/05/17 11:38 97.6 100 20 100/69 (79) 96 10/05/17 08:45 96 10/05/17 07:19 97.9 95 18 97/67 (77) 97 10/05/17 04:49 97.5 92 18 93/65 (74) 93 10/05/17 01:36 98.1 104 18 91/63 (72) 96 10/05/17 00:21 10/04/17 23:30 106 18 98 Room Air 10/04/17 23:13 110 18 103/67 (79) 99 Room Air 10/04/17 21:47 108 18 107/69 (82) 98 Room Air 10/04/17 20:16 106 18 98/60 (73) 100 Room Air 10/04/17 19:26 97.7 102 20 106/75 (85) 97 Room Air I/O 10/04/17 10/04/17 10/04/17 10/05/17 10/05/17 10/05/17 07:00 15:00 23:00 07:00 15:00 23:00 Intake Total 100 ml Output Total 750 ml Balance -650 ml Intake Oral 100 ml Output Urine Total 750 ml Result Diagram: 10/05/17 0635 10/05/17 0635 Objective Remarks GENERAL: NAD, A&Ox3 HEAD: Normocephalic. NECK: Supple, trachea midline. No lymphadenopathy. EYES: No scleral icterus. No injection or drainage. CARDIOVASCULAR: Regular rate and rhythm without murmurs, gallops, or rubs. RESPIRATORY: Breath sounds equal bilaterally. No accessory muscle use. Crackles at bases of lungs bilaterally. GASTROINTESTINAL: Abdomen soft, non-tender, nondistended. MUSCULOSKELETAL: No cyanosis, or edema. SKIN: Warm and dry. NEURO: No focal neurological deficitis. A/P Problem List: (1) Combined systolic and diastolic congestive heart failure, NYHA class 4 ICD Code: I50.40 - Unspecified combined systolic (congestive) and diastolic ( congestive) heart failure Status: Chronic (2) Acute on chronic systolic CHF (congestive heart failure) ICD Code: I50.23 - Acute on chronic systolic (congestive) heart failure Status: Acute (3) S/P mitral valve repair ICD Code: Z98.890 - S/P mitral valve repair (4) HTN (hypertension) ICD Code: I10 - Essential (primary) hypertension Status: Chronic (5) CHF (congestive heart failure) ICD Code: I50.9 - Heart failure, unspecified Status: Chronic (6) CAD (coronary artery disease) ICD Code: I25.10 - Atherosclerotic heart disease of [place] coronary artery without angina pectoris Status: Chronic Assessment and Plan Assessment and Plan 52-year-old male admitted secondary to CHF exacerbation Acute on chronic congestive heart failure Baseline systolic congestive heart failure CHF exacerbation Class IV NYHA CHF Coronary artery disease No improvement yet. Continue diuretics Continue to monitor for improvement Adjustments in his baseline diuretic will be made once he is stabilized Continue lifevest hypertension/hyperlipidemia Continue home medications Follow blood pressures Adjust treatments of blood pressures as needed Follow lipids as an outpatient DVT prophylaxis Lico Lloyd MD Oct 05, 2017 14:29
--- NOTE | 2017-10-05 20:25 | RADRPT ---
EXAM DATE/TIME: 10/05/2017 19:53 [place] COMPARISON: CT PULMONARY ANGIOGRAM, March 13, 2017, 12:19. INDICATIONS : Shortness of breath and chest pain. IV CONTRAST: 60 cc Omnipaque 350 (iohexol) IV RADIATION DOSE: 23.36 CTDIvol (mGy) MEDICAL HISTORY : Cardiovascular disease. Hypertension. Anemia SURGICAL HISTORY : None. ENCOUNTER: Initial ACUITY: 1 day PAIN SCALE: 5/10 LOCATION: chest TECHNIQUE: Volumetric scanning of the chest was performed using a pulmonary embolism protocol MIP images were re constructed. Using automated exposure control and adjustment of the mA and/or kV according to patien t size, radiation dose was kept as low as reasonably achievable to obtain optimal diagnostic quality images. DICOM format image data is available electronically for review and comparison. Follow-up recommendations for detected pulmonary nodules are based at a minimum on nodule size and pa tient risk factors according to Fleischner Society Guidelines. FINDINGS: PULMONARY ARTERIES: No filling defects are seen in the pulmonary arteries through the segmental level. LUNGS: Mild basilar predominant groundglass parenchymal opacity. Stable tiny bilateral parenchymal lung nodu les. Emphysema. Mild scarring or atelectasis in the posterior left lung base. PLEURAE: There is no pleural thickening or pleural effusion. MEDIASTINUM: Cardiac enlargement. Vascular engorgement. Mild indurative changes in the mediastinal soft tissues. S mall pericardial effusion. MUSCULOSKELETAL: Within normal limits for patient age. MISCELLANEOUS: The visualized upper abdominal organs demonstrate no acute abnormality. CONCLUSION: No evidence of pulmonary embolism. Wing Gramajo MD on October 05, 2017 at 20:17 Board Certified Radiologist. This report was verified electronically.
--- NOTE | 2017-10-05 23:05 | EKG ---
Date Performed: 10/04/2017 Time Performed: 19:40:13 PTAGE: 52 years EKG: SINUS TACHYCARDIA MARKED RIGHT AXIS DEVIATION ST DEVIATION AND MODERATE T-WAVE ABNORMALITY, CONSIDER LATERAL ISCHEMIA ST DEVIATION AND MODERATE T-WAVE ABNORMALITY, CONSIDER INFERIOR ISCHEMIA A BNORMAL ECG PREVIOUS TRACING : 09/29/2017 16.51 Compared to the previous tracing T wave abnormalities are m ore prominent DOCTOR: Roge Lamb Interpretating Date/Time 10/05/2017 23:03:42
[2017-10-05] MEDS: ENOXAPARIN SODIUM 40 MG/0.4 ML SYRINGE SQ SCH (23:38)
[2017-10-05] MEDS: ATORVASTATIN 40 MG TAB PO SCH (23:38)
[2017-10-06] VITALS (9 sets, daily range): BP systolic 85–106; BP diastolic 52–78; PULSE 90–109; RESP 18; TEMP 97.4–98.2; O2SAT 96–100
[2017-10-06 02:08] LABS: ALBUMIN 3.5 GM/DL (3.4-5.0); ALT (GPT) 35 U/L (12-78); AST (GOT) 22 U/L (15-37); BICARBONATE 26.4 MEQ/L (21.0-32.0); BLOOD UREA NITROGEN 28 MG/DL (7-18); CALCIUM 8.8 MG/DL (8.5-10.1); CHLORIDE 99 MEQ/L (98-107); CREATININE 1.09 MG/DL (0.60-1.30); GLOMERULAR FILTRATION RATE 86 ML/MIN (>89); GLUCOSE,RANDOM 115 MG/DL (74-106); SODIUM (NA) 134 MEQ/L (136-145)
[2017-10-06 02:12] LABS: ALKALINE PHOSPHATASE 107 U/L (45-117); TOTAL PROTEIN 7.9 GM/DL (6.4-8.2); TROPONIN I LESS THAN 0.02 NG/ML (0.02-0.05)
[2017-10-06] MEDS ORDERED: RESP: ALBUTEROL 2.5 MG/IPRATROPIUM 0.5 MG NEB (PRN) NEB (03:00)
[2017-10-06] MEDS: RESP: ALBUTEROL 2.5 MG/IPRATROPIUM 0.5 MG NEB (SCH) NEB ×4 (03:18→20:46)
[2017-10-06 07:27] LABS: AUTOMATED NEUTROPHIL # 3.4 TH/MM3 (1.8-7.7); BASOPHIL # 0.1 TH/MM3 (0-0.2); BASOPHIL % 2.2 % (0.0-2.0); EOSINOPHIL # 0.1 TH/MM3 (0-0.4); HEMATOCRIT 40.3 % (39.0-51.0); HEMOGLOBIN 13.1 GM/DL (13.0-17.0); LYMPH % 19.7 % (9.0-44.0); LYMPHOCYTE # 1.1 TH/MM3 (1.0-4.8); MEAN CELL VOLUME 79.9 FL (80.0-100.0); MEAN CORPUSCULAR HGB CONC 32.6 % (32.0-36.0); MEAN PLATELET VOLUME 9.8 FL (7.0-11.0); MONO % 11.7 % (0.0-8.0); MONOCYTE # 0.6 TH/MM3 (0-0.9); NEUT % 64.4 % (16.0-70.0); PLATELET COUNT 205 TH/MM3 (150-450); RED BLOOD COUNT 5.04 MIL/MM3 (4.50-5.90); RED CELL DISTRIBUTION WIDTH 21.7 % (11.6-17.2); WHITE BLOOD COUNT 5.3 TH/MM3 (4.0-11.0)
[2017-10-06] MEDS: SODIUM CHLORIDE 0.9% FLUSH 10 ML FLUSH IV FLUSH SCH ×2 (09:05→21:30)
[2017-10-06] MEDS: DOCUSATE SODIUM 100 MG CAP PO SCH ×2 (09:06→21:30)
[2017-10-06] MEDS: ASPIRIN EC 81 MG TABEC PO SCH (09:06)
[2017-10-06] MEDS: METOPROLOL TARTRATE 50 MG TAB PO SCH (09:06)
[2017-10-06] MEDS: FERROUS SULFATE 325 MG (65 MG ELEMENTAL IRON) TAB PO SCH ×2 (09:06→18:07)
[2017-10-06] MEDS: POTASSIUM CHLORIDE 20 MEQ CONTROLLED RELEASE TAB PO SCH ×2 (09:06→21:31)
[2017-10-06] MEDS: FUROSEMIDE 40 MG/4 ML VIAL IVP SCH (09:06)
[2017-10-06] MEDS: RAMIPRIL 2.5 MG CAP PO SCH (09:06)
--- NOTE | 2017-10-06 14:16 | EKG ---
Date Performed: 10/05/2017 Time Performed: 18:36:07 PTAGE: 52 years EKG: SINUS TACHYCARDIA POSSIBLE RIGHT VENTRICULAR HYPERTROPHY ST DEVIATION AND MODERATE T-WAVE A BNORMALITY, CONSIDER LATERAL ISCHEMIA ST DEVIATION AND MODERATE T-WAVE ABNORMALITY, CONSIDER INFERIOR ISCHEMIA ABNORMAL ECG PREVIOUS TRACING : 10/04/2017 19.40 Compared to prior tracing no significant change. EKG does a ppear ischemic. Cannot even rule subtle ST elevation seen in aVL. Clinical correlation recommended. DOCTOR: Rob Pierre Interpretating Date/Time 10/06/2017 14:18:27
--- NOTE | 2017-10-06 14:19 | EKG ---
Date Performed: 10/06/2017 Time Performed: 00:43:11 PTAGE: 52 years EKG: SINUS TACHYCARDIA MARKED RIGHT AXIS DEVIATION ST DEVIATION AND MODERATE T-WAVE ABNORMALITY, CONSIDER LATERAL ISCHEMIA ABNORMAL ECG PREVIOUS TRACING : 10/05/2017 18.36 Compared to prior tracing no significant change DOCTOR: Rob Pierre Interpretating Date/Time 10/06/2017 14:18:55
--- NOTE | 2017-10-06 14:21 | EKG ---
Date Performed: 10/06/2017 Time Performed: 07:01:36 PTAGE: 52 years EKG: Sinus rhythm MARKED RIGHT AXIS DEVIATION ST DEVIATION AND MODERATE T-WAVE ABNORMALITY, CONSIDER LATERAL ISCHEMIA ST DEVIATION AND MODERATE T-WAVE ABNORMALITY, CONSIDER INFERIOR ISCHEMIA ABNORMAL ECG PREVIOUS TRACING : 10/06/2017 00.43 Since prior tracing, changes are slightly more prominent, c onsider ischemia. DOCTOR: Rob Pierre Interpretating Date/Time 10/06/2017 14:20:07
[2017-10-06] MEDS ORDERED: FUROSEMIDE 80 MG TAB PO ONE (14:30)
[2017-10-06] MEDS ORDERED: BUMETANIDE 1 MG TAB PO ONE (15:30)
--- NOTE | 2017-10-06 15:57 | MB ---
cc: LUZ AHUMADA M.D. DATE OF CONSULTATION: 10/06/2017. REASON FOR CONSULTATION: Evaluation of congestive heart failure. HISTORY OF PRESENT ILLNESS: Stuart Medina is a 52-year-old man with known systolic congestive heart failure. I just saw him for a consultation September 30. Please refer to that consultation note. He was sent home on Furosemide 40 milligrams p.o. twice a day. Unfortunately this must below his threshold for his kidneys because he states that when he takes it, he does not notice any diuresis. He came in with increasing shortness of breath. Chest x-ray actually looks better than last admission but he is mildly decompensated. He has improved since he has been started on IV Lasix here. PAST MEDICAL HISTORY: His past history includes: 1. His heart disease. 2. Gastroesophageal reflux disease. PAST SURGICAL HISTORY: His past surgical history includes: 1. His stent. 2. Previous open heart surgery with mitral and tricuspid valve rings. SOCIAL HISTORY: Nonsmoker. FAMILY HISTORY: Family history is negative for heart disease. PHYSICAL EXAMINATION: GENERAL: A well-developed, well-nourished -[place] male in no acute distress. VITAL SIGNS: Charted. HEAD, EYES, EARS, NOSE, THROAT: Exam unremarkable. NECK: The neck shows increased central venous pressure. CHEST: The chest at this time is clear. CARDIAC: S1, S2, S3. Regular rate and rhythm with a 1/6 systolic murmur. ABDOMEN: Soft. EXTREMITIES: No edema. LABORATORY DATA AND CHEST X-RAY: Charted. IMPRESSION: Mildly decompensated systolic congestive heart failure with known severe left ventricular systolic dysfunction. Currently he is responding to IV Lasix. RECOMMENDATIONS: Once we get him on a heart diet, instead of using Lasix I would prefer we use Torsemide as it has improved bioavailability over Lasix. Probably start using 100 milligram tablet and taking a [id number] daily. If he does not respond, make it go to a whole tablet daily. This would probably work better than what he was on before. MD LIYAH Quijano/SHAYY /1:27 PM /3:27 PM
[2017-10-06] MEDS ORDERED: PILL SPLITTER OTHER PRN (17:30)
--- NOTE | 2017-10-06 17:48 | HHI.PR ---
Subjective Remarks No pulmonary embolism on workup overnight. Respiratory symptoms have improved. Chest pain has resolved. Negative workup for evidence of cardiac ischemia. Patient is able to ambulate today with only minimal rest or symptoms. She's had problems of Lasix in the past were discontinuing Lasix and providing a trial of torsemide. If he is able to demonstrate urination with this treatment he'll be stable for discharge. Objective Vital Signs Date Time Temp Pulse Resp B/P (MAP) Pulse Ox O2 Delivery O2 Flow Rate FiO2 10/06/17 15:52 97.4 109 18 99/64 (76) 98 10/06/17 15:46 97 10/06/17 11:34 98.1 108 18 91/62 (72) 97 10/06/17 07:36 98.0 99 18 85/52 (63) 96 10/06/17 07:00 90 10/06/17 06:08 98.2 96 18 100/62 (75) 98 10/06/17 00:35 98.2 103 18 95/54 (68) 100 10/05/17 20:24 97.9 114 18 102/71 (81) 100 10/05/17 18:05 98.7 96 26 113/78 (90) 98 I/O 10/05/17 10/05/17 10/05/17 10/06/17 10/06/17 10/06/17 07:00 15:00 23:00 07:00 15:00 23:00 Intake Total 100 ml 1040 ml 526 ml Output Total 750 ml 2095 ml 550 ml 200 ml 1050 ml Balance -650 ml -1055 ml -550 ml -200 ml -524 ml Intake Oral 100 ml 1040 ml 520 ml IV Total 6 ml Output Urine Total 750 ml 2095 ml 550 ml 200 ml 1050 ml Result Diagram: 10/06/17 0624 10/06/17 0126 Objective Remarks GENERAL: NAD, A&Ox3 HEAD: Normocephalic. NECK: Supple, trachea midline. No lymphadenopathy. EYES: No scleral icterus. No injection or drainage. CARDIOVASCULAR: Regular rate and rhythm without murmurs, gallops, or rubs. RESPIRATORY: Breath sounds equal bilaterally. No accessory muscle use. Crackles at bases of lungs bilaterally. GASTROINTESTINAL: Abdomen soft, non-tender, nondistended. MUSCULOSKELETAL: No cyanosis, or edema. SKIN: Warm and dry. NEURO: No focal neurological deficitis. A/P Problem List: (1) Combined systolic and diastolic congestive heart failure, NYHA class 4 ICD Code: I50.40 - Unspecified combined systolic (congestive) and diastolic ( congestive) heart failure Status: Chronic (2) Acute on chronic systolic CHF (congestive heart failure) ICD Code: I50.23 - Acute on chronic systolic (congestive) heart failure Status: Acute (3) S/P mitral valve repair ICD Code: Z98.890 - S/P mitral valve repair (4) HTN (hypertension) ICD Code: I10 - Essential (primary) hypertension Status: Chronic (5) CHF (congestive heart failure) ICD Code: I50.9 - Heart failure, unspecified Status: Chronic (6) CAD (coronary artery disease) ICD Code: I25.10 - Atherosclerotic heart disease of [place] coronary artery without angina pectoris Status: Chronic Assessment and Plan Assessment and Plan 52-year-old male admitted secondary to CHF exacerbation. Convert to PO diuretic treatment and discharge in 12-24 hours if improvements remain stable and patient able to urinate with diuretics. Acute on chronic congestive heart failure Baseline systolic congestive heart failure CHF exacerbation Class IV NYHA CHF Coronary artery disease No improvement yet. Continue diuretics Continue to monitor for improvement Adjustments in his baseline diuretic will be made once he is stabilized Continue lifevest hypertension/hyperlipidemia Continue home medications Follow blood pressures Adjust treatments of blood pressures as needed Follow lipids as an outpatient DVT prophylaxis Lico Lloyd MD Oct 06, 2017 17:48
[2017-10-06] MEDS: ATORVASTATIN 40 MG TAB PO SCH (21:30)
[2017-10-06] MEDS: METOPROLOL TARTRATE 25 MG TAB PO SCH (21:31)
[2017-10-06] MEDS: ENOXAPARIN SODIUM 40 MG/0.4 ML SYRINGE SQ SCH (22:55)
[2017-10-07 03:22] VITALS: BP 100/64; PULSE 106; RESP 18; TEMP 98.2; O2SAT 100
[2017-10-07] MEDS: RESP: ALBUTEROL 2.5 MG/IPRATROPIUM 0.5 MG NEB (SCH) NEB ×3 (03:33→15:02)
[2017-10-07 07:49] VITALS: BP 98/62; PULSE 104; RESP 24; TEMP 98.3; O2SAT 98
[2017-10-07 08:00] VITALS: PULSE 96
[2017-10-07 08:50] LABS: BICARBONATE 27.6 MEQ/L (21.0-32.0); CALCIUM 8.7 MG/DL (8.5-10.1); CREATININE 0.95 MG/DL (0.60-1.30)
[2017-10-07] MEDS ORDERED: TORSEMIDE 20 MG TAB PO SCH (09:00)
[2017-10-07] MEDS ORDERED: FUROSEMIDE 80 MG TAB PO SCH (09:00)
[2017-10-07] MEDS ORDERED: BUMETANIDE 1 MG TAB PO SCH (09:00)
[2017-10-07] MEDS: SODIUM CHLORIDE 0.9% FLUSH 10 ML FLUSH IV FLUSH SCH (10:33)
[2017-10-07] MEDS: DOCUSATE SODIUM 100 MG CAP PO SCH (10:33)
[2017-10-07] MEDS: RAMIPRIL 2.5 MG CAP PO SCH (10:33)
[2017-10-07] MEDS: ASPIRIN EC 81 MG TABEC PO SCH (10:33)
[2017-10-07] MEDS: FERROUS SULFATE 325 MG (65 MG ELEMENTAL IRON) TAB PO SCH (10:34)
[2017-10-07] MEDS: METOPROLOL TARTRATE 25 MG TAB PO SCH (10:34)
[2017-10-07] MEDS: POTASSIUM CHLORIDE 20 MEQ CONTROLLED RELEASE TAB PO SCH (10:34)
[2017-10-07 12:24] VITALS: BP 100/71; PULSE 113; RESP 22; TEMP 97.6; O2SAT 99
[2017-10-07] MEDS ORDERED: TORS100T2 PO (13:39)
--- NOTE | 2017-10-07 13:44 | HHI.DS ---
Discharge Summary Admission Date Oct 04, 2017 at 23:36 Discharge Date: Oct 07, 2017 Admitting Diagnosis (1) Combined systolic and diastolic congestive heart failure, NYHA class 4 ICD Code: I50.40 - Unspecified combined systolic (congestive) and diastolic ( congestive) heart failure Diagnosis: Principal Status: Chronic (2) Acute on chronic systolic CHF (congestive heart failure) ICD Code: I50.23 - Acute on chronic systolic (congestive) heart failure Diagnosis: Principal Status: Acute Procedures None Brief History - From Admission 52-year-old male with a past medical history significant for hypertension, history of MVR/TVR on 07/31/[address] Villavicencio, CHF (EF echo 08/22/17 with EF of less than 20%), life vest, CAD status post stenting and GERD presents to the emergency department for increased shortness of breath. The patient was discharged on 10/01/17 where he was treated for an acute CHF exacerbation. He reports that since he has been home he has had 2 days of cough productive of brown sputum. He endorses dyspnea on exertion and paroxysmal nocturnal dyspnea. He reports compliance with his medications. Temperature 99.0, pulse 108, respiratory rate 20 BP 100/60, pulse ox 98% on room air. Patient does not appear to be in any respiratory distress and does not have any lower extremity edema. Chest x-ray significant for cardiomegaly with improvement in pulmonary edema since previous. BNP elevated at 1874, was 1205 on 09/30. CBC/BMP: 10/06/17 0624 10/07/17 0800 Significant Findings Laboratory Tests Test 10/04/17 19:50 10/05/17 06:35 10/05/17 18:15 10/06/17 01:26 White Blood Count 3.0 TH/MM3 (4.0-11.0) Hemoglobin 12.9 GM/DL (13.0-17.0) Mean Corpuscular Volume 79.7 FL (80.0-100.0) Mean Corpuscular Hemoglobin 25.7 PG (27.0-34.0) 26.1 PG (27.0-34.0) Red Cell Distribution Width 22.3 % (11.6-17.2) 22.0 % (11.6-17.2) Monocytes (%) (Auto) 9.1 % (0.0-8.0) 10.3 % (0.0-8.0) Ovalocytes 1+ (NORMAL) Prothrombin Time 13.9 SEC (9.8-11.6) Blood Urea Nitrogen 32 MG/DL (7-18) 29 MG/DL (7-18) 28 MG/DL (7-18) Random Glucose 108 MG/DL (74-106) 115 MG/DL (74-106) Sodium Level 133 MEQ/L (136-145) 135 MEQ/L (136-145) 134 MEQ/L (136-145) Estimat Glomerular Filtration Rate 83 ML/MIN (>89) 86 ML/MIN (>89) B-Type Natriuretic Peptide 1874 PG/ML (0-100) Basophils (%) (Auto) 2.5 % (0.0-2.0) D-Dimer Quantitative (PE/DVT) 1.09 MG/L FEU (0.00-0.50) Total Bilirubin 2.0 MG/DL (0.2-1.0) Troponin I LESS THAN 0.02 NG/ML Test 10/06/17 06:24 10/07/17 08:00 Mean Corpuscular Volume 79.9 FL (80.0-100.0) Mean Corpuscular Hemoglobin 26.0 PG (27.0-34.0) Red Cell Distribution Width 21.7 % (11.6-17.2) Monocytes (%) (Auto) 11.7 % (0.0-8.0) Basophils (%) (Auto) 2.2 % (0.0-2.0) Blood Urea Nitrogen 25 MG/DL (7-18) Hospital Course Adam is a 52-year-old male. He has NYHA stage IV systolic congestive heart failure at baseline. He came in secondary to an acute on chronic exacerbation of his congestive heart failure. Due to his degree of heart failure, with an ejection fraction of approximately 15%, treatment for resolution was prolonged. He had an episode of chest pain and shortness of breath. Cardiac workup and evaluation for pulmonary embolism were negative. He has returned to his baseline function at this point. She reports that by mouth Lasix was not beneficial as an outpatient so he's been changed to torsemide 50 mg daily as maintenance treatment. She has demonstrated benefit from this treatment in the hospital so this treatment should work better as an outpatient. Medically stable for discharge to home today. Pt Condition on Discharge: Stable Discharge Disposition: Discharge Home Discharge Time: <= 30 minutes Discharge Instructions DIET: Follow Instructions for: Heart Healthy Diet Activities you can perform: Regular-No Restrictions Other Activity Instructions: Avoid intense exertion Follow up Referrals: Cardiology - 2 Weeks PCP Follow-up - 2 Weeks New Medications: Torsemide (Torsemide) 100 Mg Tab 50 MG PO DAILY for Fluid Balance, #30 TAB 0 Refills Continued Medications: Aspirin DR (Aspirin 81) 81 Mg Tabdr 81 MG PO DAILY for Prevent Blood Clot, #30 TAB 0 Refills Atorvastatin (Lipitor) 40 Mg Tab 40 MG PO HS for Cholesterol Management, #30 TAB 3 Refills Docusate Sodium (Dok) 100 Mg Cap 100 MG PO BID for Constipation, #60 CAP 0 Refills Ferrous Sulfate (Ferrous Sulfate) 325 Mg (65 Mg Iron) Tablet 325 MG PO BIDPC for Nutritional Supplement, #60 TAB 0 Refills Metoprolol Tartrate (Metoprolol Tartrate) 50 Mg Tab 50 MG PO BID, #60 TAB 0 Refills Multiple Vitamins W/ Minerals (Thera M Plus) 1 Tab 1 TAB PO DAILY for multi vitamin, #30 TAB 2 Refills Oxycodone-Acetaminophen (Oxycodone-Acetaminophen) 5-325 mg Tab 1 TAB PO Q4HR PRN for PAIN SCALE 1 TO 5, #40 TAB 0 Refills Potassium Chloride Microencaps (Potassium Chloride Microencaps) 20 Meq Tab 20 MEQ PO BID, #60 TAB Ramipril (Ramipril) 2.5 Mg Cap 2.5 MG PO DAILY for Blood Pressure Management, #30 CAP 3 Refills Discontinued Medications: Furosemide (Lasix) 40 Mg Tab 40 MG PO BID, #60 TAB 0 Refills Lico Mosqueda MD Oct 07, 2017 13:44
== END 2017-10-07 17:11 | disposition home or self-care (01) ==
LOC: NEPC 19:25 → NEDA 23:36 → NEPHCDU 10-05 00:31
PROVIDERS: ADMIT Hospitalist; ATTEND Hospitalist
DX: I50.43 Acute on chronic combined systolic (congestive) and diastolic (congestive) heart failure (principal); Z95.2 Presence of prosthetic heart valve; K21.9 Gastro-esophageal reflux disease without esophagitis; I25.10 Atherosclerotic heart disease of native coronary artery without angina pectoris; Z95.5 Presence of coronary angioplasty implant and graft; I11.0 Hypertensive heart disease with heart failure; R00.2 Palpitations; R42 Dizziness and giddiness; R11.0 Nausea; Z79.01 Long term (current) use of anticoagulants; E78.00 Pure hypercholesterolemia, unspecified; I25.2 Old myocardial infarction; Z95.1 Presence of aortocoronary bypass graft; Z79.899 Other long term (current) drug therapy; R00.0 Tachycardia, unspecified; R05 Cough; Z87.891 Personal history of nicotine dependence; F12.90 Cannabis use, unspecified, uncomplicated; R94.31 Abnormal electrocardiogram [ECG] [EKG]
CPT/HCPCS: 71020; 71275; 80048; 80053; 82550; 83735; 83880; 84484; 85025; 85379; 85610; 85730; 93005; 94640; 94664; 96372; 96374; 96375; 96376; 97162; 99285; G0378; G8987; G8988; J1650; J1940; J2405; Q9967

== ENCOUNTER 2017-11-13 19:28 | Emergency (ER) | payer OTHER ==
[~2017-11-13 19:28] MED LIST changes: -FURO1TAB60 PO; +TORS100T2 PO
[2017-11-13] MEDS ORDERED: IOHEXOL 350 MG/ML 10 ML VIAL (for RAD DIAG) IVCONTRAST ONE (19:29)
[2017-11-13 19:32] VITALS: BP 122/56; PULSE 123; RESP 16; TEMP 97.8; O2SAT 97
[2017-11-13 20:22] VITALS: RESP 25; O2SAT 99
[2017-11-13 20:29] VITALS: BP 110/76; PULSE 118; RESP 20; O2SAT 99
[2017-11-13] MEDS ORDERED: SODIUM CHLORIDE 0.9% FLUSH 10 ML FLUSH IVF PRN (20:30)
[2017-11-13 20:45] LABS: AUTOMATED NEUTROPHIL # 3.4 TH/MM3 (1.8-7.7); BASOPHIL # 0.1 TH/MM3 (0-0.2); EOSINOPHIL % 0.9 % (0.0-4.0); HEMATOCRIT 38.8 % (39.0-51.0); HEMOGLOBIN 13.6 GM/DL (13.0-17.0); LYMPHOCYTE # 1.2 TH/MM3 (1.0-4.8); MEAN CELL VOLUME 83.2 FL (80.0-100.0); MEAN CORPUSCULAR HEMOGLOBIN 29.2 PG (27.0-34.0); MEAN CORPUSCULAR HGB CONC 35.1 % (32.0-36.0); MEAN PLATELET VOLUME 9.3 FL (7.0-11.0); MONOCYTE # 0.5 TH/MM3 (0-0.9); NEUT % 65.1 % (16.0-70.0); PLATELET COUNT 182 TH/MM3 (150-450); RED BLOOD COUNT 4.66 MIL/MM3 (4.50-5.90); RED CELL DISTRIBUTION WIDTH 21.6 % (11.6-17.2); WHITE BLOOD COUNT 5.2 TH/MM3 (4.0-11.0)
[2017-11-13 21:00] LABS: INTERNATIONAL NORMALIZED RATIO 1.3 RATIO; PROTHROMBIN TIME - PATIENT 13.6 SEC (9.8-11.6)
[2017-11-13 21:01] LABS: D-DIMER 2.19 MG/L FEU (0.00-0.50)
[2017-11-13 21:11] LABS: ALBUMIN 3.8 GM/DL (3.4-5.0); AST (GOT) 30 U/L (15-37); BICARBONATE 23.7 MEQ/L (21.0-32.0); BLOOD UREA NITROGEN 24 MG/DL (7-18); CALCIUM 9.2 MG/DL (8.5-10.1); CHLORIDE 101 MEQ/L (98-107); CREATININE 1.14 MG/DL (0.60-1.30); GLOMERULAR FILTRATION RATE 82 ML/MIN (>89); GLUCOSE,RANDOM 94 MG/DL (74-106); MAGNESIUM 2.2 MG/DL (1.5-2.5); SODIUM (NA) 134 MEQ/L (136-145)
[2017-11-13 21:12] LABS: ALT (GPT) 31 U/L (12-78)
[2017-11-13 21:15] LABS: ALKALINE PHOSPHATASE 108 U/L (45-117); TOTAL BILIRUBIN ADULT 3.3 MG/DL (0.2-1.0); TOTAL PROTEIN 8.3 GM/DL (6.4-8.2); TROPONIN I 0.03 NG/ML (0.02-0.05)
--- NOTE | 2017-11-13 21:24 | RADRPT ---
EXAM DATE/TIME: 11/13/2017 20:59 [facility] COMPARISON: CHEST PA & LAT, October 04, 2017, 20:05. CHEST SINGLE AP, September 29, 2017, 17:26. INDICATIONS : Shortness of breath and cough. MEDICAL HISTORY : Myocardial infarction. SURGICAL HISTORY : Coronary artery stent. CABG. ENCOUNTER: Initial ACUITY: 4 - 6 days PAIN SCORE: 0/10 LOCATION: Bilateral chest FINDINGS: A single view of the chest demonstrates the lungs to be symmetrically aerated without evidence of mas s, infiltrate or effusion. The heart size is moderately enlarged. There is evidence of previous card iothoracic surgery. There is some mild pulmonary venous congestion. No significant changes compared t o the prior exam. The bony structures are stable.. CONCLUSION: 1. Pulmonary venous congestion. 2. Stable moderate cardiomegaly Julian Bennett MD on November 13, 2017 at 21:21 Board Certified Radiologist. This report was verified electronically.
--- NOTE | 2017-11-13 21:25 | RADRPT ---
EXAM DATE/TIME: 11/13/2017 21:04 [facility] COMPARISON: No previous studies available for comparison. INDICATIONS : Left leg swelling. MEDICAL HISTORY : Myocardial infarction. Congestive heart failure. Hypertension. Coronary artery disease. Anticoagulant therapy. Hyperlipidemia. Chest pain. Gastroesophageal reflux disease. SURGICAL HISTORY : Stents. ENCOUNTER: Subsequent ACUITY: 3 days PAIN SCORE: 4/10 LOCATION: Left leg. TECHNIQUE: Venous ultrasound of the leg was performed from the inguinal ligament to the proximal calf. Real-lorin e, color Doppler and spectral tracing, compression and augmentation techniques were used. FINDINGS: There is normal compressibility of the deep venous system from the inguinal region to the proximal ca lf. No echogenic clot is seen in the lumen of the common femoral, femoral, popliteal, and posterior tibial veins. There is a normal response of the venous system to proximal and distal augmentation an d respiration. CONCLUSION: No evidence of DVT. Julian Bennett MD on November 13, 2017 at 21:23 Board Certified Radiologist. This report was verified electronically.
[2017-11-13] MEDS ORDERED: FUROSEMIDE 40 MG/4 ML VIAL IV PUSH ONE (21:45)
--- NOTE | 2017-11-13 22:54 | RADRPT ---
EXAM DATE/TIME: 11/13/2017 22:39 [facility] COMPARISON: CT PULMONARY ANGIOGRAM, October 05, 2017, 19:53. INDICATIONS : Short of breath, evaluate for pulmonary emboli. IV CONTRAST: 73 cc Omnipaque 350 (iohexol) IV RADIATION DOSE: 14.99 CTDIvol (mGy) MEDICAL HISTORY : Cardiovascular disease. Hypertension. SURGICAL HISTORY : valve repair, cardiac stents ENCOUNTER: Initial ACUITY: 1 day PAIN SCALE: 4/10 LOCATION: chest TECHNIQUE: Volumetric scanning of the chest was performed using a pulmonary embolism protocol MIP images were re constructed. Using automated exposure control and adjustment of the mA and/or kV according to patien t size, radiation dose was kept as low as reasonably achievable to obtain optimal diagnostic quality images. DICOM format image data is available electronically for review and comparison. Follow-up recommendations for detected pulmonary nodules are based at a minimum on nodule size and pa tient risk factors according to Fleischner Society Guidelines. FINDINGS: PULMONARY ARTERIES: No filling defects are seen in the pulmonary arteries through the segmental level. LUNGS: There continues to be central lobar emphysema with chronic bilateral interstitial lung disease. No si gnificant changes are seen with the appearance of the lung woods. There is some scattered bulla seen in both lung woods. No definite new acute pulmonary infiltrates. There continues to be a few stable subcentimeter pulmonary nodules. PLEURAE: There is no pleural thickening or pleural effusion. MEDIASTINUM: Surgical changes are again seen in the anterior mediastinum appears to be most likely related to mayank ent's sternotomy. These post surgical changes are present on the prior study without significant mendosa ge. No definite adenopathy is seen. The heart size remains diffusely enlarged. MUSCULOSKELETAL: Stable MISCELLANEOUS: The visualized upper abdominal organs demonstrate no acute abnormality. Compared to the prior examination, there has been no new or significant changes. CONCLUSION: 1. No evidence of pulmonary embolism 2. Central lobar emphysema with chronic interstitial changes bilaterally. No significant change michael red to the prior study. 3. Stable postsurgical changes are noted in the anterior mediastinum. 4. Stable cardiomegaly. Julian Bennett MD on November 13, 2017 at 22:48 Board Certified Radiologist. This report was verified electronically.
--- NOTE | 2017-11-14 00:52 | PD ---
HPI . respiratory symptoms Chief Complaint: Respiratory Symptoms Time Seen by Provider: 20:12 Travel History International Travel<30 days: No Contact w/Intl Traveler<30days: No Traveled to known affect area: No History of Present Illness HPI 52-year-old male status post mitral valve replacement in July, with a history of CHF, recently had disruption in his medical regimen secondary to prescription air as per patient, patient notes increased shortness of breath and orthopnea over the past several days. Patient is concerned he might have acute CHF. Patient was supposed to be prescribed torsemide after recent evaluation by his physician. Patient also notes that he hasn't some left leg pain and swelling medial aspect of his thigh. Denies any chest pain or palpitations. Denies fever chills sweats or cough. PFSH Past Medical History Narrative Medical Past medical history reviewed Hx Anticoagulant Therapy: Yes Asthma: No Blood Disorders: No Anxiety: No Depression: No Heart Rhythm Problems: Yes Cancer: No Cardiovascular Problems: Yes (wears an external defibrillator) High Cholesterol: No Chemotherapy: No Chest Pain: Yes Congestive Heart Failure: Yes (stents hx) COPD: No Coronary Artery Disease: Yes Diabetes: No Diminished Hearing: No Endocrine: No GERD: Yes Genitourinary: No Hiatal Hernia: No Hypertension: Yes Immune Disorder: No Implanted Vascular Access Dvce: Yes Musculoskeletal: No Neurologic: No Psychiatric: No Reproductive: No Respiratory: No Myocardial Infarction: Yes (4 STENTS PLACED IN 2007 and 2015) Radiation Therapy: No Sleep Apnea: No Thyroid Disease: No Past Surgical History Abdominal Surgery: No AICD: No Body Medical Devices: CARDIAC STENTS Cardiac Surgery: Yes (CARDIAC STENTS X4) Coronary Artery Bypass Graft: Yes (valve repair) Coronary Stent: Yes (4) Ear Surgery: No Endocrine Surgery: No Eye Surgery: No Genitourinary Surgery: No Gynecologic Surgery: No Joint Replacement: No Oral Surgery: No Pacemaker: No Thoracic Surgery: No Other Surgery: Yes (cardiac valves replaced, and stents, and defibrillator being worn) Social History Alcohol Use: No Tobacco Use: No Substance Use: Yes ([facility]) Allergies-Medications (Allergen,Severity, Reaction): Coded Allergies: No Known Allergies (Verified Allergy, Unknown, 11/13/17) Reported Meds & Prescriptions Reported Meds & Active Scripts Active Torsemide 100 Mg Tab 50 Mg PO DAILY Potassium Chloride Microencaps 20 Meq Tab 20 Meq PO BID Ramipril 2.5 Mg Cap 2.5 Mg PO DAILY Lipitor (Atorvastatin Calcium) 40 Mg Tab 40 Mg PO HS Ferrous Sulfate 325 Mg (65 Mg Iron) Tablet 325 Mg PO BIDPC Thera M Plus (Multivitamins/Minerals Therapeutic) 1 Tab 1 Tab PO DAILY Dok (Docusate Sodium) 100 Mg Cap 100 Mg PO BID Defibrillator Jacket (Device) 1 Ea Device Ea EXTERNAL ONCE Energy = 150 Joules; VT Threshold = 150 BPM; VF Threshold = 200 BPM Use up to 90 days only Aspirin 81 (Aspirin) 81 Mg Tabdr 81 Mg PO DAILY Narrative Medication Allergies and medications reviewed Review of Systems Except as stated in HPI: all other systems reviewed are Neg General / Constitutional: No: Fever Eyes: No: Visual changes HENT: No: Headaches Cardiovascular: Positive: Edema, No: Chest Pain or Discomfort Respiratory: Positive: Shortness of Breath, Orthopnea Gastrointestinal: No: Abdominal Pain Genitourinary: No: Dysuria Musculoskeletal: No: Pain Skin: No Rash Neurologic: No: Weakness Psychiatric: No: Depression Endocrine: No: Polydipsia Hematologic/Lymphatic: No: Easy Bruising Physical Exam Narrative GENERAL: Awake and alert oriented 3 no acute distress. Oxygen saturations 1% on room air. Tachycardic at 110 bpm regular SKIN: Warm and dry. Color is normal diaphoresis cyanosis or pallor HEAD: Atraumatic. Normocephalic. EYES: Pupils equal and round. No scleral icterus. No injection or drainage. ENT: No nasal bleeding or discharge. Mucous membranes pink and moist. NECK: Trachea midline. No JVD. CARDIOVASCULAR: Regular rate and rhythm. S1-S2 tachycardia no murmurs or gallops RESPIRATORY: No accessory muscle use. Clear to auscultation. Breath sounds equal bilaterally. GASTROINTESTINAL: Abdomen soft, non-tender, nondistended. Hepatic and splenic margins not palpable. MUSCULOSKELETAL: Extremities without clubbing, cyanosis, or edema. No obvious deformities. NEUROLOGICAL: Awake and alert. No obvious cranial nerve deficits. Motor grossly within normal limits. Five out of 5 muscle strength in the arms and legs. Normal speech. PSYCHIATRIC: Appropriate mood and affect; insight and judgment normal. Data Data Last Documented VS Vital Signs Date Time Temp Pulse Resp B/P (MAP) Pulse Ox O2 Delivery O2 Flow Rate FiO2 11/13/17 20:29 118 20 110/76 (87) 99 Nasal Cannula 2.00 11/13/17 19:32 97.8 Orders Orders Complete Blood Count With Diff (11/13/17 20:17) Comprehensive Metabolic Panel (11/13/17 20:17) B-Type Natriuretic Peptide (11/13/17 20:17) D-Dimer (11/13/17 20:17) Act Partial Throm Time (Ptt) (11/13/17 20:17) Prothrombin Time / Inr (Pt) (11/13/17 20:17) Magnesium (Mg) (11/13/17 20:17) Troponin I (11/13/17 20:17) Urinalysis - C+S If Indicated (11/13/17 20:17) Iv Access Insert/Monitor (11/13/17 20:17) Electrocardiogram (11/13/17 20:17) Ecg Monitoring (11/13/17 20:17) Oximetry (11/13/17 20:17) Oxygen Administration (11/13/17 20:17) Chest, Single Ap (11/13/17 20:17) Us Leg Venous Doppler (11/13/17 20:17) Sodium Chloride 0.9% Flush (Ns Flush) (11/13/17 20:30) Furosemide Inj (Lasix Inj) (11/13/17 21:45) Ct Pulmonary Angiogram (11/13/17 ) Iohexol 350 Inj (Omnipaque 350 Inj) (11/13/17 19:29) Troponin I (11/13/17 23:35) Labs Laboratory Tests Test 11/13/17 20:23 11/14/17 00:05 White Blood Count 5.2 TH/MM3 Red Blood Count 4.66 MIL/MM3 Hemoglobin 13.6 GM/DL Hematocrit 38.8 % Mean Corpuscular Volume 83.2 FL Mean Corpuscular Hemoglobin 29.2 PG Mean Corpuscular Hemoglobin Concent 35.1 % Red Cell Distribution Width 21.6 % Platelet Count 182 TH/MM3 Mean Platelet Volume 9.3 FL Neutrophils (%) (Auto) 65.1 % Lymphocytes (%) (Auto) 23.0 % Monocytes (%) (Auto) 9.0 % Eosinophils (%) (Auto) 0.9 % Basophils (%) (Auto) 2.0 % Neutrophils # (Auto) 3.4 TH/MM3 Lymphocytes # (Auto) 1.2 TH/MM3 Monocytes # (Auto) 0.5 TH/MM3 Eosinophils # (Auto) 0.0 TH/MM3 Basophils # (Auto) 0.1 TH/MM3 CBC Comment DIFF FINAL Differential Comment Prothrombin Time 13.6 SEC Prothromb Time International Ratio 1.3 RATIO Activated Partial Thromboplast Time 27.8 SEC D-Dimer Quantitative (PE/DVT) 2.19 MG/L FEU Blood Urea Nitrogen 24 MG/DL Creatinine 1.14 MG/DL Random Glucose 94 MG/DL Total Protein 8.3 GM/DL Albumin 3.8 GM/DL Calcium Level 9.2 MG/DL Magnesium Level 2.2 MG/DL Alkaline Phosphatase 108 U/L Aspartate Amino Transf (AST/SGOT) 30 U/L Alanine Aminotransferase (ALT/SGPT) 31 U/L Total Bilirubin 3.3 MG/DL Sodium Level 134 MEQ/L Potassium Level 4.5 MEQ/L Chloride Level 101 MEQ/L Carbon Dioxide Level 23.7 MEQ/L Anion Gap 9 MEQ/L Estimat Glomerular Filtration Rate 82 ML/MIN Troponin I 0.03 NG/ML 0.04 NG/ML B-Type Natriuretic Peptide 1409 PG/ML MDM Medical Decision Making Medical Screen Exam Complete: Yes Emergency Medical Condition: Yes Medical Record Reviewed: Yes Differential Diagnosis Acute CHF, pulmonary edema, pulmonary embolus, DVT, COPD Narrative Course EKG tachycardia at 120 bpm, low voltage throughout limb leads. Somewhat slowed R-wave progression in precordial leads Chest x-ray: No acute infiltrates Laboratory examinations: Patient's troponin 0 and 3 hours normal. BNP markedly elevated at 1400, d-dimer elevated 1.02 CT pulmonary anterior chest negative for PE. No interval change of parenchymal evidence of COPD Ultrasound left lower extremity no DVT noted Patient improved with diuretics Diagnosis Primary Impression: CHF (congestive heart failure) Additional Impressions: S/P mitral valve repair S/P TVR (tricuspid valve repair) Patient Instructions: Dyspnea (ED), General Instructions Additional Instructions: Follow-up with your doctor in the morning to rectify prescriptions/medication regimen. Return for worsening Disposition: 01 DISCHARGE HOME Condition: Stable Cleve Cline MD Nov 14, 2017 00:52
--- NOTE | 2017-11-14 16:02 | EKG ---
Date Performed: 11/13/2017 Time Performed: 20:28:55 PTAGE: 52 years EKG: SINUS TACHYCARDIA POSSIBLE RIGHT VENTRICULAR HYPERTROPHY NONSPECIFIC T-WAVE ABNORMALITY ABN ORMAL ECG Since the prior tracing, there has been no significant change PREVIOUS TRACING : 10/06/2017 07.01 DOCTOR: Alvina Valdez Interpretating Date/Time 11/14/2017 16:00:10
== END 2017-11-14 02:35 | disposition home or self-care (01) ==
LOC: NEPC 19:28
DX: I11.0 Hypertensive heart disease with heart failure (principal); I50.9 Heart failure, unspecified; I25.10 Atherosclerotic heart disease of native coronary artery without angina pectoris; Z95.2 Presence of prosthetic heart valve
CPT/HCPCS: 71045; 71275; 80053; 83735; 83880; 84484; 85025; 85379; 85610; 85730; 93005; 93971; 96374; 99285; J1940; Q9967

== ENCOUNTER → 2017-11-14 | Outpatient (CLI) | payer OTHER ==
--- NOTE | 2017-11-14 17:20 | ECHRPT ---
Indication: CARDIOMYOPATHY, LIFE VEST CONCLUSIONS Moderately dilated left ventricle. Wall thickness is normal. The left ventricular systolic function is severely reduced with an estimated ejection fraction less than 20%. The left atrial size is [id number] dilated. The right atrial size is [id number] dilated. Etuq-nq-wfpfhbaq mitral valve regurgitation. There is moderate to severe tricuspid valve regurgitation. Mild pulmonary valve regurgitation. BP: / HR: Rhythm: Atrial fibrillation MEASUREMENTS (Male / Female) Normal Values Technical Quality:Fair 2D ECHO LV Diastolic Diameter PLAX 6.8 cm 4.2 - 5.9 / 3.9 - 5.3 cm LV Systolic Diameter PLAX 6.5 cm IVS Diastolic Thickness 0.9 cm 0.6 - 1.0 / 0.6 - 0.9 cm LVPW Diastolic Thickness 0.9 cm 0.6 - 1.0 / 0.6 - 0.9 cm LV Relative Wall Thickness 0.3 RV Internal Dim ED PLAX 4.2 cm LVOT Diameter 2.0 cm Aortic Root Diameter 3.3 cm LA Systolic Diameter LX 4.8 cm 3.0 - 4.0 / 2.7 - 3.8 cm M-MODE AV Cusp Separation MM 2.3 cm DOPPLER AV Peak Velocity 59.9 cm/s AV Peak Gradient 1.4 mmHg AV Mean Gradient 1.0 mmHg AV Velocity Time Integral 7.4 cm LVOT Peak Velocity 48.1 cm/s LVOT Peak Gradient 0.9 mmHg LVOT Velocity Time Integral 6.2 cm AV Area Cont Eq vti 2.6 cm AV Area Cont Eq pk 2.5 cm Mitral E Point Velocity 124.0 cm/s LV E' Lateral Velocity 6.1 cm/s Mitral E to LV E' Lateral Ratio 20.4 LV E' Septal Velocity 3.2 cm/s Mitral E to LV E' Septal Ratio 38.8 TR Peak Velocity 309.0 cm/s TR Peak Gradient 38.2 mmHg Right Atrial Pressure 10.0 mmHg Pulmonary Artery Systolic Pressu 48.2 mmHg Right Ventricular Systolic Press 48.2 mmHg PV Peak Velocity 27.1 cm/s PV Peak Gradient 0.3 mmHg FINDINGS LEFT VENTRICLE Moderately dilated left ventricle. Wall thickness is normal. The left ventricular systolic function is severely reduced with an estimated ejection fraction less than 20%. RIGHT VENTRICLE Normal right ventricular size and systolic function. LEFT ATRIUM The left atrial size is [id number] dilated. RIGHT ATRIUM The right atrial size is [id number]-[id number] dilated. ATRIAL SEPTUM No atrial level shunt is demonstrated by color flow Doppler interrogation. AORTA The aortic root and proximal ascending aorta are normal in size on limited imaging. MITRAL VALVE Frfe-pv-efefftsy mitral valve regurgitation. AORTIC VALVE Trileaflet aortic valve. No aortic valve stenosis or regurgitation. TRICUSPID VALVE There is moderate to severe tricuspid valve regurgitation. PULMONARY VALVE Mild pulmonary valve regurgitation. VESSELS The inferior vena cava is normal in size. There is less than 50% respiratory change in dimension of the inferior vena cava (abnormal). PERICARDIUM No pericardial effusion. Nestor Tate MD, FACC (Electronically Signed) Final Date:14 November 2017 17:19
== END ==
LOC: HECH 08:00
PROVIDERS: ATTEND Nuclear Medicine Nuclear Cardiology
DX: Z98.890 Other specified postprocedural states (principal); I42.9 Cardiomyopathy, unspecified
CPT/HCPCS: 93306

== ENCOUNTER 2017-12-26 08:07 | Observation (INO) | payer MEDICAID ==
[~2017-12-26] VITALS: Ht 180.3 cm; Wt 75.0 kg
[~2017-12-26 08:07] MED LIST changes: -METO50TA PO; -OXYC1TAB63 PO
[2017-12-26 17:53] VITALS: PULSE 102
[2017-12-26 19:00] VITALS: PULSE 106
[2017-12-26 20:00] VITALS: BP 105/56; PULSE 106; RESP 18; TEMP 97.8; O2SAT 94
[2017-12-26] MEDS ORDERED: MILRINONE IV SCH (20:30)
[2017-12-26] MEDS ORDERED: SODIUM CHLORID 0.9% IV SCH (20:30)
[2017-12-26] MEDS ORDERED: PILL SPLITTER OTHER PRN (20:45)
[2017-12-26] MEDS: MILRINONE INJ 20 MG in SODIUM CHLORIDE 0.9% INJ 80 ML IV SCH (21:52)
[2017-12-26] MEDS: ATORVASTATIN 40 MG TAB PO SCH (21:59)
[2017-12-26] MEDS: POTASSIUM CHLORIDE 20 MEQ CONTROLLED RELEASE TAB PO SCH (21:59)
[2017-12-26] MEDS: DOCUSATE SODIUM 100 MG CAP PO SCH (22:00)
[2017-12-26 22:31] LABS: AUTOMATED NEUTROPHIL # 2.6 TH/MM3 (1.8-7.7); BASOPHIL # 0.1 TH/MM3 (0-0.2); EOSINOPHIL # 0.2 TH/MM3 (0-0.4); EOSINOPHIL % 4.7 % (0.0-4.0); HEMATOCRIT 44.3 % (39.0-51.0); HEMOGLOBIN 14.4 GM/DL (13.0-17.0); LYMPHOCYTE # 1.2 TH/MM3 (1.0-4.8); MEAN CELL VOLUME 84.7 FL (80.0-100.0); MEAN CORPUSCULAR HEMOGLOBIN 27.5 PG (27.0-34.0); MEAN CORPUSCULAR HGB CONC 32.5 % (32.0-36.0); MEAN PLATELET VOLUME 9.1 FL (7.0-11.0); MONO % 9.8 % (0.0-8.0); MONOCYTE # 0.4 TH/MM3 (0-0.9); NEUT % 56.5 % (16.0-70.0); PLATELET COUNT 181 TH/MM3 (150-450); RED BLOOD COUNT 5.23 MIL/MM3 (4.50-5.90); RED CELL DISTRIBUTION WIDTH 18.4 % (11.6-17.2); WHITE BLOOD COUNT 4.5 TH/MM3 (4.0-11.0)
[2017-12-26 22:35] LABS: INTERNATIONAL NORMALIZED RATIO 1.2 RATIO; PROTHROMBIN TIME - PATIENT 12.6 SEC (9.8-11.6)
[2017-12-26 22:55] LABS: ALBUMIN 3.6 GM/DL (3.4-5.0); AST (GOT) 18 U/L (15-37); BICARBONATE 26.9 MEQ/L (21.0-32.0); BLOOD UREA NITROGEN 19 MG/DL (7-18); CALCIUM 9.2 MG/DL (8.5-10.1); CHLORIDE 101 MEQ/L (98-107); CREATININE 1.11 MG/DL (0.60-1.30); GLOMERULAR FILTRATION RATE 85 ML/MIN (>89); GLUCOSE,RANDOM 107 MG/DL (74-106); SODIUM (NA) 139 MEQ/L (136-145)
[2017-12-26 22:56] LABS: ALT (GPT) 23 U/L (12-78)
[2017-12-26 22:59] LABS: ALKALINE PHOSPHATASE 125 U/L (45-117); TOTAL BILIRUBIN ADULT 2.7 MG/DL (0.2-1.0)
[2017-12-26 23:00] VITALS: BP 92/60; PULSE 100; PULSE 97; RESP 18; TEMP 98; O2SAT 95
[2017-12-26] MEDS: SACUBITRIL/VALSARTAN 24 MG-26 MG TAB PO SCH (23:04)
[2017-12-26] MEDS: TEMAZEPAM 15 MG CAP PO PRN (23:05)
[2017-12-27] VITALS (15 sets, daily range): BP systolic 90–107; BP diastolic 53–66; PULSE 83–118; RESP 16–18; TEMP 97.8–98.9; O2SAT 92–98
[2017-12-27] MEDS: MILRINONE INJ 20 MG in SODIUM CHLORIDE 0.9% INJ 80 ML IV SCH ×3 (02:11→20:00)
[2017-12-27] MEDS: ASPIRIN EC 81 MG TABEC PO SCH (09:36)
[2017-12-27] MEDS: FERROUS SULFATE 325 MG (65 MG ELEMENTAL IRON) TAB PO SCH ×2 (09:36→17:07)
[2017-12-27] MEDS: DOCUSATE SODIUM 100 MG CAP PO SCH ×2 (09:36→21:02)
[2017-12-27] MEDS: MULTIVITAMINS/MINERALS THERAPEUTIC TAB PO SCH (09:36)
[2017-12-27] MEDS: SACUBITRIL/VALSARTAN 24 MG-26 MG TAB PO SCH ×2 (09:38→21:02)
[2017-12-27] MEDS: POTASSIUM CHLORIDE 20 MEQ CONTROLLED RELEASE TAB PO SCH ×2 (12:47→21:02)
[2017-12-27] MEDS: TORSEMIDE 20 MG TAB PO SCH (12:47)
--- NOTE | 2017-12-27 20:30 | EKG ---
Date Performed: 12/27/2017 Time Performed: 01:00:34 PTAGE: 52 years EKG: Sinus tachycardia Right axis deviation Inferior/lateral T wave changes may be due to myocar dial ischemia Abnormal ECG PREVIOUS TRACING : 11/13/2017 20.28 Since the previous tracing, no significant change noted DOCTOR: Roge Lamb Interpretating Date/Time 12/27/2017 20:29:45
[2017-12-27] MEDS: TEMAZEPAM 15 MG CAP PO PRN (21:03)
[2017-12-27] MEDS: ATORVASTATIN 40 MG TAB PO SCH (21:03)
[2017-12-28] VITALS (27 sets, daily range): BP systolic 90–118; BP diastolic 50–83; PULSE 63–131; RESP 16–20; TEMP 97.9–98.5; O2SAT 94–98
[2017-12-28] MEDS: MILRINONE INJ 20 MG in SODIUM CHLORIDE 0.9% INJ 80 ML IV SCH (04:09)
[2017-12-28] MEDS: DOCUSATE SODIUM 100 MG CAP PO SCH ×2 (10:39→21:48)
[2017-12-28] MEDS: TORSEMIDE 20 MG TAB PO SCH (10:39)
[2017-12-28] MEDS: SACUBITRIL/VALSARTAN 24 MG-26 MG TAB PO SCH ×2 (10:40→21:48)
[2017-12-28] MEDS: POTASSIUM CHLORIDE 20 MEQ CONTROLLED RELEASE TAB PO SCH ×2 (10:40→21:48)
[2017-12-28] MEDS: ASPIRIN EC 81 MG TABEC PO SCH (10:40)
[2017-12-28] MEDS: FERROUS SULFATE 325 MG (65 MG ELEMENTAL IRON) TAB PO SCH ×2 (10:44→18:03)
[2017-12-28] MEDS: MULTIVITAMINS/MINERALS THERAPEUTIC TAB PO SCH (10:44)
[2017-12-28] MEDS: ACETAMINOPHEN 325 MG TAB PO PRN (19:24)
[2017-12-28] MEDS: ATORVASTATIN 40 MG TAB PO SCH (21:48)
[2017-12-28] MEDS: TEMAZEPAM 15 MG CAP PO PRN (21:51)
--- NOTE | 2017-12-28 22:19 | HHI.PR ---
Subjective Remarks Feeling better Less SOB Objective Vital Signs Date Time Temp Pulse Resp B/P (MAP) Pulse Ox O2 Delivery O2 Flow Rate FiO2 12/28/17 18:00 126 12/28/17 17:00 120 12/28/17 16:01 130 12/28/17 15:28 98.5 63 18 109/83 (92) 97 12/28/17 15:01 124 12/28/17 14:00 122 12/28/17 13:00 118 12/28/17 12:53 97.9 118 18 113/74 (87) 96 12/28/17 12:24 98.1 118 20 118/70 (86) 98 12/28/17 12:12 128 12/28/17 11:14 118 12/28/17 09:36 121 12/28/17 08:35 116 12/28/17 08:35 98.1 118 16 90/51 (64) 94 12/28/17 07:22 121 12/28/17 06:00 126 12/28/17 05:00 123 12/28/17 04:09 122 91/50 12/28/17 04:00 125 12/28/17 03:06 130 12/28/17 03:00 98.0 122 91/50 (64) 94 12/28/17 02:00 131 12/28/17 01:00 119 12/28/17 00:00 120 12/27/17 23:00 97.9 83 90/53 (65) 92 12/27/17 23:00 93 I/O 12/27/17 12/27/17 12/27/17 12/28/17 12/28/17 12/28/17 07:00 15:00 23:00 07:00 15:00 23:00 Intake Total 700 ml 600 ml 357 ml 1250.2 ml 550 ml 480 ml Output Total 1150 ml 500 ml 800 ml 475 ml 500 ml 1300 ml Balance -450 ml 100 ml -443 ml 775.2 ml 50 ml -820 ml Intake Oral 600 ml 600 ml 240 ml 1140 ml 480 ml 480 ml IV Total 100 ml 117 ml 110.2 ml 70 ml Output Urine Total 1150 ml 500 ml 800 ml 475 ml 500 ml 1300 ml # Voids 1 # Bowel Movements 0 1 Result Diagram: 12/26/17212912/26/172129 Imaging Alert, fully oriented, in bed Lungs: ventilated Heart: S1, S2 regular, no gallop Abdomen: soft, no mass Ext: no edema Current Medications Medications (Trade) Dose Ordered Sig/Gela Route Start Time Stop Time Status Last Admin (Ecotrin Ec) 81 mg DAILY PO 12/27/17 09:00 12/28/17 10:40 (Lipitor) 40 mg HS PO 12/26/17 21:00 12/28/17 21:48 (Colace) 100 mg BID PO 12/26/17 21:00 12/28/17 21:48 (Ferrous Sulfate) 325 mg BIDPC PO 12/27/17 09:00 12/28/17 18:03 (Theragran M Tab) 1 tab DAILY PO 12/27/17 09:00 12/28/17 10:44 (KCl) 20 meq BID PO 12/26/17 21:00 12/28/17 21:48 (Demadex) 50 mg DAILY PO 12/27/17 09:00 12/28/17 10:39 (Entresto 24-26 Mg) 1 tab BID PO 12/26/17 21:00 12/28/17 21:48 (Pill Splitter) 1 ea UNSCH PRN OTHER 12/26/17 20:45 (Restoril) 15 mg HS PRN PO 12/26/17 21:00 12/28/17 21:51 (Tylenol) 650 mg Q4H PRN PO 12/28/17 19:15 12/28/17 19:24 Assessment and Plan Problem List: (1) Acute on chronic systolic CHF (congestive heart failure) ICD Codes: I50.23 - Acute on chronic systolic (congestive) heart failure Status: Acute Plan: Patient condition significantly improve Less SOB Milrinone DC this morning Able to tolerate flat bed On Entresto EF 15% at the most ICD will be implanted tomorrow Patient will need to be referred for transplant evaluation (2) HTN (hypertension) ICD Codes: I10 - Essential (primary) hypertension Status: Chronic Plan: SBP was 113 on evaluation HR high. If BP continue to be OK, BB will be reevaluated Baislia Marino MD Dec 28, 2017 22:19
[2017-12-28] MEDS ORDERED: MUPIROCIN 2% OINT 1 APPLIC/GM SYR NASAL SCH (22:30)
[2017-12-28] MEDS ORDERED: POVIDONE IODINE 5% (ANTISEPSIS KIT) 4 APPLICATIONS EACH NARE SCH (22:30)
[2017-12-28] MEDS ORDERED: CHLORHEXIDINE GLUCONATE 2 % 1 PACK (2 CLOTHS) TOP SCH (22:30)
[2017-12-29] VITALS (20 sets, daily range): BP systolic 84–101; BP diastolic 54–71; PULSE 92–122; RESP 14–18; TEMP 97.6–99; O2SAT 95–98
[2017-12-29] MEDS: ACETAMINOPHEN 325 MG TAB PO PRN (08:54)
[2017-12-29] MEDS: POTASSIUM CHLORIDE 20 MEQ CONTROLLED RELEASE TAB PO SCH ×2 (08:55→22:40)
[2017-12-29] MEDS: FERROUS SULFATE 325 MG (65 MG ELEMENTAL IRON) TAB PO SCH ×2 (08:55→18:27)
[2017-12-29] MEDS: DOCUSATE SODIUM 100 MG CAP PO SCH ×2 (08:55→22:40)
[2017-12-29] MEDS: TORSEMIDE 20 MG TAB PO SCH (08:55)
[2017-12-29] MEDS: MULTIVITAMINS/MINERALS THERAPEUTIC TAB PO SCH (08:55)
[2017-12-29] MEDS: ASPIRIN EC 81 MG TABEC PO SCH (08:56)
--- NOTE | 2017-12-29 11:51 | PD.CONS ---
HPI Service [facility] Hospitalists Consult Requested By Cardiology Reason for Consult Tooth aching Primary Care Physician Unknown Diagnoses: History of Present Illness 52 years old male coronary artery disease status post stenting, status post MVR TDRwith past medical history of hypertension and he has a history of CHF echo recently soysrv53% was admitted under Dr. Marino for ICD placement, hospitalist service for asked to see patient regarding left upper tooth aching. Patient stated he has no pain right now her slightly yesterday but it went away. Patient told me he had a history of root canal in that area, by examining his oral cavity there seemed to be poor dental hygiene but no significant Look of active drainage or swelling, patient has no leukocytosis or fever. No chills no bandemia. Review of Systems All systems reviewed and was positive for what is mentioned in history of present illness otherwise negative Past Family Social History Allergies: Coded Allergies: No Known Allergies (Verified Allergy, Unknown, 11/13/17) Past Medical History Hypertension History of MVR/TVR on 07/31/[address] Villavicencio CHF (echo 08/22/17 with EF less than 20%) LifeVest CAD GERD Cardiac stenting 4, 2 stents placed in 2007, 2 stents placed in 2015 MVR/TVR Past Surgical History Cardiac stenting 4, 2 stents placed in 2007, 2 stents placed in 2015 MVR/TVR Family History Review with the patient,not aware of significant medical history related to her problem runs in the family Social History Drinks alcohol occasionally no tobacco or illicit drug abuse Physical Exam Vital Signs Vital Signs Date Time Temp Pulse Resp B/P (MAP) Pulse Ox O2 Delivery O2 Flow Rate FiO2 12/29/17 07:39 98.3 118 17 98/70 (79) 96 12/29/17 04:00 98.2 108 18 95/71 (79) 98 12/29/17 00:00 98.3 118 18 86/64 (71) 95 12/28/17 23:00 124 12/28/17 22:00 116 12/28/17 21:00 126 12/28/17 20:00 122 12/28/17 20:00 98.3 128 18 115/81 (92) 96 12/28/17 19:00 126 12/28/17 18:00 126 12/28/17 17:00 120 12/28/17 16:01 130 3/22/18 15:28 98.5 63 18 109/83 (92) 97 12/28/17 15:01 124 12/28/17 14:00 122 12/28/17 13:00 118 12/28/17 12:53 97.9 118 18 113/74 (87) 96 12/28/17 12:24 98.1 118 20 118/70 (86) 98 12/28/17 12:12 128 Physical Exam GENERAL: This is a well-nourished, well-developed patient, in no apparent distress. SKIN: No rashes, warm and dry HEAD: Atraumatic. Normocephalic. EYES: Pupils equal round and reactive. Extraocular motions intact. No scleral icterus. ENT: Nose without bleeding, or drainage, Airway patent. Poor dental hygiene, losing the left upper molar NECK: Trachea midline. Supple CARDIOVASCULAR: Regular rate and rhythm without murmurs, gallops, or rubs. RESPIRATORY: Fair air entry bilaterally. No wheezes, rales, or rhonchi. GASTROINTESTINAL: Abdomen soft, non-tender, nondistended. Positive bowel sounds MUSCULOSKELETAL: Extremities without clubbing, cyanosis, or edema. Pedal pulses appreciated NEUROLOGICAL: Awake and alert. Moves all extremity. Normal speech.no focal neurological deficit Result Diagram: 12/26/17212912/26/172129 Assessment and Plan Assessment and Plan 52 years old male with history of hypertension coronary artery disease MVR/TVR, CHF with EF 50% going for ICD placement, we were consulted for tooth aching, patient has no fever or chills, no leukocytosis or significant left shift, no signs of abscess or bacteremia. I do not see significant reason to hold the ICD placement considering the patient severe CHF and high risk for sudden cardiac , recommend broad staphylococcus prophylactic coverage perioperative. Patient need to follow-up with his dentist as an outpatient. D/W Sayed Thank you for this consultation Discussed Condition With Patient and cardiology Damian Chamberlain MD Dec 29, 2017 11:50
[2017-12-29] MEDS: SACUBITRIL/VALSARTAN 24 MG-26 MG TAB PO SCH ×2 (13:38→22:40)
[2017-12-29] MEDS ORDERED: ceFAZolin 2 GM PREMIX 50 ML IV SCH (18:00)
[2017-12-29] MEDS ORDERED: SODIUM CHLORIDE 0.9% FLUSH 10 ML FLUSH IV FLUSH PRN (18:00)
[2017-12-29] MEDS ORDERED: ACETAMINOPHEN/CODEINE 300 MG/30 MG TAB PO PRN (18:00)
[2017-12-29] MEDS ORDERED: TEMAZEPAM 15 MG CAP PO PRN (18:00)
--- NOTE | 2017-12-29 18:00 | CATHPROC ---
[employer] HIS Report Study Information Study Number Admission Scheduled Start Study Start [id number] Dec 26 2017 3:49PM 12/28/2017 Dec 29 2017 4:57PM [place] Service Cardiac Pacer/ICD Admit Source Facility Department Emergency department [facility] - Director Of Recruitment And Admissions Physician and Clinical Staff Initial Basilia Shah Form Worker Angel Lopez,YANET Form Worker Racheal Deras,RT(R) TECH2 Recorder Louise Booker BSN Scrub Primo Ortiz,RT(R) Procedures Performed Procedure Lead Insertion Equipment Time Social Media Community Manager Description Size Mfg Part Number Used/Scraped DEFIBRILLATOR, INTICA 7 VR-T 17:44 BIOTRONIK VVE-VDDR [id number] Used DX 17:31 BI[employer]RONIK LEAD, PLEXA PRO-MRI DF 65/15 [id number] Used DERMABOND, ADHESIVE SKIN [id number] 17:08 CORDIS/PACER * Used GLUE MINI *[id number] TP-1103 17:08 [employer] SUTURE, STRIP PLUS 1/2" * Used *[id number] 17:08 [employer] PACER HENRIQUEZ, LIMB * 2530 *[id number] Used [id number] 17:08 [employer] PACER PACK, PACER CUSTOM * Used *[id number] 17:31 [employer] PACER SAFE SHEATH, FR8, 13CM FR 8 [id number] Used 17:50 Needle Sponge Count 2 2 Used 17:50 Needle Sponge Count 2 22 Used 17:50 Needle Sponge Count 20 200 Used 17:54 Needle Sponge Count 3 3 Used SUTURE, 0 ETHIBOND [CT1] (CX21D), 8pk SUTURE, 2-0 VICRYL [CT1] ([id number]) SUTURE, 2-0 VICRYL [CT1] ([id number]) [id number] 17:08 [employer],WARM AIR CCL * Used *[id number] [facility] PAD, ELECTROSURGICAL 17:08 * [id number] *[id number] Used SURGICAL GROUNDING ORANGE [id number] 17:08 [employer]. / * Used *[id number] Equipment Model, Serial, Lot Number and Expiration Data Description Model Number Serial Number Lot Number Expiration Date DEFIBRILLATOR, INTICA 7 VR-T DX [id number] 03-08-2019 LEAD, PLEXA PRO-MRI DF 65/15 [id number] 11-08-2019 Medication Medication Total Dose (Bolus/Oral) Medication Total Dosage/Unit 2% XYLOCAINE 10 mL FENTANYL 100 mcg VERSED 3 mg Medications (Bolus/Oral) Medication Time Given Dosage/Unit Administered By Reason VERSED 12/29/2017 5:21:21 PM 2 mg Angel Lopez 2 mg VERSED given in lab by Angel Lopez RN in Right Wrist via Peripheral IV. Ordered by Raimundo Marino. FENTANYL 12/29/2017 5:22:37 PM 50 mcg Angel Lopez 50 mcg FENTANYL given in lab by Angel Lopez RN in Right Wrist via Peripheral IV. Ordered by Basilia Marino. FENTANYL 12/29/2017 5:25:15 PM 50 mcg Angel Lopez 50 mcg FENTANYL given in lab by Angel Lopez RN in Right Wrist via Peripheral IV. Ordered by Basilia Marino. VERSED 12/29/2017 5:27:51 PM 1 mg Angel Lopez 1 mg VERSED given in lab by Angel Lopez RN in Right Wrist via Peripheral IV. Ordered by Raimundo Marino 2% XYLOCAINE 12/29/2017 5:27:59 PM 10 mL Basilia Marino 10 mL 2% XYLOCAINE given in lab by Angel Lopez RN in Left chest via Subcutaneous. Ordered by Basilia Olmedo. Medication (Drip) Medication Time Given Dosage/Unit Concentration/Unit Diluent (ml) Solution ANCEF 12/29/2017 5:15:40 PM 1 g 1 g ANCEF given in lab by Angel Lopez RN in Right Wrist via Peripheral IV. Ordered by Rashawn Marino. IV Solutions 12/29/2017 5:00:17 PM 50 mL (IV) NaCl .9 IV Solutions given by Angel Lopez RN in Right Wrist via Peripheral IV. Pump/Drip Flow using NaCl .9. Ordered by Basilia Marino. VANCOMYCIN DRIP 12/29/2017 5:15:26 PM 1 g 1 g VANCOMYCIN DRIP given in lab by Angel Lopez RN in Right Wrist via Peripheral IV. Ordered by Basilia Bolaños. Initial Case Assessment Cardiovascular HR Rhythm NIBP Chest Pain [address] 91/61 0 Edema Present Skin color Skin None Normal Warm Dry Neurological State Oriented to time-place- Alert Moves all extremities person Respiration - General Respiration Rate SpO2 (%) O2 (lpm) (B/min) 16 100 0 Initial Case Assessment Cardiovascular HR Rhythm NIBP Chest Pain 94 sr 82/52 0 Edema Present Skin color Skin None Normal Warm Dry Neurological State Oriented to time-place- Alert Moves all extremities person Respiration - General Respiration Rate SpO2 (%) O2 (lpm) (B/min) 13 95 2 Chronological Log Time Study Chronological Log 16:51:59 Patient arrived via Bed. 16:52:03 Patient Name, D.O.B, / Armband Verified By R.N. 16:52:06 Consent signed by the physician and the patient and verified by the Director Of Recruitment And Admissions staff. 16:52:11 Presedation assessment performed by Director Of Recruitment And Admissions RN. 16:52:17 Immediate Presedation assesment performed by physician. 16:52:21 Patient has been NPO for More than 6Hrs. 16:53:24 Skin Breakdown- none per patient 16:57:33 Patient Warmer Placed on the Table. 16:57:34 Disposable Defibrillator Pads Placed On Patient. 16:57:35 Fouzia Prominences Protected 16:57:40 History and physical on the chart or being dictated. 16:57:44 A # 20 IV was noted in the Wrist (right). Grade = 0 IV Solutions given by Angel Lopez, YANET in Right Wrist via Peripheral IV. Pump/Drip Flow using NaCl .9. Ordered by 17:00:17 Basilia Marino. 17:00:36 Table restraints applied according to hospital policy 17:10:25 2% CHLORHEXIDINE GLUCONATE WASH AND NASAL SWIPE DONE PRIOR TO PROCEDURE. Assessment: Initial Case, RH=676 BPM, Rhythm=st, NIBP=91/61 mmhg, Chest Pain=0, Edema=None, Col or=Normal, Skin = Warm, Dry 17:10:48 Neurological: State=Alert, Ox3, CHEUNG Respiration: Resp=16 B/min, XqM3=427 %, O2=0 lpm 17:12:00 Bovie ground pad applied to: right thigh 17:15:26 1 g VANCOMYCIN DRIP given in lab by Angel Lopez, RN in Right Wrist via Peripheral IV. Or dered by Basilia Marino. 17:15:40 1 g ANCEF given in lab by Angel Lopez RN in Right Wrist via Peripheral IV. Ordered by Basilia Bolaños. 17:17:18 Bilateral Upper Chest Prepped Times Two. First Sponge And Instrument Count Done by Basilia Marino. 17:18:20 Hypo's: 3, Sponges: 20, Bovie/scratch: 2 Sutures: 10, Blades: 1, Instruments: 26, Syveck Patches: 0 17:21:21 2 mg VERSED given in lab by Angel Lopez RN in Right Wrist via Peripheral IV. Ordered by Basilia Marino. 17:22:16 Reference ECG taken 17:22:37 50 mcg FENTANYL given in lab by Angel Lopez RN in Right Wrist via Peripheral IV. Ordere d by Basilia Marino. 17:25:15 50 mcg FENTANYL given in lab by Angel Lopez RN in Right Wrist via Peripheral IV. Ordere d by Basilia Marino. Time Out. Correct patient, procedure, procedure equipment, site and side verified with physicia n present. Time 17:27:02 concurred by MD, individual staff and SESSIONS CLERK. Time Out #2 - Consents verified, patient in correct position, all results are labled and displa yed, safety precautions 17:27:05 taken, antibiotics administered. Time out concurred by MD, individual staff and SESSIONS CLERK in procedu re 17:27:10 Case Start 17:27:51 1 mg VERSED given in lab by Angel Lopez RN in Right Wrist via Peripheral IV. Ordered by Basilia Marino. 17:27:59 10 mL 2% XYLOCAINE given in lab by Angel Lopez RN in Left chest via Subcutaneous. Order ed by Basilia Marino. 17:29:26 Vascular access was obtained in the Subclav. Vein (Lft. 17:29:37 Surgical Incision Made. 17:30:22 A pocket was created at the L Upper Chest. 17:31:15 A SAFE SHEATH, FR8, 13CM FR 8 was advanced into the Fem Vein (right) using the Percutaneous technique. 17:31:50 A LEAD, PLEXA PRO-MRI DF 65/15 was inserted and positioned in the RV. 17:41:34 Lead placement verified under fluoroscopy 17:41:49 The RV lead impedance and threshold being tested. 17:43:12 The RV lead was sutured to the fascia. 17:44:54 Pocket flushed with antibiotic solution 17:46:05 A DEFIBRILLATOR, INTICA 7 VR-T DX VVE-VDDR was connected and placed in the pocket. 17:49:33 The pocket is being closed. second Sponge And Instrument Count Done by Basilia Marino. 17:50:14 Hypo's: 2, Sponges: 20, Bovie/scratch: 2 Sutures: 10, Blades: 1, Instruments: 26, Syveck Patches: 0 17:51:37 Case End 17:52:52 CIC called. Spoke to [place] Final Sponge And Instrument Count Done by Basilia Marino. 17:54:13 Hypo's: 3, Sponges: 20, Bovie/scratch: 2 Sutures: 10, Blades: 1, Instruments: 26, Syveck Patches: 0 17:55:44 The pocket was closed. 17:55:55 Steri-strips and a sterile dressing applied to site. Assessment: Initial Case, HR=94 BPM, Rhythm=sr, NIBP=82/52 mmhg, Chest Pain=0, Edema=None, Col or=Normal, Skin = Warm, Dry 17:58:30 Neurological: State=Alert, Ox3, CHEUNG Respiration: Resp=13 B/min, SpO2=95 %, O2=2 lpm 17:59:28 No case complications noted. 17:59:29 Cine recording checked. 17:59:37 Bedside Report will be given. 17:59:39 Implantable Device card placed in patient's chart. 17:59:57 Implant Procedure was performed. 18:00:00 A ICD Implant . (Single) 18:04:58 A sling was placed on the affected arm. 18:05:12 [facility] Study - Contrast Media Used In Study Contrast Total Opened (mL) Total Used (mL) Total Wasted (mL) Unspecified 0 0 0 End Study - Radiation Exposure Fluoro Time (minutes) 8.7 End Study - Patient Disposition Complications Transferred To Telemetry Bed
--- NOTE | 2017-12-29 19:13 | RADRPT ---
EXAM DATE/TIME: 12/29/2017 18:27 [place] COMPARISON: CHEST SINGLE AP, November 13, 2017, 20:59. INDICATIONS : Evaluate for pneumothorax. MEDICAL HISTORY : Cardiovascular disease. Hypertension. SURGICAL HISTORY : valve repair, cardiac stents ENCOUNTER: Subsequent ACUITY: 2 days PAIN SCORE: Non-responsive. LOCATION: Bilateral chest FINDINGS: Sternotomy and pacer lead in right ventricle. Cardiomegaly. No pneumothorax. Mild basilar atelectasis . CONCLUSION: 1. Cardiomegaly with mild basilar atelectasis. No pneumothorax. Previous mitral valve surgery. Frankie Burns MD on December 29, 2017 at 19:10 Board Certified Radiologist. This report was verified electronically.
[2017-12-29] MEDS: ATORVASTATIN 40 MG TAB PO SCH (22:39)
[2017-12-29] MEDS: ACETAMINOPHEN/CODEINE 300 MG/30 MG TAB PO PRN (22:40)
[2017-12-29] MEDS: SODIUM CHLORIDE 0.9% FLUSH 10 ML FLUSH IV FLUSH SCH (22:40)
[2017-12-29] MEDS: TEMAZEPAM 15 MG CAP PO PRN (22:44)
[2017-12-30] VITALS (10 sets, daily range): BP systolic 82–87; BP diastolic 55–57; PULSE 86–104; RESP 16–18; TEMP 97.8–98.4; O2SAT 97
[2017-12-30] MEDS: CEFAZOLIN INJ 2,000 MG in SODIUM CHLORIDE 0.9% INJ 100 ML IV SCH ×2 (01:00→10:08)
[2017-12-30] MEDS: ACETAMINOPHEN/CODEINE 300 MG/30 MG TAB PO PRN (04:27)
[2017-12-30] MEDS ORDERED: CEPH-460 PO (09:03)
[2017-12-30] MEDS ORDERED: HYDR-3288 PO (09:03)
[2017-12-30] MEDS ORDERED: SACU1TAB PO (09:03)
--- NOTE | 2017-12-30 09:55 | PD.CARD.PN ---
Subjective Subjective Remarks Pt w/o complaints, wants to go home, he says low bp's like seen today are normal for him Objective Medications Current Medications Medications (Trade) Dose Ordered Sig/Gela Route Start Time Stop Time Status Last Admin (Ecotrin Ec) 81 mg DAILY PO 12/27/17 09:00 12/29/17 08:56 (Lipitor) 40 mg HS PO 12/26/17 21:00 12/29/17 22:39 (Colace) 100 mg BID PO 12/26/17 21:00 12/29/17 22:40 (Ferrous Sulfate) 325 mg BIDPC PO 12/27/17 09:00 12/29/17 18:27 (Theragran M Tab) 1 tab DAILY PO 12/27/17 09:00 12/29/17 08:55 (KCl) 20 meq BID PO 12/26/17 21:00 12/29/17 22:40 (Demadex) 50 mg DAILY PO 12/27/17 09:00 12/29/17 08:55 (Entresto 24-26 Mg) 1 tab BID PO 12/26/17 21:00 12/29/17 22:40 (Pill Splitter) 1 ea UNSCH PRN OTHER 12/26/17 20:45 (Restoril) 15 mg HS PRN PO 12/26/17 21:00 12/29/17 22:44 (Tylenol) 650 mg Q4H PRN PO 12/28/17 19:15 12/29/17 08:54 (Betadine 5% Antisepsis Kit) 1 applic [facility] [employer] EACH NARE 12/28/17 22:30 01/01/18 22:29 (Bactroban Nasal 2% Oint) 1 applic [facility] NASAL 12/28/17 22:30 01/01/18 22:29 (Chlorhexidine 2% Cloth) 3 pack [facility] TOP 12/28/17 22:30 01/01/18 22:29 (Restoril) 15 mg HS PRN PO 12/29/17 18:00 (Tylenol-Codeine #3) 1 tab Q4H PRN PO 12/29/17 18:00 12/30/17 04:27 (Tylenol-Codeine #3) 2 tab Q4H PRN PO 12/29/17 18:00 (NS Flush) 2 ml BID IV FLUSH 12/29/17 21:00 12/29/17 22:40 (NS Flush) 2 ml UNSCH PRN IV FLUSH 12/29/17 18:00 Cefazolin Sodium 2000 mg/Sodium Chloride 120 ml @ 240 mls/hr Q8H IV 12/30/17 01:00 12/30/17 17:29 12/30/17 01:00 Vital Signs / I&O Vital Signs Date Time Temp Pulse Resp B/P (MAP) Pulse Ox O2 Delivery O2 Flow Rate FiO2 12/30/17 05:00 104 12/30/17 04:00 100 12/30/17 03:00 97 12/30/17 03:00 98.4 100 16 87/57 (67) 97 12/30/17 02:00 98 12/30/17 01:00 104 12/30/17 00:00 104 12/29/17 23:00 98.0 98 14 86/60 (69) 97 12/29/17 23:00 100 12/29/17 22:00 100 12/29/17 21:00 104 12/29/17 20:00 97.6 98 16 101/67 (78) 96 12/29/17 20:00 98 12/29/17 19:00 92 12/29/17 18:24 99.0 99 16 84/63 (70) 96 12/29/17 16:02 98.8 95 17 90/54 (66) 97 12/29/17 14:01 104 12/29/17 13:00 102 12/29/17 12:37 92/63 (73) 12/29/17 12:11 99.0 95 17 87/56 (66) 96 12/29/17 12:00 104 12/29/17 11:00 104 12/29/17 10:00 122 I/O 12/29/17 12/29/17 12/29/17 12/30/17 12/30/17 12/30/17 07:00 15:00 23:00 07:00 15:00 23:00 Intake Total 240 ml 50 ml 480 ml Output Total 400 ml 650 ml 300 ml Balance -160 ml -600 ml 180 ml Intake Oral 240 ml 50 ml 480 ml Output Urine Total 400 ml 650 ml 300 ml # Voids 1 # Bowel Movements 0 1 Physical Exam GENERAL: This is a well-nourished, well-developed patient, in no apparent distress. CARDIOVASCULAR: Regular rate and rhythm without murmurs, gallops, or rubs. RESPIRATORY: Clear to auscultation. Breath sounds equal bilaterally. No wheezes , rales, or rhonchi. GASTROINTESTINAL: Abdomen soft, non-tender, nondistended. Normal active bowel sounds MUSCULOSKELETAL: Extremities without clubbing, cyanosis, or edema. NEURO: Alert & Oriented x4 to person, place, time, situation. Moves all ext x4 Imaging Last Impressions Chest X-Ray 12/29/17 0000 Signed Impressions: Service Date/Time: Friday, December 29, 2017 18:27 - CONCLUSION: 1. Cardiomegaly with mild basilar atelectasis. No pneumothorax. Previous mitral valve surgery. Frankie Burns MD Assessment and Plan Problem List: (1) CHF (congestive heart failure) ICD Codes: I50.9 - Heart failure, unspecified Status: Chronic Plan: s/p ICD, interrogation looks good; no issues, ok to d/c home. Rob Pierre MD Dec 30, 2017 09:55
[2017-12-30] MEDS: DOCUSATE SODIUM 100 MG CAP PO SCH (10:08)
[2017-12-30] MEDS: MULTIVITAMINS/MINERALS THERAPEUTIC TAB PO SCH (10:09)
[2017-12-30] MEDS: SACUBITRIL/VALSARTAN 24 MG-26 MG TAB PO SCH (10:09)
[2017-12-30] MEDS: POTASSIUM CHLORIDE 20 MEQ CONTROLLED RELEASE TAB PO SCH (10:09)
[2017-12-30] MEDS: FERROUS SULFATE 325 MG (65 MG ELEMENTAL IRON) TAB PO SCH (10:09)
[2017-12-30] MEDS: ASPIRIN EC 81 MG TABEC PO SCH (10:09)
[2017-12-30] MEDS: TORSEMIDE 20 MG TAB PO SCH (10:10)
[2017-12-30] MEDS: SODIUM CHLORIDE 0.9% FLUSH 10 ML FLUSH IV FLUSH SCH (10:16)
--- NOTE | 2017-12-30 21:50 | EKG ---
Date Performed: 12/29/2017 Time Performed: 18:44:26 PTAGE: 52 years EKG: Sinus rhythm . Possible left atrial abnormality Right axis deviation Possible anteroseptal infarct - age undetermi yasmin Abnormal ECG Compared to PREVIOUS TRACING , there is now evidence of a possible prior anteroseptal infarct that is new. There is also evidence of p. pulmonale, suggestive of right atrial enlargement. PREVIOUS TRACIN 12/27/2017 01.00 DOCTOR: Alvina Valdez Interpretating Date/Time 12/30/2017 21:48:46
--- NOTE | 2018-01-08 10:40 | PD.CARD ---
SINGLE CHAMBER DEFIB IMPLANT PROCEDURE DATE: Dec 29, 2017 NYHA Classification: Class III (Moderate) Prevention: Primary Single Chamber Defib Implant PROCEDURE: Single chamber defibrillator implantation. INDICATIONS: Mr. Medina is a 52 -year-old male with hx congestive heart failure, ejection fraction 20%, CHF III, on optimal medical management, admitted for CHF management and defibrillator implantation for sudden primary prevention. The risks, the nature and the benefit of the procedure are clearly stated to him . Risks include pneumothorax, cardiac perforation, stroke and even . He understood and agreed to proceed. PROCEDURE: After written, informed consent was obtained, the patient was brought to the EP Lab where he was prepped and draped in the sterile fashion. Conscious sedation was initiated and maintained throughout the procedure using intravenous versed and fentanyl. Once sedation was verified, the left infraclavicular area was anesthetized with 2% Xylocaine. Using modified Seldinger technique, the left subclavian vein was cannulated on one occasion and one guide wire was advanced. Then, using #11 blade scalpel, a 3-cm incision was made two fingerbreadths below left clavicle. This incision was then taken down to the deep fascial layer using Bovie cautery and blunt dissection. Into the inferomedial direction, a device pocket was dissected, then the wire was dissected into the pocket. A 2-0 Vicryl suture was placed around the wires to prevent bleeding. At this point, over the wire, the 8- Scottish dilator and introducer was advanced. As dilator and wire were removed, an active fixation right ventricular pacing, sensing and defibrillatory lead was advanced. After adequate pacing and sensing thresholds were obtained, the lead was secured in the pocket with #2 Ethibond suture. At that point, the pocket was copiously irrigated with antibiotic solution. The leads were connected to the generator and placed into the pocket. I did proceed with wound closure. The deep fascial layer was approximated with 2-0 Vicryl suture in a continuous fashion. The subcutaneous layer was approximated with 2-0 Vicryl suture in a continuous fashion. The subcuticular layer was approximated with 2-0 Vicryl suture in a continuous fashion. Dermabond adhesive was applied to the wound, followed by a sterile pressure dressing. There was no complication. The patient tolerated procedure. Blood loss minimal. 1. Implanted Hardware: The implanted defibrillator generator is a [employer], model number 636147, serial number [id number]. The right ventricular pacing, sensing and defibrillatory lead is a [employer] model number 066238, serial number [id number]. 2. Thresholds: The right ventricular pacing threshold in the bipolar mode was 0.7volts at 0.4 milliseconds, lead impedance 695 ohms and R-wave at 21.3 mV. Sensing P wave at 4.9mv. 3. Settings: The device set in VVI 40 defibrillatory portion for two zones, one zone for ventricular tachycardia between 180 and 250 beats per minute. Initial therapy consists of one burst of ATP, one ramp, 81% 10 pulse, 10 millisecond decremental, followed by 20, then 30 and all subsequent shocks at 40 joules defibrillatory shock, the second zone for ventricular fibrillation above 250 beats per minute, first therapy at 30 and all subsequent shocks at 40 joules defibrillatory shock. CONCLUSIONS: Successful defibrillator implantation. Sedation time and evaluation over an hour. COMMENT AND RECOMMENDATIONS: The patient will be transferred to the telemetry unit, will be observed and when stable can be discharged home. Basilia Marino MD Jan 08, 2018 10:40
== END 2017-12-30 11:28 | disposition home or self-care (01) ==
LOC: HCVI 15:49 → HCPC 12-27 13:27 → HCIS 12-28 12:50
PROVIDERS: ADMIT Internal Medicine Interventional Cardiology; ATTEND Internal Medicine Interventional Cardiology
DX: I11.0 Hypertensive heart disease with heart failure (principal); I50.9 Heart failure, unspecified; I25.5 Ischemic cardiomyopathy; E78.5 Hyperlipidemia, unspecified; D64.9 Anemia, unspecified; I25.2 Old myocardial infarction; K21.9 Gastro-esophageal reflux disease without esophagitis; Z79.01 Long term (current) use of anticoagulants; Z79.82 Long term (current) use of aspirin; Z82.49 Family history of ischemic heart disease and other diseases of the circulatory system
CPT/HCPCS: 33249; 71045; 80053; 85025; 85610; 85730; 93005; 96365; 96366; 96367; 96376; 99152; 99153; C1722; C1777; G0378; J0690; J2260